=== PATIENT | female | born 1955 | race Caucasian/White ===

== ENCOUNTER 2017-09-08 02:57 | Inpatient (IN) ==
[2017-09-08] MEDS ORDERED: Morphine Inj 4 MG/ML Vial IV.PUSH ONE (03:45)
[2017-09-08] MEDS ORDERED: Sod Chloride 0.9% Inj 1,000 ML IV.CONT SCH (03:45)
[2017-09-08 03:57] LABS: Bilirubin,Urine Negative (Negative); Clarity,Urine Clear (Clear); Color,Urine Straw (Yellw/Straw); Glucose,Urine (UA) Negative (Negative); Leukocyte Esterase,Urine Negative (Negative); Nitrite,Urine Negative (Negative); Specific Gravity,Urine 1.012 (1.002-1.035); Squamous Epithelial Cell,Urine 2 /hpf (0-5)
--- NOTE | 2017-09-08 04:10 | ED ---
HPI General Chief complaint: Abdominal Pain Stated complaint: ABD Pain Time Seen by Provider: 09/08/17 03:29 History of Present Illness HPI narrative: The patient is a 61 year old female who presents to the [facility] emergency department with a history of abdominal pain that she reports is been present for the last week. She reports that the abdominal pain is in the left upper quadrant and sometimes will radiate down to the left lower quadrant. She reports that she has had similar pain in the past related to a bowel obstruction. She reports that she tried to go on a clear liquid diet and this did seem to help. She reports that the pain has been constant and waxing and waning in severity, however this evening and became much worse again after she ate solids. The patient denies having any diarrhea. She reports that her last bowel movement was 2 days ago. She reports that this evening she has had nausea and vomiting 2. She has a prior history of ulcerative colitis status post partial bowel resection. 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 The patient additionally has chronic low back pain and is on hydrocodone for this. She reports that she suffers with daily constipation and uses a laxative regularly to move her bowels. The patient incidentally also reports that she has had urinary frequency throughout the day today. She denies having any dysuria or urinary urgency. On review of systems otherwise, the patient denies having any known recent fevers, cough or congestion, neck pain, chest pain, shortness of breath, or neurologic symptoms. Related Data Home Medications Medication Instructions Recorded Confirmed conjugated estrogens [Premarin] 1.25 mg PO DAILY 09/08/17 09/08/17 gabapentin 800 mg PO TID 09/08/17 09/08/17 hydrocodone-acetaminophen 1 tab PO TID PRN 09/08/17 09/08/17 levothyroxine [Synthroid] 125 mcg PO DAILY 09/08/17 09/08/17 lorazepam [Ativan] 2 mg PO TID 09/08/17 09/08/17 magnesium 500 mg PO DAILY 09/08/17 09/08/17 metoclopramide HCl [Reglan] 5 mg PO DAILY 09/08/17 09/08/17 pantoprazole [Protonix] 40 mg PO DAILY 09/08/17 09/08/17 pentosan polysulfate sodium 100 mg PO TID 09/08/17 09/08/17 [Elmiron] potassium 200 mg PO DAILY 09/08/17 09/08/17 sennosides [Senokot] 8.6 mg PO BID PRN 09/08/17 09/08/17 sodium chloride 2 tab PO DAILY 09/08/17 09/08/17 sucralfate [Carafate] 1 g PO TID 09/08/17 09/08/17 tizanidine 4 mg PO TID 09/08/17 09/08/17 Allergies Allergy/AdvReac Type Severity Reaction Status Date / Time codeine Allergy Severe Itching Verified 09/08/17 06:28 penicillin G Allergy Unknown Itching Verified 09/08/17 06:28 Sulfa (Sulfonamide Allergy Unknown Itching Verified 09/08/17 06:28 Antibiotics) SHELL FISH, MORPHINE Allergy Severe Itching Uncoded 09/08/17 06:28 Review of Systems ROS Unobtainable All other systems reviewed negative except as stated in HPI PMFSH History History Provided By: Patient Medical History Medical History Anxiety disorder (Acute) Asthma (Acute) Chronic back pain (Acute) GERD (gastroesophageal reflux disease) (Acute) H/O: hysterectomy (Acute) Hypothyroidism (Acute) Migraines (Acute) Ulcerative colitis (Acute) Surgical History Surgical History History of back surgery (Acute) History of partial colectomy (Acute) Hx of cholecystectomy (Acute) Social History Social History Substance History: No History of Abuse Second Hand Smoke Exposure: Yes Smoking Status: Never smoker How Often Do You Have a Drink Containing Alcohol: Never Exam [facility] Head: normocephalic and atraumatic Nose: no nasal discharge and no epistaxis Mouth: moist mucous membranes Eyes Sclera: normal sclerae Pupils: PERRL Neck Neck: trachea midline and no JVD Resp Effort & Inspection: no use of accessory muscles Auscultation: clear to auscultation bilaterally Cardio Rate: regular rate Rhythm: regular rhythm Heart Sounds: no murmurs GI Inspection: non-distended Palpation: soft, no hepatosplenomegaly and tender (The patient has tenderness on palpation of the left upper quadrant of the abdomen, no other tenderness on palpation of the other quadrants. No rebound, guarding, or rigidity. No tenderness on palpation of McBurney's point. Negative Zepeda sign.) Skin General: dry skin (warm) Neuro General: alert and awake Cranial Nerves: other Speech: speech normal Motor: no movement abnormalities noted Extrem General: normal to inspection, no clubbing, no cyanosis and no edema Psych Mood: congruent mood Affect: normal affect Judgment: judgment good Course Hospital Course: During the course of the patient's emergency department visit, the patient's history, examination, and differential diagnosis were reviewed with the patient. The patient was placed on a environmental monitoring specialist with oximetry and frequent blood pressure monitoring. The patient had IV access obtained and blood work sent for analysis. The patient was initially provided normal saline 1 L IV fluid bolus, morphine 4 mg IV for pain, Reglan 5 mg IV for nausea. Reevaluation(s) Reevaluation #1: The patient continued to have abdominal pain unrelieved with morphine. The patient was given Dilaudid 1 mg IV. On reevaluation, the patient recalls that she was recently told that her sedimentation rate was elevated and abdominal pain, therefore her doctor started her on a prednisone taper. She reports that she started this approximately a week ago. Reevaluation #2: After coming back from CAT scan, the patient's abdominal pain recurred and the patient was requesting additional pain relief. The patient was given another milligram of Dilaudid IV. Consultations Consultation #1: The patient's case including history, pertinent physical examination findings, and laboratory studies were discussed with Dr. Ramirez. It was agreed that the patient would be admitted to the hospitalist service. Initial Documented Vital Signs Temperature 98 F 09/08/17 03:00 Pulse Rate 90 09/08/17 03:00 Respiratory Rate 22 09/08/17 03:00 Blood Pressure 212/108 H 09/08/17 03:00 Pulse Oximetry 95 09/08/17 03:00 Last Documented Vital Signs Temperature 98 F 09/08/17 03:00 Pulse Rate 85 09/08/17 03:05 Respiratory Rate 18 09/08/17 03:05 Blood Pressure 192/115 H 09/08/17 03:05 Pulse Oximetry 95 09/08/17 03:00 Medical Decision Making MDM Narrative Medical decision making narrative: The patient's diagnostic testing is remarkable for a white count of 13.1, hemoglobin 12.1, platelets 381 with, a neutrophil percent of 68.8, PT 10, PTT 23.2 CMP is remarkable for a total bilirubin of 0.1, GFR 63, lipase 158, cardiac enzymes within normal limits. Urinalysis showed small occult blood, less than 1 RBC, otherwise unremarkable. Culture not indicated. CT scan of the abdomen and pelvis shows no acute findings according to the reading radiologist. The patient is noted to have a mild amount of stool throughout the colon. No dilated loops of small or large bowel. The patient's results were discussed with her. The patient continues to have recurrent abdominal pain requiring IV pain medication for relief. The patient will be admitted for intractable abdominal pain and observation. The patient's results were discussed with the patient, including the plan of care. I explained that further testing and/ or monitoring is indicated based on the patient's history, examination, and/ or laboratory findings. Therefore, I recommended admission for additional evaluation. The patient expressed understanding and was agreeable with this plan. The patient was admitted to the hospital in stable condition and sent to a bed under the care of the [facility] service. Differential Diagnosis Differential Diagnosis: Bowel obstruction, versus pancreatitis, versus gastritis , versus peptic ulcer disease, versus perforated bowel, versus diverticulitis Medical Records Medical records reviewed: Yes I reviewed the patient's medical records. Lab Data Lab results reviewed: Yes I reviewed the patient's lab results. Result diagrams: 09/08/17 04:05 09/08/17 04:05 Lab Results 09/08/17 09/08/17 09/08/17 Range/Units 03:46 04:05 04:05 WBC 13.1 H (4.0-11.0) th/mm3 RBC 3.89 L (4.00-5.30) mil/mm3 Hgb 12.1 (11.6-15.3) gm/dL Hct 35.8 (35.0-46.0) % MCV 91.9 (80.0-100.0) fL MCH 31.1 (27.0-34.0) pg MCHC 33.8 (32.0-36.0) % RDW 14.2 (11.6-17.2) % Plt Count 381 (150-450) th/mm3 MPV 7.3 (7.0-11.0) fL Neut % (Auto) 68.8 (16.0-70.0) % Lymph % (Auto) 23.1 (9.0-44.0) % [place] % (Auto) 6.9 (0.0-8.0) % Eos % (Auto) 0.5 (0.0-4.0) % Baso % (Auto) 0.7 (0.0-2.0) % Neut # (Auto) 9.0 H (1.8-7.7) th/mm3 Lymph # (Auto) 3.0 (1.0-4.8) th/mm3 [place] # (Auto) 0.9 (0.0-0.9) th/mm3 Eos # (Auto) 0.1 (0.0-0.4) th/mm3 Baso # (Auto) 0.1 (0.0-0.2) th/mm3 WBC Differential . Differential Comment Auto diff final PT 10.0 (9.8-11.6) sec INR 1.0 Ratio APTT 23.2 L (24.3-30.1) sec Sodium (136-145) meq/L Potassium (3.5-5.1) meq/L Chloride (98-107) meq/L Carbon Dioxide (21.0-32.0) meq/L Anion Gap (5-15) meq/L BUN (7-18) mg/dL Creatinine (0.50-1.00) mg/dL Estimated GFR (>89) mL/min Random Glucose (74-106) mg/dL Lactic Acid (0.4-2.0) mmol/L Calcium (8.5-10.1) mg/dL Total Bilirubin (0.2-1.0) mg/dL AST (15-37) U/L ALT (10-53) U/L Alkaline Phosphatase (45-117) U/L Total Creatine Kinase (26-192) U/L Troponin I (0.02-0.05) ng/mL Total Protein (6.4-8.2) g/dL Albumin (3.4-5.0) g/dL Lipase (73-393) U/L Urine Color Straw (Yellw/Straw) Urine Clarity Clear (Clear) Urine pH 7.0 (5.0-8.5) Ur Specific [place] 1.012 (1.002-1.035) Urine Protein Negative (Neg-Trace) mg/dL Urine Glucose (UA) Negative (Negative) mg/dL Urine Ketones Negative (Negative) mg/dL Urine Occult Blood Small H (Negative) Urine Nitrate Negative (Negative) Urine Bilirubin Negative (Negative) Urine Urobilinogen Less than 2 (Less than 2) mg/dL Ur Leukocyte Esterase Negative (Negative) Urine RBC Less than 1 (0-3) /hpf Urine WBC Less than 1 (0-5) /hpf Ur Squamous Epith Cells 2 (0-5) /hpf Micro UA Comment Culture not ind Urine Culture Comments Culture not ind 09/08/17 09/08/17 Range/Units 04:05 04:05 WBC (4.0-11.0) th/mm3 RBC (4.00-5.30) mil/mm3 Hgb (11.6-15.3) gm/dL Hct (35.0-46.0) % MCV (80.0-100.0) fL MCH (27.0-34.0) pg MCHC (32.0-36.0) % RDW (11.6-17.2) % Plt Count (150-450) th/mm3 MPV (7.0-11.0) fL Neut % (Auto) (16.0-70.0) % Lymph % (Auto) (9.0-44.0) % [place] % (Auto) (0.0-8.0) % Eos % (Auto) (0.0-4.0) % Baso % (Auto) (0.0-2.0) % Neut # (Auto) (1.8-7.7) th/mm3 Lymph # (Auto) (1.0-4.8) th/mm3 [place] # (Auto) (0.0-0.9) th/mm3 Eos # (Auto) (0.0-0.4) th/mm3 Baso # (Auto) (0.0-0.2) th/mm3 WBC Differential Differential Comment PT (9.8-11.6) sec INR Ratio APTT (24.3-30.1) sec Sodium 138 (136-145) meq/L Potassium 4.0 (3.5-5.1) meq/L Chloride 99 (98-107) meq/L Carbon Dioxide 27.4 (21.0-32.0) meq/L Anion Gap 12 (5-15) meq/L BUN 14 (7-18) mg/dL Creatinine 0.91 (0.50-1.00) mg/dL Estimated GFR 63 L (>89) mL/min Random Glucose 100 (74-106) mg/dL Lactic Acid 2.0 (0.4-2.0) mmol/L Calcium 10.0 (8.5-10.1) mg/dL Total Bilirubin 0.1 L (0.2-1.0) mg/dL AST 15 (15-37) U/L ALT 18 (10-53) U/L Alkaline Phosphatase 108 (45-117) U/L Total Creatine Kinase 68 (26-192) U/L Troponin I Less than 0.02 L (0.02-0.05) ng/mL Total Protein 7.6 (6.4-8.2) g/dL Albumin 3.5 (3.4-5.0) g/dL Lipase 158 (73-393) U/L Urine Color (Yellw/Straw) Urine Clarity (Clear) Urine pH (5.0-8.5) Ur Specific [place] (1.002-1.035) Urine Protein (Neg-Trace) mg/dL Urine Glucose (UA) (Negative) mg/dL Urine Ketones (Negative) mg/dL Urine Occult Blood (Negative) Urine Nitrate (Negative) Urine Bilirubin (Negative) Urine Urobilinogen (Less than 2) mg/dL Ur Leukocyte Esterase (Negative) Urine RBC (0-3) /hpf Urine WBC (0-5) /hpf Ur Squamous Epith Cells (0-5) /hpf Micro UA Comment Urine Culture Comments Imaging Data Radiologist's impression: ITS Impressions Chest X-Ray 09/08/17 03:31 CONCLUSION: The lungs are clear. Abdomen/Pelvis CT 09/08/17 04:11 CONCLUSION: 1. No acute findings. Discharge Plan Discharge Disposition Patient Disposition: 30 Still Patient Discharge Condition Condition: Stable Discharge Details Discharge Problem: Intractable abdominal pain Physicians Team ED Provider: Florina Bethea Primary Care Provider: Chance Banda Attending Provider: Marci Ramirez ED Status: Admitted Observation Patient
--- NOTE | 2017-09-08 04:12 | XR ---
EXAM DATE: 09/08/2017 4:05 AM EDT AGE/SEX: 61 years / Female INDICATIONS: Chest pain. CLINICAL DATA: This is the patient's initial encounter. Patient reports that signs and symptoms have been present for 1 day and indicates a pain score of 10/10. MEDICAL/SURGICAL HISTORY: Cardiovascular disease. Diabetes mellitus type II. Cholecystectomy. Discectomy, lumbar. Hysterectomy. COMPARISON: No prior exams available for comparison. FINDINGS: A single AP view of the chest demonstrates the lungs to be symmetrically aerated without evidence of mass, infiltrate or effusion. The cardiomediastinal contours are unremarkable. Osseous structures a re intact. CONCLUSION: The lungs are clear. Electronically signed by: Magdiel Tolbert MD 09/08/2017 4:10 AM EDT
[2017-09-08 04:23] LABS: Baso # (Auto) 0.1 th/mm3 (0.0-0.2); Baso % (Auto) 0.7 % (0.0-2.0); Eos # (Auto) 0.1 th/mm3 (0.0-0.4); Eos % (Auto) 0.5 % (0.0-4.0); Hematocrit 35.8 % (35.0-46.0); Hemoglobin 12.1 gm/dL (11.6-15.3); Lymph % (Auto) 23.1 % (9.0-44.0); Mean Corpuscular HGB Conc 33.8 % (32.0-36.0); Mean Corpuscular Hemoglobin 31.1 pg (27.0-34.0); Mean Corpuscular Volume 91.9 fL (80.0-100.0); Mean Platelet Volume 7.3 fL (7.0-11.0); Mono # (Auto) 0.9 th/mm3 (0.0-0.9); Mono % (Auto) 6.9 % (0.0-8.0); Neut % (Auto) 68.8 % (16.0-70.0); Platelet Count 381 th/mm3 (150-450); Red Blood Count 3.89 mil/mm3 (4.00-5.30); Red Cell Distribution Width 14.2 % (11.6-17.2); White Blood Count 13.1 th/mm3 (4.0-11.0)
[2017-09-08 04:31] LABS: Activated Partial Thrombo Time 23.2 sec (24.3-30.1)
[2017-09-08 04:59] LABS: Albumin 3.5 g/dL (3.4-5.0); Anion Gap 12 meq/L (5-15); Aspartate Aminotransferase 15 U/L (15-37); Blood Urea Nitrogen 14 mg/dL (7-18); Carbon Dioxide 27.4 meq/L (21.0-32.0); Chloride 99 meq/L (98-107); Glomerular Filtration Rate 63 mL/min (>89); Glucose,Random 100 mg/dL (74-106); Lipase 158 U/L (73-393); Sodium 138 meq/L (136-145)
[2017-09-08 05:00] LABS: Alanine Aminotransferase 18 U/L (10-53)
[2017-09-08 05:04] LABS: Alkaline Phosphatase 108 U/L (45-117); Total Protein 7.6 g/dL (6.4-8.2)
[2017-09-08 05:10] LABS: Creatine Kinase 68 U/L (26-192)
[2017-09-08] MEDS ORDERED: HYDROmorphone PF Inj 1 MG/ML Ampul IV.PUSH ONE ×2 (05:10→07:20)
[2017-09-08] MEDS ORDERED: HYDROmorphone PF Inj 2 MG/ML Vial ONE ×2 (05:21→08:22)
[2017-09-08] MEDS ORDERED: Gadodiamide PF Inj 287 MG/ML 10 ML Syringe (for RAD MRI) IVCONTRAST ONE (07:37)
[2017-09-08] MEDS ORDERED: Acetaminophen 325 MG Tablet PO PRN (07:57)
[2017-09-08] MEDS ORDERED: HYDROmorphone PF Inj 2 MG/ML Vial IV.PUSH ONE (08:30)
[2017-09-08] MEDS: Enoxaparin Inj 40 MG/0.4 ML Syringe SQ SCH (09:44)
--- NOTE | 2017-09-08 10:35 | P.HPIM ---
History of Present Illness Primary Care Physician: Chance Banda MD Chief Complaint: abdominal pain, nausea, vomiting History of Present Illness: The patient is a pleasant 61 year old female who has a past medical history of ulcerative colitis, GERD, anxiety disorder, asthma, chronic back pain follows with pain management as outpatient, hypothyroidism, migraines who presents to the [facility] emergency department with a history of abdominal pain that she reports is been present for the last week. She reports that the abdominal pain is in the left upper quadrant and sometimes will radiate down to the left lower quadrant. She reports that she has had similar pain in the past related to a bowel obstruction. She reports that she tried to go on a clear liquid diet and this did seem to help. She reports that the pain has been constant and waxing and waning in severity, however this evening and became much worse again after she ate solids. The patient denies having any diarrhea. She reports that her last bowel movement was 2 days ago. She reports that this evening she has had nausea and vomiting 2. She has a prior history of ulcerative colitis status post partial bowel resection. 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 The patient additionally has chronic low back pain and is on hydrocodone for this. She reports that she suffers with daily constipation and uses a laxative regularly to move her bowels. The patient incidentally also reports that she has had urinary frequency throughout the day today. She denies having any dysuria or urinary urgency. On review of systems otherwise, the patient denies having any known recent fevers, cough or congestion, neck pain, chest pain, shortness of breath, or neurologic symptoms. - Inpatient Certification If this patient has been admitted as an Inpatient: I certify that the inpatient services were ordered in accordance with Medicare regulations governing the order. This includes certification that hospital inpatient services are reasonable and necessary and in the case of services not specified as inpatient-only under 42 CFR 419.22(n), that they are appropriately provided as inpatient services in accordance to with the 2-midnight benchmark under 43 CFR 412.3(e) Plans for Post Hospital Care: Home Review of Systems ROS Reviewed and negative except as mentioned in HPI PMFSH - History History Provided By: Patient - Medical History Medical History: Medical History (Last Reviewed 09/08/17 @ 08:35 by Tayler Mayer) Anxiety disorder Asthma Chronic back pain GERD (gastroesophageal reflux disease) H/O: hysterectomy Hypothyroidism Migraines Ulcerative colitis - Surgical History Surgical History: Surgical History (Last Updated 09/08/17 @ 04:08 by Florina Bethea MD) History of back surgery History of partial colectomy Hx of cholecystectomy - Family History Family History: Family History (Last Updated 09/08/17 @ 10:30 by Marci Ramirez MD) Father Diabetes Mother Diabetes - Tobacco History Second Hand Smoke Exposure: Yes Tobacco Use In Past 30 Days: No Smoking Status: Never smoker - Alcohol History How Often Do You Have a Drink Containing Alcohol: Never - Substance Use History Substance History: No History of Abuse - Immunization History Tetanus Immunization: >5 Years Hx Influenza Vaccine This Season: Yes Medications and Allergies Active Medications: Active Medications Acetaminophen (Tylenol) 650 mg PO Q4H PRN PRN Reason: Temp > 100.4 Enoxaparin Sodium (Lovenox Inj) 40 mg SQ Q24H [facility] Last Admin: 09/08/17 09:44 Dose: 40 mg Hydromorphone HCl (Dilaudid Pf Inj) 0.5 mg IV.PUSH Q4H PRN PRN Reason: ABDOMINAL CRAMPING Sodium Chloride (Ns Inj) 1,000 mls @ 125 mls/hr IV.CONT .Q8H MARTINEZ Stop: 09/08/17 11:44 Last Admin: 09/08/17 04:17 Dose: 125 mls/hr Ondansetron HCl (Zofran Inj) 4 mg IV.PUSH Q6H PRN PRN Reason: NAUSEA OR VOMITING Sodium Chloride (Ns Flush) 2 ml IV.FLUSH PRN PRN PRN Reason: FLUSH AFTER USING IV ACCESS Allergies Allergy/AdvReac Type Severity Reaction Status Date / Time codeine Allergy Severe Itching Verified 09/08/17 06:28 penicillin G Allergy Unknown Itching Verified 09/08/17 06:28 Sulfa (Sulfonamide Allergy Unknown Itching Verified 09/08/17 06:28 Antibiotics) SHELL FISH, MORPHINE Allergy Severe Itching Uncoded 09/08/17 06:28 Home Medications Medication Instructions Recorded Confirmed Type conjugated estrogens [Premarin] 1.25 mg PO DAILY 09/08/17 09/08/17 History gabapentin 800 mg PO TID 09/08/17 09/08/17 History hydrocodone-acetaminophen 1 tab PO TID PRN 09/08/17 09/08/17 History levothyroxine [Synthroid] 125 mcg PO DAILY 09/08/17 09/08/17 History lorazepam [Ativan] 2 mg PO TID 09/08/17 09/08/17 History magnesium 500 mg PO DAILY 09/08/17 09/08/17 History metoclopramide HCl [Reglan] 5 mg PO DAILY 09/08/17 09/08/17 History pantoprazole [Protonix] 40 mg PO DAILY 09/08/17 09/08/17 History pentosan polysulfate sodium 100 mg PO TID 09/08/17 09/08/17 History [Elmiron] potassium 200 mg PO DAILY 09/08/17 09/08/17 History sennosides [Senokot] 8.6 mg PO BID PRN 09/08/17 09/08/17 History sodium chloride 2 tab PO DAILY 09/08/17 09/08/17 History sucralfate [Carafate] 1 g PO TID 09/08/17 09/08/17 History tizanidine 4 mg PO TID 09/08/17 09/08/17 History Exam Vital signs: Vital Signs 09/08/17 03:00 09/08/17 03:05 09/08/17 07:05 Temperature 98 F Pulse Rate 90 85 105 H Respiratory Rate 22 18 18 Blood Pressure 212/108 H 192/115 H Pulse Oximetry 95 95 09/08/17 07:57 Temperature Pulse Rate Respiratory Rate Blood Pressure 142/99 H Pulse Oximetry Intake & Output 09/07/17 09/08/17 09/08/17 18:59 06:59 18:59 Weight 89.1 kg Narrative: GENERAL: This is a very pleasant 61-year-old female, well-nourished, well- developed patient appears in some distress due to pain SKIN: Warm and dry. HEAD: Atraumatic. Normocephalic. EYES: Pupils equal and round. No scleral icterus. No injection or drainage. ENT: No nasal bleeding or discharge. Mucous membranes pink and moist. NECK: Trachea midline. No JVD. CARDIOVASCULAR: Regular rate and rhythm. RESPIRATORY: No accessory muscle use. Clear to auscultation. Breath sounds equal bilaterally. GASTROINTESTINAL: Midabdominal old scar. Abdomen soft, tenderness left upper abdominal quadrant, nondistended. MUSCULOSKELETAL: Extremities without clubbing, cyanosis, or edema. No obvious deformities. NEUROLOGICAL: Awake and alert. No obvious cranial nerve deficits. Motor grossly within normal limits. Five out of 5 muscle strength in the arms and legs. Normal speech. PSYCHIATRIC: Appropriate mood and affect; insight and judgment normal. Results - Labs CBC & Chem 7: 09/08/17 04:05 09/08/17 04:05 Labs: Short CBC 09/08/17 Range/Units 04:05 WBC 13.1 H (4.0-11.0) th/mm3 Hgb 12.1 (11.6-15.3) gm/dL Hct 35.8 (35.0-46.0) % Plt Count 381 (150-450) th/mm3 BMP 09/08/17 04:05 Sodium 138 Potassium 4.0 Chloride 99 Carbon Dioxide 27.4 BUN 14 Creatinine 0.91 Calcium 10.0 Cardiac Enzymes 09/08/17 Range/Units 04:05 Total Creatine Kinase 68 (26-192) U/L Troponin I Less than 0.02 L (0.02-0.05) ng/mL Liver Function 09/08/17 Range/Units 04:05 Total Bilirubin 0.1 L (0.2-1.0) mg/dL AST 15 (15-37) U/L ALT 18 (10-53) U/L Alkaline Phosphatase 108 (45-117) U/L Albumin 3.5 (3.4-5.0) g/dL Urine 09/08/17 Range/Units 03:46 Urine Color Straw (Yellw/Straw) Urine Clarity Clear (Clear) Urine pH 7.0 (5.0-8.5) Ur Specific [place] 1.012 (1.002-1.035) Urine Protein Negative (Neg-Trace) mg/dL Urine Glucose (UA) Negative (Negative) mg/dL - Imaging Impressions Chest X-Ray 09/08/17 03:31 CONCLUSION: The lungs are clear. Abdomen/Pelvis CT 09/08/17 04:11 CONCLUSION: 1. No acute findings. Caprini VTE Risk Assessment Caprini VTE Risk Assessment: Moderate/High Risk (score >= 2) Caprini Risk Assessment Model: Point Value = 1 Point Value = 2 Point Value = 3 Point Value = 5 Age 41-60 Minor surgery BMI > 25 kg/m2 Swollen legs Varicose veins or History of unexplained or recurrent spontaneous Oral contraceptives or hormone replacement Sepsis (< 1 month) Serious lung disease, including pneumonia (< 1 month) Abnormal pulmonary function Acute myocardial infarction Congestive heart failure (< 1 month) History of inflammatory bowel disease Medical patient at bed rest Age 61-74 Arthroscopic surgery Major open surgery (> 45 min) Laparoscopic surgery (> 45 min) Malignancy Confined to bed (> 72 hours) Immobilizing plaster cast Central venous access Age >= 75 History of VTE Family history of VTE Factor V Leiden Prothrombin [id number] Lupus anticoagulant Anticardiolipin antibodies Elevated serum homocysteine Heparin-induced thrombocytopenia Other congenital or acquired thrombophilia Stroke (< 1 month) Elective arthroplasty Hip, pelvis, or leg fracture Acute spinal cord injury (< 1 month) Prophylaxis Regimen: Total Risk Factor Score Risk Level Prophylaxis Regimen 0-1 Low Early ambulation 2 Moderate Order ONE of the following: *Sequential Compression Device (SCD) *Heparin 5000 units SQ BID 3-4 Higher Order ONE of the following medications: *Heparin 5000 units SQ TID *Enoxaparin/Lovenox 40 mg SQ daily (WT < 150 kg, CrCl > 30 mL/min) *Enoxaparin/Lovenox 30 mg SQ daily (WT < 150 kg, CrCl > 10-29 mL/min) *Enoxaparin/Lovenox 30 mg SQ BID (WT < 150 kg, CrCl > 30 mL/min) AND/OR *Sequential Compression Device (SCD) 5 or more Highest Order ONE of the following medications: *Heparin 5000 units SQ TID (Preferred with Epidurals) *Enoxaparin/Lovenox 40 mg SQ daily (WT < 150 kg, CrCl > 30 mL/min) *Enoxaparin/Lovenox 30 mg SQ daily (WT < 150 kg, CrCl > 10-29 mL/min) *Enoxaparin/Lovenox 30 mg SQ BID (WT < 150 kg, CrCl > 30 mL/min) AND *Sequential Compression Device (SCD) Assessment and Plan - Plan The patient is a very pleasant 61-year-old female with multiple medical problems who came to the emergency room with complaints of intractable abdominal pain, nausea and vomiting: Intractable abdominal pain/ with h/o Ulcerative colitis/ GERD (gastroesophageal reflux disease) CT abdomen reviewed and findings discussed with Dr. Bethea ED physician. No acute findings Add antiemetics Dilaudid 0.5 mg every 4 hours as needed for pain Clear liquid diet advance as tolerated We will consider consulting gastroenterology for further evaluation and recommendations Chronic medical problems appears stable. Restart home medications as appropriate: Anxiety disorder Asthma Chronic back pain follows with pain management as well Hypothyroidism Migraines DVT prophylaxis SCDs/teds/Lovenox Discussed Condition With: The patient, family at both bedside her , ED physician Dr. Bethea, nurse
[2017-09-08] MEDS ORDERED: PENTOSAN 100 MG PO SCH (13:00)
[2017-09-08] MEDS: HYDROmorphone PF Inj 2 MG/ML Vial IV.PUSH PRN ×3 (13:02→22:03)
[2017-09-08] MEDS ORDERED: hydrALAZINE 10 MG Tablet PO PRN (13:11)
[2017-09-08] MEDS: Sucralfate 1 GM Tablet PO SCH ×2 (14:17→17:39)
[2017-09-08] MEDS: Gabapentin 400 MG Capsule PO SCH ×2 (14:17→17:32)
[2017-09-08] MEDS: Potassium Chloride Inj 10 MEQ in Dextrose 5%/NaCl 0.9% Inj 1,000 ML IV.CONT SCH (22:03)
[2017-09-09] MEDS: HYDROmorphone PF Inj 2 MG/ML Vial IV.PUSH PRN ×3 (02:49→12:54)
[2017-09-09] MEDS: Levothyroxine 125 MCG Tablet PO SCH (05:28)
[2017-09-09 06:24] LABS: Baso % (Auto) 0.4 % (0.0-2.0); Eos # (Auto) 0.4 th/mm3 (0.0-0.4); Eos % (Auto) 4.5 % (0.0-4.0); Hematocrit 32.3 % (35.0-46.0); Hemoglobin 10.8 gm/dL (11.6-15.3); Lymph # (Auto) 4.1 th/mm3 (1.0-4.8); Lymph % (Auto) 43.6 % (9.0-44.0); Mean Corpuscular HGB Conc 33.5 % (32.0-36.0); Mean Corpuscular Hemoglobin 31.6 pg (27.0-34.0); Mean Corpuscular Volume 94.3 fL (80.0-100.0); Mean Platelet Volume 7.7 fL (7.0-11.0); Mono # (Auto) 0.8 th/mm3 (0.0-0.9); Mono % (Auto) 8.8 % (0.0-8.0); Neut % (Auto) 42.7 % (16.0-70.0); Platelet Count 306 th/mm3 (150-450); Red Blood Count 3.42 mil/mm3 (4.00-5.30); Red Cell Distribution Width 14.2 % (11.6-17.2); White Blood Count 9.4 th/mm3 (4.0-11.0)
[2017-09-09 07:04] LABS: Alanine Aminotransferase 15 U/L (10-53); Albumin 3.1 g/dL (3.4-5.0); Alkaline Phosphatase 83 U/L (45-117); Anion Gap 10 meq/L (5-15); Aspartate Aminotransferase 13 U/L (15-37); Blood Urea Nitrogen 12 mg/dL (7-18); Calcium 8.4 mg/dL (8.5-10.1); Carbon Dioxide 26.7 meq/L (21.0-32.0); Chloride 103 meq/L (98-107); Glomerular Filtration Rate 84 mL/min (>89); Glucose,Random 82 mg/dL (74-106); Potassium 3.8 meq/L (3.5-5.1); Sodium 140 meq/L (136-145); Total Protein 6.2 g/dL (6.4-8.2)
[2017-09-09] MEDS: Metoclopramide 10 MG Tablet PO SCH ×4 (07:32→22:01)
[2017-09-09] MEDS ORDERED: POTASSIUM 200 MG PO SCH (09:00)
[2017-09-09] MEDS: Magnesium Oxide 400 MG Tablet PO SCH (09:02)
[2017-09-09] MEDS: ESTROGENS CONJUGATED 1.25 MG PO SCH (09:02)
[2017-09-09] MEDS: Enoxaparin Inj 40 MG/0.4 ML Syringe SQ SCH (09:03)
[2017-09-09] MEDS: Sodium Chloride 1 GM Tablet PO SCH (09:03)
[2017-09-09] MEDS: Gabapentin 400 MG Capsule PO SCH ×3 (09:03→17:00)
[2017-09-09] MEDS: Sucralfate 1 GM Tablet PO SCH ×3 (09:03→17:24)
--- NOTE | 2017-09-09 11:17 | P.PN ---
Subjective Interval history: Follow-up visit ulcerative colitis, GERD, anxiety, chronic back pain with pain management and outpatient, abdominal pain, nausea, vomiting. Patient seen and examined today. at bedside. Reports she has severe abdominal pain and over left quadrant upper to lower radiates around the area into her suprapubic area, aggravated by palpation and movement, relieved by pain medication. Patient also complains of headaches states that she has some migraines takes butalbital from home. Denies pain and discomfort. Denies SOB/ dyspnea. Denies chest pain, palpitations, headaches, dizziness. Denies fevers, chills, n/ v/d. Denies hematuria, dysuria. Physical Exam Vital signs: Vital Signs 09/08/17 11:18 09/08/17 13:26 09/08/17 13:28 Temperature Pulse Rate 85 Respiratory Rate 18 15 16 Blood Pressure 222/126 H 178/77 H Pulse Oximetry 95 98 100 09/08/17 16:13 09/08/17 20:00 09/08/17 23:00 Temperature 97.9 F 97.9 F Pulse Rate 66 74 51 L Respiratory Rate 16 16 Blood Pressure 187/86 H 177/73 H Pulse Oximetry 97 95 09/08/17 23:56 09/09/17 03:10 09/09/17 03:24 Temperature 97.8 F 98.1 F Pulse Rate 60 55 L 63 Respiratory Rate 16 16 Blood Pressure 142/69 H 158/76 H Pulse Oximetry 95 95 09/09/17 08:27 09/09/17 10:53 Temperature 98.3 F Pulse Rate 59 L 58 L Respiratory Rate 16 Blood Pressure 181/81 H Pulse Oximetry 94 L Intake & Output 09/08/17 09/09/17 09/09/17 18:59 06:59 18:59 Intake Total 500 / 500 Balance 500 / 500 Intake: IV 500 / 500 NS Inj 1,000 ML @ 125 mls/hr IV 500 / 500 .CONT .Q8H [facility] Rx#:[id number] Narrative: GENERAL: This is a well-nourished, well-developed patient, in no apparent distress. SKIN: Warm and dry. HEENT: Normocephalic. Pupils equal round and reactive. Nose without bleeding. Airway patent. NECK: Trachea midline. No JVD. Supple. CARDIOVASCULAR: Regular rate and rhythm without murmurs, gallops, or rubs. RESPIRATORY: Clear to auscultation. Breath sounds equal bilaterally. No wheezes , rales, or rhonchi. GASTROINTESTINAL: Abdomen soft, nondistended. Bowel Sounds hypoactive. Tenderness to mild palpation left quadrant. MUSCULOSKELETAL: Extremities without clubbing, cyanosis, or edema. NEUROLOGICAL: Awake and alert. Oriented to time, place, person. No focal neuro deficit. Moves all extremities. Normal speech. Results - Labs CBC & Chem 7: 09/09/17 05:05 09/09/17 05:05 Laboratory Results - last 24 hr 09/09/17 09/09/17 05:05 05:05 WBC 9.4 RBC 3.42 L Hgb 10.8 L Hct 32.3 L MCV 94.3 MCH 31.6 MCHC 33.5 RDW 14.2 Plt Count 306 MPV 7.7 Neut % (Auto) 42.7 Lymph % (Auto) 43.6 [place] % (Auto) 8.8 H Eos % (Auto) 4.5 H Baso % (Auto) 0.4 Neut # (Auto) 4.0 Lymph # (Auto) 4.1 [place] # (Auto) 0.8 Eos # (Auto) 0.4 Baso # (Auto) 0.0 WBC Differential . Differential Comment Auto diff final Sodium 140 Potassium 3.8 Chloride 103 Carbon Dioxide 26.7 Anion Gap 10 BUN 12 Creatinine 0.71 Estimated GFR 84 L Random Glucose 82 Calcium 8.4 L D Total Bilirubin 0.2 AST 13 L ALT 15 Alkaline Phosphatase 83 Total Protein 6.2 L D Albumin 3.1 L Assessment and Plan - Plan The patient is a very pleasant 61-year-old female with multiple medical problems who came to the emergency room with complaints of intractable abdominal pain, nausea and vomiting: Intractable abdominal pain/ with h/o Ulcerative colitis/ GERD (gastroesophageal reflux disease) History of diverticulitis Possible gastroparesis -on narcotic medications from home, chronic constipation with obstruction -CT abdomen reviewed and findings discussed with Dr. Bethea ED physician. No acute findings -Add antiemetics reglan ACHS, zofran -Dilaudid 0.5 mg every 4 hours as needed for pain -Clear liquid diet advance as tolerated -We will consider consulting gastroenterology for further evaluation and recommendations Anxiety disorder -Continue home medications Asthma, not in exacerbation Chronic back pain follows with pain management -Dilaudid IV for breakthrough -Restart [place] Hypothyroidism -Restart home medication Migraines -Restart home medication DVT prophylaxis SCDs/teds/Lovenox Code Status: Full Code Discussed Condition With: Patient, , nursing Discharge Planning: Plan to discharge home when clinically improved.
--- NOTE | 2017-09-09 15:48 | P.CONGI ---
History of Present Illness Consult date: 09/09/17 Consult reason: Abdominal pain, history of UC Chief complaint: Intractable abdominal pain History of Present Illness: This is a 61 yo F with GI history significant for ulcerative colitis, small bowel obstruction, gastric ulcer, intestinal stricture (unsure of location). Pt is currently being managed by GI doctor at [place], Dr. Guerrero, last seen 6 months ago. Pt has history of partial sigmoid resection in 1994, not currently on any medication for her UC and has not been for some time. Reports history of intestinal stricture, unsure of location?, last had double balloon enteroscopy with stricture dilatation by Dr. Gardner 2 years ago. Pt presented to the ER yesterday with complaints of left sided abdominal pain. She states she began not feeling well about a week ago, went to her PCP who put her on Prednisone and she was instructed to take clear liquids. Pt was doing ok on clear liquids so she advanced herself to soft foods and then two days ago had her first regular consistency meal which she states made the pain worse. Pain is located in her left abdomen, constant, described as sharp. Pain is worse with food, movement, and palpation. Reports epigastric pain earlier in the week which is now resolved. Also reports nausea and two episodes of emesis yesterday, denies hematemesis and coffee ground emesis. Pt also reports no BM in 2 days but has been passing some gas. Denies hematochezia and melena. She has chronic constipation secondary to chronic opiate use and takes Symproic with good relief. Because she has been nauseous she has not taken this in a few days. Last colonoscopy 2 years ago, denies active colitis at that time. Denies ETOH and smoking. Family history significant for sister and father with UC and her mother also has some type of colitis. Sister from colon cancer. <Arlene Farias - Last Filed: 09/09/17 15:24> Review of Systems Constitutional: Reports fatigue, Reports weakness Gastrointestinal: Reports abdominal pain, Reports constipation, Reports nausea, Reports vomiting, Denies black, tarry stools, Denies bright, red blood in stools , Denies vomiting blood <Arlene Farias - Last Filed: 09/09/17 15:24> PMFSH - History History Provided By: Patient - Medical History Medical History: Medical History (Last Updated 09/08/17 @ 13:53 by Sera Howard RN) Diabetes Frequent urinary tract infections Gastroparesis Interstitial cystitis Rheumatoid arthritis Anxiety disorder Asthma Chronic back pain GERD (gastroesophageal reflux disease) H/O: hysterectomy Hypothyroidism Migraines Ulcerative colitis - Surgical History Surgical History: Surgical History (Last Updated 09/08/17 @ 04:08 by Florina Bethea MD) History of back surgery History of partial colectomy Hx of cholecystectomy - Family History Family History: Family History (Last Updated 09/08/17 @ 10:30 by Marci Ramirez MD) Father Diabetes Mother Diabetes - Tobacco History Second Hand Smoke Exposure: No Tobacco Use In Past 30 Days: No Smoking Status: Never smoker - Alcohol History How Often Do You Have a Drink Containing Alcohol: Never - Substance Use History Substance History: No History of Abuse - Travel History Recent Travel in the [place] Within the Last 8 Weeks: No Recent Travel Out of the Country Within the Last 8 Weeks: No - Immunization History Tetanus Immunization: >5 Years Hx Influenza Vaccine This Season: Yes <Arlene Farias - Last Filed: 09/09/17 15:24> - Medical History Medical History: Medical History (Last Updated 09/08/17 @ 13:53 by Sear Howard, RN) Diabetes Frequent urinary tract infections Gastroparesis Interstitial cystitis Rheumatoid arthritis Anxiety disorder Asthma Chronic back pain GERD (gastroesophageal reflux disease) H/O: hysterectomy Hypothyroidism Migraines Ulcerative colitis - Surgical History Surgical History: Surgical History (Last Updated 09/08/17 @ 04:08 by Florina Bethea MD) History of back surgery History of partial colectomy Hx of cholecystectomy - Family History Family History: Family History (Last Updated 09/08/17 @ 10:30 by Marci Ramirez MD) Father Diabetes Mother Diabetes <Linda Lara - Last Filed: 09/09/17 18:52> Medications and Allergies Active Medications: Active Medications Acetaminophen (Tylenol) 650 mg PO Q4H PRN PRN Reason: Temp > 100.4 Acetaminophen/Butalbital/Caffeine (Fioricet 50-325-40) 1 tab PO BID PRN PRN Reason: MIGRAINE HEADACHE Diphenhydramine HCl (Benadryl Inj) 25 mg IV.PUSH Q6H PRN PRN Reason: pruritus Last Admin: 09/09/17 14:40 Dose: 25 mg Enalaprilat (Vasotec Inj) 2.5 mg IV.PUSH Q8H PRN PRN Reason: BP> 160/ 90 if unable po Enoxaparin Sodium (Lovenox Inj) 40 mg SQ Q24H [facility] Last Admin: 09/09/17 09:03 Dose: 40 mg Estrogens Conjugated (Premarin) 1.25 mg PO DAILY [facility] Last Admin: 09/09/17 09:02 Dose: 1.25 mg Gabapentin (Neurontin) 800 mg PO TID [facility] Last Admin: 09/09/17 12:28 Dose: 800 mg Hydralazine HCl (Apresoline) 10 mg PO QID PRN PRN Reason: BP > 160/90 Hydromorphone HCl (Dilaudid Pf Inj) 0.5 mg IV.PUSH Q4H PRN PRN Reason: ABDOMINAL PAIN Last Admin: 09/09/17 12:54 Dose: 0.5 mg Potassium Chloride 10 meq/ (Dextrose/Sodium Chloride) 1,005 mls @ 42 mls/hr IV.CONT .[id number] [facility] Last Admin: 09/08/17 22:03 Dose: 42 mls/hr Levothyroxine Sodium (Synthroid) 125 mcg PO DAILY@0600 [facility] Last Admin: 09/09/17 05:28 Dose: 125 mcg Lorazepam (Ativan) 2 mg PO TID [facility] Last Admin: 09/09/17 12:29 Dose: 2 mg Magnesium Oxide (Mag-Ox) 400 mg PO DAILY [facility] Last Admin: 09/09/17 09:02 Dose: 400 mg Metoclopramide HCl (Reglan) 5 mg PO DAILY [facility] Last Admin: 09/09/17 09:03 Dose: 5 mg Metoclopramide HCl (Reglan Inj) 5 mg IV.PUSH Q8H PRN; Protocol PRN Reason: NAUSEA OR VOMITING Last Admin: 09/08/17 22:05 Dose: 5 mg Metoclopramide HCl (Reglan) 10 mg PO [facility] Ondansetron HCl (Zofran Inj) 4 mg IV.PUSH Q6H PRN PRN Reason: NAUSEA OR VOMITING Ondansetron HCl (Zofran Odt) 4 mg PO Q6H PRN PRN Reason: NAUSEA Last Admin: 09/09/17 12:29 Dose: 4 mg Pantoprazole Sodium (Protonix) 40 mg PO DAILY [facility] Last Admin: 09/09/17 09:03 Dose: 40 mg Pt Own Pentosan 100 (Mg) 1 each PO TID [facility] Sennosides (Senokot) 8.6 mg PO BID PRN PRN Reason: Constipation Sodium Chloride (Ns Flush) 2 ml IV.FLUSH PRN PRN PRN Reason: FLUSH AFTER USING IV ACCESS Sodium Chloride (Sodium Chloride) 1 gm PO DAILY [facility] Last Admin: 09/09/17 09:03 Dose: 1 gm Sucralfate (Carafate) 1 gm PO TID [facility] Last Admin: 09/09/17 12:28 Dose: 1 gm Tizanidine HCl (Zanaflex) 4 mg PO TID [facility] Last Admin: 09/09/17 12:29 Dose: 4 mg <Arlene Farias - Last Filed: 09/09/17 15:24> Active Medications: Active Medications Acetaminophen (Tylenol) 650 mg PO Q4H PRN PRN Reason: Temp > 100.4 Acetaminophen/Butalbital/Caffeine (Fioricet 50-325-40) 1 tab PO BID PRN PRN Reason: MIGRAINE HEADACHE Last Admin: 09/09/17 16:14 Dose: 1 tab Diphenhydramine HCl (Benadryl Inj) 25 mg IV.PUSH Q6H PRN PRN Reason: pruritus Last Admin: 09/09/17 14:40 Dose: 25 mg Enalaprilat (Vasotec Inj) 2.5 mg IV.PUSH Q8H PRN PRN Reason: BP> 160/ 90 if unable po Enoxaparin Sodium (Lovenox Inj) 40 mg SQ Q24H [facility] Last Admin: 09/09/17 09:03 Dose: 40 mg Estrogens Conjugated (Premarin) 1.25 mg PO DAILY [facility] Last Admin: 09/09/17 09:02 Dose: 1.25 mg Gabapentin (Neurontin) 800 mg PO TID [facility] Last Admin: 09/09/17 17:00 Dose: 800 mg Hydralazine HCl (Apresoline) 10 mg PO QID PRN PRN Reason: BP > 160/90 Hydromorphone HCl (Dilaudid Pf Inj) 0.5 mg IV.PUSH Q4H PRN PRN Reason: ABDOMINAL PAIN Last Admin: 09/09/17 12:54 Dose: 0.5 mg Potassium Chloride 10 meq/ (Dextrose/Sodium Chloride) 1,005 mls @ 42 mls/hr IV.CONT .[id number] [facility] Last Admin: 09/08/17 22:03 Dose: 42 mls/hr Levothyroxine Sodium (Synthroid) 125 mcg PO DAILY@0600 [facility] Last Admin: 09/09/17 05:28 Dose: 125 mcg Lorazepam (Ativan) 2 mg PO TID [facility] Last Admin: 09/09/17 17:24 Dose: 2 mg Magnesium Oxide (Mag-Ox) 400 mg PO DAILY [facility] Last Admin: 09/09/17 09:02 Dose: 400 mg Methylprednisolone Sodium Succinate (Solumedrol Inj) 40 mg IV.PUSH Q12HR [facility] Metoclopramide HCl (Reglan) 5 mg PO DAILY [facility] Last Admin: 09/09/17 09:03 Dose: 5 mg Metoclopramide HCl (Reglan Inj) 5 mg IV.PUSH Q8H PRN; Protocol PRN Reason: NAUSEA OR VOMITING Last Admin: 09/09/17 15:26 Dose: 5 mg Metoclopramide HCl (Reglan) 10 mg PO [facility] Ondansetron HCl (Zofran Inj) 4 mg IV.PUSH Q6H PRN PRN Reason: NAUSEA OR VOMITING Ondansetron HCl (Zofran Odt) 4 mg PO Q6H PRN PRN Reason: NAUSEA Last Admin: 09/09/17 12:29 Dose: 4 mg Pantoprazole Sodium (Protonix) 40 mg PO DAILY [facility] Last Admin: 09/09/17 09:03 Dose: 40 mg Pt Own Pentosan 100 (Mg) 1 each PO TID [facility] Sennosides (Senokot) 8.6 mg PO BID PRN PRN Reason: Constipation Sodium Chloride (Ns Flush) 2 ml IV.FLUSH PRN PRN PRN Reason: FLUSH AFTER USING IV ACCESS Sodium Chloride (Sodium Chloride) 1 gm PO DAILY [facility] Last Admin: 09/09/17 09:03 Dose: 1 gm Sucralfate (Carafate) 1 gm PO TID [facility] Last Admin: 09/09/17 17:24 Dose: 1 gm Tizanidine HCl (Zanaflex) 4 mg PO TID [facility] Last Admin: 09/09/17 17:24 Dose: 4 mg <Linda Lara - Last Filed: 09/09/17 18:52> Allergies Allergy/AdvReac Type Severity Reaction Status Date / Time codeine Allergy Severe Itching Verified 09/08/17 06:28 erythromycin base Allergy Intermediate Hives Verified 09/08/17 13:56 fentanyl Allergy Intermediate Hives, Verified 09/08/17 13:56 LIPS SWELLING, TORO latex Allergy Intermediate Hives Verified 09/08/17 13:56 strawberry Allergy Mild Hives Verified 09/08/17 13:56 penicillin G Allergy Unknown Itching Verified 09/08/17 06:28 Sulfa (Sulfonamide Allergy Unknown Itching Verified 09/08/17 06:28 Antibiotics) SHELL FISH, MORPHINE Allergy Severe Anaphylaxis Uncoded 09/08/17 13:56 Home Medications Medication Instructions Recorded Confirmed Type Ativan 1 mg PO HS 09/08/17 09/08/17 History [id number] 5 mg PO PRN 09/08/17 History conjugated estrogens [Premarin] 1.25 mg PO DAILY 09/08/17 09/08/17 History gabapentin 600 mg PO HS NEB 09/08/17 09/08/17 History gabapentin 800 mg PO TID 09/08/17 09/08/17 History hydrocodone-acetaminophen 1 tab PO TID PRN 09/08/17 09/08/17 History levothyroxine [Synthroid] 125 mcg PO DAILY 09/08/17 09/08/17 History lorazepam [Ativan] 2 mg PO TID 09/08/17 09/08/17 History magnesium 250 mg PO BID 09/08/17 09/08/17 History metoclopramide HCl [Reglan] 5 mg PO DAILY 09/08/17 09/08/17 History pantoprazole [Protonix] 40 mg PO BID 09/08/17 09/08/17 History pentosan polysulfate sodium 100 mg PO TID 09/08/17 09/08/17 History [Elmiron] phenazopyridine [Pyridium] 200 mg PO TID PRN 09/08/17 09/08/17 History potassium 200 mg PO DAILY 09/08/17 09/08/17 History sennosides [Senokot] 8.6 mg PO BID PRN 09/08/17 09/08/17 History sodium chloride 2 tab PO DAILY 09/08/17 09/08/17 History sucralfate [Carafate] 1 g PO TID 09/08/17 09/08/17 History tizanidine 4 mg PO TID 09/08/17 09/08/17 History Exam Vital signs: Vital Signs 09/08/17 16:13 09/08/17 20:00 09/08/17 23:00 Temperature 97.9 F 97.9 F Pulse Rate 66 74 51 L Respiratory Rate 16 16 Blood Pressure 187/86 H 177/73 H Pulse Oximetry 97 95 09/08/17 23:56 09/09/17 03:10 09/09/17 03:24 Temperature 97.8 F 98.1 F Pulse Rate 60 55 L 63 Respiratory Rate 16 16 Blood Pressure 142/69 H 158/76 H Pulse Oximetry 95 95 09/09/17 08:27 09/09/17 10:53 09/09/17 13:13 Temperature 98.3 F 98.0 F Pulse Rate 59 L 58 L 66 Respiratory Rate 16 18 Blood Pressure 181/81 H 148/71 H Pulse Oximetry 94 L 95 Intake & Output 09/08/17 09/09/17 09/09/17 18:59 06:59 18:59 Intake Total 500 / 500 Balance 500 / 500 Intake: IV 500 / 500 NS Inj 1,000 ML @ 125 mls/hr IV 500 / 500 .CONT .Q8H [facility] Rx#:[id number] - Constitutional no acute distress - Routine HEENT Exam Head: Present: normocephalic, atraumatic - Routine Respiratory Exam Present: CTA bilaterally. Absent: accessory muscle use - Routine Cardiovascular Exam Present: RRR - Routine Abdominal Exam Present: soft, normoactive bowel sounds, tenderness (left sided abdominal tenderness ), guarding. Absent: distended, rebound, firm <Arlene Farias - Last Filed: 09/09/17 15:24> Vital signs: Vital Signs 09/08/17 20:00 09/08/17 23:00 09/08/17 23:56 Temperature 97.9 F 97.8 F Pulse Rate 74 51 L 60 Respiratory Rate 16 16 Blood Pressure 177/73 H 142/69 H Pulse Oximetry 95 95 09/09/17 03:10 09/09/17 03:24 09/09/17 08:27 Temperature 98.1 F 98.3 F Pulse Rate 55 L 63 59 L Respiratory Rate 16 16 Blood Pressure 158/76 H 181/81 H Pulse Oximetry 95 94 L 09/09/17 10:53 09/09/17 13:13 09/09/17 16:00 Temperature 98.0 F 98.1 F Pulse Rate 58 L 66 84 Respiratory Rate 18 16 Blood Pressure 148/71 H 143/72 H Pulse Oximetry 95 94 L Intake & Output 09/08/17 09/09/17 09/09/17 18:59 06:59 18:59 Intake Total 500 / 500 500 / 500 Balance 500 / 500 500 / 500 Intake: IV 500 / 500 NS Inj 1,000 ML @ 125 mls/hr IV 500 / 500 .CONT .Q8H [facility] Rx#:[id number] Oral 500 / 500 <Linda Lara - Last Filed: 09/09/17 18:52> Results - Labs CBC & Chem 7: 09/09/17 05:05 09/09/17 05:05 Labs: Laboratory Results - last 24 hr 09/09/17 09/09/17 05:05 05:05 WBC 9.4 RBC 3.42 L Hgb 10.8 L Hct 32.3 L MCV 94.3 MCH 31.6 MCHC 33.5 RDW 14.2 Plt Count 306 MPV 7.7 Neut % (Auto) 42.7 Lymph % (Auto) 43.6 [place] % (Auto) 8.8 H Eos % (Auto) 4.5 H Baso % (Auto) 0.4 Neut # (Auto) 4.0 Lymph # (Auto) 4.1 [place] # (Auto) 0.8 Eos # (Auto) 0.4 Baso # (Auto) 0.0 WBC Differential . Differential Comment Auto diff final Sodium 140 Potassium 3.8 Chloride 103 Carbon Dioxide 26.7 Anion Gap 10 BUN 12 Creatinine 0.71 Estimated GFR 84 L Random Glucose 82 Calcium 8.4 L D Total Bilirubin 0.2 AST 13 L ALT 15 Alkaline Phosphatase 83 Total Protein 6.2 L D Albumin 3.1 L <Arleen Farias - Last Filed: 09/09/17 15:24> - Labs CBC & Chem 7: 09/09/17 05:05 09/09/17 05:05 Labs: Laboratory Results - last 24 hr 09/09/17 09/09/17 05:05 05:05 WBC 9.4 RBC 3.42 L Hgb 10.8 L Hct 32.3 L MCV 94.3 MCH 31.6 MCHC 33.5 RDW 14.2 Plt Count 306 MPV 7.7 Neut % (Auto) 42.7 Lymph % (Auto) 43.6 [place] % (Auto) 8.8 H Eos % (Auto) 4.5 H Baso % (Auto) 0.4 Neut # (Auto) 4.0 Lymph # (Auto) 4.1 [place] # (Auto) 0.8 Eos # (Auto) 0.4 Baso # (Auto) 0.0 WBC Differential . Differential Comment Auto diff final Sodium 140 Potassium 3.8 Chloride 103 Carbon Dioxide 26.7 Anion Gap 10 BUN 12 Creatinine 0.71 Estimated GFR 84 L Random Glucose 82 Calcium 8.4 L D Total Bilirubin 0.2 AST 13 L ALT 15 Alkaline Phosphatase 83 Total Protein 6.2 L D Albumin 3.1 L <Linda Lara - Last Filed: 09/09/17 18:52> Assessment and Plan (1) Ulcerative colitis Status: Acute Code(s): K51.90 - Ulcerative colitis, unspecified, without complications (2) Nausea and vomiting Status: Acute Code(s): R11.2 - Nausea with vomiting, unspecified (3) Constipation due to opioid therapy Status: Acute Code(s): K59.03 - Drug induced constipation; T40.2X5A - Adverse effect of other opioids, initial encounter (4) Family history of colon cancer Status: Acute Code(s): Z80.0 - Family history of malignant neoplasm of digestive organs - Plan Assessment: - Abdominal pain- states L sided abdominal pain, constant, began about a week ago and initially resolved when her PCP started her on Prednisone and told her to go on clear liquid diet. She advanced to soft foods and did OK and then had a regular consistency meal two days ago which made the pain worse. Pain worse with PO intake, moving , and palpation. CT abdomen and pelvis WO IV contrast (09/08) No acute findings. Last colonoscopy 2 years ago, states no active colitis. - History of UC S/P sigmoid resection in 1994, not currently on any medications for UC. Follows Dr. Guerrero at [facility], last saw her 6 months ago. History of intestinal stricture, previous double balloon enteroscopy with stricture dilatation 2 years ago. - Epigastric pain- earlier in the week, now resolved. States history of gastric ulcer. - Nausea and vomiting for the past few days- vomiting x 2 yesterday, denies hematemesis and coffee ground emesis. - Constipation- chronic secondary to opiate intake- takes Symporic at home but has not taken for the past few days due to vomiting- no BM x 2 days reports she is still passing gas. Denies hematochezia and melena. Plan: EGD and colonoscopy tomorrow Obtain consent Clear liquids today Mag Citrate prep NPO after MN Hold Lovenox in AM Methylprednisolone Antiemetics PRN Relistor will help if needed for opioid constipation Further recommendations based on findings of above and clinical course Pt has been seen and examined by myself and Dr. Lara and this note is written on her behalf <Arlene Farias - Last Filed: 09/09/17 15:24> (1) Ulcerative colitis Status: Acute Code(s): K51.90 - Ulcerative colitis, unspecified, without complications (2) Nausea and vomiting Status: Acute Code(s): R11.2 - Nausea with vomiting, unspecified (3) Constipation due to opioid therapy Status: Acute Code(s): K59.03 - Drug induced constipation; T40.2X5A - Adverse effect of other opioids, initial encounter (4) Family history of colon cancer Status: Acute Code(s): Z80.0 - Family history of malignant neoplasm of digestive organs - Attending Attestation seen, examined agree with above <Linda Lara - Last Filed: 09/09/17 18:52>
[2017-09-09] MEDS ORDERED: Magnesium Citrate Liq 300 ML Bottle PO ONE ×2 (16:00→18:00)
[2017-09-09] MEDS: Butalbital/APAP/Caff 50/325/40 MG Tablet PO PRN (16:14)
[2017-09-09] MEDS: MethylPREDNISolone Sod Succinate Inj 40 MG/ML Vial IV.PUSH SCH (22:02)
[2017-09-09] MEDS: Potassium Chloride Inj 10 MEQ in Dextrose 5%/NaCl 0.9% Inj 1,000 ML IV.CONT SCH (22:10)
[2017-09-10] MEDS: HYDROmorphone PF Inj 2 MG/ML Vial IV.PUSH PRN ×6 (00:18→21:02)
[2017-09-10] MEDS ORDERED: Sodium Chlor 0.9% Inj 500 ML IV.SIG SCH (06:00)
[2017-09-10] MEDS ORDERED: Metoprolol Tartrate 25 MG Tablet PO SCH (06:00)
[2017-09-10] MEDS ORDERED: Chlorhexidine Gluconate 2% 1 Pack (2 Cloths) TOPICAL SCH (06:00)
[2017-09-10] MEDS: Levothyroxine 125 MCG Tablet PO SCH (06:03)
[2017-09-10] MEDS: Sodium Chloride 1 GM Tablet PO SCH (08:24)
[2017-09-10] MEDS: Sucralfate 1 GM Tablet PO SCH ×3 (08:24→17:01)
[2017-09-10] MEDS: ESTROGENS CONJUGATED 1.25 MG PO SCH (08:24)
[2017-09-10] MEDS: Gabapentin 400 MG Capsule PO SCH ×3 (08:24→17:01)
[2017-09-10] MEDS: Magnesium Oxide 400 MG Tablet PO SCH (08:25)
[2017-09-10] MEDS: MethylPREDNISolone Sod Succinate Inj 40 MG/ML Vial IV.PUSH SCH ×2 (08:25→21:02)
--- NOTE | 2017-09-10 09:56 | P.PN ---
Subjective Interval history: Follow-up visit ulcerative colitis, GERD, anxiety, chronic back pain with pain management and outpatient, abdominal pain, nausea, vomiting. Patient seen and examined today. at bedside. States she has been having loose stools last night because of the bowel prep otherwise she continues to have left quadrant pain with sharp pain in the suprapubic area. She also continues to have some nausea. Denies SOB/ dyspnea. Denies chest pain, palpitations, headaches, dizziness. Denies fevers, chills. Denies hematuria, dysuria. Physical Exam Vital signs: Vital Signs 09/09/17 10:53 09/09/17 13:13 09/09/17 16:00 Temperature 98.0 F 98.1 F Pulse Rate 58 L 66 84 Respiratory Rate 18 16 Blood Pressure 148/71 H 143/72 H Pulse Oximetry 95 94 L 09/09/17 20:00 09/10/17 03:40 09/10/17 04:45 Temperature 98 F Pulse Rate 74 84 74 Respiratory Rate 16 18 Blood Pressure 123/63 190/83 H Pulse Oximetry 94 L 95 09/10/17 06:01 09/10/17 09:40 09/10/17 09:55 Temperature 97.9 F Pulse Rate 68 Respiratory Rate Blood Pressure 141/98 H 177/76 H Pulse Oximetry 92 L 95 Intake & Output 09/09/17 09/10/17 09/10/17 18:59 06:59 18:59 Intake Total 500 / 500 1000 / 1000 Balance 500 / 500 1000 / 1000 Weight 89.1 kg Intake: IV 1000 / 1000 KCl Inj 10 MEQ In D5W/Normal 1000 / 1000 Saline Inj 1,000 ML @ 42 mls/hr IV.CONT .[id number] [facility] Rx#: [id number] Oral 500 / 500 Other: # Bowel Movements 8 Weight On Admission 89.1 kg Narrative: GENERAL: This is a well-nourished, well-developed patient, in no apparent distress. SKIN: Warm and dry. HEENT: Normocephalic. Pupils equal round and reactive. Nose without bleeding. Airway patent. NECK: Trachea midline. No JVD. Supple. CARDIOVASCULAR: Regular rate and rhythm without murmurs, gallops, or rubs. RESPIRATORY: Clear to auscultation. Breath sounds equal bilaterally. No wheezes , rales, or rhonchi. GASTROINTESTINAL: Abdomen soft, nondistended. Bowel Sounds hypoactive. Tenderness to mild palpation left quadrant. MUSCULOSKELETAL: Extremities without clubbing, cyanosis, or edema. NEUROLOGICAL: Awake and alert. Oriented to time, place, person. No focal neuro deficit. Moves all extremities. Normal speech. Results - Labs CBC & Chem 7: 09/09/17 05:05 09/09/17 05:05 Laboratory Results - last 24 hr 09/10/17 09:40 POC Glucose 114 H Assessment and Plan - Plan The patient is a very pleasant 61-year-old female with multiple medical problems who came to the emergency room with complaints of intractable abdominal pain, nausea and vomiting: Intractable abdominal pain/ with h/o Ulcerative colitis/ GERD (gastroesophageal reflux disease) History of diverticulitis Possible gastroparesis -on narcotic medications from home, chronic constipation with obstruction -CT abdomen reviewed and findings discussed with Dr. Bethea ED physician. No acute findings -Add antiemetics reglan ACHS, zofran -Dilaudid 0.5 mg every 4 hours as needed for pain -GI consult appreciate recommendations. -N.p.o. for now. Plan for EGD colonoscopy by GI. Anxiety disorder -Continue home medications Asthma, not in exacerbation Chronic back pain follows with pain management -Dilaudid IV for breakthrough -[place] as needed Hypothyroidism -Restart home medication Migraines -Restart home medication DVT prophylaxis SCDs/teds/Lovenox Code Status: Full code Discussed Condition With: Patient, , nursing Discharge Planning: Plan to discharge home when clinically improved.
[2017-09-10] MEDS: Metoclopramide 10 MG Tablet PO SCH ×2 (10:21→21:01)
[2017-09-10] MEDS ORDERED: Lidocaine PF 1% Inj 5 ML Syringe INFILTRATN ONE (12:00)
--- NOTE | 2017-09-10 13:11 | GIPROC ---
[facility] [address] [facility]. [facility], [address] COLONOSCOPY PROCEDURE REPORT EXAM DATE: 09/10/2017 PATIENT NAME: Shreya Wallace MR #: [id number] BIRTHDATE: 1955 ENDOSCOPIST: Linda Lara MD ORDER #: [id number] TRANSPLANTER ORCHID: Jojo Cast and João Thomas STATUS: inpatient INDICATIONS: The patient is a 61 yr old female here for a colonoscopy due to history of ulcerative colitis - PROCEDURE PERFORMED: Colonoscopy with biopsy MEDICATIONS: None and Per Anesthesia. PREP QUALITY: poor PREP TYPE:Other: ESTIMATED BLOOD LOSS: None CONSENT: The patient understands the risks and benefits of the procedure and understands that these risks include, but are not limited to: sedation, allergic reaction, infection, perforation and/or bleeding. Alternative means of evaluation and treatment include, among others: physical exam, x-rays, and/or surgical intervention. The patient elects to proceed with this endoscopic procedure. medical equipment was checked for proper function. Hand hygiene and appropriate measures for infection prevention was taken. After the risks, benefits and alternatives of the procedure were thoroughly explained, Informed consent was verified, confirmed and timeout was successfully executed by the treatment team. A digital exam revealed external hemorrhoids The Pentax EC-[id number] endoscope was introduced through the anus and advanced to the cecum, which was identified by both the appendix and ileocecal valve. The instrument was then slowly withdrawn as the colon was fully examined. COLON FINDINGS: Normal colonoscopy-random biopsies from ascending, transverse, descening surgical changes in sigmoid. Retroflexed views revealed internal hemorrhoids and Retroflexed views revealed small internal hemorrhoids The scope was then completely withdrawn from the patient and the procedure terminated. PROCEDURE WITHDRAWAL TIME:6minutes ADVERSE EVENTS: There were no complications. IMPRESSIONS: 1. Normal colonoscopy-random biopsies from ascending, transverse, descening surgical changes in sigmoid 2. Retroflexed views revealed internal hemorrhoids 3. Retroflexed views revealed small internal hemorrhoids 4. Revealed external hemorrhoids RECOMMENDATIONS: 1. Await biopsy results. Biopsy results will not be ready for 7-10 days. If you don't hear from us in two weeks, call our office for results. 2. Probiotics from any [facility] or [employer] store RECALL: Return 1 year Colonoscopy Linda Lara MD eSigned: Linda Lara MD 09/10/2017 1:10 PM cc:
--- NOTE | 2017-09-10 13:14 | GIPROC ---
[facility] [address] [facility]. [facility], [address] EGD PROCEDURE REPORT EXAM DATE: 09/10/2017 PATIENT NAME: Shreya Wallace MR #: [id number] BIRTHDATE: 1955 ATTENDING: Linda Lara MD ORDER #: [id number] PAN SHAKER: Jojo Cast and João Thomas STATUS: inpatient INDICATIONS: The patient is a 61 yr old female here for an EGD due to nausea, vomiting, gastroparesis, abdominal pain PROCEDURE PERFORMED: EGD w/ biopsy MEDICATIONS: None and Per Anesthesia. TOPICAL ANESTHETIC: none CONSENT: The patient understands the risks and benefits of the procedure and understands that these risks include, but are not limited to: sedation, allergic reaction, infection, perforation and/or bleeding. Alternative means of evaluation and treatment include, among others: physical exam, x-rays, and/or surgical intervention. The patient elects to proceed with this endoscopic procedure. medical equipment was checked for proper function. Hand hygiene and appropriate measures for infection prevention was taken. After the risks, benefits and alternatives of the procedure were thoroughly explained, Informed consent was verified, confirmed and timeout was successfully executed by the treatment team. The patient was anesthetized with topical anesthesia and the EC-[id number] (Pedi C) endoscope was introduced through the mouth and advanced to the second portion of the duodenum. Retroflexed views revealed a hiatal hernia The gastroscope was then slowly withdrawn and removed. Duodenum normal biopsy gastritis antrum-biopsy esophagitis distal esophagus -white deposits r/o gorge - retained food stomach. ADVERSE EVENTS: There were no complications. IMPRESSIONS: 1. Duodenum normal biopsy gastritis antrum-biopsy esophagitis distal esophagus -white deposits r/o gorge - retained food stomach 2. Retroflexed views revealed a hiatal hernia RECOMMENDATIONS: 1. Await biopsy results. Biopsy results will not be ready for 7-10 days. If you don't hear from us in two weeks, call our office for biopsy results. 2. Anti-reflux regimen 3. Continue PPI 4. Nystatin MRA abdomen-r/o mesenteric ischemia trial of bethanechol 10 mg po tid if not better consider egd/botox PATIENT CONDITION: stable DISPOSITION: Inpatient REPEAT EXAM: Return 1 year EGD Linad Lara MD eSigned: Linda Lara MD 09/10/2017 1:13 PM cc: PATIENT NAME: Shreya Wallace MR#: [id number]
--- NOTE | 2017-09-10 13:56 | ECG ---
Date Performed: 09/10/2017 Time Performed: 11:19:37 PTAGE: 61 years EKG: Marked baseline artifact Sinus rhythm WITH FIRST DEGREE AV BLOCK PREVIOUS TRACING : 03/27/2005 11.44 DOCTOR: Shay Curtis Interpretating Date/Time 09/10/2017 13:54:51
[2017-09-10] MEDS ORDERED: Gadodiamide PF Inj 287 MG/ML 10 ML Syringe (for RAD MRI) IVCONTRAST ONE (16:37)
--- NOTE | 2017-09-10 17:19 | MR ---
EXAM DATE: 09/10/2017 5:12 PM EDT AGE/SEX: 61 years / Female INDICATIONS: Abdominal pain. CLINICAL DATA: This is the patient's initial encounter. Patient reports that signs and symptoms have been present for 1 day and indicates a pain score of 5/10. MEDICAL/SURGICAL HISTORY: Gastroparesis. Diabetes mellitus type II. Rheumatoid arthritis. Co litis. Hysterectomy. Discectomy, lumbar. Cholecystectomy. Hip replacement. COMPARISON: [facility] [place], CT ABDOMEN & PELVIS W/O CONTRAST, 09/08/2017. . TECHNIQUE: 30 ml Omniscan (gadodiamide) contrast infused MR angiography (single exam dose) was perf ormed with digital subtraction. The data was postprocessed with a variety of visualization algorithm s including full-volume maximum-intensity projection, multiplanar sliding thin slab reformation, and curved planar reformation. FINDINGS: Abdominal Aorta: The lumen is smooth without significant narrowing or aneurysmal dilation. The pr oximal celiac and superior mesenteric arteries are patent and normal in diameter. Renal Arteries: There are solitary renal arteries bilaterally. No evidence of ostial or segmental s tenosis. Kidneys: There is symmetric renal size. There is homogeneous enhancement in the parenchyma. Bifurcation: Normal. Right Pelvis: The right common iliac, internal iliac, and external iliac vessels are patent without luminal irregularity. Left Pelvis: The left common iliac, internal iliac, and external iliac vessels are patent and withou t luminal irregularity. Retroperitoneum: The adrenal glands are unremarkable. No adenopathy seen. Multiple benign-appearing hepatic cysts are seen throughout the liver. CONCLUSION: 1. Unremarkable MRA of the abdomen. Specifically, no focal stenosis is demonstrated involving the ce liac or SMA vessels. 2. Multiple scattered benign-appearing hepatic cysts are seen throughout the liver. Electronically signed by: Ryan Carbajal MD 09/10/2017 5:18 PM EDT
[2017-09-11] MEDS: HYDROmorphone PF Inj 2 MG/ML Vial IV.PUSH PRN ×4 (00:07→19:29)
[2017-09-11] MEDS: Potassium Chloride Inj 10 MEQ in Dextrose 5%/NaCl 0.9% Inj 1,000 ML IV.CONT SCH (04:10)
[2017-09-11] MEDS: Levothyroxine 125 MCG Tablet PO SCH (06:01)
[2017-09-11] MEDS: MethylPREDNISolone Sod Succinate Inj 40 MG/ML Vial IV.PUSH SCH ×2 (10:01→21:15)
[2017-09-11] MEDS: Enoxaparin Inj 40 MG/0.4 ML Syringe SQ SCH (10:04)
[2017-09-11] MEDS: Sodium Chloride 1 GM Tablet PO SCH (10:05)
[2017-09-11] MEDS: Sucralfate 1 GM Tablet PO SCH (10:05)
[2017-09-11] MEDS: Magnesium Oxide 400 MG Tablet PO SCH (10:06)
[2017-09-11] MEDS: Gabapentin 400 MG Capsule PO SCH ×3 (10:06→17:56)
[2017-09-11] MEDS: ESTROGENS CONJUGATED 1.25 MG PO SCH (10:06)
--- NOTE | 2017-09-11 10:26 | P.PN ---
Subjective Interval history: Follow-up visit ulcerative colitis, GERD, anxiety, chronic back pain with pain management and outpatient, abdominal pain, nausea, vomiting. Patient seen and examined today. Continue to have pain, 8/10, dull, achy occasionally sharp, midepigastric region going through the left upper quadrant of the abdomen. States she is also lactose intolerant. States she was trying to eat breakfast but would start with Glucerna first and see if she tolerates. Otherwise, denies SOB/ dyspnea. Denies chest pain, palpitations, headaches, dizziness. Denies fevers, chills. Denies dysuria. Discussed with patient extensively that she will now take p.o. medication and avoid IV Dilaudid. Physical Exam Vital signs: Vital Signs 09/10/17 10:59 09/10/17 13:26 09/10/17 17:55 Temperature 97.4 F L Pulse Rate 76 67 Respiratory Rate 18 Blood Pressure 180/79 H 150/79 H Pulse Oximetry 98 09/10/17 19:45 09/10/17 20:50 09/10/17 23:45 Temperature 97.9 F 98.6 F Pulse Rate 77 74 81 Respiratory Rate 18 16 Blood Pressure 126/59 L 136/61 Pulse Oximetry 95 96 09/11/17 04:00 Temperature 98.4 F Pulse Rate 74 Respiratory Rate 16 Blood Pressure 166/83 H Pulse Oximetry 96 Intake & Output 09/10/17 09/11/17 09/11/17 18:59 06:59 18:59 Intake Total 1005 / 1005 Balance 1005 / 1005 Weight 89.1 kg Intake: IV 1005 / 1005 KCl Inj 10 MEQ In D5W/Normal 1005 / 1005 Saline Inj 1,000 ML @ 42 mls/hr IV.CONT .[id number] [facility] Rx#: [id number] Other: Weight On Admission 89.1 kg Narrative: GENERAL: This is a well-nourished, well-developed patient, in no apparent distress. SKIN: Warm and dry. HEENT: Normocephalic. Pupils equal round and reactive. Nose without bleeding. Airway patent. NECK: Trachea midline. No JVD. Supple. CARDIOVASCULAR: Regular rate and rhythm without murmurs, gallops, or rubs. RESPIRATORY: Clear to auscultation. Breath sounds equal bilaterally. No wheezes , rales, or rhonchi. GASTROINTESTINAL: Abdomen soft, nondistended. Bowel Sounds hypoactive. Tenderness to mild palpation left quadrant. MUSCULOSKELETAL: Extremities without clubbing, cyanosis, or edema. NEUROLOGICAL: Awake and alert. Oriented to time, place, person. No focal neuro deficit. Moves all extremities. Normal speech. Results - Labs CBC & Chem 7: 09/09/17 05:05 09/09/17 05:05 - Imaging Impressions Abdomen MRI 09/10/17 00:00 CONCLUSION: 1. Unremarkable MRA of the abdomen. Specifically, no focal stenosis is demonstrated involving the celiac or SMA vessels. 2. Multiple scattered benign-appearing hepatic cysts are seen throughout the liver. Assessment and Plan - Plan The patient is a very pleasant 61-year-old female with multiple medical problems who came to the emergency room with complaints of intractable abdominal pain, nausea and vomiting: Intractable abdominal pain/ with h/o Ulcerative colitis/ GERD (gastroesophageal reflux disease) History of diverticulitis Possible gastroparesis -on narcotic medications from home, chronic constipation with obstruction -CT abdomen reviewed and findings discussed with Dr. Bethea ED physician. No acute findings -Antiemetics reglan ACHS, zofran -[place] for pain, Dilaudid for breakthrough pain -GI consult appreciate recommendations. -EGD and colonoscopy done by GI. EGD with gastritis, normal duodenum, esophagitis the distal esophagus with white deposits rule out Anat retained food stomach. Hiatal hernia. Recommends 1. Await biopsy results. Biopsy results will not be ready for 7-10 days. If you don't hear from us in two weeks, call our office for biopsy results. 2. Anti-reflux regimen 3. Continue PPI 4. Nystatin MRA abdomen-r/o mesenteric ischemia, trial of bethanechol 10 mg po tid, if not better consider egd/botox -Colonoscopy showed Normal colonoscopy-random biopsies from ascending, transverse, descending, surgical changes in sigmoid. Recommends probiotics. Return for 1 year colonoscopy -Patient appears to have pain seeking behavior. Spoke with GI [employer] TECHNICIAN who states that they have not told the patient to just use dilaudid, they actually encouraged her to take PO pain meds. She told them with difficulty swallowing, recommends liquid pain meds if trouble with swallowing. Discussed with Nurse. Will cont PO norco. PO Benadryl. -Plan for EGD Botox by Wednesday. Will admit patient to inpatient. Anxiety disorder -Continue home medications Asthma, not in exacerbation Chronic back pain follows with pain management -Dilaudid IV for breakthrough -[place] as needed Hypothyroidism -Restart home medication Migraines -Restart home medication DVT prophylaxis SCDs/teds/Lovenox Code Status: Full Code Discussed Condition With: Patient, nursing Discharge Planning: Plan to discharge home when clinically improved. Plan for EGD Botox Wednesday.
[2017-09-11] MEDS: Sucralfate Liq 1 GM/10 ML UDC PO SCH ×2 (13:47→17:56)
[2017-09-11] MEDS: Metoclopramide 10 MG Tablet PO SCH ×3 (14:06→21:14)
--- NOTE | 2017-09-11 14:35 | P.PNGI ---
Subjective Interval history: Patient is resting in the bed still complaints of some burning in the esophagus and nausea but no vomiting Still has IV fluids at 42 cc an hour still has some epigastric and upper abdominal tenderness Current hemoglobin 10.8 no obvious bleeding Physical Exam Vital signs: Vital Signs 09/10/17 17:55 09/10/17 19:45 09/10/17 20:50 Temperature 97.9 F Pulse Rate 77 74 Respiratory Rate 18 Blood Pressure 150/79 H 126/59 L Pulse Oximetry 95 09/10/17 23:45 09/11/17 04:00 09/11/17 08:00 Temperature 98.6 F 98.4 F 97.4 F L Pulse Rate 81 74 67 Respiratory Rate 16 16 18 Blood Pressure 136/61 166/83 H 179/92 H Pulse Oximetry 96 96 98 Intake & Output 09/10/17 09/11/17 09/11/17 18:59 06:59 18:59 Intake Total 1005 / 1005 Balance 1005 / 1005 Weight 89.1 kg Intake: IV 1005 / 1005 KCl Inj 10 MEQ In D5W/Normal 1005 / 1005 Saline Inj 1,000 ML @ 42 mls/hr IV.CONT .[id number] [facility] Rx#: [id number] Other: Weight On Admission 89.1 kg - Constitutional mild distress - Routine HEENT Exam Head: Present: normocephalic, atraumatic Eye: Present: EOMI ENT: Present: mucous membranes moist - Routine Neck Exam Present: supple - Routine Respiratory Exam Present: CTA bilaterally - Routine Abdominal Exam Present: soft, normoactive bowel sounds, tenderness (Mild upper abdominal and gastric discomfort), distended - Routine Extremities Exam Present: full ROM - Routine Skin Exam Present: intact - Routine Neurological Exam Present: alert, normal speech - Routine Psychiatric Exam Present: anxious (Mild) Results - Labs CBC & Chem 7: 09/09/17 05:05 09/09/17 05:05 - Imaging Impressions Abdomen MRI 09/10/17 00:00 CONCLUSION: 1. Unremarkable MRA of the abdomen. Specifically, no focal stenosis is demonstrated involving the celiac or SMA vessels. 2. Multiple scattered benign-appearing hepatic cysts are seen throughout the liver. Assessment and Plan (1) Ulcerative colitis Status: Acute Code(s): K51.90 - Ulcerative colitis, unspecified, without complications (2) Nausea and vomiting Status: Acute Code(s): R11.2 - Nausea with vomiting, unspecified (3) Constipation due to opioid therapy Status: Acute Code(s): K59.03 - Drug induced constipation; T40.2X5A - Adverse effect of other opioids, initial encounter (4) Family history of colon cancer Status: Acute Code(s): Z80.0 - Family history of malignant neoplasm of digestive organs - Plan Assessment: - Abdominal pain- states L sided abdominal pain, constant, began about a week ago and initially resolved when her PCP started her on Prednisone and told her to go on clear liquid diet. She advanced to soft foods and did OK and then had a regular consistency meal two days ago which made the pain worse. Pain worse with PO intake, moving , and palpation. CT abdomen and pelvis WO IV contrast (09/08) No acute findings. Last colonoscopy 2 years ago, states no active colitis. - History of UC S/P sigmoid resection in 1994, not currently on any medications for UC. Follows Dr. Guerrero at [facility], last saw her 6 months ago. History of intestinal stricture, previous double balloon enteroscopy with stricture dilatation 2 years ago. - Epigastric pain- earlier in the week, now resolved. States history of gastric ulcer. - Nausea and vomiting for the past few days- vomiting x 2 yesterday, denies hematemesis and coffee ground emesis. - Constipation- chronic secondary to opiate intake- takes Symporic at home but has not taken for the past few days due to vomiting- no BM x 2 days reports she is still passing gas. Denies hematochezia and melena. 09/11/2017 patient is resting in the bed but still complaining of mild to moderate burning in her esophagus and nausea. Currently patient remains on IV hydration at 42 cc an hour and Carafate notes some epigastric and abdominal pain and states that it hurts to swallow regular medicines in pill form. Alternate pain management for her comfort has been discussed with supportive care give. Recommended to patient that she might tolerate liquid form of pain management better at this point in time. If patient continues to have upper esophageal symptoms consider EGD with Botox. Will reevaluate in the morning Patient is status post EGD colonoscopy on 09/10/2017 results include hiatal hernia , gastritis, esophagitis possible Anat. Colonoscopy showed normal findings with random biopsies taken and internal hemorrhoids. Recommend repeat in one year. Anemia, possible acute on chronic but no obvious bleeding current hemoglobin 10.8. Plan: Diet as tolerated per attending Monitor labs with special attention hemoglobin PPI Carafate Steroids Bowel regimen Antiemetics Further recommendations to follow, patient may need EGD with Botox Pt has been seen and examined by myself and Dr. Lara and this note is written on her behalf
[2017-09-11] MEDS: Dextrose 5%/NaCl 0.9% Inj 1,000 ML IV.CONT SCH (17:58)
[2017-09-12] MEDS: HYDROmorphone PF Inj 2 MG/ML Vial IV.PUSH PRN (03:10)
[2017-09-12] MEDS: Butalbital/APAP/Caff 50/325/40 MG Tablet PO PRN ×3 (03:19→22:00)
[2017-09-12] MEDS: Levothyroxine 125 MCG Tablet PO SCH (05:22)
[2017-09-12] MEDS: Metoclopramide 10 MG Tablet PO SCH ×7 (07:32→20:38)
[2017-09-12] MEDS: Sucralfate Liq 1 GM/10 ML UDC PO SCH ×5 (07:33→20:39)
[2017-09-12] MEDS: Gabapentin 400 MG Capsule PO SCH ×3 (08:27→17:01)
[2017-09-12] MEDS: Magnesium Oxide 400 MG Tablet PO SCH (08:27)
[2017-09-12] MEDS: Sodium Chloride 1 GM Tablet PO SCH (08:28)
[2017-09-12] MEDS: Enoxaparin Inj 40 MG/0.4 ML Syringe SQ SCH (08:28)
[2017-09-12] MEDS: MethylPREDNISolone Sod Succinate Inj 40 MG/ML Vial IV.PUSH SCH ×2 (08:29→20:38)
[2017-09-12 08:43] LABS: Calcium 8.8 mg/dL (8.5-10.1); Carbon Dioxide 25.2 meq/L (21.0-32.0); Potassium 4.1 meq/L (3.5-5.1)
[2017-09-12 09:11] LABS: Baso % (Auto) 0.4 % (0.0-2.0); Eos % (Auto) 0.1 % (0.0-4.0); Hematocrit 37.1 % (35.0-46.0); Lymph # (Auto) 2.8 th/mm3 (1.0-4.8); Lymph % (Auto) 38.4 % (9.0-44.0); Mean Corpuscular HGB Conc 32.2 % (32.0-36.0); Mean Corpuscular Hemoglobin 31.1 pg (27.0-34.0); Mean Corpuscular Volume 96.6 fL (80.0-100.0); Mean Platelet Volume 7.9 fL (7.0-11.0); Mono # (Auto) 0.5 th/mm3 (0.0-0.9); Mono % (Auto) 6.2 % (0.0-8.0); Neut % (Auto) 54.9 % (16.0-70.0); Platelet Count 258 th/mm3 (150-450); Red Blood Count 3.84 mil/mm3 (4.00-5.30); Red Cell Distribution Width 14.7 % (11.6-17.2); White Blood Count 7.3 th/mm3 (4.0-11.0)
[2017-09-12] MEDS: ESTROGENS CONJUGATED 1.25 MG PO SCH (10:25)
[2017-09-12] MEDS: diphenhydrAMINE HCl 12.5 MG/5 ML Elixir UDC PO PRN ×2 (12:45→18:31)
--- NOTE | 2017-09-12 12:51 | P.DIET ---
Nutritional Evaluation Type of nutrition evaluation: initial Screening comments: MDC: Provide supplement to oral intake Objective - Diagnosis Intractable Abdominal Pain - Objective % IBW: 187 Body Weight Used for Calculations: Upper end of IBW Energy Needs - Lower Range (kCal/kg): 28 Energy Needs - Upper Range (kCal/kg): 33 Lower Limit kCal/kg (kCals): 1,477 Upper Limit kCal/kg (kCals): 1,739 Lower Limit Protein Factor (Grams per Kg): 1.1 Upper Limit Protein Factor (Grams per Kg): 1.4 Lower Protein Needs (Protein): 60 Upper Protein Needs (Protein): 74 Fluid Factor (ml/kg): 33 Estimated Fluid Needs (ml): 1,739 Dietitian Reviewed in Medical Record: Current diet, Curent medications, Intake & Output, Labs, Medical history Objective Comments: Nutrition needs based on wt of 52.7kg PMH: RA, Ulcerative Colitis, Hypothyroidism, GERD, frequent UTI's, DM, Anxiety, chronic back pain Meds include: Reglan, Synthroid +8 BM's 09/10 Assessment Assessment: Pt at nutritional risk r/t dx and medical hx. Pt admitted with Intractable abdominal pain/ with h/o Ulcerative colitis/ GERD. She is s/p EGD and colonoscopy, scheduled for EGD Botox 08/14. Pt has some complaints of difficulty swallowing. She is eating 75-100% of some meals and refusing others. She receives Glucerna shakes tid. Nutritional needs as assessed above. Will monitor pt's po intake and clinical course. Recommendations: 1800 ADA diet with Glucerna tid Dietitian following Dietitian to Monitor: Lab values, Supplement acceptance, Diet tolerance, PO Intake, Medical course
--- NOTE | 2017-09-12 15:35 | P.PN ---
Subjective Interval history: Follow-up visit ulcerative colitis, GERD, anxiety, chronic back pain with pain management outpatient, abdominal pain, nausea, vomiting. Patient seen and examined today. Reports continues to have severe abdominal pain, midepigastric region radiating towards the left side. States that he has not had a bowel movement. States that she takes medication from home for chronic opiate use and she brought it in had labeled for our pharmacy. Discussed with patient she may continue to use the medication. States that she still has nausea, no vomiting. States that she had a rough night last night, secondary to elevated BP. Discussed with patient is of narcotic medication and gastroparesis. Verbalized understanding. Denies SOB/ dyspnea. Denies chest pain, palpitations , headaches, dizziness. Denies fevers, chills. Denies dysuria. Reports frequency once started on bethanechol. Physical Exam Vital signs: Vital Signs 09/11/17 20:05 09/12/17 00:00 09/12/17 00:41 Temperature 98.1 F 98.1 F Pulse Rate 72 75 Respiratory Rate 16 20 Blood Pressure 127/60 170/85 H 176/76 H Pulse Oximetry 97 95 09/12/17 05:00 Temperature 97.5 F L Pulse Rate 60 Respiratory Rate 18 Blood Pressure 184/72 H Pulse Oximetry 94 L Intake & Output 09/11/17 09/12/17 09/12/17 18:59 06:59 18:59 Intake Total 2258 Balance 2258 Weight 89.1 kg Intake: IV 2004 LR 1000 mL Inj 1,000 ML @ 30 1000 / 1000 mls/hr IV.SIG .Q24H [facility]ARTINEZ Rx#: [id number] Other 2258 Other: Other Intake Source Saline Solution # Voids 2 5 Narrative: GENERAL: This is a well-nourished, well-developed patient, in no apparent distress. SKIN: Warm and dry. HEENT: Normocephalic. Pupils equal round and reactive. Nose without bleeding. Airway patent. NECK: Trachea midline. No JVD. Supple. CARDIOVASCULAR: Regular rate and rhythm without murmurs, gallops, or rubs. RESPIRATORY: Clear to auscultation. Breath sounds equal bilaterally. No wheezes , rales, or rhonchi. GASTROINTESTINAL: Abdomen soft, nondistended. Bowel Sounds hypoactive. Tenderness to mild palpation left quadrant. MUSCULOSKELETAL: Extremities without clubbing, cyanosis, or edema. NEUROLOGICAL: Awake and alert. Oriented to time, place, person. No focal neuro deficit. Moves all extremities. Normal speech. Results - Labs CBC & Chem 7: 09/12/17 07:20 09/12/17 07:20 Laboratory Results - last 24 hr 09/12/17 09/12/17 07:20 07:20 WBC 7.3 RBC 3.84 L Hgb 12.0 Hct 37.1 MCV 96.6 MCH 31.1 MCHC 32.2 RDW 14.7 Plt Count 258 MPV 7.9 Neut % (Auto) 54.9 Lymph % (Auto) 38.4 [place] % (Auto) 6.2 Eos % (Auto) 0.1 Baso % (Auto) 0.4 Neut # (Auto) 4.0 Lymph # (Auto) 2.8 [place] # (Auto) 0.5 Eos # (Auto) 0.0 Baso # (Auto) 0.0 WBC Differential . Differential Comment Auto diff final Sodium 139 Potassium 4.1 Chloride 104 Carbon Dioxide 25.2 Anion Gap 10 BUN 11 Creatinine 0.80 Estimated GFR 73 L Random Glucose 90 Calcium 8.8 Assessment and Plan - Plan The patient is a very pleasant 61-year-old female with multiple medical problems who came to the emergency room with complaints of intractable abdominal pain, nausea and vomiting: Intractable abdominal pain/ with h/o Ulcerative colitis/ GERD (gastroesophageal reflux disease) History of diverticulitis Possible gastroparesis -on narcotic medications from home, chronic constipation with obstruction -CT abdomen reviewed No acute findings -Antiemetics reglan ACHS, zofran scheduled -[place] for pain, 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 -EGD and colonoscopy done by GI. EGD with gastritis, normal duodenum, esophagitis the distal esophagus with white deposits rule out Anat retained food stomach. Hiatal hernia. Recommends 1. Await biopsy results. Biopsy results will not be ready for 7-10 days. If you don't hear from us in two weeks, call our office for biopsy results. 2. Anti-reflux regimen 3. Continue PPI 4. Nystatin MRA abdomen-r/o mesenteric ischemia, trial of bethanechol 10 mg po tid, if not better consider egd/botox -Colonoscopy showed Normal colonoscopy-random biopsies from ascending, transverse, descending, surgical changes in sigmoid. Recommends probiotics. Return for 1 year colonoscopy -Patient appears to have pain seeking behavior. Spoke with GI REMEDIATION CONSULTANT who states that they have not told the patient to just use dilaudid, they actually encouraged her to take PO pain meds. Patient told them with difficulty swallowing, recommends liquid pain meds if trouble with swallowing. Discussed with Nurse. PO norco. PO Benadryl. -Plan for EGD Botox by Wednesday. -Patient pain is not reflective of CT, EGD, Colonoscopy results. May have really low tolerance to pain vs narcotic seeking as she is taking narcotic medications at home and with high tolerance to opioid. She also wanted to get her pain medications with benadryl dose, which can cause significant sensory alteration and effect of "high" Anxiety disorder -Continue home medications Asthma, not in exacerbation Chronic back pain follows with pain management -[place] as needed -Discussed extensively with patient use of narcotics with gastroparesis. Hypothyroidism -Restart home medication Migraines -Restart home medication DVT prophylaxis SCDs/teds/Lovenox Code Status: Full Code Discussed Condition With: Patient, , nursing, Dr. Booth Discharge Planning: Plan to discharge home when clinically improved. Plan for EGD Botox Wednesday.
[2017-09-12] MEDS: Dextrose 5%/NaCl 0.9% Inj 1,000 ML IV.CONT SCH (16:57)
[2017-09-13] MEDS: diphenhydrAMINE HCl 12.5 MG/5 ML Elixir UDC PO PRN ×2 (00:54→22:13)
[2017-09-13] MEDS: Levothyroxine 125 MCG Tablet PO SCH (05:45)
[2017-09-13 08:57] LABS: Carbon Dioxide 22.7 meq/L (21.0-32.0); Potassium 4.2 meq/L (3.5-5.1)
[2017-09-13] MEDS ORDERED: HYDROmorphone PF Inj 2 MG/ML Vial IV.PUSH ONE (09:00)
[2017-09-13] MEDS: Magnesium Oxide 400 MG Tablet PO SCH (09:01)
[2017-09-13] MEDS: ESTROGENS CONJUGATED 1.25 MG PO SCH (09:02)
[2017-09-13] MEDS: Sodium Chloride 1 GM Tablet PO SCH (09:02)
[2017-09-13] MEDS: MethylPREDNISolone Sod Succinate Inj 40 MG/ML Vial IV.PUSH SCH ×2 (09:02→21:15)
[2017-09-13] MEDS: Gabapentin 400 MG Capsule PO SCH ×3 (09:02→17:07)
[2017-09-13] MEDS: Metoclopramide 10 MG Tablet PO SCH ×4 (09:08→21:15)
[2017-09-13] MEDS: Sucralfate Liq 1 GM/10 ML UDC PO SCH ×4 (09:08→21:15)
[2017-09-13] MEDS: Butalbital/APAP/Caff 50/325/40 MG Tablet PO PRN (09:09)
[2017-09-13] MEDS ORDERED: ONABOTULINUMTOXINA 100 UNIT IM ONE (09:45)
[2017-09-13] MEDS ORDERED: HYDROmorphone PF Inj 1 MG/ML Ampul IV.PUSH PRN (11:44)
--- NOTE | 2017-09-13 11:44 | P.PN ---
Subjective Interval history: Follow-up visit ulcerative colitis, GERD, anxiety, chronic back pain with pain management outpatient, abdominal pain, nausea, vomiting. Patient seen and examined today. Reports continues to have severe abdominal pain, midepigastric region radiating towards the left side. at bedside. Patient reports that her pain medication was not given to her on time last night that she was worse this morning needing IV Dilaudid. States that she wanted an arrangement of IV Dilaudid these post procedure today. Discussed with patient gastroparesis and use of IV pain medication but will provide breakthrough pain medication. Discussed with patient that if she is doing well postprocedure plan is to discharge her home follow-up with Dr. Roman to the GI. Patient is agreeable. Denies fevers, chills continues to have some nausea no vomiting. Denies any diarrhea. Continues to have constipation. Denies chest pain, palpitations, headache, dizziness. Physical Exam Vital signs: Vital Signs 09/12/17 12:00 09/12/17 20:00 09/12/17 20:15 Temperature 97.8 F 98.0 F Pulse Rate 65 52 L 62 Respiratory Rate 16 17 Blood Pressure 141/58 H 95/61 L Pulse Oximetry 97 96 09/12/17 23:32 09/12/17 23:40 09/13/17 00:25 Temperature 98.2 F Pulse Rate 58 L 63 Respiratory Rate 6 L 17 Blood Pressure 152/94 H Pulse Oximetry 95 09/13/17 01:30 09/13/17 04:00 09/13/17 08:00 Temperature 97.6 F 97.4 F L Pulse Rate 95 H 102 H Respiratory Rate 18 19 Blood Pressure 155/89 H Pulse Oximetry 96 96 Intake & Output 09/12/17 09/13/17 09/13/17 18:59 06:59 18:59 Intake Total 3005 / 3005 360 / 360 Balance 3005 / 3005 360 / 360 Intake: IV 3005 / 3005 D5W/Normal Saline Inj 1,000 ML 1000 / 1000 @ 42 mls/hr IV.CONT .[id number] MARTINEZ Rx#:[id number] LR 1000 mL Inj 1,000 ML @ 30 1000 / 1000 mls/hr IV.SIG .Q24H [facility]ARTINEZ Rx#: [id number] Oral 360 / 360 Other: # Voids 3 # Bowel Movements 0 Narrative: GENERAL: This is a well-nourished, well-developed patient, in no apparent distress. SKIN: Warm and dry. HEENT: Normocephalic. Pupils equal round and reactive. Nose without bleeding. Airway patent. NECK: Trachea midline. No JVD. Supple. CARDIOVASCULAR: Regular rate and rhythm without murmurs, gallops, or rubs. RESPIRATORY: Clear to auscultation. Breath sounds equal bilaterally. No wheezes , rales, or rhonchi. GASTROINTESTINAL: Abdomen soft, nondistended. Bowel Sounds hypoactive. Tenderness to mild palpation left quadrant. MUSCULOSKELETAL: Extremities without clubbing, cyanosis, or edema. NEUROLOGICAL: Awake and alert. Oriented to time, place, person. No focal neuro deficit. Moves all extremities. Normal speech. Results - Labs CBC & Chem 7: 09/12/17 07:20 09/13/17 07:40 Laboratory Results - last 24 hr 09/13/17 07:40 Sodium 138 Potassium 4.2 Chloride 105 Carbon Dioxide 22.7 Anion Gap 10 BUN 12 Creatinine 0.82 Estimated GFR 71 L Random Glucose 89 Calcium 9.0 Assessment and Plan - Plan The patient is a very pleasant 61-year-old female with multiple medical problems who came to the emergency room with complaints of intractable abdominal pain, nausea and vomiting: Intractable abdominal pain/ with h/o Ulcerative colitis/ GERD (gastroesophageal reflux disease) History of diverticulitis Possible gastroparesis -on narcotic medications from home, chronic constipation with obstruction -CT abdomen reviewed No acute findings -Antiemetics reglan ACHS, zofran scheduled -[place] for pain, 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 -EGD and colonoscopy done by GI. EGD with gastritis, normal duodenum, esophagitis the distal esophagus with white deposits rule out Anat retained food stomach. Hiatal hernia. Recommends 1. Await biopsy results. Biopsy results will not be ready for 7-10 days. If you don't hear from us in two weeks, call our office for biopsy results. 2. Anti-reflux regimen 3. Continue PPI 4. Nystatin MRA abdomen-r/o mesenteric ischemia, trial of bethanechol 10 mg po tid, if not better consider egd/botox -Colonoscopy showed Normal colonoscopy-random biopsies from ascending, transverse, descending, surgical changes in sigmoid. Recommends probiotics. Return for 1 year colonoscopy -Patient appears to have pain seeking behavior. Spoke with GI BLENDING TANK TENDER who states that they have not told the patient to just use dilaudid, they actually encouraged her to take PO pain meds. Patient told them with difficulty swallowing, recommends liquid pain meds if trouble with swallowing. Discussed with Nurse. PO norco. PO Benadryl. -Plan for EGD Botox by Wednesday. -Patient pain is not reflective of CT, EGD, Colonoscopy results. May have really low tolerance to pain vs narcotic seeking as she is taking narcotic medications at home and with high tolerance to opioid. -Will provide IV dilaudid 0.5mg for breakthrough pain overnight. -Plan to DC home tomorrow if procedure goes well. Patient is agreeable. All medications have been reconciled and ready for DC. Anxiety disorder -Continue home medications Asthma, not in exacerbation Chronic back pain follows with pain management -[place] as needed -Discussed extensively with patient use of narcotics with gastroparesis. -Refer to pain management Hypothyroidism -Restart home medication GERD, Migraines -Restart home medication DVT prophylaxis SCDs/teds/Lovenox +++The patient is a very pleasant 61-year-old female with multiple medical problems who came to the emergency room with complaints of intractable abdominal pain, nausea and vomiting. She has history of ulcerative colitis,GERD , history of diverticulitis, possible gastroparesis. CT abdomen reviewed No acute findings secondary to narcotic use. GI consulted and has evaluated the patient. EGD and colonoscopy done. EGD with gastritis, normal duodenum, esophagitis the distal esophagus with white deposits rule out Anat retained food stomach. Hiatal hernia. Recommends 1. Await biopsy results. Biopsy results will not be ready for 7-10 days. If you don't hear from them in two weeks, call office for biopsy results. 2. Anti-reflux regimen 3. Continue PPI 4. Nystatin. MRA abdomen-r/o mesenteric ischemia, trial of bethanechol 10 mg po tid, if not better consider egd/botox. Colonoscopy showed Normal colonoscopy -random biopsies from ascending, transverse, descending, surgical changes in sigmoid. Recommends probiotics. Return for 1 year colonoscopy. Patient continues to have abdominal pain on opioid narcotics, preference goes to IV Dilaudid. Her abdominal pain is not reflective of CT, EGD, colonoscopy results. Patient may have really low tolerance to pain versus narcotic seeking behavior or high tolerance to opioid. She had EGD Botox done, got an 80 units. Gastritis continued to be notable on EGD. Patient other chronic condition managed by providing her home medications. She will need to follow-up with gastroenterology specialist in the outpatient 1-2 weeks postdischarge. Clinically improved. Patient has met maximal benefits of hospitalization. Clinically stable for discharge. Code Status: Full code Discussed Condition With: Patient, , nursing Discharge Planning: Plan to discharge home Tomorrow. Plan for EGD Botox today. All medications have been reconciled.
--- NOTE | 2017-09-13 16:39 | GIPROC ---
[facility] [address] [facility]. [facility], [address] EGD PROCEDURE REPORT EXAM DATE: 09/13/2017 PATIENT NAME: Shreya Wallace MR #: [id number] BIRTHDATE: 1955 ATTENDING: Addie Pickering MD ORDER #: [id number] [id number] CONSULTANT: Joleen Triplett and Sherin Zaragoza STATUS: inpatient INDICATIONS: The patient is a 61 yr old female here for an EGD due to nausea and vomiting PROCEDURE PERFORMED: EGD w/ directed submucosal injection(s), any substance MEDICATIONS: None and Per Anesthesia. TOPICAL ANESTHETIC: none CONSENT: The patient understands the risks and benefits of the procedure and understands that these risks include, but are not limited to: sedation, allergic reaction, infection, perforation and/or bleeding. Alternative means of evaluation and treatment include, among others: physical exam, x-rays, and/or surgical intervention. The patient elects to proceed with this endoscopic procedure. medical equipment was checked for proper function. Hand hygiene and appropriate measures for infection prevention was taken. After the risks, benefits and alternatives of the procedure were thoroughly explained, Informed consent was verified, confirmed and timeout was successfully executed by the treatment team. The patient was anesthetized with topical anesthesia and the Pentax [id number] endoscope was introduced through the mouth and advanced to the second portion of the duodenum. Retroflexion was performed and was normal The gastroscope was then slowly withdrawn and removed. ESOPHAGUS: The mucosa of the esophagus appeared normal. STOMACH: There was erythematous moderate and erosive gastritis in the entire examined stomach. Medium sized stenosis was found at the pylorus. The finding appeared to be benign and intrinsic. Botox injected in all four quadrants, total of 4 cc ( 100 Unit mixed in 5 cc). DUODENUM: The duodenal mucosa appeared normal in the 2nd part of the duodenum. ADVERSE EVENTS: There were no complications. IMPRESSIONS: 1. The esophagus appeared normal 2. There was erythematous gastritis in the entire examined stomach 3. Botox injected in 4 quadrants (80 units total) 4. Normal duodenal mucosa in the 2nd part of the duodenum 5. Retroflexion was performed and was normal RECOMMENDATIONS: No treatment PATIENT CONDITION: stable DISPOSITION: Observation REPEAT EXAM: NONE Addie Pickering MD eSigned: Addie Pickering MD 09/13/2017 4:39 PM cc: PATIENT NAME: Shreya Wallace Leticia MR#: [id number]
[2017-09-13] MEDS ORDERED: Morphine Inj 4 MG/ML Vial ONE (17:20)
[2017-09-13] MEDS: Dextrose 5%/NaCl 0.9% Inj 1,000 ML IV.CONT SCH (21:09)
[2017-09-13] MEDS: HYDROmorphone PF Inj 2 MG/ML Vial IV.PUSH PRN (22:14)
[2017-09-14] MEDS: HYDROmorphone PF Inj 2 MG/ML Vial IV.PUSH PRN ×2 (02:21→06:49)
[2017-09-14] MEDS: Levothyroxine 125 MCG Tablet PO SCH (05:34)
[2017-09-14] MEDS: Enoxaparin Inj 40 MG/0.4 ML Syringe SQ SCH (07:58)
[2017-09-14] MEDS: diphenhydrAMINE HCl 12.5 MG/5 ML Elixir UDC PO PRN ×2 (07:59→21:16)
[2017-09-14] MEDS: Gabapentin 400 MG Capsule PO SCH ×3 (08:00→18:28)
[2017-09-14] MEDS: MethylPREDNISolone Sod Succinate Inj 40 MG/ML Vial IV.PUSH SCH (08:00)
[2017-09-14] MEDS: Magnesium Oxide 400 MG Tablet PO SCH (08:01)
[2017-09-14] MEDS: Metoclopramide 10 MG Tablet PO SCH ×4 (08:01→21:15)
[2017-09-14] MEDS: Sodium Chloride 1 GM Tablet PO SCH (08:01)
[2017-09-14] MEDS: ESTROGENS CONJUGATED 1.25 MG PO SCH (08:01)
[2017-09-14] MEDS: Sucralfate Liq 1 GM/10 ML UDC PO SCH ×4 (08:02→21:16)
--- NOTE | 2017-09-14 08:03 | P.DCO ---
- Physical Therapy Order: Evaluate and treat, Improve ambulation, Strength and gait training - Certification I have seen patient Shreya Wallace on 09/14/17. My clinical findings support the need for the requested home health care services because: Deconditioned with increased weakness, Need for psychosocial assistance I certify that my clinical findings support that this patient is homebound because: Need for psychosocial assistance
--- NOTE | 2017-09-14 10:26 | P.PN ---
Subjective Interval history: f/u abd pain seen with charge nurse. Continues to complain of abdominal pain. Patient and educated about her condition. She has gastroparesis causing her symptoms. Reiterated she needs to minimize use of narcotics advised I will discontinue IV narcotic and will provide IV Toradol discussed with GI. If she tolerates meals and does not require IV Toradol she can be discharged home with home health care. Instructed RN not to call for additional narcotics Physical Exam Vital signs: Vital Signs 09/13/17 12:00 09/13/17 15:40 09/13/17 16:00 Temperature 98.0 F 97.2 F L 98.2 F Pulse Rate 74 69 63 Respiratory Rate 18 20 17 Blood Pressure 93/60 L 173/90 H 156/68 H Pulse Oximetry 95 96 97 09/13/17 20:27 09/13/17 20:30 09/13/17 22:24 Temperature 97.4 F L Pulse Rate 63 54 L Respiratory Rate 17 16 Blood Pressure 137/74 Pulse Oximetry 95 95 09/14/17 00:28 09/14/17 00:30 09/14/17 02:25 Temperature 97.3 F L Pulse Rate 67 57 L Respiratory Rate 17 18 Blood Pressure 146/65 H Pulse Oximetry 94 L 09/14/17 04:34 09/14/17 06:49 09/14/17 08:00 Temperature 98.6 F 97.7 F Pulse Rate 67 54 L Respiratory Rate 17 18 18 Blood Pressure 129/63 125/87 Pulse Oximetry 92 L 96 Intake & Output 09/13/17 09/14/17 09/14/17 18:59 06:59 18:59 Intake Total 100 / 100 360 / 360 Balance 100 / 100 360 / 360 Weight 89.1 kg Intake: Oral 360 / 360 Anesthesia Amount 100 / 100 Other: # Voids 2 3 Date of Last Bowel Movement 09/10/17 # Bowel Movements 0 Narrative: GENERAL: This is a well-nourished, well-developed patient, in no apparent distress. No signs of dehydration SKIN: Warm and dry. CARDIOVASCULAR: Regular rate and rhythm without murmurs, gallops, or rubs. RESPIRATORY: Clear to auscultation. Breath sounds equal bilaterally. No wheezes , rales, or rhonchi. GASTROINTESTINAL: Abdomen soft, nondistended. Bowel Sounds normoactive tenderness to mild palpation left quadrant. MUSCULOSKELETAL: Extremities without clubbing, cyanosis, or edema. NEUROLOGICAL: Awake and alert. Oriented to time, place, person. No focal neuro deficit. Moves all extremities. Normal speech. Results - Labs CBC & Chem 7: 09/12/17 07:20 09/13/17 07:40 - Procedures EGD and cscope Rpt EGD with botox Assessment and Plan - Assessment (1) Intractable abdominal pain Code(s): R10.9 - Unspecified abdominal pain Status: Acute - Plan The patient is a very pleasant 61-year-old female with multiple medical problems who came to the emergency room with complaints of intractable abdominal pain, nausea and vomiting: Intractable abdominal pain/ with h/o Ulcerative colitis/ GERD (gastroesophageal reflux disease) History of diverticulitis Gastroparesis -on narcotic medications from home, chronic constipation with obstruction -CT abdomen reviewed No acute findings -Antiemetics reglan ACHS, zofran scheduled -[place] for pain, 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 -EGD and colonoscopy done by GI. EGD with gastritis, normal duodenum, esophagitis the distal esophagus with white deposits rule out Anat retained food stomach. Hiatal hernia. Recommends Anti-reflux regimen, PPI and Nystatin. Add Diflucan MRA abdomen no mesenteric ischemia Colonoscopy showed Normal colonoscopy-random biopsies from ascending, transverse, descending, surgical changes in sigmoid path unremarkable. Recommends probiotics. Return for 1 year colonoscopy -s/p EGD Botox 09/14 with expected postprocedural discomfort which might partially explain patient continued symptoms -Patient pain is not reflective of CT, EGD, Colonoscopy results. May have really low tolerance to pain vs narcotic seeking as she is taking narcotic medications at home and with high tolerance to opioid. -Dc IV dilaudid 0.5mg , continue Reglan and bethanechol. IV Toradol as needed. Possible discharge if tolerating meals and not requiring IV Toradol Anxiety disorder -Continue home medications Asthma, not in exacerbation Chronic back pain follows with pain management -[place] as needed -Discussed extensively with patient use of narcotics with gastroparesis. -Refer to pain management Hypothyroidism -Restart home medication GERD, Migraines -Restart home medication DVT prophylaxis SCDs/teds/Lovenox Discharge Planning: [facility] PT when ready
[2017-09-14] MEDS: Butalbital/APAP/Caff 50/325/40 MG Tablet PO PRN (13:51)
--- NOTE | 2017-09-14 14:58 | P.PNGI ---
Subjective Interval history: Patient is resting in the bed complaints of some mid abdominal pain with mild gradual improvement mild nausea but no vomiting patient is trialing liquid diet Current hemoglobin 12 <America Mckeon - Last Filed: 09/14/17 14:53> Physical Exam Vital signs: Vital Signs 09/13/17 15:40 09/13/17 16:00 09/13/17 20:27 Temperature 97.2 F L 98.2 F 97.4 F L Pulse Rate 69 63 63 Respiratory Rate 20 17 17 Blood Pressure 173/90 H 156/68 H 137/74 Pulse Oximetry 96 97 95 09/13/17 20:30 09/13/17 22:24 09/14/17 00:28 Temperature 97.3 F L Pulse Rate 54 L 67 Respiratory Rate 16 17 Blood Pressure 146/65 H Pulse Oximetry 95 94 L 09/14/17 00:30 09/14/17 02:25 09/14/17 04:34 Temperature 98.6 F Pulse Rate 57 L 67 Respiratory Rate 18 17 Blood Pressure 129/63 Pulse Oximetry 92 L 09/14/17 06:49 09/14/17 08:00 09/14/17 11:55 Temperature 97.7 F Pulse Rate 54 L 60 Respiratory Rate 18 18 Blood Pressure 125/87 Pulse Oximetry 96 09/14/17 12:00 Temperature 97.4 F L Pulse Rate 78 Respiratory Rate 20 Blood Pressure 160/86 H Pulse Oximetry 96 Intake & Output 09/13/17 09/14/17 09/14/17 18:59 06:59 18:59 Intake Total 100 / 100 360 / 360 Balance 100 / 100 360 / 360 Weight 89.1 kg Intake: Oral 360 / 360 Anesthesia Amount 100 / 100 Other: # Voids 2 3 Date of Last Bowel Movement 09/10/17 09/10/17 # Bowel Movements 0 - Constitutional mild distress (Obese) - Routine HEENT Exam Head: Present: normocephalic, atraumatic Eye: Present: EOMI ENT: Present: mucous membranes moist - Routine Neck Exam Present: supple - Routine Cardiovascular Exam Present: RRR - Routine Abdominal Exam Present: normoactive bowel sounds, tenderness (Mid abdominal mild tenderness, some nausea but no vomiting) - Routine Skin Exam Present: intact - Routine Neurological Exam Present: normal speech (Mild anxiety) <America Mckeon - Last Filed: 09/14/17 14:53> Vital signs: Vital Signs 09/13/17 15:40 09/13/17 16:00 09/13/17 20:27 Temperature 97.2 F L 98.2 F 97.4 F L Pulse Rate 69 63 63 Respiratory Rate 20 17 17 Blood Pressure 173/90 H 156/68 H 137/74 Pulse Oximetry 96 97 95 09/13/17 20:30 09/13/17 22:24 09/14/17 00:28 Temperature 97.3 F L Pulse Rate 54 L 67 Respiratory Rate 16 17 Blood Pressure 146/65 H Pulse Oximetry 95 94 L 09/14/17 00:30 09/14/17 02:25 09/14/17 04:34 Temperature 98.6 F Pulse Rate 57 L 67 Respiratory Rate 18 17 Blood Pressure 129/63 Pulse Oximetry 92 L 09/14/17 06:49 09/14/17 08:00 09/14/17 11:55 Temperature 97.7 F Pulse Rate 54 L 60 Respiratory Rate 18 18 Blood Pressure 125/87 Pulse Oximetry 96 09/14/17 12:00 Temperature 97.4 F L Pulse Rate 78 Respiratory Rate 20 Blood Pressure 160/86 H Pulse Oximetry 96 Intake & Output 09/13/17 09/14/17 09/14/17 18:59 06:59 18:59 Intake Total 100 / 100 360 / 360 Balance 100 / 100 360 / 360 Weight 89.1 kg Intake: Oral 360 / 360 Anesthesia Amount 100 / 100 Other: # Voids 2 3 Date of Last Bowel Movement 09/10/17 09/10/17 # Bowel Movements 0 <Addie Pickering - Last Filed: 09/14/17 15:25> Results - Labs CBC & Chem 7: 09/12/17 07:20 09/13/17 07:40 - Procedures EGD and cscope Rpt EGD with botox <America Mckeon - Last Filed: 09/14/17 14:53> - Labs CBC & Chem 7: 09/12/17 07:20 09/13/17 07:40 <Addie Pickering - Last Filed: 09/14/17 15:25> Assessment and Plan (1) Ulcerative colitis Status: Acute Code(s): K51.90 - Ulcerative colitis, unspecified, without complications (2) Nausea and vomiting Status: Acute Code(s): R11.2 - Nausea with vomiting, unspecified (3) Constipation due to opioid therapy Status: Acute Code(s): K59.03 - Drug induced constipation; T40.2X5A - Adverse effect of other opioids, initial encounter (4) Family history of colon cancer Status: Acute Code(s): Z80.0 - Family history of malignant neoplasm of digestive organs - Plan Assessment: - Abdominal pain- states L sided abdominal pain, constant, began about a week ago and initially resolved when her PCP started her on Prednisone and told her to go on clear liquid diet. She advanced to soft foods and did OK and then had a regular consistency meal two days ago which made the pain worse. Pain worse with PO intake, moving , and palpation. CT abdomen and pelvis WO IV contrast (09/08) No acute findings. Last colonoscopy 2 years ago, states no active colitis. - History of UC S/P sigmoid resection in 1994, not currently on any medications for UC. Follows Dr. Guerrero at [facility], last saw her 6 months ago. History of intestinal stricture, previous double balloon enteroscopy with stricture dilatation 2 years ago. - Epigastric pain- earlier in the week, now resolved. States history of gastric ulcer. - Nausea and vomiting for the past few days- vomiting x 2 yesterday, denies hematemesis and coffee ground emesis. - Constipation- chronic secondary to opiate intake- takes Symporic at home but has not taken for the past few days due to vomiting- no BM x 2 days reports she is still passing gas. Denies hematochezia and melena. 09/11/2017 patient is resting in the bed but still complaining of mild to moderate burning in her esophagus and nausea. Currently patient remains on IV hydration at 42 cc an hour and Carafate notes some epigastric and abdominal pain and states that it hurts to swallow regular medicines in pill form. Alternate pain management for her comfort has been discussed with supportive care give. Recommended to patient that she might tolerate liquid form of pain management better at this point in time. If patient continues to have upper esophageal symptoms consider EGD with Botox. Will reevaluate in the morning Patient is status post EGD colonoscopy on 09/10/2017 results include hiatal hernia , gastritis, esophagitis possible Anat. Colonoscopy showed normal findings with random biopsies taken and internal hemorrhoids. Recommend repeat in one year. Anemia, possible acute on chronic but no obvious bleeding current hemoglobin 10.8. 09/14/2017 patient has some mild nausea and mid abdominal pain which show some gradual improvement today but patient is very anxious about eating and increase in her activity even though it has been encouraged. Patient still receiving IV fluids at 42 cc an hour and is trying to tolerate full liquid and clear liquid diet. Patient is status post EGD results pending, patient states she was told she had some gastritis inflammation. Initially discharge planning was discussed with patient but she wanted to try to get a little stronger and feel better. She is discussing her pain management, which I deferred back to the attending. If patient continues to have abdominal pain and epigastric pain, consider EGD with Botox. Plan: Diet , encouraged to increase to at least full liquids and some solid food Encouraged to increase activity, PT worked with her this a.m. Monitor labs with special attention hemoglobin PPI Carafate Bowel regimen Antiemetics Supportive care Pt has been seen and examined by myself and Dr. Pickering and this note is written on her behalf <America Mckeon - Last Filed: 09/14/17 14:53> (1) Ulcerative colitis Status: Acute Code(s): K51.90 - Ulcerative colitis, unspecified, without complications (2) Nausea and vomiting Status: Acute Code(s): R11.2 - Nausea with vomiting, unspecified (3) Constipation due to opioid therapy Status: Acute Code(s): K59.03 - Drug induced constipation; T40.2X5A - Adverse effect of other opioids, initial encounter (4) Family history of colon cancer Status: Acute Code(s): Z80.0 - Family history of malignant neoplasm of digestive organs - Attending Attestation Agree with the plan as above, nothing to add from GI point of view. Symptoms of gastroparesis to improve after few days. Please notify us if needed again, will sign off for now. <Addie Pickering - Last Filed: 09/14/17 15:25>
[2017-09-14] MEDS: Ketorolac Inj 30 MG/ML (IVP) Vial IV.PUSH PRN ×2 (15:30→21:18)
[2017-09-14] MEDS ORDERED: ATIVAN 1 MG PO PRN (17:36)
[2017-09-14] MEDS: Dextrose 5%/NaCl 0.9% Inj 1,000 ML IV.CONT SCH (21:14)
[2017-09-15] MEDS: Ketorolac Inj 30 MG/ML (IVP) Vial IV.PUSH PRN ×2 (05:32→11:47)
[2017-09-15] MEDS: Levothyroxine 125 MCG Tablet PO SCH (05:32)
[2017-09-15] MEDS: Sodium Chloride 1 GM Tablet PO SCH (08:03)
[2017-09-15] MEDS: ESTROGENS CONJUGATED 1.25 MG PO SCH (08:03)
[2017-09-15] MEDS: Gabapentin 400 MG Capsule PO SCH ×3 (08:03→17:02)
[2017-09-15] MEDS: Enoxaparin Inj 40 MG/0.4 ML Syringe SQ SCH (08:04)
[2017-09-15] MEDS: Metoclopramide 10 MG Tablet PO SCH ×4 (08:04→20:21)
[2017-09-15] MEDS: Sucralfate Liq 1 GM/10 ML UDC PO SCH ×4 (08:04→20:22)
[2017-09-15] MEDS: Magnesium Oxide 400 MG Tablet PO SCH (08:04)
[2017-09-15] MEDS: diphenhydrAMINE HCl 12.5 MG/5 ML Elixir UDC PO PRN ×2 (10:36→22:16)
--- NOTE | 2017-09-15 12:40 | P.PN ---
Subjective Interval history: Follow-up gastroparesis. Improving pain tolerating diet. She still required IV Toradol today. She is passing gas but no bowel movement refusing p.o. medications requesting Dulcolax suppository. Physical Exam Vital signs: Vital Signs 09/14/17 14:21 09/14/17 15:11 09/14/17 16:00 Temperature 98.1 F Pulse Rate 71 Respiratory Rate 17 17 18 Blood Pressure 146/73 H Pulse Oximetry 96 09/14/17 18:00 09/14/17 20:00 09/14/17 20:35 Temperature 97.6 F Pulse Rate 68 65 56 L Respiratory Rate 17 17 Blood Pressure 146/66 H Pulse Oximetry 95 97 09/15/17 00:00 09/15/17 00:23 09/15/17 04:00 Temperature 97.6 F 97.4 F L Pulse Rate 45 L 49 L 54 L Respiratory Rate 17 17 Blood Pressure 166/76 H 144/70 H Pulse Oximetry 97 99 09/15/17 08:00 09/15/17 08:33 09/15/17 10:17 Temperature 97.4 F L Pulse Rate 73 57 L Respiratory Rate 18 17 Blood Pressure Pulse Oximetry 99 Intake & Output 09/14/17 09/15/17 09/15/17 18:59 06:59 18:59 Intake Total 600 / 600 Balance 600 / 600 Weight 89 kg Intake: Oral 600 / 600 Other: # Voids 2 2 Date of Last Bowel Movement 09/10/17 09/10/17 09/10/17 Narrative: GENERAL: This is a well-nourished, well-developed patient, in no apparent distress. No signs of dehydration SKIN: Warm and dry. CARDIOVASCULAR: Regular rate and rhythm RESPIRATORY: Clear to auscultation. Breath sounds equal bilaterally. No wheezes , rales, or rhonchi. GASTROINTESTINAL: Abdomen soft, nondistended. Bowel Sounds normoactive tenderness to mild palpation left quadrant. MUSCULOSKELETAL: Extremities without clubbing, cyanosis, or edema. NEUROLOGICAL: Awake and alert. Oriented to time, place, person. No focal neuro deficit. Moves all extremities. Normal speech. Results - Labs CBC & Chem 7: 09/12/17 07:20 09/13/17 07:40 - Procedures EGD and cscope Rpt EGD with botox Assessment and Plan - Assessment (1) Intractable abdominal pain Code(s): R10.9 - Unspecified abdominal pain Status: Acute - Plan The patient is a very pleasant 61-year-old female with multiple medical problems who came to the emergency room with complaints of intractable abdominal pain, nausea and vomiting: Intractable abdominal pain/ with h/o Ulcerative colitis/ GERD (gastroesophageal reflux disease) History of diverticulitis Gastroparesis -on narcotic medications from home, chronic constipation with obstruction -CT abdomen reviewed No acute findings -Antiemetics reglan ACHS, zofran scheduled -[place] for pain, 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 -EGD and colonoscopy done by GI. EGD with gastritis, normal duodenum, esophagitis the distal esophagus with white deposits rule out Anat retained food stomach. Hiatal hernia. Recommends Anti-reflux regimen, PPI and Nystatin. Add Diflucan MRA abdomen no mesenteric ischemia Colonoscopy showed Normal colonoscopy-random biopsies from ascending, transverse, descending, surgical changes in sigmoid path unremarkable. Recommends probiotics. Return for 1 year colonoscopy -s/p EGD Botox 09/14 with expected postprocedural discomfort which might partially explain patient continued symptoms -Patient pain is not reflective of CT, EGD, Colonoscopy results. May have really low tolerance to pain vs narcotic seeking as she is taking narcotic medications at home and with high tolerance to opioid. -Dc IV dilaudid 0.5mg , continue Reglan and bethanechol. IV Toradol as needed. Possible discharge today if not requiring IV Toradol -tolerating diet Constipation. Refusing po meds > Supp x 1 Anxiety disorder -Continue home medications Asthma, not in exacerbation Chronic back pain follows with pain management -[place] as needed -Discussed extensively with patient use of narcotics with gastroparesis. -Refer to pain management Hypothyroidism -Restart home medication GERD, Migraines -Restart home medication DVT prophylaxis SCDs/teds/Lovenox Discharge Planning: [facility] PT when ready
[2017-09-15] MEDS ORDERED: Bisacodyl 10 MG Supp RECTAL ONE (13:00)
[2017-09-15] MEDS ORDERED: Ketorolac Inj 30 MG/ML (IVP) Vial IV.PUSH ONE (16:15)
--- NOTE | 2017-09-15 18:32 | P.PNADD ---
Addendum to Inpatient Note Reason for Addendum: Corrected Documentation (abd soft NABS no tenderness when she is distracted. Asking for MS. I think she is drug seeking or just constipated in addition to gastroparesis. No additional narcs. Ct toradol add ofirmev and restart home med Symproic for opiod induced constipation)
[2017-09-15] MEDS: Butalbital/APAP/Caff 50/325/40 MG Tablet PO PRN (20:20)
[2017-09-15] MEDS: LORazepam 1 MG Tablet PO PRN (20:22)
[2017-09-15] MEDS: Dextrose 5%/NaCl 0.9% Inj 1,000 ML IV.CONT SCH (23:56)
[2017-09-16] MEDS: Levothyroxine 125 MCG Tablet PO SCH (05:14)
[2017-09-16] MEDS ORDERED: Bisacodyl 10 MG Supp RECTAL PRN (07:34)
[2017-09-16] MEDS: Enoxaparin Inj 40 MG/0.4 ML Syringe SQ SCH (09:16)
[2017-09-16] MEDS: diphenhydrAMINE HCl 12.5 MG/5 ML Elixir UDC PO PRN ×2 (09:17→20:21)
[2017-09-16] MEDS: Gabapentin 400 MG Capsule PO SCH ×3 (09:19→17:19)
[2017-09-16] MEDS: ESTROGENS CONJUGATED 1.25 MG PO SCH (09:20)
[2017-09-16] MEDS: Magnesium Oxide 400 MG Tablet PO SCH (09:20)
[2017-09-16] MEDS: Sodium Chloride 1 GM Tablet PO SCH (09:21)
[2017-09-16] MEDS: Metoclopramide 10 MG Tablet PO SCH ×4 (09:21→20:22)
[2017-09-16] MEDS: Sucralfate Liq 1 GM/10 ML UDC PO SCH ×5 (09:23→20:22)
[2017-09-16] MEDS: Senna/Docusate Sodium 8.6/50 MG Tablet PO SCH ×2 (09:25→20:22)
[2017-09-16] MEDS: Ketorolac Inj 30 MG/ML (IVP) Vial IV.PUSH PRN ×2 (10:52→17:17)
--- NOTE | 2017-09-16 11:07 | P.PN ---
Subjective Interval history: Follow-up abdominal pain. Still having upper and lower abdominal pain with nausea. States that she vomited water this morning. She is refusing to eat and take her stool medicine. She is asking what pain medication I will be providing her and told her I will continue ofirmev and Toradol but no narcotic. Requested a different MD allowed me to examine and take care of her today Physical Exam Vital signs: Vital Signs 09/15/17 12:00 09/15/17 12:17 09/15/17 14:34 Temperature 97.6 F Pulse Rate 64 Respiratory Rate 18 16 17 Blood Pressure 111/44 L Pulse Oximetry 96 09/15/17 16:00 09/15/17 20:00 09/15/17 20:12 Temperature 97.4 F L 97.5 F L Pulse Rate 86 74 49 L Respiratory Rate 18 19 Blood Pressure 150/102 H 162/84 H Pulse Oximetry 97 95 09/15/17 20:19 09/16/17 00:00 09/16/17 00:01 Temperature 97.3 F L Pulse Rate 55 L 70 Respiratory Rate 17 Blood Pressure 115/56 L Pulse Oximetry 95 97 09/16/17 04:00 09/16/17 08:00 09/16/17 10:45 Temperature 97.7 F Pulse Rate 72 113 H Respiratory Rate 22 19 Blood Pressure 134/56 L Pulse Oximetry 97 Intake & Output 09/15/17 09/16/17 09/16/17 18:59 06:59 18:59 Intake Total 300 / 300 Balance 300 / 300 Intake: IV 300 / 300 Ofirmev Inj 1,000 mg In 100 ml 300 / 300 @ 400 mls/hr IV.SIG Q6H [facility] Rx# :[id number] Other: Date of Last Bowel Movement 09/10/17 09/10/17 09/10/17 Narrative: GENERAL: This is a well-nourished, well-developed patient. No signs of dehydration. Crying but no tears SKIN: Warm and dry. CARDIOVASCULAR: Regular rate and rhythm RESPIRATORY: Clear to auscultation. Breath sounds equal bilaterally. No wheezes , rales, or rhonchi. GASTROINTESTINAL: Abdomen soft, nondistended. Bowel Sounds normoactive tenderness to mild palpation epigastric, left upper and lower quadrant. MUSCULOSKELETAL: Extremities without clubbing, cyanosis, or edema. NEUROLOGICAL: Awake and alert. Oriented to time, place, person. No focal neuro deficit. Moves all extremities. Normal speech. Results - Labs CBC & Chem 7: 09/12/17 07:20 09/13/17 07:40 - Procedures EGD and cscope Rpt EGD with botox Assessment and Plan - Assessment (1) Intractable abdominal pain Code(s): R10.9 - Unspecified abdominal pain Status: Acute - Plan The patient is a very pleasant 61-year-old female with multiple medical problems who came to the emergency room with complaints of intractable abdominal pain, nausea and vomiting: Intractable abdominal pain/ with h/o Ulcerative colitis/ GERD (gastroesophageal reflux disease) History of diverticulitis Gastroparesis -on narcotic medications from home, chronic constipation with obstruction -CT abdomen reviewed No acute findings -Antiemetics reglan ACHS, zofran scheduled -[place] for pain, 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 -EGD and colonoscopy done by GI. EGD with gastritis, normal duodenum, esophagitis the distal esophagus with white deposits rule out Anat retained food stomach. Hiatal hernia. Recommends Anti-reflux regimen, PPI and Nystatin. Added Diflucan MRA abdomen no mesenteric ischemia Colonoscopy showed Normal colonoscopy-random biopsies from ascending, transverse, descending, surgical changes in sigmoid path unremarkable. Recommends probiotics. Return for 1 year colonoscopy -s/p EGD Botox 09/14 with expected postprocedural discomfort which might partially explain patient continued symptoms -Patient pain is not reflective of CT, EGD, Colonoscopy results. May have really low tolerance to pain vs narcotic seeking as she is taking narcotic medications at home and with high tolerance to opioid. -Dc IV dilaudid 0.5mg , continue Reglan and bethanechol. IV Toradol as needed. RTC Ofirmev. -Refusing to eat -rpt cbc and cmp Constipation. Refusing po meds. AXR r/o ileus vs sbo Anxiety disorder -Continue home medications Asthma, not in exacerbation Chronic back pain follows with pain management -[place] as needed -Discussed extensively with patient use of narcotics with gastroparesis. -Refer to pain management Hypothyroidism -Restart home medication GERD, Migraines -Restart home medication DVT prophylaxis SCDs/teds/Lovenox Discharge Planning: [facility] PT when ready Will transfer care to another MD per patient request
--- NOTE | 2017-09-16 14:30 | XR ---
EXAM DATE: 09/16/2017 2:21 PM EDT AGE/SEX: 61 years / Female INDICATIONS: Abdomen pain. CLINICAL DATA: This is the patient's subsequent encounter. Patient reports that signs and symptoms h ave been present for 1 week and indicates a pain score of 8/10. MEDICAL/SURGICAL HISTORY: Diabetes mellitus type II. Rheumatoid arthritis. Fusion, lumbar. Ch olecystectomy. Appendectomy. Bowel resection. COMPARISON: [facility] [place], [place], MRI SMA W CONTRAST, 09/10/2017. . FINDINGS: Supine and upright views of the abdomen were performed. The abdominal bowel gas pattern is normal. No air-fluid levels are seen. No abnormal masses, calcifications, or organomegaly is seen. The visualiz ed lower lungs are clear. No evidence of free intraperitoneal gas. The osseous structures are unremar kable. There are surgical clips in the right upper quadrant compatible with prior cholecystectomy. Th ere is unilateral transpedicular screw fixation on the left at L4-L5. CONCLUSION: No evidence of obstruction. Electronically signed by: Ankur Schneider MD 09/16/2017 2:29 PM EDT
[2017-09-16 15:43] LABS: Baso # (Auto) 0.1 th/mm3 (0.0-0.2); Eos # (Auto) 0.2 th/mm3 (0.0-0.4); Eos % (Auto) 2.1 % (0.0-4.0); Hematocrit 35.9 % (35.0-46.0); Hemoglobin 11.7 gm/dL (11.6-15.3); Lymph # (Auto) 3.9 th/mm3 (1.0-4.8); Mean Corpuscular HGB Conc 32.4 % (32.0-36.0); Mean Corpuscular Hemoglobin 30.6 pg (27.0-34.0); Mean Corpuscular Volume 94.3 fL (80.0-100.0); Mean Platelet Volume 8.2 fL (7.0-11.0); Mono # (Auto) 0.9 th/mm3 (0.0-0.9); Mono % (Auto) 7.8 % (0.0-8.0); Neut # (Auto) 6.1 th/mm3 (1.8-7.7); Neut % (Auto) 54.1 % (16.0-70.0); Platelet Count 286 th/mm3 (150-450); Red Blood Count 3.81 mil/mm3 (4.00-5.30); Red Cell Distribution Width 14.6 % (11.6-17.2); White Blood Count 11.2 th/mm3 (4.0-11.0)
[2017-09-16 16:08] LABS: Alanine Aminotransferase 17 U/L (10-53); Albumin 3.3 g/dL (3.4-5.0); Alkaline Phosphatase 91 U/L (45-117); Anion Gap 8 meq/L (5-15); Aspartate Aminotransferase 10 U/L (15-37); Blood Urea Nitrogen 18 mg/dL (7-18); Carbon Dioxide 27.3 meq/L (21.0-32.0); Chloride 107 meq/L (98-107); Glomerular Filtration Rate 55 mL/min (>89); Glucose,Random 79 mg/dL (74-106); Potassium 3.9 meq/L (3.5-5.1); Sodium 142 meq/L (136-145); Total Protein 6.4 g/dL (6.4-8.2)
[2017-09-16] MEDS: Dextrose 5%/NaCl 0.9% Inj 1,000 ML IV.CONT SCH (17:35)
--- NOTE | 2017-09-16 20:43 | MB ---
cc: Sammi Tubbs MD DATE: 09/16/2017 SERVICE: GI. REASON FOR CONSULTATION: Second opinion for abdominal pain. HISTORY OF PRESENT ILLNESS: This is a 61-year-old female admitted to the hospital for abdominal pain that has been ongoing for at least a week or so prior to admission. Her pain was described as diffusely about the abdomen, occasionally on the upper and occasionally on the lower. She apparently has had multiple attacks similar to this in the past requiring visits to the ER occasionally. She had mentioned, history of a bowel obstruction requiring her to go on a liquid diet. Her other history is significant for a history of ulcerative colitis which apparently required a partial bowel obstruction in the distant past. Additionally, she has followed up outpatient with [facility] until more recently. Due to her abdominal symptoms, GI was consulted and she was worked up and underwent multiple tests. She underwent EGD, colonoscopy, imaging including abdominal x-ray, CT scan, without any acute pathology. She underwent repeat upper endoscopy with Botox for possibility of gastroparesis. She has had chronic back pain and abdominal pain. Due to this, she has a longstanding history of opiate use. During the admission, she has also received a significant amount of opioids. At some point during the admission, the patient was unhappy with some of the care and somehow asked for a second opinion and GI was consulted to give a second opinion in regards to the abdominal pain. PAST MEDICAL HISTORY: Diabetes, gastroparesis, rheumatoid arthritis, ulcerative colitis, hypothyroidism, GERD, chronic back pain, asthma, anxiety disorder. PAST SURGICAL HISTORY: Back surgery, partial colectomy, cholecystectomy. FAMILY HISTORY: No GI malignancy. There is some history of inflammatory bowel disease in the family, . SOCIAL HISTORY: Illicit drug use. Denies any current tobacco use or any alcohol use. REVIEW OF SYSTEMS: A 12-point review of system was obtained by me, which is negative or noncontributory to the above-mentioned in HPI. PHYSICAL EXAMINATION: VITAL SIGNS: Temperature 97.7, heart rate of 113, respirations 16, blood pressure 135/56, O2 saturation 97% on room air. GENERAL: The patient is somnolent sleepy, in no acute distress. HEENT: Normocephalic, atraumatic. Pupils equal, round, reactive to light. NECK: Supple, nontender. No carotid bruits. CARDIOVASCULAR: Regular rate and rhythm. RESPIRATORY: Clear to auscultation bilaterally, no wheezing. ABDOMEN: Soft, obese, nondistended. Mildly tender diffusely somewhat, but voluntary guarding and less tender on distraction. No rebound appreciated. No hepatosplenomegaly appreciated, but difficult to palpate accurately given the patient's complaint of pain. No periumbilical ecchymosis noted. No abdominal hernia clearly identified. Abdominal scar noted. GENITOURINARY, BACK: No CV angle tenderness noted. No lymphadenopathy identified. MUSCULOSKELETAL: Equal left upper and lower extremities. NEUROLOGIC: Alert and oriented. No focal deficits. PSYCHIATRIC: Cooperative, appropriate mood and affect. LABORATORY DATA: WBC 11.2, hemoglobin 11.7, platelet count of 286. INR 1.0. Sodium 142, potassium 3.9, chloride , bicarbonate 27, BUN 18, creatinine 1.02. IMPRESSION: 1. Abdominal pain. Imaging and labs were reviewed. Imaging shows some evidence of constipation with the patient's known history of chronic constipation with opiate-induced. I suspect that she may have worsening of her constipation symptoms which may be precipitating her abdominal pain. She has had significant workup this admission and apparently in the past, as well as a tertiary care referral at [facility] for similar issues. Currently, she has already undergone 2 upper endoscopies and a colonoscopy. Therefore, endoscopic procedures will likely not be beneficial. 2. Opiate-induced constipation. 3. History of ulcerative colitis. 4. Questionable history of anastomotic stricture, which has been dilated in the past. RECOMMENDATIONS: The patient will need laxatives. Recommend starting MiraLax 17 grams, 2 packets or 2 doses today and give 2 more doses tomorrow morning, after which, I recommend a warm tap water enema to see if that will help initiate some bowel movements without significant amount of pain. She also takes mu-opioid receptor antagonist and could consider adding Relistor or her own medication, Symproic 0.2 mg daily. I agree with trying to limit her opioid usage. She needs to increase her activity, which may help to improve her bowel movements. Her constipation symptoms needs to be resolved in order to further evaluate to see if this is the only etiology of her pain. A thorough discussion occurred with the patient and the patient's , who has been at bedside. I gave my reasoning and explanation of the abdominal pain. I certainly do not have any further workup at this time to offer. Recommend otherwise continuing current therapy and to continue with aggressive bowel or a laxative program. Thank you for allowing me to participate in the care of the patient. Please do not hesitate to contact me for any further questions. MD EVI Mistry/NORMA , 07:56 PM , 08:42 PM
[2017-09-16] MEDS ORDERED: Polyethylene Glycol 3350 17 GM Packet PO ONE (21:00)
[2017-09-17] MEDS: Ketorolac Inj 30 MG/ML (IVP) Vial IV.PUSH PRN ×4 (01:11→18:56)
[2017-09-17] MEDS: LORazepam 1 MG Tablet PO PRN (01:14)
[2017-09-17] MEDS: Levothyroxine 125 MCG Tablet PO SCH (05:11)
[2017-09-17 07:27] LABS: Baso % (Auto) 0.6 % (0.0-2.0); Eos # (Auto) 0.3 th/mm3 (0.0-0.4); Eos % (Auto) 3.3 % (0.0-4.0); Hematocrit 33.6 % (35.0-46.0); Lymph # (Auto) 3.4 th/mm3 (1.0-4.8); Lymph % (Auto) 40.1 % (9.0-44.0); Mean Corpuscular HGB Conc 32.6 % (32.0-36.0); Mean Corpuscular Hemoglobin 30.7 pg (27.0-34.0); Mean Corpuscular Volume 94.3 fL (80.0-100.0); Mean Platelet Volume 7.8 fL (7.0-11.0); Mono # (Auto) 0.7 th/mm3 (0.0-0.9); Mono % (Auto) 8.6 % (0.0-8.0); Neut % (Auto) 47.4 % (16.0-70.0); Platelet Count 238 th/mm3 (150-450); Red Blood Count 3.56 mil/mm3 (4.00-5.30); Red Cell Distribution Width 14.3 % (11.6-17.2); White Blood Count 8.4 th/mm3 (4.0-11.0)
[2017-09-17 07:50] LABS: Calcium 7.9 mg/dL (8.5-10.1); Magnesium 2.3 mg/dL (1.5-2.5)
[2017-09-17] MEDS ORDERED: Polyethylene Glycol 3350 17 GM Packet PO ONE (09:00)
[2017-09-17] MEDS: Magnesium Oxide 400 MG Tablet PO SCH (09:04)
[2017-09-17] MEDS: Metoclopramide 10 MG Tablet PO SCH ×4 (09:04→21:51)
[2017-09-17] MEDS: Sodium Chloride 1 GM Tablet PO SCH (09:04)
[2017-09-17] MEDS: ESTROGENS CONJUGATED 1.25 MG PO SCH (09:06)
[2017-09-17] MEDS: Senna/Docusate Sodium 8.6/50 MG Tablet PO SCH ×2 (09:06→21:56)
[2017-09-17] MEDS: Gabapentin 400 MG Capsule PO SCH ×3 (09:06→17:31)
[2017-09-17] MEDS: Enoxaparin Inj 40 MG/0.4 ML Syringe SQ SCH (09:07)
[2017-09-17] MEDS: diphenhydrAMINE HCl 12.5 MG/5 ML Elixir UDC PO PRN ×2 (09:07→17:31)
[2017-09-17] MEDS: Sucralfate Liq 1 GM/10 ML UDC PO SCH ×5 (09:08→22:02)
[2017-09-17] MEDS: Dextrose 5%/NaCl 0.9% Inj 1,000 ML IV.CONT SCH ×3 (10:39→17:45)
--- NOTE | 2017-09-17 12:16 | P.DIET ---
Nutritional Evaluation Type of nutrition evaluation: initial Screening comments: F/U for MDC: Provide supplement to oral intake Subjective Subjective Comments: Pt states she is trying to eat. She drinks her Glucerna and soy milk daily. Verbalizes no complaints. Pt states she controls her diabetes with diet alone. Requests being put on a regular diet as she does not have any kind of heart disease and would like some eggs. Objective - Diagnosis Intractable Abdominal Pain - Objective % IBW: 187 Body Weight Used for Calculations: Upper end of IBW Energy Needs - Lower Range (kCal/kg): 28 Energy Needs - Upper Range (kCal/kg): 33 Lower Limit kCal/kg (kCals): 1,477 Upper Limit kCal/kg (kCals): 1,739 Lower Limit Protein Factor (Grams per Kg): 1.1 Upper Limit Protein Factor (Grams per Kg): 1.4 Lower Protein Needs (Protein): 60 Upper Protein Needs (Protein): 74 Fluid Factor (ml/kg): 33 Estimated Fluid Needs (ml): 1,739 Dietitian Reviewed in Medical Record: Current diet, Curent medications, Intake & Output, Labs Diet Order: Cardiac Objective Comments: Nutrition needs based on wt of 52.7kg PMH: RA, Ulcerative Colitis, Hypothyroidism, GERD, frequent UTI's, DM, Anxiety, chronic back pain Meds include: Reglan, Synthroid Assessment Assessment: Pt at nutritional risk r/t dx and medical hx. Pt admitted with Intractable abdominal pain/ with h/o Ulcerative colitis/ GERD. She is s/p EGD and colonoscopy, s/p EGD Botox 08/14. She is eating 50-100% of some meals and refusing others. She receives Glucerna shakes tid. Obtained food preferences. Will continue to monitor pt's po intake and clinical course. Recommendations: Pt on a cardiac diet with Glucerna tid Pt controls her diabetes with diet Requests diet change to regular for more food options Dietitian following Dietitian to Monitor: Lab values, Supplement acceptance, Diet tolerance, PO Intake, Medical course
[2017-09-17] MEDS: Butalbital/APAP/Caff 50/325/40 MG Tablet PO PRN (12:42)
--- NOTE | 2017-09-17 14:18 | P.PNIM ---
Subjective Interval history: The patient stated she had a watery bowel movement following the enema. She otherwise still has abdominal pain. She wants to know which pain medications she has available. Her was at bedside. Discussed with nursing. Physical Exam Vital signs: Vital Signs 09/16/17 20:00 09/16/17 20:04 09/16/17 20:20 Temperature 96.3 F L Pulse Rate 51 L 43 L Respiratory Rate 20 Blood Pressure 99/54 L Pulse Oximetry 98 98 09/16/17 23:58 09/17/17 00:00 09/17/17 04:00 Temperature 97.5 F L 98.2 F Pulse Rate 51 L 99 H 51 L Respiratory Rate 16 18 Blood Pressure 167/70 H 115/58 L Pulse Oximetry 95 95 09/17/17 08:00 Temperature 98.2 F Pulse Rate 67 Respiratory Rate 17 Blood Pressure 164/105 H Pulse Oximetry 100 Intake & Output 09/16/17 09/17/17 09/17/17 18:59 06:59 18:59 Intake Total 496 / 496 1500 / 1500 1000 / 1000 Output Total 1500 / 1500 Balance 496 / 496 0 / 0 1000 / 1000 Weight 89 kg Intake: IV 496 / 496 1000 / 1000 D5W/Normal Saline Inj 1,000 ML 496 / 496 1000 / 1000 @ 70 mls/hr IV.CONT .[id number] [facility] Rx#:[id number] Oral 1500 / 1500 Output: Urine 1500 / 1500 Other: # Voids 4 Date of Last Bowel Movement 09/10/17 09/10/17 09/17/17 Narrative: GENERAL: This is a well-nourished, well-developed patient. SKIN: Warm and dry. CARDIOVASCULAR: Regular rate and rhythm RESPIRATORY: Clear to auscultation. Breath sounds equal bilaterally. No wheezes , rales, or rhonchi. GASTROINTESTINAL: Abdomen soft, nondistended. Bowel Sounds normoactive tenderness to mild palpation epigastric, left upper and lower quadrant. MUSCULOSKELETAL: Extremities without clubbing, cyanosis, or edema. NEUROLOGICAL: Awake, slightly lethargic. Oriented to time, place, person. No focal neuro deficit. Moves all extremities. Normal speech. Results - Labs CBC & Chem 7: 09/17/17 06:51 09/17/17 06:51 Laboratory Results - last 24 hr 07/02/2209/16/17 09/16/17 13:26 13:26 13:26 WBC 11.2 H RBC 3.81 L Hgb 11.7 Hct 35.9 MCV 94.3 MCH 30.6 MCHC 32.4 RDW 14.6 Plt Count 286 MPV 8.2 Neut % (Auto) 54.1 Lymph % (Auto) 35.0 [place] % (Auto) 7.8 Eos % (Auto) 2.1 Baso % (Auto) 1.0 Neut # (Auto) 6.1 Lymph # (Auto) 3.9 [place] # (Auto) 0.9 Eos # (Auto) 0.2 Baso # (Auto) 0.1 WBC Differential . Differential Comment Auto diff final Sodium 142 Potassium 3.9 Chloride 107 Carbon Dioxide 27.3 Anion Gap 8 BUN 18 Creatinine 1.02 H Estimated GFR 55 L Random Glucose 79 Calcium 8.0 L Magnesium 2.1 Total Bilirubin 0.2 AST 10 L ALT 17 Alkaline Phosphatase 91 Total Protein 6.4 Albumin 3.3 L 09/17/17 09/17/17 06:51 06:51 WBC 8.4 RBC 3.56 L Hgb 11.0 L Hct 33.6 L MCV 94.3 MCH 30.7 MCHC 32.6 RDW 14.3 Plt Count 238 MPV 7.8 Neut % (Auto) 47.4 Lymph % (Auto) 40.1 [place] % (Auto) 8.6 H Eos % (Auto) 3.3 Baso % (Auto) 0.6 Neut # (Auto) 4.0 Lymph # (Auto) 3.4 [place] # (Auto) 0.7 Eos # (Auto) 0.3 Baso # (Auto) 0.0 WBC Differential . Differential Comment Auto diff final Sodium 142 Potassium 4.0 Chloride 108 H Carbon Dioxide 27.0 Anion Gap 7 BUN 18 Creatinine 0.91 Estimated GFR 63 L Random Glucose 82 Calcium 7.9 L Magnesium 2.3 Total Bilirubin AST ALT Alkaline Phosphatase Total Protein Albumin - Imaging Impressions Abdomen X-Ray 09/16/17 11:00 CONCLUSION: No evidence of obstruction. - Procedures EGD and cscope Rpt EGD with botox Assessment and Plan - Assessment (1) Intractable abdominal pain Code(s): R10.9 - Unspecified abdominal pain Status: Acute - Plan The patient is a very pleasant 61-year-old female with multiple medical problems who came to the emergency room with complaints of intractable abdominal pain, nausea and vomiting: Intractable abdominal pain/ with h/o Ulcerative colitis/ GERD (gastroesophageal reflux disease) History of diverticulitis Gastroparesis -on narcotic medications from home, chronic constipation with obstruction -CT abdomen reviewed No acute findings -Antiemetics: Reglan ACHS, Zofran scheduled -[place] for pain, 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 GI second opinion appreciated. -EGD and colonoscopy done by GI. EGD with gastritis, normal duodenum, esophagitis the distal esophagus with white deposits rule out Anat retained food stomach. Hiatal hernia. Recommends Anti-reflux regimen, PPI and Nystatin. Added Diflucan MRA abdomen no mesenteric ischemia Colonoscopy showed Normal colonoscopy-random biopsies from ascending, transverse, descending, surgical changes in sigmoid path unremarkable. Recommends probiotics. Return for 1 year colonoscopy -s/p EGD Botox 09/14 with expected postprocedural discomfort which might partially explain patient continued symptoms -Patient pain is not reflective of CT, EGD, Colonoscopy results. May have really low tolerance to pain vs narcotic seeking as she is taking narcotic medications at home and with high tolerance to opioid meds. -Dc IV dilaudid 0.5mg , continue Reglan and bethanechol. IV Toradol as needed. Constipation Started on aggressive bowel regimen by GI. - continue bowel regimen. Anxiety disorder Chronic. -Continue home medications. Asthma, not in exacerbation Chronic back pain follows with pain management -[place] as needed -Discussed extensively with patient use of narcotics with gastroparesis. -Refer to pain management Hypothyroidism -Restart home medication GERD, Migraines -Restart home medication DVT prophylaxis SCDs/teds/Lovenox
[2017-09-17] MEDS: Polyethylene Glycol 3350 17 GM Packet PO SCH (22:02)
[2017-09-18] MEDS: LORazepam 1 MG Tablet PO PRN (00:43)
[2017-09-18] MEDS: Ketorolac Inj 30 MG/ML (IVP) Vial IV.PUSH PRN ×2 (00:45→06:32)
[2017-09-18] MEDS: Levothyroxine 125 MCG Tablet PO SCH (05:34)
[2017-09-18] MEDS: Dextrose 5%/NaCl 0.9% Inj 1,000 ML IV.CONT SCH ×3 (08:41→20:23)
[2017-09-18] MEDS: Sucralfate Liq 1 GM/10 ML UDC PO SCH ×4 (08:54→20:24)
[2017-09-18] MEDS: Enoxaparin Inj 40 MG/0.4 ML Syringe SQ SCH (08:54)
[2017-09-18] MEDS: Metoclopramide 10 MG Tablet PO SCH ×4 (08:55→20:26)
[2017-09-18] MEDS: Magnesium Oxide 400 MG Tablet PO SCH (08:55)
[2017-09-18] MEDS: Gabapentin 400 MG Capsule PO SCH ×3 (08:56→17:46)
[2017-09-18] MEDS: Sodium Chloride 1 GM Tablet PO SCH (08:56)
[2017-09-18] MEDS: ESTROGENS CONJUGATED 1.25 MG PO SCH (08:56)
[2017-09-18] MEDS: Polyethylene Glycol 3350 17 GM Packet PO SCH ×2 (09:00→20:25)
[2017-09-18] MEDS: Senna/Docusate Sodium 8.6/50 MG Tablet PO SCH ×2 (09:00→20:26)
[2017-09-18] MEDS ORDERED: HYDROmorphone PF Inj 1 MG/ML Ampul IV.PUSH ONE (10:04)
--- NOTE | 2017-09-18 10:08 | P.PNIM ---
Subjective Interval history: The patient reports increased abdominal pain. She said she threw up 3 times this morning. She was able to eat roast beef last night. She has been ambulatory. She requests IV pain medication. Discussed with her . Discussed with nursing. Physical Exam Vital signs: Vital Signs 09/17/17 16:00 09/17/17 17:25 09/17/17 20:00 Temperature 97.1 F L 97.7 F 98 F Pulse Rate 68 97 H 50 L Respiratory Rate 17 18 18 Blood Pressure 97/72 L 127/62 Pulse Oximetry 96 96 95 09/18/17 00:00 09/18/17 04:00 09/18/17 04:43 Temperature 97.5 F L 98.2 F Pulse Rate 67 76 Respiratory Rate 18 18 5 L Blood Pressure 106/53 L 144/85 H Pulse Oximetry 95 96 09/18/17 08:00 09/18/17 09:00 Temperature 98.0 F Pulse Rate 70 72 Respiratory Rate 18 Blood Pressure 168/92 H Pulse Oximetry 96 Intake & Output 09/17/17 09/18/17 09/18/17 18:59 06:59 18:59 Intake Total 1999 320 / 320 1000 / 1000 Balance 1999 / 1999 320 / 320 1000 / 1000 Intake: IV 1999 1000 / 1000 D5W/Normal Saline Inj 1,000 ML 1999 1000 / 1000 @ 70 mls/hr IV.[id number] Rx#:[id number] Oral 320 / 320 Other: # Voids 6 Date of Last Bowel Movement 09/17/17 09/18/17 09/18/17 # Bowel Movements 3 Narrative: GENERAL: This is a well-nourished, well-developed patient. SKIN: Warm and dry. CARDIOVASCULAR: Regular rate and rhythm RESPIRATORY: Clear to auscultation. Breath sounds equal bilaterally. No wheezes , rales, or rhonchi. GASTROINTESTINAL: Abdomen soft, nondistended. Bowel Sounds normoactive tenderness to mild palpation epigastric, left upper and lower quadrant. MUSCULOSKELETAL: Extremities without clubbing, cyanosis, or edema. NEUROLOGICAL: Awake, slightly lethargic. Oriented to time, place, person. No focal neuro deficit. Moves all extremities. Normal speech. Results - Labs CBC & Chem 7: 09/17/17 06:51 09/17/17 06:51 - Procedures EGD and cscope Rpt EGD with botox Assessment and Plan - Assessment (1) Intractable abdominal pain Code(s): R10.9 - Unspecified abdominal pain Status: Acute - Plan The patient is a very pleasant 61-year-old female with multiple medical problems who came to the emergency room with complaints of intractable abdominal pain, nausea and vomiting: Intractable abdominal pain/ with h/o Ulcerative colitis/ GERD (gastroesophageal reflux disease) History of diverticulitis Gastroparesis -on narcotic medications from home, chronic constipation with obstruction -CT abdomen reviewed No acute findings -Antiemetics: Reglan ACHS, Zofran scheduled -[place] for pain, 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 GI second opinion appreciated. -EGD and colonoscopy done by GI. EGD with gastritis, normal duodenum, esophagitis the distal esophagus with white deposits rule out Anat retained food stomach. Hiatal hernia. Recommends Anti-reflux regimen, PPI and Nystatin. Added Diflucan MRA abdomen no mesenteric ischemia Colonoscopy showed Normal colonoscopy-random biopsies from ascending, transverse, descending, surgical changes in sigmoid path unremarkable. Recommends probiotics. Return for 1 year colonoscopy -s/p EGD Botox 09/14 with expected postprocedural discomfort which might partially explain patient continued symptoms -Patient pain is not reflective of CT, EGD, Colonoscopy results. May have really low tolerance to pain vs narcotic seeking as she is taking narcotic medications at home and with high tolerance to opioid meds. -continue Reglan and bethanechol. IV Toradol as needed. IV Dilaudid x 1. -would benefit from a palliative care consult. Will consult on Wednesday if pt still here. Constipation Started on aggressive bowel regimen by GI. - continue bowel regimen. Anxiety disorder Chronic. -Continue home medications. Chronic back pain follows with pain management -[place] as needed -Discussed extensively with patient use of narcotics with gastroparesis. -Refer to pain management. Possible palliative care consult while here. Hypothyroidism -Restart home medication GERD, Migraines -Restart home medication DVT prophylaxis SCDs/teds/Lovenox
[2017-09-18] MEDS ORDERED: HYDROmorphone PF Inj 2 MG/ML Vial IV.PUSH ONE (10:45)
[2017-09-18] MEDS: diphenhydrAMINE HCl 12.5 MG/5 ML Elixir UDC PO PRN (20:37)
[2017-09-19] MEDS: Levothyroxine 125 MCG Tablet PO SCH (06:58)
[2017-09-19] MEDS: Sucralfate Liq 1 GM/10 ML UDC PO SCH ×4 (08:52→21:02)
[2017-09-19] MEDS: Enoxaparin Inj 40 MG/0.4 ML Syringe SQ SCH (08:53)
[2017-09-19] MEDS: Senna/Docusate Sodium 8.6/50 MG Tablet PO SCH ×2 (08:57→21:02)
[2017-09-19] MEDS: Gabapentin 400 MG Capsule PO SCH ×3 (08:58→18:06)
[2017-09-19] MEDS: ESTROGENS CONJUGATED 1.25 MG PO SCH (08:58)
[2017-09-19] MEDS: Metoclopramide 10 MG Tablet PO SCH ×2 (08:58→11:10)
[2017-09-19] MEDS: Sodium Chloride 1 GM Tablet PO SCH (08:58)
[2017-09-19] MEDS: Magnesium Oxide 400 MG Tablet PO SCH (08:58)
[2017-09-19] MEDS: diphenhydrAMINE HCl 12.5 MG/5 ML Elixir UDC PO PRN (09:02)
--- NOTE | 2017-09-19 09:39 | P.PNIM ---
Subjective Interval history: The patient said that she was vomiting overnight. She said that she felt constipated and wanted a MiraLAX. She felt like she had a lot of pressure in her intestines. Discussed with nursing. Physical Exam Vital signs: Vital Signs 09/18/17 16:00 09/18/17 20:00 09/19/17 00:00 Temperature 97.4 F L 97.9 F Pulse Rate 75 59 L 47 L Respiratory Rate 18 18 Blood Pressure 129/89 142/69 H Pulse Oximetry 99 97 97 09/19/17 04:00 Temperature 97.8 F Pulse Rate 43 L Respiratory Rate 18 Blood Pressure 139/63 Pulse Oximetry 96 Intake & Output 09/18/17 09/19/17 09/19/17 18:59 06:59 18:59 Intake Total 2440 / 2440 1000 / 1000 Balance 2440 / 2440 1000 / 1000 Weight 89.1 kg Intake: IV 1000 / 1000 1000 / 1000 D5W/Normal Saline Inj 1,000 ML 1000 / 1000 1000 / 1000 @ 70 mls/hr IV.CONT .[id number] [facility] Rx#:[id number] Oral 1440 / 1440 Other: # Voids 3 3 Date of Last Bowel Movement 09/18/17 09/18/17 # Bowel Movements 2 Narrative: GENERAL: This is a well-nourished, well-developed patient. SKIN: Warm and dry. CARDIOVASCULAR: Bradycardic. RESPIRATORY: Clear to auscultation. Breath sounds equal bilaterally. No wheezes , rales, or rhonchi. GASTROINTESTINAL: Abdomen soft, nondistended. Bowel Sounds normoactive tenderness to mild palpation epigastric, left upper and lower quadrant. MUSCULOSKELETAL: Extremities without clubbing, cyanosis, or edema. NEUROLOGICAL: Awake and alert. Oriented to time, place, person. No focal neuro deficit. Moves all extremities. Normal speech. Results - Labs CBC & Chem 7: 09/17/17 06:51 09/17/17 06:51 - Procedures EGD and cscope Rpt EGD with botox Assessment and Plan - Assessment (1) Intractable abdominal pain Code(s): R10.9 - Unspecified abdominal pain Status: Acute - Plan The patient is a very pleasant 61-year-old female with multiple medical problems who came to the emergency room with complaints of intractable abdominal pain, nausea and vomiting: Intractable abdominal pain/ with h/o Ulcerative colitis/ GERD (gastroesophageal reflux disease) History of diverticulitis Gastroparesis -on narcotic medications from home, chronic constipation with obstruction -CT abdomen reviewed No acute findings -Antiemetics: Reglan ACHS, Zofran scheduled -[place] for pain, 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 GI second opinion appreciated. -EGD and colonoscopy done by GI. EGD with gastritis, normal duodenum, esophagitis the distal esophagus with white deposits rule out Anat retained food stomach. Hiatal hernia. Recommends Anti-reflux regimen, PPI and Nystatin. Added Diflucan MRA abdomen no mesenteric ischemia Colonoscopy showed Normal colonoscopy-random biopsies from ascending, transverse, descending, surgical changes in sigmoid path unremarkable. Recommends probiotics. Return for 1 year colonoscopy -s/p EGD Botox 09/14 with expected postprocedural discomfort which might partially explain patient continued symptoms -Patient pain is not reflective of CT, EGD, Colonoscopy results. May have really low tolerance to pain vs narcotic seeking as she is taking narcotic medications at home and with high tolerance to opioid meds. -continue Reglan and bethanechol. IV Toradol as needed. -would benefit from a palliative care consult for pain and nausea management. Will consult on Wednesday if pt still symptomatic. Constipation Started on aggressive bowel regimen by GI. - continue bowel regimen. Anxiety disorder Chronic. -Continue home medications. Chronic back pain follows with pain management -[place] as needed -Discussed extensively with patient use of narcotics with gastroparesis. -Refer to pain management. Palliative care consult while here. Hypothyroidism -Restart home medication -check TSH Bradycardia Asymptomatic. -check TSH. DVT prophylaxis SCDs/teds/Lovenox
[2017-09-19] MEDS: Polyethylene Glycol 3350 17 GM Packet PO SCH ×2 (09:56→21:02)
[2017-09-19 10:10] LABS: Calcium 8.5 mg/dL (8.5-10.1); Carbon Dioxide 28.1 meq/L (21.0-32.0); Potassium 4.2 meq/L (3.5-5.1)
[2017-09-19] MEDS: Butalbital/APAP/Caff 50/325/40 MG Tablet PO PRN (11:09)
[2017-09-19] MEDS: Dextrose 5%/NaCl 0.9% Inj 1,000 ML IV.CONT SCH (11:18)
[2017-09-19] MEDS ORDERED: Scopalamine 1.5 MG Patch T-DERMAL SCH (15:00)
[2017-09-20] MEDS: Dextrose 5%/NaCl 0.9% Inj 1,000 ML IV.CONT SCH ×2 (02:00→13:22)
[2017-09-20] MEDS: Levothyroxine 125 MCG Tablet PO SCH (05:53)
[2017-09-20] MEDS: Senna/Docusate Sodium 8.6/50 MG Tablet PO SCH ×2 (08:00→20:34)
[2017-09-20] MEDS: ESTROGENS CONJUGATED 1.25 MG PO SCH (08:01)
[2017-09-20] MEDS: Enoxaparin Inj 40 MG/0.4 ML Syringe SQ SCH (08:02)
[2017-09-20] MEDS: Gabapentin 400 MG Capsule PO SCH ×3 (08:02→20:34)
[2017-09-20] MEDS: Polyethylene Glycol 3350 17 GM Packet PO SCH ×2 (08:02→20:34)
[2017-09-20] MEDS: Magnesium Oxide 400 MG Tablet PO SCH (08:02)
[2017-09-20] MEDS: Sucralfate Liq 1 GM/10 ML UDC PO SCH ×4 (08:03→20:33)
[2017-09-20] MEDS: Sodium Chloride 1 GM Tablet PO SCH (08:03)
[2017-09-20] MEDS: diphenhydrAMINE HCl 12.5 MG/5 ML Elixir UDC PO PRN (08:06)
--- NOTE | 2017-09-20 11:10 | P.PNIM ---
Subjective Interval history: The patient said she was still throwing up. She still complained of abdominal pain. She was still hopeful she could go home tomorrow. Discussed with nursing. Physical Exam Vital signs: Vital Signs 09/19/17 11:40 09/19/17 11:45 09/19/17 12:00 Temperature 98.2 F Pulse Rate 47 L Respiratory Rate 18 18 12 Blood Pressure 144/82 H Pulse Oximetry 93 L 09/19/17 16:00 09/19/17 16:20 09/19/17 20:00 Temperature 97.9 F 98.4 F Pulse Rate 49 L 43 L Respiratory Rate 16 18 17 Blood Pressure 178/92 H 136/63 Pulse Oximetry 96 98 09/20/17 00:00 09/20/17 04:00 09/20/17 08:00 Temperature 97.4 F L 97.6 F Pulse Rate 69 75 58 L Respiratory Rate 18 18 16 Blood Pressure 128/61 123/65 125/59 L Pulse Oximetry 98 98 95 Intake & Output 09/19/17 09/20/17 09/20/17 18:59 06:59 18:59 Intake Total 1240 / 1240 4079 / 4079 Output Total 3 / 3 Balance 1240 / 1240 4076 / 4076 Intake: IV 1000 / 1000 1000 / 1000 D5W/Normal Saline Inj 1,000 ML 1000 / 1000 1000 / 1000 @ 70 mls/hr IV.CONT .[id number] [facility] Rx#:[id number] Oral 240 / 240 720 / 720 Anesthesia Amount 100 / 100 Other 2259 / 2259 Output: Urine 3 / 3 Other: Other Intake Source Saline Solution # Voids 5 5 Date of Last Bowel Movement 09/20/17 # Bowel Movements 1 Narrative: GENERAL: This is a well-nourished, well-developed patient. SKIN: Warm and dry. CARDIOVASCULAR: Bradycardic. RESPIRATORY: Clear to auscultation. Breath sounds equal bilaterally. No wheezes , rales, or rhonchi. GASTROINTESTINAL: Abdomen soft, nondistended. Bowel Sounds normoactive tenderness to mild palpation epigastric, left upper and lower quadrant. MUSCULOSKELETAL: Extremities without clubbing, cyanosis, or edema. NEUROLOGICAL: Awake and alert. Oriented to time, place, person. No focal neuro deficit. Moves all extremities. Normal speech. Results - Labs CBC & Chem 7: 09/17/17 06:51 09/19/17 08:32 Laboratory Results - last 24 hr 09/19/17 08:32 TSH 2.490 - Procedures EGD and cscope Rpt EGD with botox Assessment and Plan - Assessment (1) Intractable abdominal pain Code(s): R10.9 - Unspecified abdominal pain Status: Acute - Plan The patient is a very pleasant 61-year-old female with multiple medical problems who came to the emergency room with complaints of intractable abdominal pain, nausea and vomiting: Intractable abdominal pain/ with h/o Ulcerative colitis/ GERD (gastroesophageal reflux disease) History of diverticulitis Gastroparesis -on narcotic medications from home, chronic constipation with obstruction -CT abdomen reviewed No acute findings -Antiemetics: Reglan ACHS, Zofran scheduled -[place] for pain, 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 GI second opinion appreciated. -EGD and colonoscopy done by GI. EGD with gastritis, normal duodenum, esophagitis the distal esophagus with white deposits rule out Anat retained food stomach. Hiatal hernia. Recommends Anti-reflux regimen, PPI and Nystatin. Added Diflucan MRA abdomen no mesenteric ischemia Colonoscopy showed Normal colonoscopy-random biopsies from ascending, transverse, descending, surgical changes in sigmoid path unremarkable. Recommends probiotics. Return for 1 year colonoscopy -s/p EGD Botox 09/14 with expected postprocedural discomfort which might partially explain patient continued symptoms -Patient pain is not reflective of CT, EGD, Colonoscopy results. May have really low tolerance to pain vs narcotic seeking as she is taking narcotic medications at home and with high tolerance to opioid meds. -continue Reglan and bethanechol. -would benefit from a palliative care consult for pain and nausea management. Order placed. Constipation Started on aggressive bowel regimen by GI. - continue bowel regimen. Anxiety disorder Chronic. -Continue home medications. Chronic back pain follows with pain management -[place] as needed -Discussed extensively with patient use of narcotics with gastroparesis. -Refer to pain management. Palliative care consult requested. Hypothyroidism -Restart home medication -check TSH Bradycardia Asymptomatic. TSH normal. - monitor. DVT prophylaxis SCDs/teds/Lovenox
[2017-09-20 11:16] LABS: Hemoglobin 10.6 gm/dL (11.6-15.3); Mean Corpuscular HGB Conc 33.1 % (32.0-36.0); Mean Corpuscular Hemoglobin 30.6 pg (27.0-34.0); Mean Corpuscular Volume 92.5 fL (80.0-100.0); Mean Platelet Volume 8.6 fL (7.0-11.0); Platelet Count 174 th/mm3 (150-450); Red Blood Count 3.46 mil/mm3 (4.00-5.30); Red Cell Distribution Width 14.4 % (11.6-17.2)
[2017-09-20 11:38] LABS: Albumin 2.9 g/dL (3.4-5.0); Calcium 8.4 mg/dL (8.5-10.1)
[2017-09-20 11:41] LABS: Potassium 3.8 meq/L (3.5-5.1)
--- NOTE | 2017-09-20 12:56 | P.CONPAL ---
Consult Service: Palliative Care Requesting Physician: Handy Norris Reason for Consult: a. To assist with evaluation and management of symptoms including: pain b. To assist medical decision maker(s) with: better understanding of current medical conditions; weighing benefits/burdens of medical treatment options; making medical treatment decisions. Primary Care Provider: Chance Banda MD History of Present Illness History of Present Illness: This 61-year-old female presented to the ED on 09/08/17 with complaints of abdominal pain 1 week. She reported pain to the left upper quadrant with radiation to the left lower quadrant. Reports similar pain in the past related to a bowel obstruction. She self-imposed a clear liquid diet which seemed to provide some relief. Pain waxes and wanes in severity. No reported diarrhea. BM 2 days prior. She also reported nausea and vomiting day of presentation. She reports history of ulcerative colitis status post partial bowel resection. She ended up with a stricture in her bowel which at times causes obstruction. She also reports chronic low back pain which she uses hydrocodone for. She requires a laxative to move bowels regularly. She also reports increased urinary frequency, no dysuria. She also reported that recently was told she had elevated sed rate and DrDaniel started on a prednisone taper. * ED: Tenderness to abdominal exam otherwise exam benign. Afebrile. she was started on IV fluid, morphine for pain, Reglan for nausea. Pain was unrelieved with morphine, she was then given Dilaudid. Mild leukocytosis 13.1. Total bili 0.1, GFR 63, lipase 158. Cardiac enzymes negative. UA small occult blood otherwise unremarkable, culture not indicated. CXR negative for acute process. CT abdomen pelvis= no acute findings. Mild amount of stool throughout colon. No dilated loops of small or large bowel. Patient continued to have abdominal pain throughout ED course requiring IV medication. She was admitted under observation for further evaluation and management. * Patient on clear liquid diet. GI consulted for further evaluation= patient noted with last colonoscopy 2 years prior with no active colitis. Pain worsens with p.o. intake, moving and palpation. She follows at [facility] post sigmoid resection from 1994, last seen there 6 months prior. Has previously underwent double balloon enteroscopy with stricture dilatation 2 years ago. Plan for EGD, colonoscopy. * Colonoscopy 09/10: Normal exam. Internal hemorrhoids. External hemorrhoids. Biopsy obtained. * EGD 09/10: Duodenum normal. Biopsy obtained. Esophagitis noted distal esophagitis, some white deposits, rule out Anat versus retained food. Hiatal hernia. Recommended antireflux regimen, continue PPI and nystatin. Recommends MRI abdomen rule out mesenteric ischemia. Trial of bethanechol, if not improved consider EGD/Botox * 09/12 stable. Medical team encouraging patient to use p.o. regimen not IV regimen. Some difficulty swallowing recommended for liquids. Plan for EGD with Botox 09/13. Continued on p.o. Medon, Benadryl. Pain level not felt to reflect available imaging and diagnostic results. Concern for low pain tolerance versus opiate tolerance versus opiate seeking. She has requested to receive pain medications with Benadryl dosing. * Still with upper abdominal tenderness, epigastric tenderness. Some burning in the esophagus. No nausea or vomiting. MRI abdomen= unremarkable, no focal stenosis demonstrated. Multiple scattered benign-appearing hepatic cysts throughout the liver. Constipation felt to be secondary to chronic opiate intake. * Dietitian evaluated recommends 1800-calorie ADA diet with Glucerna 3 times daily. She is eating 75-100% of some meals and refusing others. Will continue to monitor. * PT following: PT notes that patient ambulates usually with a front-wheeled walker with an short distances she also has occasional use of a cane. She also has a wheelchair as needed. She requires occasional assistance for showering. * 09/13 EGD with Botox injected in 4 quadrants, 80 units total. Patient noted with erythematous gastritis in the entire stomach, normal duodenal mucosa in the second part. Tolerated well, stable , plan for discharge the following day. * 09/14 reporting some mid abdominal pain but with some improvement mild nausea no vomiting. GI has signed off. * 09/15 passing flatus, no bowel movement. Requiring some IV Toradol for pain. Refusing p.o. bowel medication requesting Dulcolax suppository. Tolerating p.o. diet. Medical attending notes extensive discussion with patient regarding use of narcotics with gastroparesis. Referral for outpatient pain management, she has chronic back pain. Medical attending notes no tenderness to abdominal exam when patient distracted. Also notes patient asking for morphine. No additional opiates to be added, Toradol and after meds to be added. Also Symproic for opiate constipation. * 7/12 KUB done for continued abdominal pain. No evidence of obstruction. Bowel gas pattern normal. No masses or organomegaly. Unremarkable exam. screw fixation noted on left at L4-L5. Medical attending notes continue Toradol and Ofirmev. Indicated no additional narcotics. Patient noted to request a different physician. PT continues to follow notes patient uses abdominal pillow to splint abdomen during ambulation. Dietitian continues to follow patient eating 50 per sent to 100% of meals. She requests regular diet for more food choices. * 09/19 - 09/20 patient with some nausea, some vomiting. Some abdominal pain. Palliative care consulted to assist with clarification of goals of treatment. Extensive review of chart, medical records. Review of [facility] prescription monitoring record. Discussed at length with medical attending Dr. Norris. Patient seen in room, dual visit with Roel ELIZONDO. Met with patient, at bedside approximately 45 minutes. Patient is pleasant, oriented appropriate. Feeling well overall currently pain is well controlled currently, no nausea currently. She is hopeful to go home tomorrow. Function/Cognitive Trajectory: Lives at home. Uses walker for short distances within her community. Occasionally uses a cane. Has a wheelchair as needed for longer distances. Requires some assistance at times showering, sits during showering. Uses O2 a few times a day and at night for asthma, 2 L Review of Systems Constitutional: Reports headache(s), Denies daytime sleepiness Ears, Nose, Mouth, and Throat: Denies pain with swallowing, Denies sore throat Cardiovascular: Reports shortness of breath with activity (With significant activity), Denies chest pain, Denies leg swelling Respiratory: Reports shortness of breath (With significant activity), Denies chest congestion, Denies cough, Denies wheezing Gastrointestinal: Reports abdominal pain, Reports constipation, Reports nausea, Reports vomiting, Denies black, tarry stools, Denies bright, red blood in stools , Denies difficulty swallowing, Denies excessive passing of gas, Denies feeling full early, Denies heartburn, Denies incontinent of stools, Denies loose stools , Denies pain with swallowing, Denies vomiting blood Genitourinary: Denies blood in urine, Denies painful urination, Denies urinary incontinence Musculoskeletal: Reports back pain (Chronic since surgeries in the ), Reports joint pain (Chronic), Denies limited joint movement Skin/Breast: Denies new lesions, Denies rash Neurologic: Reports headache(s) (Chronic migraines), Denies confusion, Denies dizziness Psychiatric: Reports anxiety (Chronic, well managed with scheduled lorazepam), Denies change in appetite, Denies confusion, Denies depression PMFSH - History History Provided By: Patient - Medical History Medical History: Medical History (Last Updated 09/20/17 @ 12:58 by MIKHAIL Short) Diabetes Frequent urinary tract infections Gastroparesis Interstitial cystitis Rheumatoid arthritis Anxiety disorder Asthma Chronic back pain GERD (gastroesophageal reflux disease) H/O: hysterectomy Hypothyroidism Migraines Ulcerative colitis - Surgical History Surgical History: Surgical History (Last Updated 09/20/17 @ 17:12 by MIKHAIL Short) History of hysterectomy (Acute) History of back surgery History of partial colectomy Hx of cholecystectomy - Family History Family History: Family History (Last Updated 09/20/17 @ 17:14 by MIKHAIL Short) Father Diabetes Ulcerative (chronic) ileocolitis Mother Diabetes Sister Ulcerative (chronic) ileocolitis - Tobacco History Second Hand Smoke Exposure: No Tobacco Use In Past 30 Days: No Smoking Status: Never smoker - Alcohol History How Often Do You Have a Drink Containing Alcohol: Never - Substance Use History Substance History: No History of Abuse - Travel History Recent Travel in the [place] Within the Last 8 Weeks: No Recent Travel Out of the Country Within the Last 8 Weeks: No - Immunization History Tetanus Immunization: >5 Years Hx Influenza Vaccine This Season: Yes Medications and Allergies Active Medications: Active Medications Acetaminophen (Tylenol) 650 mg PO Q4H PRN PRN Reason: Temp > 100.4 Last Admin: 09/15/17 16:00 Dose: 650 mg Acetaminophen/Butalbital/Caffeine (Fioricet 50-325-40) 1 tab PO BID PRN PRN Reason: MIGRAINE HEADACHE Last Admin: 09/19/17 11:09 Dose: 1 tab Hydrocodone Bitart/Acetaminophen (Medon 5/325) 1 tab PO Q4H PRN PRN Reason: Pain 3-6 Last Admin: 09/18/17 20:37 Dose: 1 tab Hydrocodone Bitart/Acetaminophen (Medon 7.5/325) 1 tab PO Q4H PRN PRN Reason: Pain 7-10 Last Admin: 09/20/17 08:01 Dose: 1 tab Al Hydroxide/Mg Hydroxide (Milk Of Magnesia Liq) 30 ml PO Q12H PRN PRN Reason: Mild Constipation Bethanechol Chloride (Urecholine) 10 mg PO BID [facility] Last Admin: 09/20/17 08:01 Dose: 10 mg Bisacodyl (Dulcolax Supp) 10 mg RECTAL DAILY PRN PRN Reason: SEVERE CONSITIPATION Dicyclomine HCl (Bentyl) 20 mg PO QID [facility] Last Admin: 09/20/17 08:01 Dose: 20 mg Diphenhydramine HCl (Benadryl Liq) 25 mg PO Q6H PRN PRN Reason: Pruritus Last Admin: 09/20/17 08:06 Dose: 25 mg Enalaprilat (Vasotec Inj) 2.5 mg IV.PUSH Q8H PRN PRN Reason: BP> 160/ 90 if unable po Last Admin: 09/13/17 00:56 Dose: 2.5 mg Enoxaparin Sodium (Lovenox Inj) 40 mg SQ Q24H [facility] Last Admin: 09/20/17 08:02 Dose: 40 mg Estrogens Conjugated (Premarin) 1.25 mg PO DAILY [facility] Last Admin: 09/20/17 08:01 Dose: 1.25 mg Fluconazole (Diflucan) 200 mg PO DAILY [facility] Last Admin: 09/20/17 08:00 Dose: 200 mg Gabapentin (Neurontin) 800 mg PO TID [facility] Last Admin: 09/20/17 08:02 Dose: 800 mg Hydralazine HCl (Apresoline) 10 mg PO QID PRN PRN Reason: BP > 160/90 Last Admin: 09/12/17 06:25 Dose: 10 mg Dextrose/Sodium Chloride (D5w/Normal Saline Inj) 1,000 mls @ 70 mls/hr IV.CONT .[id number] [facility] Last Admin: 09/20/17 02:00 Dose: 70 mls/hr Lactulose (Lactulose Liq) 30 ml PO DAILY PRN PRN Reason: SEVERE CONSITIPATION Last Admin: 09/20/17 08:00 Dose: 30 ml Levothyroxine Sodium (Synthroid) 125 mcg PO DAILY@0600 [facility] Last Admin: 09/20/17 05:53 Dose: 125 mcg Lorazepam (Ativan) 2 mg PO TID [facility] Last Admin: 09/20/17 08:01 Dose: 2 mg Lorazepam (Ativan) 1 mg PO HS PRN PRN Reason: INSOMNIA Last Admin: 09/18/17 00:43 Dose: 1 mg Magnesium Oxide (Mag-Ox) 400 mg PO DAILY [facility] Last Admin: 09/20/17 08:02 Dose: 400 mg Metoclopramide HCl (Reglan Inj) 10 mg IV.PUSH Q8H PRN; Protocol PRN Reason: NAUSEA OR VOMITING Last Admin: 09/20/17 08:05 Dose: 10 mg Nystatin (Mycostatin) 500,000 unit PO Q8H [facility] Last Admin: 09/20/17 08:02 Dose: 500,000 unit Ondansetron HCl (Zofran Odt) 4 mg PO Q6H [facility] Last Admin: 09/20/17 10:34 Dose: 4 mg Ondansetron HCl (Zofran Odt) 4 mg PO Q6H PRN PRN Reason: NAUSEA OR VOMITING Last Admin: 09/20/17 00:12 Dose: 4 mg Pantoprazole Sodium (Protonix) 40 mg PO DAILY [facility] Last Admin: 09/20/17 08:01 Dose: 40 mg Pt Own Pentosan 100 (Mg) 1 each PO TID [facility] Polyethylene Glycol (Miralax) 17 gm PO BID [facility] Last Admin: 09/20/17 08:02 Dose: 17 gm Senna/Docusate Sodium (Rowan-Colace) 1 tab PO BID [facility] Last Admin: 09/20/17 08:00 Dose: 1 tab Sennosides (Senokot) 17.2 mg PO Q12H PRN PRN Reason: Moderate Constipation Sodium Chloride (Ns Flush) 2 ml IV.FLUSH PRN PRN PRN Reason: FLUSH AFTER USING IV ACCESS Last Admin: 09/15/17 03:55 Dose: 2 ml Sodium Chloride (Sodium Chloride) 1 gm PO DAILY [facility] Last Admin: 09/20/17 08:03 Dose: 1 gm Sucralfate (Carafate Liq) 1 gm PO ACHS [facility] Last Admin: 09/20/17 08:03 Dose: 1 gm Tizanidine HCl (Zanaflex) 4 mg PO TID [facility] Last Admin: 09/20/17 08:01 Dose: 4 mg Allergies Allergy/AdvReac Type Severity Reaction Status Date / Time codeine Allergy Severe Itching Verified 09/10/17 10:29 erythromycin base Allergy Intermediate Hives Verified 09/08/17 13:56 fentanyl Allergy Intermediate Hives, Verified 09/08/17 13:56 LIPS SWELLING, TORO latex Allergy Intermediate Hives Verified 09/08/17 13:56 strawberry Allergy Mild Hives Verified 09/08/17 13:56 penicillin G Allergy Unknown Itching Verified 09/08/17 06:28 Sulfa (Sulfonamide Allergy Unknown Itching Verified 09/08/17 06:28 Antibiotics) SHELL FISH, MORPHINE Allergy Severe Anaphylaxis Uncoded 09/08/17 13:56 Home Medications Medication Instructions Recorded Confirmed Type Ativan 1 mg PO HS 09/08/17 09/11/17 History [id number] 5 mg PO PRN 09/08/17 History conjugated estrogens [Premarin] 1.25 mg PO DAILY 09/08/17 09/11/17 History gabapentin 600 mg PO HS NEB 09/08/17 09/11/17 History gabapentin 800 mg PO TID 09/08/17 09/08/17 History hydrocodone-acetaminophen 1 tab PO TID PRN 09/08/17 09/08/17 History levothyroxine [Synthroid] 125 mcg PO DAILY 09/08/17 09/11/17 History lorazepam [Ativan] 2 mg PO TID 09/08/17 09/11/17 History magnesium 250 mg PO BID 09/08/17 09/11/17 History metoclopramide HCl [Reglan] 5 mg PO DAILY 09/08/17 09/11/17 History pantoprazole [Protonix] 40 mg PO BID 09/08/17 09/11/17 History pentosan polysulfate sodium 100 mg PO TID 09/08/17 09/11/17 History [Elmiron] phenazopyridine [Pyridium] 200 mg PO TID PRN 09/08/17 09/11/17 History potassium 200 mg PO DAILY 09/08/17 09/11/17 History sennosides [Senokot] 8.6 mg PO BID PRN 09/08/17 09/11/17 History sodium chloride 2 tab PO DAILY 09/08/17 09/11/17 History tizanidine 4 mg PO TID 09/08/17 09/11/17 History Symproic 0.2 mg PO DAILY 09/12/17 09/12/17 History Advance Directives Living Will: Yes Health Care Surrogate Name and Number: RADHAMES GIL Power of Respiratory Medicine Physician Name: RADHAMES Smith)[phone] Power of Respiratory Medicine Physician Relationship to Patient: Spouse Physical Exam Vital Signs: Vital Signs - 24 hr 09/19/17 11:40 09/19/17 11:45 09/19/17 12:00 Temperature 98.2 F Pulse Rate 47 L Respiratory Rate 18 18 12 Blood Pressure 144/82 H Pulse Oximetry 93 L 09/19/17 16:00 09/19/17 16:20 09/19/17 20:00 Temperature 97.9 F 98.4 F Pulse Rate 49 L 43 L Respiratory Rate 16 18 17 Blood Pressure 178/92 H 136/63 Pulse Oximetry 96 98 09/20/17 00:00 09/20/17 04:00 09/20/17 08:00 Temperature 97.4 F L 97.6 F Pulse Rate 69 75 58 L Respiratory Rate 18 18 16 Blood Pressure 128/61 123/65 125/59 L Pulse Oximetry 98 98 95 I&O: Intake & Output 09/18/17 09/19/17 09/20/17 09/21/17 06:59 06:59 06:59 06:59 Intake Total 2320 / 2320 3440 / 3440 5319 / 5319 Output Total 3 / 3 Balance 2320 / 2320 3440 / 3440 5316 / 5316 Weight 89.1 kg Physical Exam: CONSTITUTIONAL/GENERAL: This is an adequately nourished patient, in no apparent distress. Alert, pleasant TUBES/LINES/DRAINS: Peripheral IV upper extremity, nasal Cannula tubing at bedside though not on SKIN: No jaundice, rashes, or lesions. Few areas ecchymoses on upper extremities. Multiple areas of ecchymosis across abdomen. Well-healed scars to abdomen. HEAD: Atraumatic. Normocephalic. EYES: Pupils equal and round and reactive. Extraocular motions intact. No scleral icterus. No injection or drainage. Fundi not examined. ENT: Hearing grossly normal. Nose without bleeding or purulent drainage. Throat without visible erythema, exudates, masses, or lesions. NECK: Trachea midline. Supple, nontender. No palpable thyroid enlargement or nodularity. CARDIOVASCULAR: Regular rate and rhythm without murmur. No JVD. Peripheral pulses symmetric. RESPIRATORY/CHEST: Symmetric, unlabored respirations. Clear to auscultation. Breath sounds equal bilaterally. GASTROINTESTINAL: Abdomen soft, mildly tender across upper and lower, nondistended. No hepato-splenomegaly, or palpable masses. No guarding. Bowel sounds normoactive to hyperactive throughout GENITOURINARY: Without palpable bladder distension. MUSCULOSKELETAL: Extremities without clubbing, cyanosis, or edema. No joint tenderness or effusion noted. No calf tenderness. No mottling or clubbing. NEUROLOGICAL: Awake and alert. Oriented 3. Pleasant and talkative. Motor and sensory grossly within normal limits. Follows commands. Cognitively sharp. Moves all 4 extremities. PSYCHIATRIC: No obvious anxiety/depression. no apparent hallucinations or other psychotic thought process. Diagnostic Tests Laboratory: Laboratory Results - last 72 hr 09/19/17 09/19/17 09/20/17 08:32 08:32 10:53 WBC 8.0 RBC 3.46 L Hgb 10.6 L Hct 32.0 L MCV 92.5 MCH 30.6 MCHC 33.1 RDW 14.4 Plt Count 174 MPV 8.6 Sodium 141 Potassium 4.2 Chloride 107 Carbon Dioxide 28.1 Anion Gap 6 BUN 9 Creatinine 0.74 Estimated GFR 80 L Random Glucose 92 Calcium 8.5 Magnesium 2.0 TSH 2.490 Result Diagrams: 09/20/17 10:53 09/20/17 10:09 Patient/Family Conference Family Conference Time: 45 Family Conference Location: Bedside Issues Discussed: Met with patient, at bedside discussion included the following: * Palliative care role, purpose, approach * Additional medical, psychosocial, and spiritual history * Patients general health, functional status, and cognitive changes in the months leading up to the current hospitalization * Patient/family understanding of the current medical problems * Patient/family understanding of prognosis * Patients goals of care * Current medical treatment options and benefits/burdens of those options; review option of adding scheduled as adjunct to manage nausea. Review recommendations for no further titration of opiates at this point as pain is currently reasonably controlled per her rating. * CODE STATUS-she request DNR status * Questions answered to the best of my ability * Palliative care contact information provided Met with patient at length. She details many chronic medical conditions which have been ongoing since the when she first had her back surgery. She has been following with the lead painter at [facility] for some time now. She does indicate she has been trying to self wean and decrease her opiates over the past months to years. She indicates she usually does not take more than a couple of doses of her prn a day at home. She has been planning to follow-up with pain management to investigate medical marijuana as an adjunct for her chronic pain issues. She has had multiple surgeries to her abdomen, as well as surgery to her hip, back, knee. She has been on disability since 2007 due to multiple medical issues. She indicates that her primary physician treats her for her underlying autoimmune disorder (? ? RA) and that when her body begins to attack itself then she ends up getting all these infections. They try to treated outpatient with steroid bursts and sometimes another injectable treatment however sometimes it results in hospitalizations. She details that most recently her pain gets up to a 7 out of 10 and when taking prn gets down to a 5 out of 10 ideally she would like it to be a 4 out of 10 understands and will never be 0. She indicates nausea also waxes and wanes she has had episodic nausea perhaps a few years she will have an episode a couple times a month and then not any for several weeks or months and then it comes again. She also at times has episodic constipation. Patient appear to have understanding of underlying conditions. Review with them not recommended to further uptitrate opiates at this time, review with them possibilities of another adjunct to help short-term with nausea. Much review that given her multiple medical conditions she may continue to have waxing and waning of GI issues secondary to chronic opiate use as well as her multiple GI surgeries. Explored with her underlying anxiety, she and her indicate it is very well controlled with scheduled lorazepam, in the past she has tried Lyrica, Celexa, Cymbalta, Prozac, and multiple other antidepressants in the "all made her feel like a zombie ", she feels that lorazepam is meeting her needs at this time. She is amenable to trying Haldol in the short-term to help with nausea while the rest of her GI motility returns to what is close to normal for her. Discussed with primary nurse, medical attending. Assessment and Plan - Disease Oriented Problem List (1) Diabetes (2) Anxiety (3) GERD (gastroesophageal reflux disease) (4) Hypothyroid (5) Migraine (6) Chronic back pain greater than 3 months duration (7) Intractable abdominal pain (8) Ulcerative colitis (9) Nausea and vomiting (10) Constipation due to opioid therapy - Symptom Scale (1) Pain 0-10 Scale: 5 (2) Anxiety 0-10 Scale: 1 Pertinent Non-Medical Issues: Psychosocial: Patient traveled around frequently while her was in the . 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 Has been on disability since 2007 due to medical conditions. Supported by an adult son locally as well as her . 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 Legal: Patient is currently capacitated and able to make her own decisions. She indicates advanced directives naming her are in place. Will request copies of these documents. Per [place] statutes in absence of these documents would be appropriate legal proxy. Ethical issues impacting care: Important Contacts: Radhames Wallace [phone] son Simba Sherman [phone] Plan: Legal decision maker:Patient is currently capacitated and able to make her own decisions. She indicates advanced directives naming her are in place. Will request copies of these documents. Per [employer] statutes in absence of these documents would be appropriate legal proxy. Goals: Goals are aggressive, patient wishes to utilize available treatments to help her multiple chronic medical conditions. Patient wants to maximize her quality of life. She is amenable to trying Haldol for nausea. She does request DNR status. CODE STATUS: DNR SYMPTOMS: --pain- hx chronic back pain, l4/l5 screw fixation hx. + hx chronic GI issues -ulcerative colitis, s/p partial resection. Opiate tolerant, has been on ER morphine, Dilaudid PO, ER oxycodone in the past per review of [facility].. +on Fioricet for headaches, Zanaflex. Patient indicates current prn effective, generally pain is a 7 out of 10 on the more severe days down to a 5 out of 10 after use of prn. She plans to follow-up outpatient with the possibility of medical marijuana. --anxiety- hx chronic anxiety, on ativan 2mg TID x years. Has been tried on multiple antidepressants in the past including Cymbalta, Lyrica, Celexa, etc. indicates those made her feel like a zombie and she stayed in bed. Indicates current regimen is very effective. --Nausea-patient with intermittent nausea. Multiple GI pathologies-chronic opiate use, also felt may have gastroparesis, history of multiple GI surgeries for ulcerative colitis. She has had episodic nausea at times a few times a month and then may go weeks or months without it and then it comes back again. Indicates hospital regimen intermittently helping though she is vomited twice today, and once last night. Currently on Zofran, Reglan. Also on multiple bowel agents. Recommend dopamine antagonist Haldol for intractable nausea and vomiting, 1 mg p.o. every 8 hours scheduled, ORDERED. *Caution due to potential for QT prolongation. Review of EKG WNL. Palliative care will continue to follow during hospital course as condition evolves, to assist patient/decision-maker with understanding of medical conditions, weighing benefits/burdens of treatment options, for clarification of goals of treatment. Additionally will assist with any symptoms of palliative concern Time Spent Total Floor Time (mins): 70 (Chart review, E forcse review, discussion with medical attending, meeting with patient and family, discussion with nurse) Appreciation Thank you for the opportunity to participate in the care of Shreya Wallace. Attestation Attestation: To help prompt me to consider important information that might be impacting today's encounter and assessment, information from prior notes written by myself or my colleagues may have been "brought forward" into today's note. My signature on this note, however, is an attestation that I personally performed the exam, history, and/or decision-making noted today, and, unless otherwise indicated, the interactions with patient, family, and staff as well as the review of records all occurred today. I also attest that the listed assessment and stated plan reflect my best clinical judgment today based on the combination of historical information, prior notes, and today's exam/ interactions. When time spent is documented, it refers only to time spent today by the signer, or if indicated, combined time spent today by collaborating physician/nurse practitioner.
[2017-09-20] MEDS: Haloperidol 1 MG Tablet PO SCH (17:59)
[2017-09-20] MEDS: LORazepam 1 MG Tablet PO PRN (23:10)
[2017-09-21] MEDS: Butalbital/APAP/Caff 50/325/40 MG Tablet PO PRN (02:17)
[2017-09-21] MEDS: Haloperidol 1 MG Tablet PO SCH ×2 (02:17→10:41)
[2017-09-21] MEDS: Dextrose 5%/NaCl 0.9% Inj 1,000 ML IV.CONT SCH (04:13)
[2017-09-21] MEDS: Levothyroxine 125 MCG Tablet PO SCH (06:13)
[2017-09-21] MEDS: Sucralfate Liq 1 GM/10 ML UDC PO SCH (08:36)
[2017-09-21] MEDS: Enoxaparin Inj 40 MG/0.4 ML Syringe SQ SCH (08:43)
[2017-09-21] MEDS: Magnesium Oxide 400 MG Tablet PO SCH (08:43)
[2017-09-21] MEDS: Sodium Chloride 1 GM Tablet PO SCH (08:44)
[2017-09-21] MEDS: Senna/Docusate Sodium 8.6/50 MG Tablet PO SCH (08:44)
[2017-09-21] MEDS: Polyethylene Glycol 3350 17 GM Packet PO SCH (08:44)
[2017-09-21] MEDS: Gabapentin 400 MG Capsule PO SCH (08:44)
[2017-09-21] MEDS: ESTROGENS CONJUGATED 1.25 MG PO SCH (08:44)
--- NOTE | 2017-09-21 10:06 | P.DS ---
Date of admission: 09/11/17 13:00 Primary care physician: Chance Banda MD Anticipated date of discharge: 09/21/17 Brief History from admission: The patient is a pleasant 61 year old female who has a past medical history of ulcerative colitis, GERD, anxiety disorder, asthma, chronic back pain follows with pain management as outpatient, hypothyroidism, migraines who presents to the [facility] emergency department with a history of abdominal pain that she reports is been present for the last week. She reports that the abdominal pain is in the left upper quadrant and sometimes will radiate down to the left lower quadrant. She reports that she has had similar pain in the past related to a bowel obstruction. She reports that she tried to go on a clear liquid diet and this did seem to help. She reports that the pain has been constant and waxing and waning in severity, however this evening and became much worse again after she ate solids. The patient denies having any diarrhea. She reports that her last bowel movement was 2 days ago. She reports that this evening she has had nausea and vomiting 2. She has a prior history of ulcerative colitis status post partial bowel resection. 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 The patient additionally has chronic low back pain and is on hydrocodone for this. She reports that she suffers with daily constipation and uses a laxative regularly to move her bowels. The patient incidentally also reports that she has had urinary frequency throughout the day today. She denies having any dysuria or urinary urgency. On review of systems otherwise, the patient denies having any known recent fevers, cough or congestion, neck pain, chest pain, shortness of breath, or neurologic symptoms. DS: Diagnosis - Discharge Diagnosis (1) Intractable abdominal pain Status: Acute (2) Ulcerative colitis Status: Acute (3) Nausea and vomiting Status: Acute (4) Constipation due to opioid therapy Status: Acute (5) Diabetes Status: Acute (6) Anxiety Status: Acute (7) GERD (gastroesophageal reflux disease) Status: Acute DS: Medications - Discharge Medications Prescriptions: bethanechol chloride [Urecholine] 10 mg PO BID #60 tab dicyclomine 20 mg PO QID #120 tab haloperidol 1 mg PO Q8H PRN #30 tab PRN Reason: Nausea And Vomiting hydrocodone-acetaminophen 1 tab PO TID PRN #9 tab PRN Reason: Constipation metoclopramide HCl 10 mg PO ACHS #90 tab ondansetron 4 mg PO Q6H #30 tab sucralfate [Carafate] 1 g PO TID #90 tab DS: Summary Hospital Course: Intractable abdominal pain/ H/o Ulcerative colitis/ GERD (gastroesophageal reflux disease)/ Gastroparesis On narcotic medications at home. The pt has chronic constipation. CT abdomen with no acute findings. The pt received antiemetics including Reglan and Zofran. She received Leggett and Dilaudid for pain. GI was consulted. EGD and colonoscopy done by GI. EGD with gastritis, normal duodenum, esophagitis, hiatal hernia. Could not rule out candidal infection. Recommended anti-reflux regimen, PPI and nystatin. She also completed a course of fluconazole. MRA abdomen with no mesenteric ischemia. Colonoscopy showed normal colonoscopy- random biopsies from ascending, transverse, descending, surgical changes in sigmoid, path unremarkable. Recommended probiotics. Return for 1 year colonoscoy. S/p EGD Botox 09/14 with expected postprocedural discomfort. Bethanechol was added. A GI second opinion was obtained per patient request. GI recommended an aggressive bowel regimen. Palliative care was consulted and recommended Haldol for refractory nausea. The pt will follow up with GI as an outpt. Chronic back pain The patient follows with pain management. She received Leggett as needed. Dilaudid was weaned off. Discussed extensively with patient the use of narcotics and gastroparesis. Palliative care evaluated the pt. Will refer to pain management upon discharge. Bradycardia Asymptomatic. TSH was normal. She will follow up with her PCP. - Time Spent with Patient Total time spent providing and/or coordinating discharge services: Greater than 30 minutes - Quality: VTE Deep Vein Thrombosis/Pulmonary Embolism Present on Admission: No Exam Vital signs: Vital Signs 09/20/17 12:00 09/20/17 16:00 09/20/17 20:00 Temperature 97.3 F L 97.3 F L 97.6 F Pulse Rate 83 55 L 44 L Respiratory Rate 16 16 16 Blood Pressure 99/57 L 110/68 146/66 H Pulse Oximetry 95 96 95 09/21/17 00:00 09/21/17 00:30 09/21/17 00:39 Temperature 97.8 F Pulse Rate 50 L 50 L Respiratory Rate 16 15 Blood Pressure 145/69 H Pulse Oximetry 94 L 09/21/17 04:00 09/21/17 08:00 Temperature 97.9 F 98.1 F Pulse Rate 57 L 92 H Respiratory Rate 16 22 Blood Pressure 139/66 136/92 H Pulse Oximetry 95 95 Intake & Output 09/20/17 09/21/17 09/21/17 18:59 06:59 18:59 Intake Total 2237 / 2237 1240 / 1240 Balance 2237 / 2237 1240 / 1240 Weight 89 kg Intake: IV 1637 / 1637 1000 / 1000 D5W/Normal Saline Inj 1,000 ML 1637 / 1637 1000 / 1000 @ 70 mls/hr IV.CONT .[id number] MARTINEZ Rx#:[id number] Oral 600 / 600 240 / 240 Other: # Voids 3 3 Date of Last Bowel Movement 09/18/17 # Bowel Movements 3 Narrative: GENERAL: This is a well-nourished, well-developed patient. SKIN: Warm and dry. CARDIOVASCULAR: Bradycardic. RESPIRATORY: Clear to auscultation. Breath sounds equal bilaterally. No wheezes , rales, or rhonchi. GASTROINTESTINAL: Abdomen soft, nondistended. Bowel Sounds normoactive tenderness to mild palpation epigastric, left upper and lower quadrant. MUSCULOSKELETAL: Extremities without clubbing, cyanosis, or edema. NEUROLOGICAL: Awake and alert. Oriented to time, place, person. No focal neuro deficit. Moves all extremities. Normal speech. Results Procedures completed during hospitalization: EGD and cscope Rpt EGD with botox Labs on day of discharge: Labs from last 24 hours 09/20/17 09/20/17 10:53 10:09 WBC 8.0 RBC 3.46 L Hgb 10.6 L Hct 32.0 L MCV 92.5 MCH 30.6 MCHC 33.1 RDW 14.4 Plt Count 174 MPV 8.6 Sodium 140 Potassium 3.8 Chloride 103 Carbon Dioxide 25.0 Anion Gap 12 BUN 8 Creatinine 0.86 Estimated GFR 67 L Random Glucose 125 H Calcium 8.4 L Total Bilirubin 0.2 Direct Bilirubin 0.1 Indirect Bilirubin 0.1 AST 15 ALT 15 Alkaline Phosphatase 88 Total Protein 6.0 L Albumin 2.9 L - Impressions ITS Impressions Chest X-Ray 09/08/17 03:31 CONCLUSION: The lungs are clear. Abdomen/Pelvis CT 09/08/17 04:11 CONCLUSION: 1. No acute findings. Abdomen MRI 09/10/17 00:00 CONCLUSION: 1. Unremarkable MRA of the abdomen. Specifically, no focal stenosis is demonstrated involving the celiac or SMA vessels. 2. Multiple scattered benign-appearing hepatic cysts are seen throughout the liver. Abdomen X-Ray 09/16/17 11:00 CONCLUSION: No evidence of obstruction. Discharge Plan - Discharge Disposition Patient Disposition: 01 Discharge Home - Discharge Condition Condition: Stable - Discharge Order Discharge Orders: Discharge Order (Routine); Ordered 09/21/17 Ordered By: Handy Norris - Discharge Details Anticipated Discharge Date: 09/21/17 - Physicians Team Primary Care Provider: Chance Banda Attending Provider: Handy Norris Other Providers: Linda Lara MD ; Sammi Tubbs MD ; Vic Mejia MD
[2017-09-21] MEDS: diphenhydrAMINE HCl 12.5 MG/5 ML Elixir UDC PO PRN (10:40)
== END 2017-09-21 12:15 | disposition home or self-care (01) ==
LOC: NEDA 02:57 → NEPE 02:57 → NEPGCP 13:29 → N06 09-11 20:04
PROVIDERS: ADMIT Hospitalist; ATTEND Hospitalist
PROC: COLONOS (2017-09-10 11:28)
PROC: PANENDO (2017-09-13 15:04)
DX: Z87.11 Personal history of peptic ulcer disease; G43.909 Migraine, unspecified, not intractable, without status migrainosus; Z88.2 Allergy status to sulfonamides; K29.60 Other gastritis without bleeding; K51.90 Ulcerative colitis, unspecified, without complications; Z88.5 Allergy status to narcotic agent; T40.2X5A Adverse effect of other opioids, initial encounter; K59.09 Other constipation; Z83.3 Family history of diabetes mellitus; K64.4 Residual hemorrhoidal skin tags; M06.9 Rheumatoid arthritis, unspecified; Z80.0 Family history of malignant neoplasm of digestive organs; F41.9 Anxiety disorder, unspecified; G89.29 Other chronic pain; Z90.49 Acquired absence of other specified parts of digestive tract; K59.03 Drug induced constipation; Z88.0 Allergy status to penicillin; K31.1 Adult hypertrophic pyloric stenosis; J45.909 Unspecified asthma, uncomplicated; K64.8 Other hemorrhoids; Z90.710 Acquired absence of both cervix and uterus; Z87.440 Personal history of urinary (tract) infections; E03.9 Hypothyroidism, unspecified; R35.0 Frequency of micturition; K44.9 Diaphragmatic hernia without obstruction or gangrene; M54.5 Low back pain; K31.84 Gastroparesis; K21.0 Gastro-esophageal reflux disease with esophagitis; B37.81 Candidal esophagitis; R00.1 Bradycardia, unspecified; E73.9 Lactose intolerance, unspecified; E11.43 Type 2 diabetes mellitus with diabetic autonomic (poly)neuropathy; D64.9 Anemia, unspecified; R13.10 Dysphagia, unspecified; Z79.891 Long term (current) use of opiate analgesic

== ENCOUNTER 2017-10-10 22:47 | Inpatient (IN) ==
[2017-10-10] MEDS ORDERED: Morphine Inj 4 MG/ML Vial IV.PUSH ONE (23:16)
[2017-10-10] MEDS ORDERED: Sod Chloride 0.9% Inj 1,000 ML IV.SIG ONE (23:16)
--- NOTE | 2017-10-11 00:20 | ED ---
HPI General Chief Complaint: Abdominal Pain Stated Complaint: abd pain Time Seen by Provider: 10/10/17 23:06 Source: patient and family Mode of arrival: ambulatory Limitations: no limitations History of Present Illness HPI narrative: Patient is a 61-year-old female, past medical history significant for gastroparesis, intra-abdominal strictures with multiple previous abdominal surgeries, who presents with complaint of nausea and abdominal fullness with a cramping pain today. She states that she thinks "she has a bowel obstruction again." She continues to have bowel movements though states that the last one was yesterday and was much smaller than normal. She is not sure if she is continuing to pass flatus. No fever nor chills. No changes with urination quantity. She took lactulose today to try and have a more substantial bowel movement but it was not successful. She has been on antibiotics outpatient for the last 3 days for a UTI but reports persistent, worsening symptoms. MD complaint: abdominal pain Onset (ago): hour(s) Pain Consistency: constant Location: diffuse Severity: moderate Quality: fullness Radiation: none Migration to: no migration Relieving factors: nothing Exacerbating factors: nothing Context: history of similar episodes Associated symptoms: nausea Related Data Home Medications Medication Instructions Recorded Confirmed Ativan 1 mg PO HS 09/08/17 09/11/17 [id number] 5 mg PO PRN 09/08/17 conjugated estrogens [Premarin] 1.25 mg PO DAILY 09/08/17 09/11/17 gabapentin 600 mg PO HS NEB 09/08/17 09/11/17 gabapentin 800 mg PO TID 09/08/17 09/08/17 levothyroxine [Synthroid] 125 mcg PO DAILY 09/08/17 09/11/17 lorazepam [Ativan] 2 mg PO TID 09/08/17 09/11/17 magnesium 250 mg PO BID 09/08/17 09/11/17 pantoprazole [Protonix] 40 mg PO BID 09/08/17 09/11/17 pentosan polysulfate sodium 100 mg PO TID 09/08/17 09/11/17 [Elmiron] phenazopyridine [Pyridium] 200 mg PO TID PRN 09/08/17 09/11/17 potassium 200 mg PO DAILY 09/08/17 09/11/17 sennosides [Senokot] 8.6 mg PO BID PRN 09/08/17 09/11/17 sodium chloride 2 tab PO DAILY 09/08/17 09/11/17 tizanidine 4 mg PO TID 09/08/17 09/11/17 Symproic 0.2 mg PO DAILY 09/12/17 09/12/17 Previous Rx's Medication Instructions Recorded bethanechol chloride [Urecholine] 10 mg PO BID #60 tab 09/13/17 metoclopramide HCl 10 mg PO ACHS #90 tab 09/13/17 ondansetron 4 mg PO Q6H #30 tab 09/13/17 sucralfate [Carafate] 1 g PO TID #90 tab 09/13/17 dicyclomine 20 mg PO QID #120 tab 09/21/17 haloperidol 1 mg PO Q8H PRN #30 tab 09/21/17 hydrocodone-acetaminophen 1 tab PO TID PRN #9 tab 09/21/17 Allergies Allergy/AdvReac Type Severity Reaction Status Date / Time codeine Allergy Severe Itching Verified 10/10/17 23:02 erythromycin base Allergy Intermediate Hives Verified 10/10/17 23:02 fentanyl Allergy Intermediate Hives, Verified 10/10/17 23:02 LIPS SWELLING, TORO latex Allergy Intermediate Hives Verified 10/10/17 23:02 strawberry Allergy Mild Hives Verified 10/10/17 23:02 penicillin G Allergy Unknown Itching Verified 10/10/17 23:02 Sulfa (Sulfonamide Allergy Unknown Itching Verified 10/10/17 23:02 Antibiotics) SHELL FISH, MORPHINE Allergy Severe Anaphylaxis Uncoded 10/10/17 23:02 Review of Systems Except as stated in HPI: all other systems reviewed are negative Constitutional Denies chills and Denies fever(s) Eyes Denies blurry vision ENT Denies nasal congestion Cardiovascular Denies chest pain Respiratory Denies dyspnea Gastrointestinal Reports abdominal pain, Reports bloating, Reports nausea and Reports vomiting Genitourinary Denies flank pain Musculoskeletal Denies back pain Integumentary/Breasts Denies rash Neurologic Denies headache(s) Psychiatric Denies confusion Endocrine Denies fatigue [facility] Medical History Medical History Anxiety disorder (Acute) Asthma (Acute) Chronic back pain (Acute) Diabetes (Acute) Frequent urinary tract infections (Acute) GERD (gastroesophageal reflux disease) (Acute) Gastroparesis (Acute) H/O: hysterectomy (Acute) Hypothyroidism (Acute) Interstitial cystitis (Acute) Migraines (Acute) Rheumatoid arthritis (Acute) Ulcerative colitis (Acute) Surgical History Surgical History History of hysterectomy (Acute) History of back surgery (Acute) History of partial colectomy (Acute) Hx of cholecystectomy (Acute) Family History Family History Father Diabetes Ulcerative (chronic) ileocolitis Mother Diabetes Sister Ulcerative (chronic) ileocolitis Social History Social History Substance History: No History of Abuse Second Hand Smoke Exposure: No Smoking Status: Never smoker How Often Do You Have a Drink Containing Alcohol: Never Exam Narrative Exam Narrative: GENERAL: Adult female who appears uncomfortable but is in no acute distress SKIN: Focused skin assessment warm/dry. HEAD: Atraumatic. Normocephalic. EYES: Pupils equal and round. No scleral icterus. No injection or drainage. ENT: No nasal bleeding or discharge. Mucous membranes pink and moist. NECK: Trachea midline. No JVD. CARDIOVASCULAR: Regular rate and rhythm. No murmur appreciated. Intact and equal peripheral pulses. RESPIRATORY: No accessory muscle use. Clear to auscultation. Breath sounds equal bilaterally. GASTROINTESTINAL: Abdomen soft, slight tenderness throughout, distended. Hepatic and splenic margins not palpable. MUSCULOSKELETAL: No obvious deformities. No clubbing. No cyanosis. No edema. NEUROLOGICAL: Awake and alert. No obvious cranial nerve deficits. Motor grossly within normal limits. Normal speech. PSYCHIATRIC: Appropriate mood and affect; insight and judgment normal. Course Initial Documented Vital Signs Temperature 97.9 F 10/10/17 23:02 Pulse Rate 84 10/10/17 23:02 Respiratory Rate 27 H 10/10/17 23:02 Blood Pressure 249/124 H 10/10/17 23:02 Pulse Oximetry 96 10/10/17 23:02 Last Documented Vital Signs Temperature 97.9 F 10/10/17 23:02 Pulse Rate 84 10/10/17 23:02 Respiratory Rate 27 H 10/10/17 23:02 Blood Pressure 249/124 H 10/10/17 23:02 Pulse Oximetry 96 10/10/17 23:02 Medical Decision Making MDM Narrative Medical decision making narrative: Patient is a 61-year-old female who presents with complaint of abdominal pain and persistent dysuria despite being on several days of outpatient antibiotics. She also complains of worsening nausea but no vomiting. On arrival she was given IV pain medicine with antiemetic. Labs were relatively unremarkable but UA is concerning for persistent urinary tract infection. Her CT showed some hydronephrosis without any evidence of current stone, but no small bowel obstruction. She was given more narcotics and continued to complain of persistent pain. I spoke to Dr. Prince, hospitalist communication skills instructor who agreed to an inpatient admission for a UTI that has failed outpatient treatment and intractable pain. Differential Diagnosis Differential Diagnosis: Differential diagnosis includes but is not limited to gastroparesis, small bowel obstruction, impaction, pyelonephritis, renal stone. Medical Records Medical records reviewed: Yes I reviewed the patient's medical records. Lab Data Lab results reviewed: Yes I reviewed the patient's lab results. Lab results narrative: UA concerning for persistent urinary tract infection. Result diagrams: 10/11/17 00:06 10/11/17 00:06 Lab Results 10/10/17 10/11/17 10/11/17 Range/Units 23:52 00:06 00:06 WBC 10.7 (4.0-11.0) th/mm3 RBC 3.86 L (4.00-5.30) mil/mm3 Hgb 11.9 (11.6-15.3) gm/dL Hct 34.6 L (35.0-46.0) % MCV 89.6 (80.0-100.0) fL MCH 30.9 (27.0-34.0) pg MCHC 34.5 (32.0-36.0) % RDW 14.1 (11.6-17.2) % Plt Count 339 D (150-450) th/mm3 MPV 7.4 (7.0-11.0) fL Neut % (Auto) 45.6 (16.0-70.0) % Lymph % (Auto) 43.7 (9.0-44.0) % [place] % (Auto) 7.9 (0.0-8.0) % Eos % (Auto) 2.3 (0.0-4.0) % Baso % (Auto) 0.5 (0.0-2.0) % Neut # (Auto) 4.9 (1.8-7.7) th/mm3 Lymph # (Auto) 4.7 (1.0-4.8) th/mm3 [place] # (Auto) 0.8 (0.0-0.9) th/mm3 Eos # (Auto) 0.2 (0.0-0.4) th/mm3 Baso # (Auto) 0.1 (0.0-0.2) th/mm3 WBC Differential . Differential Comment Auto diff final Sodium 134 L (136-145) meq/L Potassium 3.8 (3.5-5.1) meq/L Chloride 97 L (98-107) meq/L Carbon Dioxide 29.0 (21.0-32.0) meq/L Anion Gap 8 (5-15) meq/L BUN 12 (7-18) mg/dL Creatinine 0.87 (0.50-1.00) mg/dL Estimated GFR 66 L (>89) mL/min Random Glucose 102 (74-106) mg/dL Lactic Acid (0.4-2.0) mmol/L Calcium 8.4 L (8.5-10.1) mg/dL Total Bilirubin 0.3 (0.2-1.0) mg/dL AST 14 L (15-37) U/L ALT 18 (10-53) U/L Alkaline Phosphatase 116 (45-117) U/L Total Protein 7.3 (6.4-8.2) g/dL Albumin 3.4 (3.4-5.0) g/dL Lipase 84 (73-393) U/L Urine Color Yellow (Yellw/Straw) Urine Clarity Clear (Clear) Urine pH 7.0 (5.0-8.5) Ur Specific [place] 1.011 (1.002-1.035) Urine Protein Negative (Neg-Trace) mg/dL Urine Glucose (UA) Negative (Negative) mg/dL Urine Ketones Negative (Negative) mg/dL Urine Occult Blood Negative (Negative) Urine Nitrate Positive H (Negative) Urine Bilirubin Negative (Negative) Urine Urobilinogen 0.2 (Less than 2) mg/dL Ur Leukocyte Esterase Negative (Negative) Urine RBC 0-3 (0-3) /hpf Ur Squamous Epith Cells 6-10 H (0-5) /hpf Micro UA Comment Culture indicated Urine Culture Comments Culture indicated 10/11/17 Range/Units 00:06 WBC (4.0-11.0) th/mm3 RBC (4.00-5.30) mil/mm3 Hgb (11.6-15.3) gm/dL Hct (35.0-46.0) % MCV (80.0-100.0) fL MCH (27.0-34.0) pg MCHC (32.0-36.0) % RDW (11.6-17.2) % Plt Count (150-450) th/mm3 MPV (7.0-11.0) fL Neut % (Auto) (16.0-70.0) % Lymph % (Auto) (9.0-44.0) % [place] % (Auto) (0.0-8.0) % Eos % (Auto) (0.0-4.0) % Baso % (Auto) (0.0-2.0) % Neut # (Auto) (1.8-7.7) th/mm3 Lymph # (Auto) (1.0-4.8) th/mm3 [place] # (Auto) (0.0-0.9) th/mm3 Eos # (Auto) (0.0-0.4) th/mm3 Baso # (Auto) (0.0-0.2) th/mm3 WBC Differential Differential Comment Sodium (136-145) meq/L Potassium (3.5-5.1) meq/L Chloride (98-107) meq/L Carbon Dioxide (21.0-32.0) meq/L Anion Gap (5-15) meq/L BUN (7-18) mg/dL Creatinine (0.50-1.00) mg/dL Estimated GFR (>89) mL/min Random Glucose (74-106) mg/dL Lactic Acid 1.6 (0.4-2.0) mmol/L Calcium (8.5-10.1) mg/dL Total Bilirubin (0.2-1.0) mg/dL AST (15-37) U/L ALT (10-53) U/L Alkaline Phosphatase (45-117) U/L Total Protein (6.4-8.2) g/dL Albumin (3.4-5.0) g/dL Lipase (73-393) U/L Urine Color (Yellw/Straw) Urine Clarity (Clear) Urine pH (5.0-8.5) Ur Specific [place] (1.002-1.035) Urine Protein (Neg-Trace) mg/dL Urine Glucose (UA) (Negative) mg/dL Urine Ketones (Negative) mg/dL Urine Occult Blood (Negative) Urine Nitrate (Negative) Urine Bilirubin (Negative) Urine Urobilinogen (Less than 2) mg/dL Ur Leukocyte Esterase (Negative) Urine RBC (0-3) /hpf Ur Squamous Epith Cells (0-5) /hpf Micro UA Comment Urine Culture Comments Imaging Data Attestation: I personally reviewed and interpreted this imaging study as follows : Radiologist's impression: Abdomen/Pelvis CT 10/11/17 00:00 CONCLUSION: 1. Mild right-sided hydronephrosis and hydroureter without obvious obstructing stone. This is a change from previous study. 2. Hepatic and renal cysts. 3. Atherosclerosis. Discharge Plan Discharge Disposition Patient Disposition: 30 Still Patient Discharge Condition Condition: Stable Discharge Details Diagnosis: Acute UTI, Intractable abdominal pain Physicians Team ED Provider: Ninfa Sahni Primary Care Provider: Chance Banda Attending Provider: Karol Prince Status ED Status: Admitted Patient
[2017-10-11 00:30] LABS: Bilirubin,Urine Negative (Negative); Clarity,Urine Clear (Clear); Color,Urine Yellow (Yellw/Straw); Glucose,Urine (UA) Negative (Negative); Leukocyte Esterase,Urine Negative (Negative); Nitrite,Urine Positive (Negative); Urobilinogen,Urine 0.2 mg/dL (Less than 2)
[2017-10-11 00:37] LABS: Alanine Aminotransferase 18 U/L (10-53); Albumin 3.4 g/dL (3.4-5.0); Anion Gap 8 meq/L (5-15); Aspartate Aminotransferase 14 U/L (15-37); Blood Urea Nitrogen 12 mg/dL (7-18); Calcium 8.4 mg/dL (8.5-10.1); Chloride 97 meq/L (98-107); Glomerular Filtration Rate 66 mL/min (>89); Glucose,Random 102 mg/dL (74-106); Lipase 84 U/L (73-393); Potassium 3.8 meq/L (3.5-5.1); Sodium 134 meq/L (136-145)
[2017-10-11 00:40] LABS: Alkaline Phosphatase 116 U/L (45-117); Total Protein 7.3 g/dL (6.4-8.2)
[2017-10-11 00:43] LABS: Baso # (Auto) 0.1 th/mm3 (0.0-0.2); Baso % (Auto) 0.5 % (0.0-2.0); Eos # (Auto) 0.2 th/mm3 (0.0-0.4); Eos % (Auto) 2.3 % (0.0-4.0); Hematocrit 34.6 % (35.0-46.0); Hemoglobin 11.9 gm/dL (11.6-15.3); Lymph # (Auto) 4.7 th/mm3 (1.0-4.8); Lymph % (Auto) 43.7 % (9.0-44.0); Mean Corpuscular HGB Conc 34.5 % (32.0-36.0); Mean Corpuscular Hemoglobin 30.9 pg (27.0-34.0); Mean Corpuscular Volume 89.6 fL (80.0-100.0); Mean Platelet Volume 7.4 fL (7.0-11.0); Mono # (Auto) 0.8 th/mm3 (0.0-0.9); Mono % (Auto) 7.9 % (0.0-8.0); Neut # (Auto) 4.9 th/mm3 (1.8-7.7); Neut % (Auto) 45.6 % (16.0-70.0); Platelet Count 339 th/mm3 (150-450); Red Blood Count 3.86 mil/mm3 (4.00-5.30); Red Cell Distribution Width 14.1 % (11.6-17.2); White Blood Count 10.7 th/mm3 (4.0-11.0)
[2017-10-11 00:43] LABS: RBC,Urine 0-3 /hpf (0-3); Specific Gravity,Urine 1.011 (1.002-1.035)
[2017-10-11] MEDS ORDERED: Morphine Sulfate Inj 2 MG/ML Vial IV.PUSH ONE (01:13)
--- NOTE | 2017-10-11 01:23 | CT ---
EXAM DATE: 10/11/2017 1:12 AM EDT AGE/SEX: 61 years / Female INDICATIONS: Abdomen pain. CLINICAL DATA: This is the patient's initial encounter. Patient reports that signs and symptoms have been present for 1 day and indicates a pain score of 10/10. MEDICAL/SURGICAL HISTORY: Diabetes mellitus type II. Gastroparesis. Gastroesophageal reflux d isease. Colitis Hysterectomy. Appendectomy. Cholecystectomy. Lumbar fusion Colectomy ORAL CONTRAST: No oral contrast ingested. RADIATION DOSE: 10.88 CTDI (mGy) COMPARISON: [facility] [place], ABDOMEN 2V FLAT & UPRIGHT, 09/16/2017. [facility] [place], CT ABDOMEN & PELVIS W/O CONTRAST, . . TECHNIQUE: Multiple contiguous axial images were obtained through the abdomen and pelvis following b olus infusion of 96 ml Omnipaque 350 (iohexol) nonionic water-soluble contrast as a single exam dos e. No oral contrast ingested. Using automated exposure control and adjustment of the mA and/or kV ac cording to patient size, radiation dose was kept as low as reasonably achievable to obtain optimal di agnostic quality images. DICOM format image data is available electronically for review and comparis on. FINDINGS: Lung bases are clear. Osseous structures demonstrate left total hip arthroplasty and left sided poste rior sidney and transpedicular screw fixation and intervertebral fusion hardware placement at L4-5. Ther e are numerous hypodense liver lesions the largest having the appearance of cysts. Spleen, pancreas, adrenals are unremarkable. There are small left renal cysts noted. There is mild right-sided hydronep hrosis, and hydroureter is identified. No discrete renal calculi are seen. The patient is status post partial sigmoid resection with anastomotic staple line seen. Fluid-filled nondilated large bowel is present. Fluid-filled nondilated small bowel present. CONCLUSION: 1. Mild right-sided hydronephrosis and hydroureter without obvious obstructing stone. This is a aguilar ge from previous study. 2. Hepatic and renal cysts. 3. Atherosclerosis. Electronically signed by: Loc Li MD 10/11/2017 1:22 AM EDT
[2017-10-11] MEDS ORDERED: Temazepam 15 MG Capsule PO PRN (01:57)
[2017-10-11] MEDS ORDERED: Acetaminophen 325 MG Tablet PO PRN (01:57)
[2017-10-11] MEDS ORDERED: Bisacodyl 10 MG Supp RECTAL PRN (01:57)
--- NOTE | 2017-10-11 02:56 | P.HPIM ---
History of Present Illness Primary Care Physician: Chance Banda MD History of Present Illness: This is a 61-year-old female with a PMH of Anxiety, Rheumatoid Arthritis, Hypothyroidism, Recurrent Interstitial Cystitis, Chronic Abdominal Pain, Gastroparesis s/p Botox, Ulcerative Colitis and h/o SBO who presented to the ER w/ complaints of severe abdominal pain, nausea and few episodes of vomiting for several days, but more severe today. Pain is generalized, severe, 10/10, cramping, radiating to bilateral flanks, +subjective fever/chills. States she had recent UTI 3wks ago, was on Ceftin and UTI resolved, however started on Levaquin 3 days ago for recurrent UTI. Recent admit 09/11-09/21/17 for similar complaints, CT Abd/Pelvis w/ no acute findings at that time, s/p EGD w/ gastritis, esophagitis and hiatal hernia w/ possible candidal infection, s/p PPI and Nystatin in addition to course of Fluconazole. Colonoscopy w/ multiple biopsies, negative pathology. MRA negative for mesenteric ischemia. Was seen by Dr. Pcikering and underwent EGD w/ Botox on 09/14/17 w/ ongoing pain complaints. Seen by Palliative care and started on Haldol for refractory nausea. Per pt she follows w/ Dr. Lara in addition to Urologist in [place]. On arrival , BP 249/124, HR 84, O2 sat 96% on RA, Afebrile. CBC unremarkable. Chemistry essentially unremarkable. UA with positive nitrates mild bacteriuria. CT of abdomen/Pelvis with mild right-sided hydronephrosis and hydroureter without obvious obstructing stone, unchanged from previous study. - Diagnosis (1) UTI (urinary tract infection) (2) Failure of outpatient treatment (3) Hydronephrosis (4) HTN (hypertension) (5) Intractable abdominal pain Inpatient Certification: I certify that the inpatient services were ordered in accordance with Medicare regulations governing the order. This includes certification that hospital inpatient services are reasonable and necessary and in the case of services not specified as inpatient-only under 42 CFR 419.22(n), that they are appropriately provided as inpatient services in accordance to with the 2-midnight benchmark under 43 CFR 412.3(e) Estimated Total Length of Stay (Days): 2 Plans for Post Hospital Care: Not yet determined Review of Systems PAST FAMILY HISTORY: Reviewed. No h/o DM or CAD All other systems reviewed negative except as stated in HPI [facility] - History History Provided By: Patient - Medical History Medical History: Medical History (Last Reviewed 10/11/17 @ 00:19 by Ninfa Sahni MD) Anxiety disorder Asthma Chronic back pain Diabetes Frequent urinary tract infections GERD (gastroesophageal reflux disease) Gastroparesis H/O: hysterectomy Hypothyroidism Interstitial cystitis Migraines Rheumatoid arthritis Ulcerative colitis - Surgical History Surgical History: Surgical History (Last Reviewed 10/11/17 @ 00:19 by Ninfa Sahni MD) History of hysterectomy (Acute) History of back surgery History of partial colectomy Hx of cholecystectomy - Family History Family History: Family History (Last Reviewed 10/11/17 @ 00:19 by Ninfa Sahni MD) Father Diabetes Ulcerative (chronic) ileocolitis Mother Diabetes Sister Ulcerative (chronic) ileocolitis - Tobacco History Second Hand Smoke Exposure: No Smoking Status: Never smoker - Alcohol History How Often Do You Have a Drink Containing Alcohol: Never - Substance Use History Substance History: No History of Abuse Medications and Allergies Active Medications: Active Medications Acetaminophen (Tylenol) 650 mg PO Q4H PRN PRN Reason: Temp > 100.4 Al Hydroxide/Mg Hydroxide (Milk Of Magnesia Liq) 30 ml PO Q12H PRN PRN Reason: Mild Constipation Bisacodyl (Dulcolax Supp) 10 mg RECTAL DAILY PRN PRN Reason: SEVERE CONSITIPATION Sodium Chloride (Ns Inj) 1,000 mls @ 100 mls/hr IV.CONT .Q10H MARTINEZ Ceftriaxone Sodium 1,000 mg/ (Sodium Chloride) 100 mls @ 200 mls/hr IV.SIG Q24H MARTINEZ Lactulose (Lactulose Liq) 30 ml PO DAILY PRN PRN Reason: SEVERE CONSITIPATION Morphine Sulfate (Morphine Inj) 2 mg IV.PUSH Q4H PRN PRN Reason: PAIN 6-10 Ondansetron HCl (Zofran Inj) 4 mg IV.PUSH Q6H PRN PRN Reason: NAUSEA OR VOMITING Prochlorperazine Edisylate (Compazine Inj) 10 mg IV.PUSH Q6H PRN PRN Reason: NAUSEA/VOMITING Senna/Docusate Sodium (Rowan-Colace) 1 tab PO BID MARTINEZ Sennosides (Senokot) 17.2 mg PO Q12H PRN PRN Reason: Moderate Constipation Sodium Chloride (Ns Flush) 2 ml IV.FLUSH PRN PRN PRN Reason: FLUSH AFTER USING IV ACCESS Temazepam (Restoril) 15 mg PO HS PRN PRN Reason: INSOMNIA Allergies Allergy/AdvReac Type Severity Reaction Status Date / Time codeine Allergy Severe Itching Verified 10/10/17 23:02 erythromycin base Allergy Intermediate Hives Verified 10/10/17 23:02 fentanyl Allergy Intermediate Hives, Verified 10/10/17 23:02 LIPS SWELLING, TORO latex Allergy Intermediate Hives Verified 10/10/17 23:02 strawberry Allergy Mild Hives Verified 10/10/17 23:02 penicillin G Allergy Unknown Itching Verified 10/10/17 23:02 Sulfa (Sulfonamide Allergy Unknown Itching Verified 10/10/17 23:02 Antibiotics) SHELL FISH, MORPHINE Allergy Severe Anaphylaxis Uncoded 10/10/17 23:02 Home Medications Medication Instructions Recorded Confirmed Type Ativan 1 mg PO HS 09/08/17 09/11/17 History [id number] 5 mg PO PRN 09/08/17 History conjugated estrogens [Premarin] 1.25 mg PO DAILY 09/08/17 09/11/17 History gabapentin 600 mg PO HS NEB 09/08/17 09/11/17 History gabapentin 800 mg PO TID 09/08/17 09/08/17 History levothyroxine [Synthroid] 125 mcg PO DAILY 09/08/17 09/11/17 History lorazepam [Ativan] 2 mg PO TID 09/08/17 09/11/17 History magnesium 250 mg PO BID 09/08/17 09/11/17 History pantoprazole [Protonix] 40 mg PO BID 09/08/17 09/11/17 History pentosan polysulfate sodium 100 mg PO TID 09/08/17 09/11/17 History [Elmiron] phenazopyridine [Pyridium] 200 mg PO TID PRN 09/08/17 09/11/17 History potassium 200 mg PO DAILY 09/08/17 09/11/17 History sennosides [Senokot] 8.6 mg PO BID PRN 09/08/17 09/11/17 History sodium chloride 2 tab PO DAILY 09/08/17 09/11/17 History tizanidine 4 mg PO TID 09/08/17 09/11/17 History Symproic 0.2 mg PO DAILY 09/12/17 09/12/17 History Exam Vital signs: Vital Signs 10/10/17 23:02 Temperature 97.9 F Pulse Rate 84 Respiratory Rate 27 H Blood Pressure 249/124 H Pulse Oximetry 96 Intake & Output 10/10/17 10/10/17 10/11/17 06:59 18:59 06:59 Intake Total 1000 / 1000 Balance 1000 / 1000 Weight 89.358 kg Intake: IV 1000 / 1000 NS Inj 1,000 ML @ Wide Open IV. 1000 / 1000 SIG BOLUS ONE Rx#:[id number] Narrative: PE: GENERAL: Middle-aged white female in moderate distress due to pain, anxious, at bedside HEENT: CECILIA, EOMI. No scleral icterus or conjunctival pallor. No lid lag or facial droop. CARDIOVASCULAR: Regular rate and rhythm. No obvious murmurs to auscultation. No chest tenderness to palpation. RESPIRATORY: No obvious rhonchi or wheezing. Clear to auscultation. Breath sounds equal bilaterally. GASTROINTESTINAL: Abdomen distended but soft, generalized tenderness to palpation, bilateral flank tenderness. BS normal. MUSCULOSKELETAL: Extremities without clubbing, cyanosis, or edema. No obvious deformities. NEUROLOGICAL: Awake, alert and oriented x4. No focal neurologic deficits. Moving both upper and lower extremities spontaneously. Results - Labs CBC & Chem 7: 10/11/17 00:06 10/11/17 00:06 Labs: Short CBC 10/11/17 Range/Units 00:06 WBC 10.7 (4.0-11.0) th/mm3 Hgb 11.9 (11.6-15.3) gm/dL Hct 34.6 L (35.0-46.0) % Plt Count 339 D (150-450) th/mm3 BMP 10/11/17 00:06 Sodium 134 L Potassium 3.8 Chloride 97 L Carbon Dioxide 29.0 BUN 12 Creatinine 0.87 Calcium 8.4 L Liver Function 10/11/17 Range/Units 00:06 Total Bilirubin 0.3 (0.2-1.0) mg/dL AST 14 L (15-37) U/L ALT 18 (10-53) U/L Alkaline Phosphatase 116 (45-117) U/L Albumin 3.4 (3.4-5.0) g/dL Urine 10/10/17 Range/Units 23:52 Urine Color Yellow (Yellw/Straw) Urine Clarity Clear (Clear) Urine pH 7.0 (5.0-8.5) Ur Specific [place] 1.011 (1.002-1.035) Urine Protein Negative (Neg-Trace) mg/dL Urine Glucose (UA) Negative (Negative) mg/dL - Imaging Impressions Abdomen/Pelvis CT 10/11/17 00:00 CONCLUSION: 1. Mild right-sided hydronephrosis and hydroureter without obvious obstructing stone. This is a change from previous study. 2. Hepatic and renal cysts. 3. Atherosclerosis. Caprini VTE Risk Assessment Caprini VTE Risk Assessment: No/Low Risk (score <= 1) Caprini Risk Assessment Model: Point Value = 1 Point Value = 2 Point Value = 3 Point Value = 5 Age 41-60 Minor surgery BMI > 25 kg/m2 Swollen legs Varicose veins or History of unexplained or recurrent spontaneous Oral contraceptives or hormone replacement Sepsis (< 1 month) Serious lung disease, including pneumonia (< 1 month) Abnormal pulmonary function Acute myocardial infarction Congestive heart failure (< 1 month) History of inflammatory bowel disease Medical patient at bed rest Age 61-74 Arthroscopic surgery Major open surgery (> 45 min) Laparoscopic surgery (> 45 min) Malignancy Confined to bed (> 72 hours) Immobilizing plaster cast Central venous access Age >= 75 History of VTE Family history of VTE Factor V Leiden Prothrombin [id number] Lupus anticoagulant Anticardiolipin antibodies Elevated serum homocysteine Heparin-induced thrombocytopenia Other congenital or acquired thrombophilia Stroke (< 1 month) Elective arthroplasty Hip, pelvis, or leg fracture Acute spinal cord injury (< 1 month) Prophylaxis Regimen: Total Risk Factor Score Risk Level Prophylaxis Regimen 0-1 Low Early ambulation 2 Moderate Order ONE of the following: *Sequential Compression Device (SCD) *Heparin 5000 units SQ BID 3-4 Higher Order ONE of the following medications: *Heparin 5000 units SQ TID *Enoxaparin/Lovenox 40 mg SQ daily (WT < 150 kg, CrCl > 30 mL/min) *Enoxaparin/Lovenox 30 mg SQ daily (WT < 150 kg, CrCl > 10-29 mL/min) *Enoxaparin/Lovenox 30 mg SQ BID (WT < 150 kg, CrCl > 30 mL/min) AND/OR *Sequential Compression Device (SCD) 5 or more Highest Order ONE of the following medications: *Heparin 5000 units SQ TID (Preferred with Epidurals) *Enoxaparin/Lovenox 40 mg SQ daily (WT < 150 kg, CrCl > 30 mL/min) *Enoxaparin/Lovenox 30 mg SQ daily (WT < 150 kg, CrCl > 10-29 mL/min) *Enoxaparin/Lovenox 30 mg SQ BID (WT < 150 kg, CrCl > 30 mL/min) AND *Sequential Compression Device (SCD) Assessment and Plan - Assessment (1) UTI (urinary tract infection) Code(s): N39.0 - Urinary tract infection, site not specified Status: Acute (2) Failure of outpatient treatment Code(s): Z78.9 - Other specified health status Status: Acute (3) Hydronephrosis Code(s): N13.30 - Unspecified hydronephrosis Status: Acute (4) HTN (hypertension) Code(s): I10 - Essential (primary) hypertension Status: Acute (5) Intractable abdominal pain Code(s): R10.9 - Unspecified abdominal pain Status: Acute - Plan A/P: 1. UTI: h/o Recurrent UTI w/ Interstitial Cystitis, follows w/ Urology in [place], U/a +nitrates and bacteriuria despite antibiotics, start IV Rocephin , follow up cultures, IVF for hydration, monitor I/O. Pyridium 2. Failed Outpt Tx: On Ceftin 3wks ago for UTI, then started on Levaquin 3 days ago for recurrent UTI, continue w/ IV Rocephin, follow up cultures. 3. Intractable Abd Pain: pt w/ extensive h/o chronic abdominal pain, UC, h/o SBO and Gastroparesis s/p recent Botox Injection 09/14/[address] Abd/ Pelvis w/ right hydronephrosis and hydroureter, no obvious stone, images reviewed. Continue w/ analgesics/antiemetics as needed. Recent admit w/ eval by Palliative care, recommendation for Haldol prn for refractory nausea. Follows w/ Dr. Lara as outpatient, will consult for further evaluation/ recommendations. 4. Hydronephrosis: CT Abd/Pelvis w/ mild right-sided hydronephrosis and hydroureter, w/o obvious stone, reports h/o renal stone, ? passed stone. Will monitor closely, I/O, Urology eval as needed. 5. HTN: Uncontrolled. BP 240's on arrival, likely compounded by severe abdominal pain. Will monitor, antihypertensives as needed for BP >180 6. DVT Prophylaxis: SCD/Teds 7. Social work for d/c planning as needed 8. Case discussed w/ ER physician at length, labs/records/imaging reviewed by me.
[2017-10-11] MEDS: Morphine Inj 4 MG/ML Vial IV.PUSH PRN ×5 (03:53→23:30)
[2017-10-11] MEDS: Pantoprazole Inj 40 MG Vial IV.PUSH SCH ×2 (05:23→17:12)
--- NOTE | 2017-10-11 08:39 | P.CONGI ---
History of Present Illness Consult date: 10/11/17 Consult reason: abdominal pain Chief complaint: UTI-failed outpatient, intractable pain History of Present Illness: This is a 61 yo F with GI history significant for gorge esophagitis, UC S/P partial colon resection in 1992 in complete remission and gastroparesis who is known to our service. Pt was last seen by our service in September during recent hospitalization, had an EGD with dilatation done on September 13, exam revealed normal esophagus, erythematous gastritis in the entire examined stomach, Botox injected in 4 quadrants, normal duodenal mucosa in the 2nd part of the duodenum. Pt also had a colonoscopy done September 10 which revealed normal colonoscopy, internal and external hemorrhoids. Pt presented to the ER yesterday with complaints of abdominal pain. Pt states lower abdominal pain for the past four days from a bladder infection but yesterday at 4 pm began having upper abdominal pain after eating fish. States this pain feels similar to pains she has had in the past from her gastroparesis. Associated nausea and vomiting, denies hematemesis and coffee ground emesis. Also reports diarrhea, 7 episodes since yesterday, denies hematochezia and melena. Denies any fecal urgency or incontinence. Pt currently on Reglan for gastroparesis, denies trying any other medications for this in the past. Denies ETOH, smoking, and NSAID use. Of note , follows pain management, prescribed Hydrocodone for chronic back pain, RA and neuropathy. <Arlene Farias - Last Filed: 10/11/17 08:20> Review of Systems Gastrointestinal: Reports abdominal pain, Reports loose stools, Reports nausea, Reports vomiting, Denies black, tarry stools, Denies bright, red blood in stools , Denies incontinent of stools, Denies vomiting blood <Arlene Farias - Last Filed: 10/11/17 08:20> PMFSH - History History Provided By: Patient - Medical History Medical History: Medical History (Last Reviewed 10/11/17 @ 00:19 by Ninfa Sahni MD) Anxiety disorder Asthma Chronic back pain Diabetes Frequent urinary tract infections GERD (gastroesophageal reflux disease) Gastroparesis H/O: hysterectomy Hypothyroidism Interstitial cystitis Migraines Rheumatoid arthritis Ulcerative colitis - Surgical History Surgical History: Surgical History (Last Reviewed 10/11/17 @ 00:19 by Ninfa Sahni MD) History of hysterectomy (Acute) History of back surgery History of partial colectomy Hx of cholecystectomy - Family History Family History: Family History (Last Reviewed 10/11/17 @ 00:19 by Ninfa Sahni MD) Father Diabetes Ulcerative (chronic) ileocolitis Mother Diabetes Sister Ulcerative (chronic) ileocolitis - Tobacco History Second Hand Smoke Exposure: Yes (FATHER; PT NOW STATES HAS COPD, ASHTMA) Smoking Status: Never smoker - Alcohol History How Often Do You Have a Drink Containing Alcohol: Never - Substance Use History Substance History: No History of Abuse <Arlene Farias - Last Filed: 10/11/17 08:20> - Medical History Medical History: Medical History (Last Reviewed 10/11/17 @ 00:19 by Ninfa Sahni MD) Anxiety disorder Asthma Chronic back pain Diabetes Frequent urinary tract infections GERD (gastroesophageal reflux disease) Gastroparesis H/O: hysterectomy Hypothyroidism Interstitial cystitis Migraines Rheumatoid arthritis Ulcerative colitis - Surgical History Surgical History: Surgical History (Last Reviewed 10/11/17 @ 00:19 by Ninfa Sahni MD) History of hysterectomy (Acute) History of back surgery History of partial colectomy Hx of cholecystectomy - Family History Family History: Family History (Last Reviewed 10/11/17 @ 00:19 by Ninfa Sahni MD) Father Diabetes Ulcerative (chronic) ileocolitis Mother Diabetes Sister Ulcerative (chronic) ileocolitis <Linda Lara - Last Filed: 10/11/17 16:53> Medications and Allergies Active Medications: Active Medications Acetaminophen (Tylenol) 650 mg PO Q4H PRN PRN Reason: Temp > 100.4 Al Hydroxide/Mg Hydroxide (Milk Of Magnesia Liq) 30 ml PO Q12H PRN PRN Reason: Mild Constipation Bisacodyl (Dulcolax Supp) 10 mg RECTAL DAILY PRN PRN Reason: SEVERE CONSITIPATION Diphenhydramine HCl (Benadryl) 25 mg PO Q6H PRN PRN Reason: ITCHING Last Admin: 10/11/17 05:23 Dose: 25 mg Sodium Chloride (Ns Inj) 1,000 mls @ 100 mls/hr IV.CONT .Q10H [facility] Ceftriaxone Sodium 1,000 mg/ (Sodium Chloride) 100 mls @ 200 mls/hr IV.SIG Q24H [facility] Lactulose (Lactulose Liq) 30 ml PO DAILY PRN PRN Reason: SEVERE CONSITIPATION Morphine Sulfate (Morphine Inj) 2 mg IV.PUSH Q4H PRN PRN Reason: PAIN 6-10 Last Admin: 10/11/17 03:53 Dose: 2 mg Ondansetron HCl (Zofran Inj) 4 mg IV.PUSH Q6H PRN PRN Reason: NAUSEA OR VOMITING Last Admin: 10/11/17 03:32 Dose: 4 mg Pantoprazole Sodium (Protonix Inj) 40 mg IV.PUSH Q12H [facility] Last Admin: 10/11/17 05:23 Dose: 40 mg Phenazopyridine HCl (Pyridium) 200 mg PO Q8H [facility] Last Admin: 10/11/17 05:23 Dose: 200 mg Prochlorperazine Edisylate (Compazine Inj) 10 mg IV.PUSH Q6H PRN PRN Reason: NAUSEA/VOMITING Senna/Docusate Sodium (Rowan-Colace) 1 tab PO BID [facility] Sennosides (Senokot) 17.2 mg PO Q12H PRN PRN Reason: Moderate Constipation Sodium Chloride (Ns Flush) 2 ml IV.FLUSH PRN PRN PRN Reason: FLUSH AFTER USING IV ACCESS Temazepam (Restoril) 15 mg PO HS PRN PRN Reason: INSOMNIA <Arlene Farias - Last Filed: 10/11/17 08:20> Active Medications: Active Medications Acetaminophen (Tylenol) 650 mg PO Q4H PRN PRN Reason: Temp > 100.4 Al Hydroxide/Mg Hydroxide (Milk Of Magnesia Liq) 30 ml PO Q12H PRN PRN Reason: Mild Constipation Bethanechol Chloride (Urecholine) 10 mg PO BID [facility] Bisacodyl (Dulcolax Supp) 10 mg RECTAL DAILY PRN PRN Reason: SEVERE CONSITIPATION Butalbital/Aspirin/Caffeine (Fiorinal 50-325-40 Mg) 1 cap PO Q4H PRN PRN Reason: headache/ migraine Last Admin: 10/11/17 11:28 Dose: 1 cap Dicyclomine HCl (Bentyl) 20 mg PO QID PRN PRN Reason: Cramps Diphenhydramine HCl (Benadryl) 25 mg PO Q6H PRN PRN Reason: ITCHING Last Admin: 10/11/17 12:01 Dose: 25 mg Gabapentin (Neurontin) 800 mg PO QID [facility] Sodium Chloride (Ns Inj) 1,000 mls @ 100 mls/hr IV.CONT .Q10H [facility] Last Admin: 10/11/17 13:43 Dose: 100 mls/hr Ceftriaxone Sodium 1,000 mg/ (Sodium Chloride) 100 mls @ 200 mls/hr IV.SIG Q24H [facility] Lactulose (Lactulose Liq) 30 ml PO DAILY PRN PRN Reason: SEVERE CONSITIPATION Levothyroxine Sodium (Synthroid) 125 mcg PO DAILY@0600 [facility] Lorazepam (Ativan) 2 mg PO Q6H PRN PRN Reason: anxiety Last Admin: 10/11/17 13:44 Dose: 2 mg Morphine Sulfate (Morphine Inj) 2 mg IV.PUSH Q4H PRN PRN Reason: PAIN 6-10 Last Admin: 10/11/17 12:01 Dose: 2 mg Ondansetron HCl (Zofran Inj) 4 mg IV.PUSH Q6H PRN PRN Reason: NAUSEA OR VOMITING Last Admin: 10/11/17 08:41 Dose: 4 mg Pantoprazole Sodium (Protonix Inj) 40 mg IV.PUSH Q12H [facility] Last Admin: 10/11/17 05:23 Dose: 40 mg Phenazopyridine HCl (Pyridium) 200 mg PO Q8H [facility] Last Admin: 10/11/17 13:44 Dose: 200 mg Phenazopyridine HCl (Pyridium) 200 mg PO TID PRN PRN Reason: Bladder Spasms Prochlorperazine Edisylate (Compazine Inj) 10 mg IV.PUSH Q6H PRN PRN Reason: NAUSEA/VOMITING Last Admin: 10/11/17 11:55 Dose: 10 mg Senna/Docusate Sodium (Rowan-Colace) 1 tab PO BID [facility] Last Admin: 10/11/17 08:41 Dose: 1 tab Sennosides (Senokot) 17.2 mg PO Q12H PRN PRN Reason: Moderate Constipation Sodium Chloride (Ns Flush) 2 ml IV.FLUSH PRN PRN PRN Reason: FLUSH AFTER USING IV ACCESS Temazepam (Restoril) 15 mg PO HS PRN PRN Reason: INSOMNIA <Bratu,Linda - Last Filed: 10/11/17 16:53> Allergies Allergy/AdvReac Type Severity Reaction Status Date / Time codeine Allergy Severe Itching Verified 10/10/17 23:02 erythromycin base Allergy Intermediate Hives Verified 10/10/17 23:02 fentanyl Allergy Intermediate Hives, Verified 10/10/17 23:02 LIPS SWELLING, TORO latex Allergy Intermediate Hives Verified 10/10/17 23:02 strawberry Allergy Mild Hives Verified 10/10/17 23:02 penicillin G Allergy Unknown Itching Verified 10/10/17 23:02 Sulfa (Sulfonamide Allergy Unknown Itching Verified 10/10/17 23:02 Antibiotics) SHELL FISH, MORPHINE Allergy Severe Anaphylaxis Uncoded 10/10/17 23:02 Home Medications Medication Instructions Recorded Confirmed Type Ativan 1 mg PO HS 09/08/17 09/11/17 History [id number] 5 mg PO PRN 09/08/17 History conjugated estrogens [Premarin] 1.25 mg PO DAILY 09/08/17 09/11/17 History gabapentin 600 mg PO HS NEB 09/08/17 09/11/17 History gabapentin 800 mg PO QID 09/08/17 10/11/17 History levothyroxine [Synthroid] 125 mcg PO DAILY 09/08/17 10/11/17 History lorazepam [Ativan] 2 mg PO QID 09/08/17 10/11/17 History magnesium 250 mg PO BID 09/08/17 10/11/17 History pantoprazole [Protonix] 40 mg PO BID 09/08/17 10/11/17 History pentosan polysulfate sodium 100 mg PO TID 09/08/17 10/11/17 History [Elmiron] phenazopyridine [Pyridium] 200 mg PO TID PRN 09/08/17 10/11/17 History potassium 100 mg PO DAILY 09/08/17 10/11/17 History sennosides [Senokot] 8.6 mg PO BID PRN 09/08/17 09/11/17 History sodium chloride 2 tab PO DAILY 09/08/17 10/11/17 History tizanidine 4 mg PO TID 09/08/17 09/11/17 History Symproic 0.2 mg PO DAILY 09/12/17 09/12/17 History dicyclomine 20 mg PO QID PRN 10/11/17 10/11/17 History sucralfate [Carafate] 1 g PO TID-QID 10/11/17 10/11/17 History Exam Vital signs: Vital Signs 10/10/17 23:02 10/11/17 03:57 10/11/17 05:27 Temperature 97.9 F 97.7 F Pulse Rate 84 104 H 85 Respiratory Rate 27 H 20 Blood Pressure 249/124 H 181/123 H 118/91 H Pulse Oximetry 96 95 94 L Intake & Output 10/10/17 10/11/17 10/11/17 18:59 06:59 18:59 Intake Total 1000 / 1000 Balance 1000 / 1000 Weight 88.5 kg Intake: IV 1000 / 1000 NS Inj 1,000 ML @ Wide Open IV. 1000 / 1000 SIG BOLUS ONE Rx#:[id number] Other: Date of Last Bowel Movement 10/10/17 Weight On Admission 88.5 kg - Constitutional no acute distress - Routine HEENT Exam Head: Present: normocephalic, atraumatic - Routine Respiratory Exam Absent: accessory muscle use - Routine Abdominal Exam Present: soft, normoactive bowel sounds, tenderness (LUQ tenderness ). Absent: distended - Routine Skin Exam Present: dry, warm - Routine Neurological Exam Present: alert, oriented X3 <Arlene Farias - Last Filed: 10/11/17 08:20> Vital signs: Vital Signs 10/10/17 23:02 10/11/17 03:57 10/11/17 05:27 Temperature 97.9 F 97.7 F Pulse Rate 84 104 H 85 Respiratory Rate 27 H 20 Blood Pressure 249/124 H 181/123 H 118/91 H Pulse Oximetry 96 95 94 L 10/11/17 08:00 10/11/17 12:00 Temperature 97.9 F 98.6 F Pulse Rate 91 H 88 Respiratory Rate 20 20 Blood Pressure 183/108 H 155/114 H Pulse Oximetry 97 96 Intake & Output 10/10/17 10/11/17 10/11/17 18:59 06:59 18:59 Intake Total 1000 / 1000 Balance 1000 / 1000 Weight 88.5 kg Intake: IV 1000 / 1000 NS Inj 1,000 ML @ Wide Open IV. 1000 / 1000 SIG BOLUS ONE Rx#:[id number] Other: Date of Last Bowel Movement 10/10/17 10/10/17 Weight On Admission 88.5 kg <Linda Lara - Last Filed: 10/11/17 16:53> Results - Labs CBC & Chem 7: 10/11/17 00:06 10/11/17 00:06 Labs: Laboratory Results - last 24 hr 10/10/17 10/11/17 10/11/17 23:52 00:06 00:06 WBC 10.7 RBC 3.86 L Hgb 11.9 Hct 34.6 L MCV 89.6 MCH 30.9 MCHC 34.5 RDW 14.1 Plt Count 339 D MPV 7.4 Neut % (Auto) 45.6 Lymph % (Auto) 43.7 [place] % (Auto) 7.9 Eos % (Auto) 2.3 Baso % (Auto) 0.5 Neut # (Auto) 4.9 Lymph # (Auto) 4.7 [place] # (Auto) 0.8 Eos # (Auto) 0.2 Baso # (Auto) 0.1 WBC Differential . Differential Comment Auto diff final Sodium 134 L Potassium 3.8 Chloride 97 L Carbon Dioxide 29.0 Anion Gap 8 BUN 12 Creatinine 0.87 Estimated GFR 66 L Random Glucose 102 Lactic Acid Calcium 8.4 L Total Bilirubin 0.3 AST 14 L ALT 18 Alkaline Phosphatase 116 Total Protein 7.3 Albumin 3.4 Lipase 84 Urine Color Yellow Urine Clarity Clear Urine pH 7.0 Ur Specific [place] 1.011 Urine Protein Negative Urine Glucose (UA) Negative Urine Ketones Negative Urine Occult Blood Negative Urine Nitrate Positive H Urine Bilirubin Negative Urine Urobilinogen 0.2 Ur Leukocyte Esterase Negative Urine RBC 0-3 Ur Squamous Epith Cells 6-10 H Micro UA Comment Culture indicated Urine Culture Comments Culture indicated 10/11/17 00:06 WBC RBC Hgb Hct MCV MCH MCHC RDW Plt Count MPV Neut % (Auto) Lymph % (Auto) [place] % (Auto) Eos % (Auto) Baso % (Auto) Neut # (Auto) Lymph # (Auto) [place] # (Auto) Eos # (Auto) Baso # (Auto) WBC Differential Differential Comment Sodium Potassium Chloride Carbon Dioxide Anion Gap BUN Creatinine Estimated GFR Random Glucose Lactic Acid 1.6 Calcium Total Bilirubin AST ALT Alkaline Phosphatase Total Protein Albumin Lipase Urine Color Urine Clarity Urine pH Ur Specific [place] Urine Protein Urine Glucose (UA) Urine Ketones Urine Occult Blood Urine Nitrate Urine Bilirubin Urine Urobilinogen Ur Leukocyte Esterase Urine RBC Ur Squamous Epith Cells Micro UA Comment Urine Culture Comments - Imaging Impressions Abdomen/Pelvis CT 10/11/17 00:00 CONCLUSION: 1. Mild right-sided hydronephrosis and hydroureter without obvious obstructing stone. This is a change from previous study. 2. Hepatic and renal cysts. 3. Atherosclerosis. <Arlene Farias - Last Filed: 10/11/17 08:20> - Labs CBC & Chem 7: 10/11/17 00:06 10/11/17 00:06 Labs: Laboratory Results - last 24 hr 10/10/17 10/11/17 10/11/17 23:52 00:06 00:06 WBC 10.7 RBC 3.86 L Hgb 11.9 Hct 34.6 L MCV 89.6 MCH 30.9 MCHC 34.5 RDW 14.1 Plt Count 339 D MPV 7.4 Neut % (Auto) 45.6 Lymph % (Auto) 43.7 [place] % (Auto) 7.9 Eos % (Auto) 2.3 Baso % (Auto) 0.5 Neut # (Auto) 4.9 Lymph # (Auto) 4.7 [place] # (Auto) 0.8 Eos # (Auto) 0.2 Baso # (Auto) 0.1 WBC Differential . Differential Comment Auto diff final Sodium 134 L Potassium 3.8 Chloride 97 L Carbon Dioxide 29.0 Anion Gap 8 BUN 12 Creatinine 0.87 Estimated GFR 66 L Random Glucose 102 Lactic Acid Calcium 8.4 L Total Bilirubin 0.3 AST 14 L ALT 18 Alkaline Phosphatase 116 Total Protein 7.3 Albumin 3.4 Lipase 84 Urine Color Yellow Urine Clarity Clear Urine pH 7.0 Ur Specific [place] 1.011 Urine Protein Negative Urine Glucose (UA) Negative Urine Ketones Negative Urine Occult Blood Negative Urine Nitrate Positive H Urine Bilirubin Negative Urine Urobilinogen 0.2 Ur Leukocyte Esterase Negative Urine RBC 0-3 Ur Squamous Epith Cells 6-10 H Micro UA Comment Culture indicated Urine Culture Comments Culture indicated 10/11/17 00:06 WBC RBC Hgb Hct MCV MCH MCHC RDW Plt Count MPV Neut % (Auto) Lymph % (Auto) [place] % (Auto) Eos % (Auto) Baso % (Auto) Neut # (Auto) Lymph # (Auto) [place] # (Auto) Eos # (Auto) Baso # (Auto) WBC Differential Differential Comment Sodium Potassium Chloride Carbon Dioxide Anion Gap BUN Creatinine Estimated GFR Random Glucose Lactic Acid 1.6 Calcium Total Bilirubin AST ALT Alkaline Phosphatase Total Protein Albumin Lipase Urine Color Urine Clarity Urine pH Ur Specific [place] Urine Protein Urine Glucose (UA) Urine Ketones Urine Occult Blood Urine Nitrate Urine Bilirubin Urine Urobilinogen Ur Leukocyte Esterase Urine RBC Ur Squamous Epith Cells Micro UA Comment Urine Culture Comments - Imaging Impressions Abdomen/Pelvis CT 10/11/17 00:00 CONCLUSION: 1. Mild right-sided hydronephrosis and hydroureter without obvious obstructing stone. This is a change from previous study. 2. Hepatic and renal cysts. 3. Atherosclerosis. <Linda Lara - Last Filed: 10/11/17 16:53> Assessment and Plan - Plan Assessment: - Nausea, vomiting, LUQ abdominal pain- states symptoms began at 4 pm yesterday after eating fish for dinner. Pain in LUQ is constant, described as sharp. States feels like pains she has had related to gastroparesis in the past. Nausea and vomiting began at same time, denies hematemesis and coffee ground emesis. Has had 2 episodes of emesis History of gastroparesis- diagnosed off of retained food in her stomach on EGD - no previous GES- EGD with Botox done on September 13 --> Normal esophagus, erythematous gastritis in the entire examined stomach, Botox injected in 4 quadrants, normal duodenal mucosa in the 2nd part of the duodenum. Currently on Reglan- denies trying other medications for this in the past- allergic to Erythromycin CT abdomen and pelvis W IV contrast (October 11) --> Mild right-sided hydronephrosis and hydroureter without obvious obstructing stone. This is a change from previous study. Hepatic and renal cysts. - Diarrhea- began yesterday at 4pm- 7 episodes- denies urgency and incontinence - denies hematochezia and melena Colonoscopy done September 10 which revealed normal colonoscopy, internal and external hemorrhoids. Biopsies normal - History of UC S/P partial colon resection in 1992- states no longer requiring treatment - Chronic pain- back pain, RA, and neuropathy- followed by pain management- on Hydrocodone - UTI- failed outpatient treatment Plan: Stool studies Trial of Bethanechol Pain medication per attending Lower pain likely consistent with UTI Further recommendations to follow Pt has been seen and examined by myself and Dr. Bratu and this note is written on her behalf <Arlene Farias - Last Filed: 10/11/17 08:20> - Attending Attestation seen, examined agree with above consider urology consult consider domperidone op for gastroparesis consider exploratory laparoscopy if no improvement in her abdominal pain for possible adhesions <Linda Lara - Last Filed: 10/11/17 16:53>
[2017-10-11] MEDS: Senna/Docusate Sodium 8.6/50 MG Tablet PO SCH ×2 (08:41→20:13)
[2017-10-11] MEDS: Butalbital/ASA/Caff 50/325/40 Capsule PO PRN ×2 (11:28→20:12)
--- NOTE | 2017-10-11 12:31 | P.PN ---
Physical Exam Vital signs: Vital Signs 10/10/17 23:02 10/11/17 03:57 10/11/17 05:27 Temperature 97.9 F 97.7 F Pulse Rate 84 104 H 85 Respiratory Rate 27 H 20 Blood Pressure 249/124 H 181/123 H 118/91 H Pulse Oximetry 96 95 94 L Intake & Output 10/10/17 10/11/17 10/11/17 18:59 06:59 18:59 Intake Total 1000 / 1000 Balance 1000 / 1000 Weight 88.5 kg Intake: IV 1000 / 1000 NS Inj 1,000 ML @ Wide Open IV. 1000 / 1000 SIG BOLUS ONE Rx#:[id number] Other: Date of Last Bowel Movement 10/10/17 Weight On Admission 88.5 kg Narrative: Subjective The patient is in bed she complains of some abdominal cramps. Also she reports headaches No nausea vomiting no diarrhea or constipation. Says she is taking Lorazepam 2 mg at home, I checked before spatially days was prescribed scribed and she is on active prescription of lorazepam 2 mg. Physical examination GENERAL: Middle-aged white female in some pain, also anxious. at bedside HEENT: PERRLA, EOMI. No scleral icterus or conjunctival pallor. No lid lag or facial droop. CARDIOVASCULAR: Regular rate and rhythm. No obvious murmurs to auscultation. No chest tenderness to palpation. RESPIRATORY: No obvious rhonchi or wheezing. Clear to auscultation. Breath sounds equal bilaterally. GASTROINTESTINAL: Abdomen distended but soft, generalized tenderness to palpation, bilateral flank tenderness. BS normal. MUSCULOSKELETAL: Extremities without clubbing, cyanosis, or edema. No obvious deformities. NEUROLOGICAL: Awake, alert and oriented x4. No focal neurologic deficits. Moving both upper and lower extremities spontaneously. Assessment and Plan 1. UTI: h/o Recurrent UTI w/ Interstitial Cystitis, follows w/ Urology in [place], U/a +nitrates and bacteriuria despite antibiotics Continue IV Rocephin, follow up cultures, IVF for hydration, monitor I/O. Restart Pyridium 2. Failed Outpt Tx: On Ceftin 3wks ago for UTI, then started on Levaquin 3 days ago for recurrent UTI, continue w/ IV Rocephin, follow up cultures. 3. Intractable Abd Pain: pt w/ extensive h/o chronic abdominal pain, UC, h/o SBO and Gastroparesis s/p recent Botox Injection 09/14/[address] Abd/ Pelvis w/ right hydronephrosis and hydroureter, no obvious stone, images reviewed. Continue w/ analgesics/antiemetics as needed. Recent admit w/ eval by Palliative care, recommendation for Haldol prn for refractory nausea. Follows w/ Dr. Lara as outpatient, will consult for further evaluation/ recommendations. Seen by GI appreciate recommendations consider domperidone op for gastroparesis consider exploratory laparoscopy if no improvement in her abdominal pain for possible adhesions Also recommended by GI urology evaluation 4. Hydronephrosis: CT Abd/Pelvis w/ mild right-sided hydronephrosis and hydroureter, w/o obvious stone, reports h/o renal stone, ? passed stone. Will monitor closely, I/O, Urology eval as needed. 5. HTN: Uncontrolled. BP 240's on arrival, likely compounded by severe abdominal pain. Will monitor, antihypertensives as needed for BP >180 6. DVT Prophylaxis: SCD/Teds 7. Social work for d/c planning as needed 8. Case discussed w/ ER physician at length, labs/records/imaging reviewed by me. Results - Labs CBC & Chem 7: 10/11/17 00:06 10/11/17 00:06 Laboratory Results - last 24 hr 10/10/17 10/11/17 10/11/17 23:52 00:06 00:06 WBC 10.7 RBC 3.86 L Hgb 11.9 Hct 34.6 L MCV 89.6 MCH 30.9 MCHC 34.5 RDW 14.1 Plt Count 339 D MPV 7.4 Neut % (Auto) 45.6 Lymph % (Auto) 43.7 Butts % (Auto) 7.9 Eos % (Auto) 2.3 Baso % (Auto) 0.5 Neut # (Auto) 4.9 Lymph # (Auto) 4.7 Butts # (Auto) 0.8 Eos # (Auto) 0.2 Baso # (Auto) 0.1 WBC Differential . Differential Comment Auto diff final Sodium 134 L Potassium 3.8 Chloride 97 L Carbon Dioxide 29.0 Anion Gap 8 BUN 12 Creatinine 0.87 Estimated GFR 66 L Random Glucose 102 Lactic Acid Calcium 8.4 L Total Bilirubin 0.3 AST 14 L ALT 18 Alkaline Phosphatase 116 Total Protein 7.3 Albumin 3.4 Lipase 84 Urine Color Yellow Urine Clarity Clear Urine pH 7.0 Ur Specific [place] 1.011 Urine Protein Negative Urine Glucose (UA) Negative Urine Ketones Negative Urine Occult Blood Negative Urine Nitrate Positive H Urine Bilirubin Negative Urine Urobilinogen 0.2 Ur Leukocyte Esterase Negative Urine RBC 0-3 Ur Squamous Epith Cells 6-10 H Micro UA Comment Culture indicated Urine Culture Comments Culture indicated 10/11/17 00:06 WBC RBC Hgb Hct MCV MCH MCHC RDW Plt Count MPV Neut % (Auto) Lymph % (Auto) [place] % (Auto) Eos % (Auto) Baso % (Auto) Neut # (Auto) Lymph # (Auto) [place] # (Auto) Eos # (Auto) Baso # (Auto) WBC Differential Differential Comment Sodium Potassium Chloride Carbon Dioxide Anion Gap BUN Creatinine Estimated GFR Random Glucose Lactic Acid 1.6 Calcium Total Bilirubin AST ALT Alkaline Phosphatase Total Protein Albumin Lipase Urine Color Urine Clarity Urine pH Ur Specific [place] Urine Protein Urine Glucose (UA) Urine Ketones Urine Occult Blood Urine Nitrate Urine Bilirubin Urine Urobilinogen Ur Leukocyte Esterase Urine RBC Ur Squamous Epith Cells Micro UA Comment Urine Culture Comments - Imaging Impressions Abdomen/Pelvis CT 10/11/17 00:00 CONCLUSION: 1. Mild right-sided hydronephrosis and hydroureter without obvious obstructing stone. This is a change from previous study. 2. Hepatic and renal cysts. 3. Atherosclerosis. Assessment and Plan - Assessment (1) UTI (urinary tract infection) Code(s): N39.0 - Urinary tract infection, site not specified Status: Acute (2) Failure of outpatient treatment Code(s): Z78.9 - Other specified health status Status: Acute (3) Hydronephrosis Code(s): N13.30 - Unspecified hydronephrosis Status: Acute (4) HTN (hypertension) Code(s): I10 - Essential (primary) hypertension Status: Acute (5) Intractable abdominal pain Code(s): R10.9 - Unspecified abdominal pain Status: Acute
[2017-10-11] MEDS: Sod Chloride 0.9% Inj 1,000 ML IV.CONT SCH ×3 (13:43→23:24)
[2017-10-11] MEDS: Gabapentin 400 MG Capsule PO SCH ×2 (17:12→20:12)
[2017-10-11] MEDS ORDERED: hydrALAZINE 10 MG Tablet PO PRN (20:00)
[2017-10-12] MEDS: Morphine Inj 4 MG/ML Vial IV.PUSH PRN ×5 (03:37→21:17)
[2017-10-12] MEDS: Pantoprazole Inj 40 MG Vial IV.PUSH SCH (05:54)
[2017-10-12] MEDS: Levothyroxine 125 MCG Tablet PO SCH (05:54)
[2017-10-12] MEDS: Sod Chloride 0.9% Inj 1,000 ML IV.CONT SCH ×3 (08:12→21:21)
[2017-10-12] MEDS: ESTROGENS CONJUGATED 1.25 MG PO SCH (08:16)
[2017-10-12] MEDS: Senna/Docusate Sodium 8.6/50 MG Tablet PO SCH ×2 (08:16→21:14)
[2017-10-12] MEDS: Gabapentin 400 MG Capsule PO SCH ×4 (08:16→21:13)
[2017-10-12] MEDS: Butalbital/ASA/Caff 50/325/40 Capsule PO PRN (08:17)
[2017-10-12] MEDS: PENTOSAN POLYSULFATE SODIUM 100 MG PO SCH ×3 (08:17→17:00)
--- NOTE | 2017-10-12 10:25 | P.PNGI ---
Subjective Interval history: Pt resting in bed, urologist just at bedside. Pt complaining of continue LUQ pain, states no improvement, pain is constant. Continues to have nausea but has not had any emesis. Last BM was when she first got here. Also still having lower abdominal pain and right flank pain. <Arlene Farias - Last Filed: 10/12/17 10:20> Physical Exam Vital signs: Vital Signs 10/11/17 12:00 10/11/17 16:00 10/11/17 19:58 Temperature 98.6 F 98.3 F 98.5 F Pulse Rate 88 85 73 Respiratory Rate 20 20 18 Blood Pressure 155/114 H 211/152 H 180/84 H Pulse Oximetry 96 94 L 96 10/12/17 00:15 10/12/17 06:15 10/12/17 07:00 Temperature 97.9 F 98.8 F Pulse Rate 63 69 Respiratory Rate 16 17 12 Blood Pressure 132/67 130/69 Pulse Oximetry 94 L 96 10/12/17 07:52 10/12/17 08:00 Temperature 97.6 F Pulse Rate 64 Respiratory Rate 12 20 Blood Pressure 138/63 Pulse Oximetry 91 L Intake & Output 10/11/17 10/12/17 10/12/17 18:59 06:59 18:59 Intake Total 120 / 120 2450 / 2450 1000 / 1000 Balance 120 / 120 2450 / 2450 1000 / 1000 Weight 88.5 kg Intake: IV 1100 / 1100 1000 / 1000 NS Inj 1,000 ML @ 100 mls/hr IV 1000 / 1000 1000 / 1000 .CONT .Q10H MARTINEZ Rx#:[id number] Rocephin Inj 1,000 MG In NS Inj 100 / 100 100 ML @ 200 mls/hr IV.SIG Q24H MARTINEZ Rx#:[id number] Oral 120 / 120 1350 / 1350 Other: # Voids 8 2 Date of Last Bowel Movement 10/10/17 10/10/17 10/10/17 # Bowel Movements 0 - Constitutional no acute distress - Routine HEENT Exam Head: Present: normocephalic, atraumatic - Routine Respiratory Exam Absent: accessory muscle use - Routine Abdominal Exam Present: soft, normoactive bowel sounds, tenderness (LLQ tenderness ). Absent: distended - Routine Skin Exam Present: dry, warm - Routine Neurological Exam Present: alert, oriented X3 <Arlene Farias - Last Filed: 10/12/17 10:20> Vital signs: Vital Signs 10/11/17 19:58 10/12/17 00:15 10/12/17 06:15 Temperature 98.5 F 97.9 F 98.8 F Pulse Rate 73 63 69 Respiratory Rate 18 16 17 Blood Pressure 180/84 H 132/67 130/69 Pulse Oximetry 96 94 L 96 10/12/17 07:00 10/12/17 07:52 10/12/17 08:00 Temperature 97.6 F Pulse Rate 64 Respiratory Rate 12 12 20 Blood Pressure 138/63 Pulse Oximetry 91 L 10/12/17 12:00 Temperature 98.4 F Pulse Rate 88 Respiratory Rate 20 Blood Pressure 147/80 H Pulse Oximetry 93 L Intake & Output 10/11/17 10/12/17 10/12/17 18:59 06:59 18:59 Intake Total 120 / 120 2450 / 2450 1480 / 1480 Output Total 2 / 2 Balance 120 / 120 2450 / 2450 1478 / 1478 Weight 88.5 kg Intake: IV 1100 / 1100 1000 / 1000 NS Inj 1,000 ML @ 100 mls/hr IV 1000 / 1000 1000 / 1000 .CONT .Q10H MARTINEZ Rx#:[id number] Rocephin Inj 1,000 MG In NS Inj 100 / 100 100 ML @ 200 mls/hr IV.SIG Q24H MARTINEZ Rx#:[id number] Oral 120 / 120 1350 / 1350 480 / 480 Output: Stool 2 / 2 Other: # Voids 8 2 Date of Last Bowel Movement 10/10/17 10/10/17 10/12/17 # Bowel Movements 0 - Urinary Catheter Management Indwelling Urethral Catheter Cath placed during this visit: yes Reason for continuing: Chronic Urinary Retention Insertion date: 10/12/17 Insertion time: 13:56 <Linda Lara - Last Filed: 10/12/17 16:13> Results - Labs CBC & Chem 7: 10/11/17 00:06 10/11/17 00:06 Microbiology 10/10/17 23:52 Clean Catch Urine Urine Culture - Final No growth in 48 hours <Arlene Farias - Last Filed: 10/12/17 10:20> - Labs CBC & Chem 7: 10/12/17 15:30 10/11/17 00:06 Laboratory Results - last 24 hr 10/12/17 10/12/17 13:37 15:30 WBC 9.5 RBC 4.09 Hgb 12.5 Hct 38.5 MCV 94.2 D MCH 30.5 MCHC 32.4 RDW 14.5 Plt Count 323 MPV 7.2 Neut % (Auto) 54.4 Lymph % (Auto) 34.7 [place] % (Auto) 6.6 Eos % (Auto) 3.6 Baso % (Auto) 0.7 Neut # (Auto) 5.2 Lymph # (Auto) 3.3 [place] # (Auto) 0.6 Eos # (Auto) 0.3 Baso # (Auto) 0.1 WBC Differential . Differential Comment Auto diff final Stl C.difficile Tox PCR Negative St C. diff Tox Epid 027 Negative Microbiology 10/10/17 23:52 Clean Catch Urine Urine Culture - Final No growth in 48 hours - Imaging Impressions Small Bowel X-Ray 10/12/17 00:00 CONCLUSION: Unremarkable small bowel follow-through exam. No obstruction. Previous fusion across L4-5. Previous cholecystectomy. Previous partial sigmoid resection with surgical kenya in the low pelvis. Postoperative left hip replacement. <Linda Lara - Last Filed: 10/12/17 16:13> Assessment and Plan - Plan Assessment: - Nausea, vomiting, LUQ abdominal pain- states symptoms began at 4 pm yesterday after eating fish for dinner. Pain in LUQ is constant, described as sharp. States feels like pains she has had related to gastroparesis in the past. Nausea and vomiting began at same time, denies hematemesis and coffee ground emesis. Has had 2 episodes of emesis History of gastroparesis- diagnosed off of retained food in her stomach on EGD - no previous GES- EGD with Botox done on September 13 --> Normal esophagus, erythematous gastritis in the entire examined stomach, Botox injected in 4 quadrants, normal duodenal mucosa in the 2nd part of the duodenum. Currently on Reglan- denies trying other medications for this in the past- allergic to Erythromycin CT abdomen and pelvis W IV contrast (October 11) --> Mild right-sided hydronephrosis and hydroureter without obvious obstructing stone. This is a change from previous study. Hepatic and renal cysts. - Diarrhea- began yesterday at 4pm- 7 episodes- denies urgency and incontinence - denies hematochezia and melena Colonoscopy done September 10 which revealed normal colonoscopy, internal and external hemorrhoids. Biopsies normal - History of UC S/P partial colon resection in 1992- states no longer requiring treatment - Chronic pain- back pain, RA, and neuropathy- followed by pain management- on Hydrocodone - UTI- failed outpatient treatment (10/12) Pt reports no improvement in LUQ pain, which she states is typical of her gastroparesis pains. Associated nausea but denies any emesis. No BM since she first got here. No BM so not stool studies sent. Also continues to have lower abdominal pain and right flank pain, urology following. Plan: SBFT Bentyl Pain medication per attending Lower pain likely consistent with UTI ? need for surgery consult for exploratory laparotomy for lysis of adhesions if no improvement Consider Domperidone OP Further recommendations to follow Pt has been seen and examined by myself and Dr. Lara and this note is written on her behalf <Arlene Farias - Last Filed: 10/12/17 10:20> - Attending Attestation seen, examined agree with above sbft negative had lysis of adhesions in the past, states in helped <Linda Lraa - Last Filed: 10/12/17 16:13>
--- NOTE | 2017-10-12 10:43 | MB ---
cc: Alhaji Veloz DO DATE: 10/12/2017 HISTORY OF PRESENT ILLNESS: Ms. Wallace is a pleasant 61-year-old female with history of recurrent urinary tract infections and history of interstitial cystitis. She was admitted with abdominal pain due to her gastroparesis. She was recently treated for urinary tract infection per her PCP and was initially started on Ceftin and then restarted on Levaquin. She states she is having dysuria, but the Pyridium is presently helping this. She does note a history of incomplete bladder emptying, which is most likely reason for her recurrent urinary tract infections. Her urine culture presently though shows no growth to date. PAST MEDICAL HISTORY: Her medical history is noted for anxiety, asthma, chronic back pain, diabetes, recurrent urinary tract infections, GERD, gastroparesis, hypothyroidism, interstitial cystitis, migraines, rheumatoid arthritis and ulcerative colitis. PAST SURGICAL HISTORY: Noted for hysterectomy, back surgery, partial colectomy, cholecystectomy. FAMILY HISTORY: Noted for diabetes, ulcerative colitis. SOCIAL HISTORY: Denies smoking, drinking or using any drugs. REVIEW OF SYSTEMS: Notes abdominal pain, dysuria, incomplete bladder emptying, constipation with gastroparesis. She denies gait disturbances, bleeding disorders, headaches, chest pain or shortness of breath. Does note anxiety. Remaining review of systems were reviewed and were negative. PHYSICAL EXAMINATION: VITAL SIGNS: Today, temperature 97.6, heart rate 64, respiratory rate 20, 138/63, 91% on room air. GENERAL: She is well-developed, well-nourished, somewhat slightly obese 61-year-old female in no acute distress. HEENT: Normocephalic, atraumatic. Pupils equal, round, regular and reactive to light. Extraocular movements intact. NECK: Supple. HEART: Regular rate and rhythm. LUNGS: Clear. ABDOMEN: Soft. Some lower suprapubic tenderness noted on exam. No CVA tenderness. GENITALIA: Normal female external genitalia. VAGINAL EXAM: Rectocele is noted, but I do not palpate a cystocele. EXTREMITIES: Show no evidence of cyanosis, clubbing or edema. LABORATORY DATA: White count 10.7, hemoglobin 11.9, hematocrit 34.6, platelet count of 339. Sodium 134, potassium 3.8, chloride 197, CO2 29.0, BUN of 12, creatinine 0.87, glucose of 102. Urinalysis shows positive nitrite, 0-3 red cells, leukocyte esterase is negative. Urine culture is negative. CT scan shows mild right-sided hydro with hydroureter without obvious obstructing stone. Possible recently passed stone is noted. ASSESSMENT: A 61-year-old female with history of interstitial cystitis, recurrent urinary tract infections with incomplete bladder emptying and mild hydronephrosis. PLAN: Recommending continue with Rocephin to treat urinary tract infection. We will give Diflucan due to probable yeast infection due to vaginal pruritus. Patient can followup as an outpatient and will require cystoscopy and workup for interstitial cystitis and recurrent urinary tract infections. We will follow with you. Thank you for the consult and allowing me to participate in the care of this patient. Alhaji Veloz DO SWT/TL , 10:23 AM , 10:33 AM
[2017-10-12] MEDS ORDERED: Diatrizoate Meglum/Diatrizoate Sod Liq 120 ML Bottle (for RAD diag) PO ONE (11:30)
[2017-10-12] MEDS: Fluconazole 100 MG Tablet PO SCH (13:30)
--- NOTE | 2017-10-12 14:21 | FL ---
EXAM DATE: 10/12/2017 1:23 PM EDT AGE/SEX: 61 years / Female INDICATIONS: Obstruction, left upper abdomen pain. CLINICAL DATA: This is the patient's subsequent encounter. Patient reports that signs and symptoms h ave been present for 1 week and indicates a pain score of 7/10. MEDICAL/SURGICAL HISTORY: Gastroparesis. Diabetes mellitus type II. Gastroesophageal reflux d isease. Colitis Umbilical hernia repair. Hysterectomy. Appendectomy. Cholecystectomy. Lumbar fusion . Partial sigmoid resection. Bowel obstruction surgery. Bladder surgery COMPARISON: . FLUORO TIME: 0 IMAGE COUNT: 9 CONTRAST: FINDINGS: There is normal filling of the stomach and proximal and distal small bowel. There is no significant s mall bowel dilatation. Transit time to large bowel is about 90 minutes. No ulcerations are identified at the terminal ileum. Postoperative change. CONCLUSION: Unremarkable small bowel follow-through exam. No obstruction. Previous fusion across L4-5. Previous cholecystectomy. Previous partial sigmoid resection with surgi ana kenya in the low pelvis. Postoperative left hip replacement. Electronically signed by: Vince Viera MD 10/12/2017 2:20 PM EDT
[2017-10-12 16:02] LABS: Baso # (Auto) 0.1 th/mm3 (0.0-0.2); Baso % (Auto) 0.7 % (0.0-2.0); Eos # (Auto) 0.3 th/mm3 (0.0-0.4); Eos % (Auto) 3.6 % (0.0-4.0); Hematocrit 38.5 % (35.0-46.0); Hemoglobin 12.5 gm/dL (11.6-15.3); Lymph # (Auto) 3.3 th/mm3 (1.0-4.8); Lymph % (Auto) 34.7 % (9.0-44.0); Mean Corpuscular HGB Conc 32.4 % (32.0-36.0); Mean Corpuscular Hemoglobin 30.5 pg (27.0-34.0); Mean Corpuscular Volume 94.2 fL (80.0-100.0); Mean Platelet Volume 7.2 fL (7.0-11.0); Mono # (Auto) 0.6 th/mm3 (0.0-0.9); Mono % (Auto) 6.6 % (0.0-8.0); Neut # (Auto) 5.2 th/mm3 (1.8-7.7); Neut % (Auto) 54.4 % (16.0-70.0); Platelet Count 323 th/mm3 (150-450); Red Blood Count 4.09 mil/mm3 (4.00-5.30); Red Cell Distribution Width 14.5 % (11.6-17.2); White Blood Count 9.5 th/mm3 (4.0-11.0)
[2017-10-12 16:39] LABS: Alanine Aminotransferase 18 U/L (10-53); Albumin 3.5 g/dL (3.4-5.0); Alkaline Phosphatase 123 U/L (45-117); Anion Gap 7 meq/L (5-15); Aspartate Aminotransferase 19 U/L (15-37); Blood Urea Nitrogen 10 mg/dL (7-18); Calcium 8.4 mg/dL (8.5-10.1); Carbon Dioxide 24.7 meq/L (21.0-32.0); Chloride 109 meq/L (98-107); Glomerular Filtration Rate 55 mL/min (>89); Glucose,Random 134 mg/dL (74-106); Potassium 3.6 meq/L (3.5-5.1); Sodium 141 meq/L (136-145); Total Protein 7.6 g/dL (6.4-8.2)
--- NOTE | 2017-10-12 16:47 | P.PN ---
Physical Exam Vital signs: Vital Signs 10/11/17 19:58 10/12/17 00:15 10/12/17 06:15 Temperature 98.5 F 97.9 F 98.8 F Pulse Rate 73 63 69 Respiratory Rate 18 16 17 Blood Pressure 180/84 H 132/67 130/69 Pulse Oximetry 96 94 L 96 10/12/17 07:00 10/12/17 07:52 10/12/17 08:00 Temperature 97.6 F Pulse Rate 64 Respiratory Rate 12 12 20 Blood Pressure 138/63 Pulse Oximetry 91 L 10/12/17 12:00 10/12/17 16:00 Temperature 98.4 F 97.5 F L Pulse Rate 88 101 H Respiratory Rate 20 20 Blood Pressure 147/80 H 183/84 H Pulse Oximetry 93 L 93 L Intake & Output 10/11/17 10/12/17 10/12/17 18:59 06:59 18:59 Intake Total 120 / 120 2450 / 2450 1720 / 1720 Output Total 2 / 2 Balance 120 / 120 2450 / 2450 1718 / 1718 Weight 88.5 kg Intake: IV 1100 / 1100 1000 / 1000 NS Inj 1,000 ML @ 100 mls/hr IV 1000 / 1000 1000 / 1000 .CONT .Q10H MARTINEZ Rx#:[id number] Rocephin Inj 1,000 MG In NS Inj 100 / 100 100 ML @ 200 mls/hr IV.SIG Q24H MARTINEZ Rx#:[id number] Oral 120 / 120 1350 / 1350 720 / 720 Output: Stool 2 / 2 Other: # Voids 8 2 Date of Last Bowel Movement 10/10/17 10/10/17 10/12/17 # Bowel Movements 0 Narrative: Subjective The patient is in the chair. Still complains of diffuse abdominal cramps, she also complains of back pain. Valadez was placed by urology, urine is orange in color from the medications. Patient has no fever or chills. No nausea vomiting or constipation. Went for GI serious. Patient received bowel prep now with diarrhea no blood in it. Physical examination GENERAL: Middle-aged white female in some pain, also anxious. at bedside HEENT: PERRLA, EOMI. No scleral icterus or conjunctival pallor. No lid lag or facial droop. CARDIOVASCULAR: Regular rate and rhythm. No obvious murmurs to auscultation. No chest tenderness to palpation. RESPIRATORY: No obvious rhonchi or wheezing. Clear to auscultation. Breath sounds equal bilaterally. GASTROINTESTINAL: Abdomen distended but soft, generalized tenderness to palpation, bilateral flank tenderness. BS normal. MUSCULOSKELETAL: Extremities without clubbing, cyanosis, or edema. No obvious deformities. NEUROLOGICAL: Awake, alert and oriented x4. No focal neurologic deficits. Moving both upper and lower extremities spontaneously. Assessment and Plan 1. UTI: h/o Recurrent UTI w/ Interstitial Cystitis, follows w/ Urology in [place], U/a +nitrates and bacteriuria despite antibiotics Continue IV Rocephin, follow up cultures, IVF for hydration, monitor I/O. Restart Pyridium. Start bethanechol 2. Failed Outpt Tx: On Ceftin 3wks ago for UTI, then started on Levaquin 3 days ago for recurrent UTI, continue w/ IV Rocephin, follow up cultures. 3. Intractable Abd Pain: pt w/ extensive h/o chronic abdominal pain, UC, h/o SBO and Gastroparesis s/p recent Botox Injection 09/14/[address] Abd/ Pelvis w/ right hydronephrosis and hydroureter, no obvious stone, images reviewed. Continue w/ analgesics/antiemetics as needed. Recent admit w/ eval by Palliative care, recommendation for Haldol prn for refractory nausea. Follows w/ Dr. Lara as outpatient, will consult for further evaluation/ recommendations. Seen by GI appreciate recommendations consider domperidone op for gastroparesis consider exploratory laparoscopy if no improvement in her abdominal pain for possible adhesions GI urology evaluation Start bethanechol 4. Hydronephrosis: CT Abd/Pelvis w/ mild right-sided hydronephrosis and hydroureter, w/o obvious stone, reports h/o renal stone, ? passed stone. Will monitor closely, I/O, Urology eval 5. HTN: Uncontrolled. BP 240's on arrival, likely compounded by severe abdominal pain. Will monitor, antihypertensives as needed for BP >180 6. DVT Prophylaxis: SCD/Teds 7. CM consulted for d/c planning and ff - Urinary Catheter Management Indwelling Urethral Catheter Cath placed during this visit: yes Reason for continuing: Chronic Urinary Retention Insertion date: 08/07/18 Insertion time: 13:56 Results - Labs CBC & Chem 7: 10/12/17 15:30 10/12/17 15:30 Laboratory Results - last 24 hr 10/12/17 10/12/17 10/12/17 13:37 15:30 15:30 WBC 9.5 RBC 4.09 Hgb 12.5 Hct 38.5 MCV 94.2 D MCH 30.5 MCHC 32.4 RDW 14.5 Plt Count 323 MPV 7.2 Neut % (Auto) 54.4 Lymph % (Auto) 34.7 [place] % (Auto) 6.6 Eos % (Auto) 3.6 Baso % (Auto) 0.7 Neut # (Auto) 5.2 Lymph # (Auto) 3.3 [place] # (Auto) 0.6 Eos # (Auto) 0.3 Baso # (Auto) 0.1 WBC Differential . Differential Comment Auto diff final Sodium 141 Potassium 3.6 Chloride 109 H D Carbon Dioxide 24.7 Anion Gap 7 BUN 10 Creatinine 1.02 H Estimated GFR 55 L Random Glucose 134 H Calcium 8.4 L Total Bilirubin 0.2 AST 19 ALT 18 Alkaline Phosphatase 123 H Total Protein 7.6 Albumin 3.5 Stl C.difficile Tox PCR Negative St C. diff Tox Epid 027 Negative Microbiology 10/10/17 23:52 Clean Catch Urine Urine Culture - Final No growth in 48 hours - Imaging Impressions Small Bowel X-Ray 10/12/17 00:00 CONCLUSION: Unremarkable small bowel follow-through exam. No obstruction. Previous fusion across L4-5. Previous cholecystectomy. Previous partial sigmoid resection with surgical kenya in the low pelvis. Postoperative left hip replacement. Assessment and Plan - Assessment (1) UTI (urinary tract infection) Code(s): N39.0 - Urinary tract infection, site not specified Status: Acute (2) Failure of outpatient treatment Code(s): Z78.9 - Other specified health status Status: Acute (3) Hydronephrosis Code(s): N13.30 - Unspecified hydronephrosis Status: Acute (4) HTN (hypertension) Code(s): I10 - Essential (primary) hypertension Status: Acute (5) Intractable abdominal pain Code(s): R10.9 - Unspecified abdominal pain Status: Acute
[2017-10-13] MEDS: Morphine Inj 4 MG/ML Vial IV.PUSH PRN (07:06)
[2017-10-13] MEDS: Levothyroxine 125 MCG Tablet PO SCH (07:06)
--- NOTE | 2017-10-13 08:49 | P.PN ---
Physical Exam Vital signs: Vital Signs 10/12/17 12:00 10/12/17 16:00 10/12/17 20:00 Temperature 98.4 F 97.5 F L 97.5 F L Pulse Rate 88 101 H 77 Respiratory Rate 20 20 17 Blood Pressure 147/80 H 183/84 H 138/72 Pulse Oximetry 93 L 93 L 96 10/13/17 00:20 10/13/17 06:15 Temperature 98 F 98.2 F Pulse Rate 68 67 Respiratory Rate 20 19 Blood Pressure 120/80 150/68 H Pulse Oximetry 98 96 Intake & Output 10/12/17 10/13/17 10/13/17 18:59 06:59 18:59 Intake Total 2588 / 2588 2400 / 2400 Output Total 2 / 2 300 / 300 Balance 2586 / 2586 2100 / 2100 Weight 88.5 kg Intake: IV 1628 / 1628 1100 / 1100 NS Inj 1,000 ML @ 100 mls/hr IV 1628 / 1628 1000 / 1000 .CONT .Q10H MARTINEZ Rx#:[id number] Rocephin Inj 1,000 MG In NS Inj 100 / 100 100 ML @ 200 mls/hr IV.SIG Q24H MARTINEZ Rx#:[id number] Oral 960 / 960 1300 / 1300 Output: Stool 2 / 2 Urine Amount (Catheter) 300 / 300 Indwelling Urethral Catheter 300 / 300 Other: Date of Last Bowel Movement 10/12/17 10/10/17 # Bowel Movements 2 Narrative: Subjective The patient is in the chair. The patient was able to eat fairly well per her . Pain is better controlled. No fever or chills. GI series normal GI clear patient for discharge. Also discussed with Dr. Veloz urology We will DC Allyson to follow-up as outpatient with urology Physical examination GENERAL: Middle-aged white female in some pain, also anxious. at bedside HEENT: PERRLA, EOMI. No scleral icterus or conjunctival pallor. No lid lag or facial droop. CARDIOVASCULAR: Regular rate and rhythm. No obvious murmurs to auscultation. No chest tenderness to palpation. RESPIRATORY: No obvious rhonchi or wheezing. Clear to auscultation. Breath sounds equal bilaterally. GASTROINTESTINAL: Abdomen distended but soft, generalized tenderness to palpation, bilateral flank tenderness. BS normal. MUSCULOSKELETAL: Extremities without clubbing, cyanosis, or edema. No obvious deformities. NEUROLOGICAL: Awake, alert and oriented x4. No focal neurologic deficits. Moving both upper and lower extremities spontaneously. Assessment and Plan 1. UTI: h/o Recurrent UTI w/ Interstitial Cystitis, follows w/ Urology in [place], U/a +nitrates and bacteriuria despite antibiotics Continue IV Rocephin, follow up cultures, IVF for hydration, monitor I/O. Restart Pyridium. Start bethanechol 2. Failed Outpt Tx: On Ceftin 3wks ago for UTI, then started on Levaquin 3 days ago for recurrent UTI, continue w/ IV Rocephin, follow up cultures. 3. Intractable Abd Pain: pt w/ extensive h/o chronic abdominal pain, UC, h/o SBO and Gastroparesis s/p recent Botox Injection 09/14/[address] Abd/ Pelvis w/ right hydronephrosis and hydroureter, no obvious stone, images reviewed. Continue w/ analgesics/antiemetics as needed. Recent admit w/ eval by Palliative care, recommendation for Haldol prn for refractory nausea. Follows w/ Dr. Lara as outpatient, will consult for further evaluation/ recommendations. Seen by GI appreciate recommendations consider domperidone op for gastroparesis consider exploratory laparoscopy if no improvement in her abdominal pain for possible adhesions GI urology evaluation Start bethanechol 4. Hydronephrosis: CT Abd/Pelvis w/ mild right-sided hydronephrosis and hydroureter, w/o obvious stone, reports h/o renal stone, ? passed stone. Will monitor closely, I/O, Urology eval . DC Valadez. Patient follow-up as outpatient with urology 5. HTN: Uncontrolled. BP 240's on arrival, likely compounded by severe abdominal pain. Will monitor, antihypertensives as needed for BP >180 6. DVT Prophylaxis: SCD/Teds 7. CM consulted for d/c planning and ff DC today - Urinary Catheter Management Indwelling Urethral Catheter Cath placed during this visit: yes Reason for continuing: Chronic Urinary Retention Insertion date: 10/12/17 Insertion time: 13:56 Results - Labs CBC & Chem 7: 10/12/17 15:30 10/12/17 15:30 Laboratory Results - last 24 hr 10/12/17 10/12/17 10/12/17 13:37 15:30 15:30 WBC 9.5 RBC 4.09 Hgb 12.5 Hct 38.5 MCV 94.2 D MCH 30.5 MCHC 32.4 RDW 14.5 Plt Count 323 MPV 7.2 Neut % (Auto) 54.4 Lymph % (Auto) 34.7 [place] % (Auto) 6.6 Eos % (Auto) 3.6 Baso % (Auto) 0.7 Neut # (Auto) 5.2 Lymph # (Auto) 3.3 [place] # (Auto) 0.6 Eos # (Auto) 0.3 Baso # (Auto) 0.1 WBC Differential . Differential Comment Auto diff final Sodium 141 Potassium 3.6 Chloride 109 H D Carbon Dioxide 24.7 Anion Gap 7 BUN 10 Creatinine 1.02 H Estimated GFR 55 L Random Glucose 134 H Calcium 8.4 L Total Bilirubin 0.2 AST 19 ALT 18 Alkaline Phosphatase 123 H Total Protein 7.6 Albumin 3.5 Stl C.difficile Tox PCR Negative St C. diff Tox Epid 027 Negative Microbiology 10/12/17 13:37 Stool Enteric Pathogens (PCR) - Final No enteric pathogens detected by PCR (No Salmonella sp., Shigella sp., Campylobacter sp., Yersinia enterocolitica, Vibrio sp., Norovirus, or EHEC (Shiga Toxin 1 or Shiga Toxin 2) detected. 10/10/17 23:52 Clean Catch Urine Urine Culture - Final No growth in 48 hours - Imaging Impressions Small Bowel X-Ray 10/12/17 00:00 CONCLUSION: Unremarkable small bowel follow-through exam. No obstruction. Previous fusion across L4-5. Previous cholecystectomy. Previous partial sigmoid resection with surgical kenya in the low pelvis. Postoperative left hip replacement. Assessment and Plan - Assessment (1) UTI (urinary tract infection) Code(s): N39.0 - Urinary tract infection, site not specified Status: Acute (2) Failure of outpatient treatment Code(s): Z78.9 - Other specified health status Status: Acute (3) Hydronephrosis Code(s): N13.30 - Unspecified hydronephrosis Status: Acute (4) HTN (hypertension) Code(s): I10 - Essential (primary) hypertension Status: Acute (5) Intractable abdominal pain Code(s): R10.9 - Unspecified abdominal pain Status: Acute
[2017-10-13] MEDS: ESTROGENS CONJUGATED 1.25 MG PO SCH (09:12)
[2017-10-13] MEDS: Gabapentin 400 MG Capsule PO SCH (09:12)
[2017-10-13] MEDS: Sod Chloride 0.9% Inj 1,000 ML IV.CONT SCH (09:13)
[2017-10-13] MEDS: Senna/Docusate Sodium 8.6/50 MG Tablet PO SCH (09:30)
[2017-10-13] MEDS: PENTOSAN POLYSULFATE SODIUM 100 MG PO SCH (09:31)
--- NOTE | 2017-10-13 09:34 | P.PNGI ---
Subjective Interval history: Pt resting in bed, at bedside. Pt reports some improvement in her upper abdominal pain. I asked pt about how she was eating and while she has not had breakfast this morning, at bedside reports pt had a good sized dinner. No emesis. 2 BMs documented. Physical Exam Vital signs: Vital Signs 10/12/17 12:00 10/12/17 16:00 10/12/17 20:00 Temperature 98.4 F 97.5 F L 97.5 F L Pulse Rate 88 101 H 77 Respiratory Rate 20 20 17 Blood Pressure 147/80 H 183/84 H 138/72 Pulse Oximetry 93 L 93 L 96 10/13/17 00:20 10/13/17 06:15 Temperature 98 F 98.2 F Pulse Rate 68 67 Respiratory Rate 20 19 Blood Pressure 120/80 150/68 H Pulse Oximetry 98 96 Intake & Output 10/12/17 10/13/17 10/13/17 18:59 06:59 18:59 Intake Total 2588 / 2588 2400 / 2400 1000 / 1000 Output Total 2 / 2 300 / 300 Balance 2586 / 2586 2100 / 2100 1000 / 1000 Weight 88.5 kg Intake: IV 1628 / 1628 1100 / 1100 1000 / 1000 NS Inj 1,000 ML @ 100 mls/hr IV 1628 / 1628 1000 / 1000 1000 / 1000 .CONT .Q10H MARTINEZ Rx#:[id number] Rocephin Inj 1,000 MG In NS Inj 100 / 100 100 ML @ 200 mls/hr IV.SIG Q24H MARTINEZ Rx#:[id number] Oral 960 / 960 1300 / 1300 Output: Stool 2 / 2 Urine Amount (Catheter) 300 / 300 Indwelling Urethral Catheter 300 / 300 Other: Date of Last Bowel Movement 10/12/17 10/10/17 # Bowel Movements 2 - Constitutional no acute distress - Routine HEENT Exam Head: Present: normocephalic, atraumatic - Routine Respiratory Exam Absent: accessory muscle use - Routine Abdominal Exam Present: soft, normoactive bowel sounds. Absent: tenderness, distended - Routine Skin Exam Present: dry, warm - Routine Neurological Exam Present: alert, oriented X3 - Urinary Catheter Management Indwelling Urethral Catheter Cath placed during this visit: yes Reason for continuing: Chronic Urinary Retention Insertion date: 10/12/17 Insertion time: 13:56 Results - Labs CBC & Chem 7: 10/12/17 15:30 10/12/17 15:30 Laboratory Results - last 24 hr 10/12/17 10/12/17 10/12/17 13:37 15:30 15:30 WBC 9.5 RBC 4.09 Hgb 12.5 Hct 38.5 MCV 94.2 D MCH 30.5 MCHC 32.4 RDW 14.5 Plt Count 323 MPV 7.2 Neut % (Auto) 54.4 Lymph % (Auto) 34.7 Clark % (Auto) 6.6 Eos % (Auto) 3.6 Baso % (Auto) 0.7 Neut # (Auto) 5.2 Lymph # (Auto) 3.3 Clark # (Auto) 0.6 Eos # (Auto) 0.3 Baso # (Auto) 0.1 WBC Differential . Differential Comment Auto diff final Sodium 141 Potassium 3.6 Chloride 109 H D Carbon Dioxide 24.7 Anion Gap 7 BUN 10 Creatinine 1.02 H Estimated GFR 55 L Random Glucose 134 H Calcium 8.4 L Total Bilirubin 0.2 AST 19 ALT 18 Alkaline Phosphatase 123 H Total Protein 7.6 Albumin 3.5 Stl C.difficile Tox PCR Negative St C. diff Tox Epid 027 Negative Microbiology 10/12/17 13:37 Stool Enteric Pathogens (PCR) - Final No enteric pathogens detected by PCR (No Salmonella sp., Shigella sp., Campylobacter sp., Yersinia enterocolitica, Vibrio sp., Norovirus, or EHEC (Shiga Toxin 1 or Shiga Toxin 2) detected. 10/10/17 23:52 Clean Catch Urine Urine Culture - Final No growth in 48 hours - Imaging Impressions Small Bowel X-Ray 10/12/17 00:00 CONCLUSION: Unremarkable small bowel follow-through exam. No obstruction. Previous fusion across L4-5. Previous cholecystectomy. Previous partial sigmoid resection with surgical kenya in the low pelvis. Postoperative left hip replacement. Assessment and Plan - Plan Assessment: - Nausea, vomiting, LUQ abdominal pain- states symptoms began at 4 pm yesterday after eating fish for dinner. Pain in LUQ is constant, described as sharp. States feels like pains she has had related to gastroparesis in the past. Nausea and vomiting began at same time, denies hematemesis and coffee ground emesis. Has had 2 episodes of emesis History of gastroparesis- diagnosed off of retained food in her stomach on EGD - no previous GES- EGD with Botox done on September 13 --> Normal esophagus, erythematous gastritis in the entire examined stomach, Botox injected in 4 quadrants, normal duodenal mucosa in the 2nd part of the duodenum. Currently on Reglan- denies trying other medications for this in the past- allergic to Erythromycin CT abdomen and pelvis W IV contrast (October 11) --> Mild right-sided hydronephrosis and hydroureter without obvious obstructing stone. This is a change from previous study. Hepatic and renal cysts. - Diarrhea- began yesterday at 4pm- 7 episodes- denies urgency and incontinence - denies hematochezia and melena Colonoscopy done September 10 which revealed normal colonoscopy, internal and external hemorrhoids. Biopsies normal - History of UC S/P partial colon resection in 1992- states no longer requiring treatment - Chronic pain- back pain, RA, and neuropathy- followed by pain management- on Hydrocodone - UTI- failed outpatient treatment (10/12) Pt reports no improvement in LUQ pain, which she states is typical of her gastroparesis pains. Associated nausea but denies any emesis. No BM since she first got here. No BM so not stool studies sent. Also continues to have lower abdominal pain and right flank pain, urology following. SBFT unremarkable. (10/13) Pt resting in bed, at bedside. Pt reports some improvement in her LUQ and upper abdominal pain. When asked about PO intake, at bedside reports that she has been having adequate PO intake and had a good sized dinner last night. Pt had 2 BMs yesterday. Pt reports cholecystectomy with lysis of adhesions that was done in 2006 by a in [place]. Urology recommended outpt follow up. Plan: Symptoms improving, pt with adequate PO intake, having BMs Consider Domperidone OP from specialty pharmacy in [place] If no improvement can follow up with outpatient for possible need for exploratory laparotomy with adhesiolysis Our service will sign off, OK to DC from a GI perspective Have pt follow up with GI after DC Pt has been seen and examined by myself and Dr. Lara and this note is written on her behalf
--- NOTE | 2017-10-13 09:55 | P.DS ---
Date of admission: 10/11/17 01:58 Primary care physician: Chance Banda MD Brief History from admission: This is a 61-year-old female with a PMH of Anxiety, Rheumatoid Arthritis, Hypothyroidism, Recurrent Interstitial Cystitis, Chronic Abdominal Pain, Gastroparesis s/p Botox, Ulcerative Colitis and h/o SBO who presented to the ER w/ complaints of severe abdominal pain, nausea and few episodes of vomiting for several days, but more severe today. Pain is generalized, severe, 10/10, cramping, radiating to bilateral flanks, +subjective fever/chills. States she had recent UTI 3wks ago, was on Ceftin and UTI resolved, however started on Levaquin 3 days ago for recurrent UTI. Recent admit 09/11-09/21/17 for similar complaints, CT Abd/Pelvis w/ no acute findings at that time, s/p EGD w/ gastritis, esophagitis and hiatal hernia w/ possible candidal infection, s/p PPI and Nystatin in addition to course of Fluconazole. Colonoscopy w/ multiple biopsies, negative pathology. MRA negative for mesenteric ischemia. Was seen by Dr. Pickering and underwent EGD w/ Botox on 09/14/17 w/ ongoing pain complaints. Seen by Palliative care and started on Haldol for refractory nausea. Per pt she follows w/ Dr. Lara in addition to Urologist in [place]. On arrival , BP 249/124, HR 84, O2 sat 96% on RA, Afebrile. CBC unremarkable. Chemistry essentially unremarkable. UA with positive nitrates mild bacteriuria. CT of abdomen/Pelvis with mild right-sided hydronephrosis and hydroureter without obvious obstructing stone, unchanged from previous study. DS: Diagnosis - Discharge Diagnosis (1) UTI (urinary tract infection) Status: Acute (2) Failure of outpatient treatment Status: Acute (3) Hydronephrosis Status: Acute (4) HTN (hypertension) Status: Acute (5) Intractable abdominal pain Status: Acute DS: Medications - Discharge Medications Prescriptions: nitrofurantoin monohyd/m-cryst [Macrobid] 100 mg PO BID #14 cap DS: Summary Hospital Course: Assessment and Plan 1. UTI: h/o Recurrent UTI w/ Interstitial Cystitis, follows w/ Urology in [place], U/a +nitrates and bacteriuria despite antibiotics Continue IV Rocephin, follow up cultures, IVF for hydration, monitor I/O. Restart Pyridium. Start bethanechol Macrobid as OP Urine cultures are negative however patient was on abx 2. Failed Outpt Tx: On Ceftin 3wks ago for UTI, then started on Levaquin 3 days ago for recurrent UTI, continue w/ IV Rocephin, follow up cultures. 3. Intractable Abd Pain: pt w/ extensive h/o chronic abdominal pain, UC, h/o SBO and Gastroparesis s/p recent Botox Injection 09/14/[address] Abd/ Pelvis w/ right hydronephrosis and hydroureter, no obvious stone, images reviewed. Continue w/ analgesics/antiemetics as needed. Recent admit w/ eval by Palliative care, recommendation for Haldol prn for refractory nausea. Follows w/ Dr. Lara as outpatient, will consult for further evaluation/ recommendations. Seen by GI appreciate recommendations consider domperidone op for gastroparesis , the patient will follow up with general surgery as outpatient. Says she will follow-up with her primary care doctor and GI who will recommend general surgery consider exploratory laparoscopy if no improvement in her abdominal pain for possible adhesions GI urology evaluation Started bethanechol 4. Hydronephrosis: CT Abd/Pelvis w/ mild right-sided hydronephrosis and hydroureter, w/o obvious stone, reports h/o renal stone, ? passed stone. Will monitor closely, I/O, Urology eval . ASTRID Valadez. Patient follow-up as outpatient with urology 5. HTN: Uncontrolled. BP 240's on arrival, likely compounded by severe abdominal pain. Will monitor, antihypertensives as needed for BP >180 6. DVT Prophylaxis: SCD/Teds 7. CM consulted for d/c planning and ff Patient improved discharge home fairly stable condition to follow-up with PCP and consultants as outpatient. - Time Spent with Patient Total time spent providing and/or coordinating discharge services: Greater than 30 minutes - Quality: VTE Deep Vein Thrombosis/Pulmonary Embolism Present on Admission: No Exam Vital signs: Vital Signs 10/12/17 12:00 10/12/17 16:00 10/12/17 20:00 Temperature 98.4 F 97.5 F L 97.5 F L Pulse Rate 88 101 H 77 Respiratory Rate 20 20 17 Blood Pressure 147/80 H 183/84 H 138/72 Pulse Oximetry 93 L 93 L 96 10/13/17 00:20 10/13/17 06:15 Temperature 98 F 98.2 F Pulse Rate 68 67 Respiratory Rate 20 19 Blood Pressure 120/80 150/68 H Pulse Oximetry 98 96 Intake & Output 10/12/17 10/13/17 10/13/17 18:59 06:59 18:59 Intake Total 2588 / 2588 2400 / 2400 1000 / 1000 Output Total 2 / 2 300 / 300 Balance 2586 / 2586 2100 / 2100 1000 / 1000 Weight 88.5 kg Intake: IV 1628 / 1628 1100 / 1100 1000 / 1000 NS Inj 1,000 ML @ 100 mls/hr IV 1628 / 1628 1000 / 1000 1000 / 1000 .CONT .Q10H MARTINEZ Rx#:[id number] Rocephin Inj 1,000 MG In NS Inj 100 / 100 100 ML @ 200 mls/hr IV.SIG Q24H MARTINEZ Rx#:[id number] Oral 960 / 960 1300 / 1300 Output: Stool 2 / 2 Urine Amount (Catheter) 300 / 300 Indwelling Urethral Catheter 300 / 300 Other: Date of Last Bowel Movement 10/12/17 10/10/17 # Bowel Movements 2 Narrative: GENERAL: Middle-aged white female in some pain, also anxious. at bedside HEENT: PERRLA, EOMI. No scleral icterus or conjunctival pallor. No lid lag or facial droop. CARDIOVASCULAR: Regular rate and rhythm. No obvious murmurs to auscultation. No chest tenderness to palpation. RESPIRATORY: No obvious rhonchi or wheezing. Clear to auscultation. Breath sounds equal bilaterally. GASTROINTESTINAL: Abdomen distended but soft, generalized tenderness to palpation, bilateral flank tenderness. BS normal. MUSCULOSKELETAL: Extremities without clubbing, cyanosis, or edema. No obvious deformities. NEUROLOGICAL: Awake, alert and oriented x4. No focal neurologic deficits. Moving both upper and lower extremities spontaneously. Results Procedures completed during hospitalization: No procedures Labs on day of discharge: Labs from last 24 hours 10/12/17 10/12/17 10/12/17 15:30 15:30 13:37 WBC 9.5 RBC 4.09 Hgb 12.5 Hct 38.5 MCV 94.2 D MCH 30.5 MCHC 32.4 RDW 14.5 Plt Count 323 MPV 7.2 Neut % (Auto) 54.4 Lymph % (Auto) 34.7 Greene % (Auto) 6.6 Eos % (Auto) 3.6 Baso % (Auto) 0.7 Neut # (Auto) 5.2 Lymph # (Auto) 3.3 Greene # (Auto) 0.6 Eos # (Auto) 0.3 Baso # (Auto) 0.1 WBC Differential . Differential Comment Auto diff final Sodium 141 Potassium 3.6 Chloride 109 H D Carbon Dioxide 24.7 Anion Gap 7 BUN 10 Creatinine 1.02 H Estimated GFR 55 L Random Glucose 134 H Calcium 8.4 L Total Bilirubin 0.2 AST 19 ALT 18 Alkaline Phosphatase 123 H Total Protein 7.6 Albumin 3.5 Stl C.difficile Tox PCR Negative St C. diff Tox Epid 027 Negative - Impressions ITS Impressions Abdomen/Pelvis CT 10/11/17 00:00 CONCLUSION: 1. Mild right-sided hydronephrosis and hydroureter without obvious obstructing stone. This is a change from previous study. 2. Hepatic and renal cysts. 3. Atherosclerosis. Small Bowel X-Ray 10/12/17 00:00 CONCLUSION: Unremarkable small bowel follow-through exam. No obstruction. Previous fusion across L4-5. Previous cholecystectomy. Previous partial sigmoid resection with surgical kenya in the low pelvis. Postoperative left hip replacement. Discharge Plan - Discharge Disposition Patient Disposition: 01 Discharge Home - Discharge Condition Condition: Stable - Discharge Order Discharge Orders: Discharge Order (Routine); Ordered 10/13/17 Ordered By: Marci Ramirez - Physicians Team Primary Care Provider: Chance Banda Attending Provider: Marci Ramirez Other Providers: Linda Lara MD ; Alhaji Veloz DO
[2017-10-13 10:03] VITALS: RESP 18
[2017-10-13] MEDS: Fluconazole 100 MG Tablet PO SCH (11:07)
[2017-10-13 13:03] VITALS: BP 173/91; PULSE 74; TEMP 97.8; O2SAT 94
== END 2017-10-13 13:36 | disposition home or self-care (01) ==
LOC: NEPE 22:47 → NEDA 10-11 01:58 → N05 10-11 04:55
PROVIDERS: ADMIT Hospitalist; ATTEND Hospitalist

== ENCOUNTER 2018-01-10 03:42 | Inpatient (IN) ==
[2018-01-10] MEDS ORDERED: HYDROmorphone PF Inj 2 MG/ML Vial IV.PUSH ONE ×2 (04:24→06:06)
[2018-01-10] MEDS ORDERED: Sodium Chlor 0.9% Inj 500 ML IV.SIG ONE (04:24)
--- NOTE | 2018-01-10 04:24 | ED ---
HPI General Chief complaint: Abdominal Pain Stated complaint: pain Time Seen by Provider: 01/10/18 03:58 Source: patient Mode of arrival: ambulatory Limitations: no limitations History of Present Illness HPI narrative: The patient is a 62 year old female who presents to the [facility] emergency department with a history of awakening from sound sleep at 2 AM with right-sided abdominal pain. The patient reports that the pain is sharp and aching in character. She reports that it has been constant since onset and 10 out of 10 in severity. She reports having associated nausea without vomiting. She reports that she last moved her bowels earlier this morning. She reports that it was a small bowel movement. She reports having some problems with constipation, however she has been taking MiraLAX. The patient reports a past medical history of bowel obstructions, urinary retention. The patient was last seen in the emergency department related to urinary retention on December 03. She did have a Valadez catheter in place that was later removed by her primary care physician. She reports that she has not had any difficulty urinating as she has regularly been taking Bethanechol. The patient reports that she is in pain management for chronic abdominal pain and is recently been placed on medical marijuana. She reports that she is also in the process of being weaned down off of her opioid medications. She has not started the weaning process yet, however she reports that she was given a taper instruction sheet. On review of systems otherwise, she denies having any fevers, however she has had chills. She denies having any cough, congestion, neck pain, chest pain, shortness of breath, diarrhea, new or worsening urinary symptoms, or neurologic symptoms. Related Data Home Medications Medication Instructions Recorded Confirmed conjugated estrogens [Premarin] 1.25 mg PO DAILY 09/08/17 01/10/18 gabapentin 800 mg PO QID 09/08/17 01/10/18 levothyroxine [Synthroid] 125 mcg PO DAILY 09/08/17 01/10/18 lorazepam [Ativan] 2 mg PO QID 09/08/17 01/10/18 magnesium 250 mg PO BID 09/08/17 01/10/18 pentosan polysulfate sodium 100 mg PO TID 09/08/17 01/10/18 [Elmiron] phenazopyridine [Pyridium] 200 mg PO TID PRN 09/08/17 01/10/18 potassium 100 mg PO DAILY 09/08/17 01/10/18 sodium chloride 2 tab PO DAILY 09/08/17 01/10/18 tizanidine 4 mg PO TID 09/08/17 01/10/18 dicyclomine 20 mg PO QID PRN 10/11/17 01/10/18 sucralfate [Carafate] 1 g PO TID-QID 10/11/17 01/10/18 pantoprazole [Protonix] 40 mg PO BID 11/29/17 01/10/18 bethanechol chloride [Urecholine] 25 mg PO BID 12/03/17 01/10/18 metoclopramide HCl [Reglan] 10 mg PO QID 12/03/17 01/10/18 Previous Rx's Medication Instructions Recorded ondansetron 4 mg PO Q6H #30 tab 09/13/17 hydrocodone-acetaminophen 1 tab PO TID PRN #9 tab 09/21/17 diphenhydramine HCl [Benadryl] 25 mg PO Q8H PRN #20 cap 11/26/17 Allergies Allergy/AdvReac Type Severity Reaction Status Date / Time codeine Allergy Severe Itching Verified 01/10/18 03:45 erythromycin base Allergy Intermediate Hives Verified 01/10/18 03:45 fentanyl Allergy Intermediate Hives, Verified 01/10/18 03:45 LIPS SWELLING, TORO latex Allergy Intermediate Hives Verified 01/10/18 03:45 strawberry Allergy Mild Hives Verified 01/10/18 03:45 penicillin G Allergy Unknown Itching Verified 01/10/18 03:45 Sulfa (Sulfonamide Allergy Unknown Itching Verified 01/10/18 03:45 Antibiotics) SHELL FISH, MORPHINE Allergy Severe Anaphylaxis Uncoded 01/10/18 03:45 Review of Systems ROS: all other systems reviewed are negative [facility] Medical History Medical History Diabetes (Acute) Rheumatoid arthritis (Acute) Gastroparesis (Acute) Interstitial cystitis (Acute) Frequent urinary tract infections (Acute) H/O: hysterectomy (Acute) Anxiety disorder (Acute) Asthma (Acute) Chronic back pain (Acute) GERD (gastroesophageal reflux disease) (Acute) H/O gastroesophageal reflux (GERD) (Acute) Hypothyroidism (Acute) Migraines (Acute) Ulcerative colitis (Acute) Urinary retention (Acute) Surgical History Surgical History History of hysterectomy (Acute) History of back surgery (Acute) History of partial colectomy (Acute) Hx of cholecystectomy (Acute) History of bladder repair surgery (Acute) History of intestinal surgery (Acute) History of lumbar fusion (Acute) Family History Family History Father Diabetes Ulcerative (chronic) ileocolitis Mother Diabetes Sister Ulcerative (chronic) ileocolitis Social History Social History Substance History: No History of Abuse Second Hand Smoke Exposure: No Smoking Status: Never smoker How Often Do You Have a Drink Containing Alcohol: Never Recent Travel in [facility] within the Last 8 Weeks: No Recent Out of Country Travel within the Last 8 Weeks: No Immunization History Tetanus Immunization: <5 Years Exam Const General: cooperative, well developed and acute distress (Related to abdominal pain.) mild HENMT Head: normocephalic and atraumatic Nose: no nasal discharge and no epistaxis Mouth: moist mucous membranes Throat: posterior oropharynx normal and uvula midline Eyes Sclera: normal sclerae Pupils: PERRL Neck Neck: no meningeal signs, trachea midline and no JVD Resp Effort & Inspection: no use of accessory muscles Auscultation: clear to auscultation bilaterally Cardio Rate: regular rate Rhythm: regular rhythm Heart Sounds: no murmurs GI Inspection: non-distended Palpation: soft, no hepatosplenomegaly, no guarding, not rigid and tender in the RLQ and in the RUQ; not in the epigastrum, not in the LLQ, not in the LUQ, not at McBurney's point, not periumbilically, not suprapubicly, Zepeda's sign negative and with no rebound tenderness Auscultation: hyperactive bowel sounds Back/Spine/Pelvis Back: no CVA tenderness Skin General: dry skin (warm) Neuro General: alert, awake, oriented x3 and other (Grossly nonfocal.) Speech: speech normal Motor: no movement abnormalities noted Extrem General: normal to inspection (2+ pulses in all 4 extremities.), no calf tenderness, no clubbing, no cyanosis and no edema Psych Mood: congruent mood Affect: normal affect Judgment: judgment good Course Consultations Consultation #1: The patient's case including history, pertinent physical examination findings, and laboratory studies were discussed with Dr. Chapman, covering for Dr. Veloz, the patient's urologist. Consultation #2: The patient's case including history, pertinent physical examination findings, and laboratory studies were discussed with Dr. Fox. It was agreed that the patient would be admitted to the hospitalist service. Initial Documented Vital Signs Temperature 98.2 F 01/10/18 03:45 Pulse Rate 90 01/10/18 03:45 Respiratory Rate 18 01/10/18 03:45 Blood Pressure 140/93 H 01/10/18 03:45 Pulse Oximetry 98 01/10/18 03:45 Last Documented Vital Signs Temperature 98.2 F 01/10/18 03:45 Pulse Rate 90 01/10/18 03:45 Respiratory Rate 18 01/10/18 04:00 Blood Pressure 140/93 H 01/10/18 03:45 Pulse Oximetry 98 01/10/18 03:45 Medical Decision Making MDM Narrative Medical decision making narrative: During the course of the patient's emergency department visit, the patient's history, examination, and differential diagnosis were reviewed with the patient. The patient was placed on a court recording monitor with oximetry and frequent blood pressure monitoring. The patient had IV access obtained and blood work sent for analysis. A diagnostic evaluation was started regarding the patient's abdominal pain. The patient was initially provided normal saline IV fluids of 500 mL bolus, hydromorphone 0.5 mg IV, Zofran 4 mg IV. A bladder scan was done and showed no evidence of urinary retention with only 101-150 mL of urine. Diagnostic studies revealed a an elevated white count at 18.9, hemoglobin 13.3, platelets 343, with 8.4 monocytes, PT is 10.1, PTT 29.2, chemistries remarkable for chloride of 97, GFR of 62, AST is 12, alk phos 132, troponin I is less than 0.02, lipase 84, lactic acid within normal limits at 1.3. Urinalysis showed hazy urine small occult blood, moderate leukocyte esterase, 3 RBCs, 108 WBCs, occasional clumps, 3 squamous epithelial cells, moderate bacteria few mucus. Culture is indicated. A chest x-ray showed no acute abnormality. CT scan of the abdomen and pelvis has been ordered. The patient reported symptoms of heartburn and was given famotidine 20 mg IV. Given the patient's abnormal urinalysis, Rocephin 1 gram IV was administered. CT scan of the abdomen and pelvis shows worsening Right-sided hydronephrosis. A call was placed out to the patient's urologist, Dr. Veloz for further guidance. I spoke to Dr. Chapman at 6:10AM regarding this patient's history, examination findings, and laboratory studies as well as imaging. He recommended that the patient be continued on antibiotic. He did not recommend any other he recommended that the patient be admitted for continued workup with consultation with Dr. Veloz. The patient's case including history, pertinent physical examination findings, and laboratory studies were discussed with Dr. Fox. It was [facility] The patient's results were discussed with the patient, including the plan of care. I explained that further testing and/ or monitoring is indicated based on the patient's history, examination, and/ or laboratory findings. Therefore, I recommended admission for additional evaluation. The patient expressed understanding and was agreeable with this plan. The patient was admitted to the hospital in guarded condition and sent to a bed under the care of [facility] service. Medical Screen Exam Complete: Yes Emergency Medical Condition: Yes Differential Diagnosis Differential Diagnosis: Pyelonephritis, versus kidney stone, versus choledocholithiasis, versus pancreatitis, versus bowel obstruction, versus urinary retention Medical Records Medical records reviewed: Yes I reviewed the patient's medical records. Lab Data Lab results reviewed: Yes I reviewed the patient's lab results. Result diagrams: 01/10/18 04:10 01/10/18 04:10 Lab Results 01/10/18 01/10/18 01/10/18 Range/Units 04:10 04:10 04:10 WBC 18.9 H (4.0-11.0) th/mm3 RBC 4.27 (4.00-5.30) mil/mm3 Hgb 13.3 (11.6-15.3) gm/dL Hct 38.6 (35.0-46.0) % MCV 90.3 (80.0-100.0) fL MCH 31.2 (27.0-34.0) pg MCHC 34.5 (32.0-36.0) % RDW 13.1 (11.6-17.2) % Plt Count 343 (150-450) th/mm3 MPV 7.5 (7.0-11.0) fL Neut % (Auto) 63.3 (16.0-70.0) % Lymph % (Auto) 26.2 (9.0-44.0) % [place] % (Auto) 8.4 H (0.0-8.0) % Eos % (Auto) 1.1 (0.0-4.0) % Baso % (Auto) 1.0 (0.0-2.0) % Neut # (Auto) 12.0 H (1.8-7.7) th/mm3 Lymph # (Auto) 4.9 H (1.0-4.8) th/mm3 [place] # (Auto) 1.6 H (0.0-0.9) th/mm3 Eos # (Auto) 0.2 (0.0-0.4) th/mm3 Baso # (Auto) 0.2 (0.0-0.2) th/mm3 WBC Differential . Differential Comment Auto diff final PT 10.1 (9.8-11.6) sec INR 1.0 Ratio APTT 29.2 (23.4-31.7) sec Sodium 136 (136-145) meq/L Potassium 4.1 (3.5-5.1) meq/L Chloride 97 L (98-107) meq/L Carbon Dioxide 30.1 (21.0-32.0) meq/L Anion Gap 9 (5-15) meq/L BUN 18 (7-18) mg/dL Creatinine 0.92 (0.50-1.00) mg/dL Estimated GFR 62 L (>89) mL/min Random Glucose 95 (74-106) mg/dL Lactic Acid (0.4-2.0) mmol/L Calcium 8.7 (8.5-10.1) mg/dL Magnesium 2.0 (1.5-2.5) mg/dL Total Bilirubin 0.2 (0.2-1.0) mg/dL AST 12 L (15-37) U/L ALT 16 (10-53) U/L Alkaline Phosphatase 132 H (45-117) U/L Total Creatine Kinase 56 (26-192) U/L Troponin I Less than 0.02 L (0.02-0.05) ng/mL Total Protein 7.7 (6.4-8.2) g/dL Albumin 3.4 (3.4-5.0) g/dL Lipase 84 (73-393) U/L Urine Color (Yellw/Straw) Urine Clarity (Clear) Urine pH (5.0-8.5) Ur Specific [place] (1.002-1.035) Urine Protein (Neg-Trace) mg/dL Urine Glucose (UA) (Negative) mg/dL Urine Ketones (Negative) mg/dL Urine Occult Blood (Negative) Urine Nitrate (Negative) Urine Bilirubin (Negative) Urine Urobilinogen (Less than 2) mg/dL Ur Leukocyte Esterase (Negative) Urine RBC (0-3) /hpf Urine WBC (0-5) /hpf Urine WBC Clumps (None) Ur Squamous Epith Cells (0-5) /hpf Urine Bacteria (None) /hpf Urine Mucus (Occasional) /lpf Micro UA Comment Ur Microscopic Review Urine Culture Comments 01/10/18 01/10/18 Range/Units 04:10 04:23 WBC (4.0-11.0) th/mm3 RBC (4.00-5.30) mil/mm3 Hgb (11.6-15.3) gm/dL Hct (35.0-46.0) % MCV (80.0-100.0) fL MCH (27.0-34.0) pg MCHC (32.0-36.0) % RDW (11.6-17.2) % Plt Count (150-450) th/mm3 MPV (7.0-11.0) fL Neut % (Auto) (16.0-70.0) % Lymph % (Auto) (9.0-44.0) % [place] % (Auto) (0.0-8.0) % Eos % (Auto) (0.0-4.0) % Baso % (Auto) (0.0-2.0) % Neut # (Auto) (1.8-7.7) th/mm3 Lymph # (Auto) (1.0-4.8) th/mm3 [place] # (Auto) (0.0-0.9) th/mm3 Eos # (Auto) (0.0-0.4) th/mm3 Baso # (Auto) (0.0-0.2) th/mm3 WBC Differential Differential Comment PT (9.8-11.6) sec INR Ratio APTT (23.4-31.7) sec Sodium (136-145) meq/L Potassium (3.5-5.1) meq/L Chloride (98-107) meq/L Carbon Dioxide (21.0-32.0) meq/L Anion Gap (5-15) meq/L BUN (7-18) mg/dL Creatinine (0.50-1.00) mg/dL Estimated GFR (>89) mL/min Random Glucose (74-106) mg/dL Lactic Acid 1.3 (0.4-2.0) mmol/L Calcium (8.5-10.1) mg/dL Magnesium (1.5-2.5) mg/dL Total Bilirubin (0.2-1.0) mg/dL AST (15-37) U/L ALT (10-53) U/L Alkaline Phosphatase (45-117) U/L Total Creatine Kinase (26-192) U/L Troponin I (0.02-0.05) ng/mL Total Protein (6.4-8.2) g/dL Albumin (3.4-5.0) g/dL Lipase (73-393) U/L Urine Color Yellow (Yellw/Straw) Urine Clarity Hazy H (Clear) Urine pH 8.0 (5.0-8.5) Ur Specific [place] 1.010 (1.002-1.035) Urine Protein Negative (Neg-Trace) mg/dL Urine Glucose (UA) Negative (Negative) mg/dL Urine Ketones Negative (Negative) mg/dL Urine Occult Blood Small H (Negative) Urine Nitrate Negative (Negative) Urine Bilirubin Negative (Negative) Urine Urobilinogen Less than 2 (Less than 2) mg/dL Ur Leukocyte Esterase Moderate H (Negative) Urine RBC 3 (0-3) /hpf Urine WBC 108 H (0-5) /hpf Urine WBC Clumps Occasional H (None) Ur Squamous Epith Cells 3 (0-5) /hpf Urine Bacteria Moderate H (None) /hpf Urine Mucus Few H (Occasional) /lpf Micro UA Comment Culture indicated Ur Microscopic Review Not Reportable Urine Culture Comments Culture indicated Imaging Data Attestation: I personally reviewed and interpreted this imaging study as follows : Radiologist's impression: Chest X-Ray 01/10/18 04:15 CONCLUSION: Negative examination. Abdomen/Pelvis CT 01/10/18 05:02 CONCLUSION: Interval worsening of right-sided hydronephrosis and hydroureter ECG Data Attestation: I personally reviewed and interpreted this ECG as follows: Interpretation: The patient had an EKG done on arrival. The patient's EKG reveals a sinus rhythm heart rate of 85, QRS duration 94 ms, QTC [address] segment elevation. T waves are inverted in V1. Discharge Plan Discharge Disposition Patient Disposition: 30 Still Patient Discharge Details Diagnosis: Urinary tract infection, Hydronephrosis, Leukocytosis Physicians Team ED Provider: Florina Bethea Primary Care Provider: Chance Banda Rxs /Orders / Referrals /Forms Prescriptions: No Action sucralfate [Carafate] 1 gram tablet 1 g PO TID-QID RF: 0 dicyclomine 20 mg tablet 20 mg PO QID PRN (Reason: Cramps) RF: 0 bethanechol chloride [Urecholine] 10 mg tablet 25 mg PO BID RF: 0 metoclopramide HCl [Reglan] 10 mg Tablet 10 mg PO QID RF: 0 pentosan polysulfate sodium [Elmiron] 100 mg Capsule 100 mg PO TID RF: 0 tizanidine 4 mg Tablet 4 mg PO TID RF: 0 sodium chloride 1 gram Tablet 2 tab PO DAILY RF: 0 potassium 99 mg Tablet 100 mg PO DAILY RF: 0 gabapentin 800 mg Tablet 800 mg PO QID RF: 0 lorazepam [Ativan] 2 mg Tablet 2 mg PO QID RF: 0 levothyroxine [Synthroid] 125 mcg Tablet 125 mcg PO DAILY RF: 0 magnesium 250 mg Tablet 250 mg PO BID RF: 0 conjugated estrogens [Premarin] 1.25 mg Tablet 1.25 mg PO DAILY RF: 0 phenazopyridine [Pyridium] 200 mg Tablet 200 mg PO TID PRN (Reason: Bladder Spasms) RF: 0 ondansetron 4 mg Tablet,Disintegrating 4 mg PO Q6H Qty: 30 RF: 0 hydrocodone-acetaminophen 5-325 mg Tablet 1 tab PO TID PRN (Reason: Constipation) Qty: 9 RF: 0 diphenhydramine HCl [Benadryl] 25 mg capsule 25 mg PO Q8H PRN (Reason: itching) Qty: 20 RF: 0 pantoprazole [Protonix] 40 mg Tablet,Delayed Release (Dr/Ec) 40 mg PO BID RF: 0 Discharge Interventions Interventions: Vital Signs Last Done: 01/10/18 04:00 Status ED Status: With Doctor
[2018-01-10 04:34] LABS: Baso # (Auto) 0.2 th/mm3 (0.0-0.2); Eos # (Auto) 0.2 th/mm3 (0.0-0.4); Eos % (Auto) 1.1 % (0.0-4.0); Hematocrit 38.6 % (35.0-46.0); Hemoglobin 13.3 gm/dL (11.6-15.3); Lymph # (Auto) 4.9 th/mm3 (1.0-4.8); Lymph % (Auto) 26.2 % (9.0-44.0); Mean Corpuscular HGB Conc 34.5 % (32.0-36.0); Mean Corpuscular Hemoglobin 31.2 pg (27.0-34.0); Mean Corpuscular Volume 90.3 fL (80.0-100.0); Mean Platelet Volume 7.5 fL (7.0-11.0); Mono # (Auto) 1.6 th/mm3 (0.0-0.9); Mono % (Auto) 8.4 % (0.0-8.0); Neut % (Auto) 63.3 % (16.0-70.0); Platelet Count 343 th/mm3 (150-450); Red Blood Count 4.27 mil/mm3 (4.00-5.30); Red Cell Distribution Width 13.1 % (11.6-17.2); White Blood Count 18.9 th/mm3 (4.0-11.0)
[2018-01-10 04:47] LABS: Bacteria,Urine Moderate /hpf; Bilirubin,Urine Negative (Negative); Clarity,Urine Hazy (Clear); Color,Urine Yellow (Yellw/Straw); Glucose,Urine (UA) Negative (Negative); Leukocyte Esterase,Urine Moderate (Negative); Mucus,Urine Few /lpf (Occasional); Nitrite,Urine Negative (Negative); Squamous Epithelial Cell,Urine 3 /hpf (0-5)
[2018-01-10 04:48] LABS: Activated Partial Thrombo Time 29.2 sec (23.4-31.7); Prothrombin Time 10.1 sec (9.8-11.6)
[2018-01-10 04:56] LABS: Alanine Aminotransferase 16 U/L (10-53); Albumin 3.4 g/dL (3.4-5.0); Anion Gap 9 meq/L (5-15); Aspartate Aminotransferase 12 U/L (15-37); Blood Urea Nitrogen 18 mg/dL (7-18); Calcium 8.7 mg/dL (8.5-10.1); Carbon Dioxide 30.1 meq/L (21.0-32.0); Chloride 97 meq/L (98-107); Glomerular Filtration Rate 62 mL/min (>89); Glucose,Random 95 mg/dL (74-106); Lipase 84 U/L (73-393); Potassium 4.1 meq/L (3.5-5.1); Sodium 136 meq/L (136-145)
[2018-01-10 05:00] LABS: Alkaline Phosphatase 132 U/L (45-117); Total Protein 7.7 g/dL (6.4-8.2)
[2018-01-10 05:01] LABS: Creatine Kinase 56 U/L (26-192)
--- NOTE | 2018-01-10 05:10 | XR ---
EXAM DATE: 01/10/2018 5:01 AM EST AGE/SEX: 62 years / Female INDICATIONS: Nausea. Abdominal pain. Shortness of breath. CLINICAL DATA: This is the patient's initial encounter. Patient reports that signs and symptoms have been present for 1 day and indicates a pain score of 10/10. MEDICAL/SURGICAL HISTORY: Diabetes mellitus type II. Asthma. Rheumatoid arthritis. GERD. No ne. COMPARISON: [facility] [place], CHEST 1V SINGLE AP, 11/29/2017. . FINDINGS: A single AP view of the chest demonstrates the lungs to be symmetrically aerated without evidence of mass, infiltrate or effusion. The cardiomediastinal contours are unremarkable. Osseous structures a re intact. CONCLUSION: Negative examination. Electronically signed by: David Hernandez MD 01/10/2018 5:08 AM EST
[2018-01-10] MEDS ORDERED: Famotidine PF Inj 20 MG/2 ML Vial IV.PUSH ONE (05:28)
--- NOTE | 2018-01-10 06:02 | CT ---
EXAM DATE: 01/10/2018 5:57 AM EST AGE/SEX: 62 years / Female INDICATIONS: Right abdominal pain. CLINICAL DATA: This is the patient's initial encounter. Patient reports that signs and symptoms have been present for 1 day and indicates a pain score of 9/10. MEDICAL/SURGICAL HISTORY: Gastroesophageal reflux disease. Gastroparesis. Diabetes. Asthma. Colitis. Hysterectomy. Fusion, lumbar. Cholecystectomy. Colectomy. ORAL CONTRAST: No oral contrast ingested. RADIATION DOSE: 14.75 CTDI (mGy) COMPARISON: [facility], CTA ABDOMEN & PELVIS W CONTRAST W 3D, 11/30/2017. . TECHNIQUE: Multiple contiguous axial images were obtained through the abdomen and pelvis following b olus infusion of 95 ml Omnipaque 350 (iohexol) nonionic water-soluble contrast as a single exam dos e. No oral contrast ingested. Using automated exposure control and adjustment of the mA and/or kV ac cording to patient size, radiation dose was kept as low as reasonably achievable to obtain optimal di agnostic quality images. DICOM format image data is available electronically for review and comparis on. FINDINGS: Lower Lungs: The visualized lower lungs are clear. Liver: Multiple hepatic cysts again noted. No evidence of biliary ductal dilatation. Gallbladder is s urgically absent. Spleen: Homogeneous density without enlargement. Pancreas: Unremarkable without mass or calcification. Kidneys: Interval worsening of right-sided hydronephrosis and hydroureter. No definite evidence of r adiodense stone or other specific explanation. Tiny cysts in the left kidney. Adrenal Glands: Unremarkable. Aorta: The aorta and proximal iliac vessels are grossly unremarkable without aneurysmal dilation. Bowel/Mesentery: The bowel loops are grossly unremarkable. The cecum and sigmoid colon have a normal configuration. Abdominal Wall: Intact. Retroperitoneum: No evidence of adenopathy in the retrocrural, para-aortic, or deep pelvic regions. Bladder: Contours are smooth. Reproductive Organs: Uterus surgically absent. No evidence of pelvic mass or free fluid. Inguinal: The inguinal region is unremarkable without evidence of adenopathy. Bony Structures: Streak artifact created by left total hip arthroplasty. Previous lumbar hardware fu juanita. CONCLUSION: Interval worsening of right-sided hydronephrosis and hydroureter Electronically signed by: David Hernandez MD 01/10/2018 6:01 AM EST
[2018-01-10] MEDS ORDERED: Bisacodyl 10 MG Supp RECTAL PRN ×2 (06:27→10:00)
[2018-01-10] MEDS ORDERED: Naloxone Inj 0.4 MG/ML Vial IV.PUSH PRN ×4 (06:29→12:25)
[2018-01-10] MEDS ORDERED: oxyCODONE/Acetaminophen 10/325 Tablet PO PRN (06:29)
[2018-01-10] MEDS ORDERED: Sodium Chloride 0.9% 2 ML Flush PRN IV.FLUSH (06:35)
[2018-01-10] MEDS: Sod Chloride 0.9% Inj 1,000 ML IV.CONT SCH ×3 (07:33→18:57)
[2018-01-10] MEDS ORDERED: Morphine Inj 4 MG/ML Vial IV.PUSH PRN ×2 (10:00)
[2018-01-10] MEDS ORDERED: Acetaminophen 325 MG Tablet PO PRN (10:00)
[2018-01-10] MEDS ORDERED: Morphine Sulfate Inj 2 MG/ML Vial IV.PUSH PRN (10:00)
--- NOTE | 2018-01-10 10:11 | P.HPIM ---
History of Present Illness Service: [facility] Primary Care Physician: Chance Banda MD Chief Complaint: ABDOMINAL PAIN History of Present Illness: Patient is a 62-year-old female who presented to the [facility] emergency department after being awoken from sound sleep at 2 AM with the right- sided abdominal pain. Patient reports that the pain is sharp and aching in criteria. Today she also reported that she has been constant onset and was 10 out of 10 in severity. Patient states she has been having some nausea and but no vomiting with this. She also reports that she last moved her bowels yesterday morning. She then reported that it was a small bowel movement. Has had some problems with constipation. However she is been taking some MiraLAX for this with help. The patient reports past medical history of a bowel obstruction and urinary retention. Has previously had to have a Valadez catheter in the past. Has chronically taking a bethanechol. She states that she is also in pain management for chronic abdominal pain recently placed on medical marijuana. She states that she is being weaned off her opioid medications. But this is not started yet. Has had some chills. Denies any cough or congestion or neck pain or chest pain or shortness of breath or diarrhea or new or worsening urinary symptoms. Her neurological symptoms. Also has a yeast infection she states. And we will treat that. Family history is positive for hypertension MIs urinary tract issues Patient has been admitted started on Rocephin 1 g IV daily. We will give pain medications and pain control. And will consult urology. Inpatient Certification: I certify that the inpatient services were ordered in accordance with Medicare regulations governing the order. This includes certification that hospital inpatient services are reasonable and necessary and in the case of services not specified as inpatient-only under 42 CFR 419.22(n), that they are appropriately provided as inpatient services in accordance to with the 2-midnight benchmark under 43 CFR 412.3(e) Estimated Total Length of Stay (Days): 3 Plans for Post Hospital Care: Home Review of Systems All other systems reviewed negative except as stated in HPI [facility] - History History Provided By: Patient - Medical History Medical History: Medical History (Last Reviewed 01/10/18 @ 09:55 by Rolando Figueroa DO) Diabetes (Acute) Rheumatoid arthritis (Acute) Gastroparesis (Acute) Interstitial cystitis (Acute) Frequent urinary tract infections (Acute) H/O: hysterectomy (Acute) Anxiety disorder Asthma Chronic back pain GERD (gastroesophageal reflux disease) H/O gastroesophageal reflux (GERD) Hypothyroidism Migraines Ulcerative colitis Urinary retention - Surgical History Surgical History: Surgical History (Last Reviewed 01/10/18 @ 09:55 by Rolando Figueroa DO) History of hysterectomy (Acute) History of back surgery (Acute) History of partial colectomy (Acute) Hx of cholecystectomy (Acute) History of bladder repair surgery History of intestinal surgery History of lumbar fusion - Family History Family History: Family History (Last Updated 01/10/18 @ 09:55 by Rolando Figueroa DO) Father Diabetes Ulcerative (chronic) ileocolitis Mother Diabetes Sister Ulcerative (chronic) ileocolitis Other Family history of acute myocardial infarction Family history of hypertension - Social History I have reviewed the patient's Social History: Yes - Tobacco History Second Hand Smoke Exposure: No Tobacco Use In Past 30 Days: No Smoking Status: Never smoker - Alcohol History How Often Do You Have a Drink Containing Alcohol: Never - Substance Use History Substance History: No History of Abuse - Travel History History of Recent Travel: No Recent Travel in the [place] Within the Last 8 Weeks: No Recent Travel Out of the Country Within the Last 8 Weeks: No - Immunization History Tetanus Immunization: <5 Years Medications and Allergies Active Medications: Active Medications Al Hydroxide/Mg Hydroxide (Milk Of Magnian Liq) 30 ml PO Q12H PRN PRN Reason: Mild Constipation Bisacodyl (Dulcolax Supp) 10 mg RECTAL DAILY PRN PRN Reason: SEVERE CONSITIPATION Dicyclomine HCl (Bentyl) 20 mg PO QID PRN PRN Reason: Cramps Hydromorphone HCl (Dilaudid Pf Inj) 1 mg IV.PUSH Q3H PRN PRN Reason: BREAKTHROUGH PAIN Ceftriaxone Sodium 1,000 mg/ (Sodium Chloride) 100 mls @ 200 mls/hr IV.SIG Q24H MARTINEZ Sodium Chloride (Ns Inj) 1,000 mls @ 100 mls/hr IV.CONT .Q10H MARTINEZ Last Infusion: 01/10/18 07:53 Dose: 70 mls/hr Sodium Chloride (Ns Inj) 1,000 mls @ 70 mls/hr IV.CONT .[id number] MARTINEZ Last Admin: 01/10/18 07:53 Dose: 70 mls/hr Lactulose (Lactulose Liq) 30 ml PO DAILY PRN PRN Reason: SEVERE CONSITIPATION Levothyroxine Sodium (Synthroid) 125 mcg PO DAILY [facility] Lorazepam (Ativan) 2 mg PO QID [facility] Metoclopramide HCl (Reglan) 10 mg PO QID [facility] Naloxone HCl (Narcan Inj) 0.4 mg IV.PUSH UNSCH PRN PRN Reason: SEE LABEL COMMENTS Non-Formulary Medication (Gabapentin [Gabapentin]) 800 mg PO QID [facility] Non-Formulary Medication (Pentosan Polysulfate Sodium [Elmiron]) 100 mg PO TID [facility] Oxycodone/Acetaminophen (Percocet 10/325 Mg) 1 tab PO Q6H PRN PRN Reason: PAIN SCALE 6 TO 10 Last Admin: 01/10/18 09:49 Dose: 1 tab Oxycodone/Acetaminophen (Percocet 5/325 Mg) 1 tab PO Q6H PRN PRN Reason: PAIN SCALE 3 TO 5 Pantoprazole Sodium (Protonix) 40 mg PO BID [facility] Phenazopyridine HCl (Pyridium) 200 mg PO TID PRN PRN Reason: Bladder Spasms Sennosides (Senokot) 17.2 mg PO Q12H PRN PRN Reason: Moderate Constipation Sodium Chloride (Ns Flush) 2 ml IV.FLUSH BID [facility] Sodium Chloride (Ns Flush) 2 ml IV.FLUSH PRN PRN PRN Reason: FLUSH AFTER USING IV ACCESS Sodium Chloride (Sodium Chloride) gm PO DAILY [facility] Sucralfate (Carafate) 1 gm PO TID-QID [facility] Tizanidine HCl (Zanaflex) 4 mg PO TID [facility] Allergies Allergy/AdvReac Type Severity Reaction Status Date / Time codeine Allergy Severe Itching Verified 01/10/18 03:45 erythromycin base Allergy Intermediate Hives Verified 01/10/18 03:45 fentanyl Allergy Intermediate Hives, Verified 01/10/18 03:45 LIPS SWELLING, TORO latex Allergy Intermediate Hives Verified 01/10/18 03:45 strawberry Allergy Mild Hives Verified 01/10/18 03:45 penicillin G Allergy Unknown Itching Verified 01/10/18 03:45 Sulfa (Sulfonamide Allergy Unknown Itching Verified 01/10/18 03:45 Antibiotics) SHELL FISH, MORPHINE Allergy Severe Anaphylaxis Uncoded 01/10/18 03:45 Home Medications Medication Instructions Recorded Confirmed Type conjugated estrogens [Premarin] 1.25 mg PO DAILY 09/08/17 01/10/18 History gabapentin 800 mg PO QID 09/08/17 01/10/18 History levothyroxine [Synthroid] 125 mcg PO DAILY 09/08/17 01/10/18 History lorazepam [Ativan] 2 mg PO QID 09/08/17 01/10/18 History magnesium 250 mg PO BID 09/08/17 01/10/18 History pentosan polysulfate sodium 100 mg PO TID 09/08/17 01/10/18 History [Elmiron] phenazopyridine [Pyridium] 200 mg PO TID PRN 09/08/17 01/10/18 History potassium 100 mg PO DAILY 09/08/17 01/10/18 History sodium chloride 2 tab PO DAILY 09/08/17 01/10/18 History tizanidine 4 mg PO TID 09/08/17 01/10/18 History dicyclomine 20 mg PO QID PRN 10/11/17 01/10/18 History sucralfate [Carafate] 1 g PO TID-QID 10/11/17 01/10/18 History pantoprazole [Protonix] 40 mg PO BID 11/29/17 01/10/18 History bethanechol chloride [Urecholine] 25 mg PO BID 12/03/17 01/10/18 History metoclopramide HCl [Reglan] 10 mg PO QID 12/03/17 01/10/18 History Exam Vital signs: Vital Signs 01/10/18 03:45 01/10/18 04:00 01/10/18 08:00 Temperature 98.2 F 98.0 F Pulse Rate 90 93 H Respiratory Rate 18 18 16 Blood Pressure 140/93 H 139/91 H Pulse Oximetry 98 95 Intake & Output 01/09/18 01/10/18 01/10/18 18:59 06:59 18:59 Intake Total 600 / 600 Output Total 350 / 350 Balance 600 / 600 -350 / -350 Weight 89.358 kg Intake: IV 600 / 600 NS Inj 500 ML @ Wide Open IV. 500 / 500 SIG BOLUS ONE Rx#:[id number] Rocephin Inj 1,000 MG In NS Inj 100 / 100 100 ML @ 200 mls/hr IV.SIG ONCE ONE Rx#:[id number] Output: Urine 350 / 350 Other: # Voids 2 Narrative: GENERAL: Awake alert and oriented x3 talkative and cooperative SKIN: Warm and dry. HEAD: Atraumatic. Normocephalic. EYES: Pupils equal and round. No scleral icterus. No injection or drainage. EOMI ENT: No nasal bleeding or discharge. Mucous membranes pink and moist. NECK: Trachea midline. No JVD. CARDIOVASCULAR: Regular rate and rhythm. RESPIRATORY: No accessory muscle use. Clear to auscultation. Breath sounds equal bilaterally. GASTROINTESTINAL: Abdomen soft, non-tender, nondistended. Hepatic and splenic margins not palpable. MUSCULOSKELETAL: Extremities without clubbing, cyanosis, or edema. No obvious deformities. NEUROLOGICAL: Awake and alert. No obvious cranial nerve deficits. Motor grossly within normal limits. Five out of 5 muscle strength in the arms and legs. Normal speech. PSYCHIATRIC: Appropriate mood and affect; insight and judgment normal. Some right-sided flank pain and CVA tenderness Results - Labs CBC & Chem 7: 01/10/18 04:10 01/10/18 04:10 Labs: Short CBC 01/10/18 Range/Units 04:10 WBC 18.9 H (4.0-11.0) th/mm3 Hgb 13.3 (11.6-15.3) gm/dL Hct 38.6 (35.0-46.0) % Plt Count 343 (150-450) th/mm3 BMP 01/10/18 04:10 Sodium 136 Potassium 4.1 Chloride 97 L Carbon Dioxide 30.1 BUN 18 Creatinine 0.92 Calcium 8.7 Cardiac Enzymes 01/10/18 Range/Units 04:10 Total Creatine Kinase 56 (26-192) U/L Troponin I Less than 0.02 L (0.02-0.05) ng/mL Liver Function 01/10/18 Range/Units 04:10 Total Bilirubin 0.2 (0.2-1.0) mg/dL AST 12 L (15-37) U/L ALT 16 (10-53) U/L Alkaline Phosphatase 132 H (45-117) U/L Albumin 3.4 (3.4-5.0) g/dL Urine 01/10/18 Range/Units 04:10 Urine Color Yellow (Yellw/Straw) Urine Clarity Hazy H (Clear) Urine pH 8.0 (5.0-8.5) Ur Specific [place] 1.010 (1.002-1.035) Urine Protein Negative (Neg-Trace) mg/dL Urine Glucose (UA) Negative (Negative) mg/dL - Imaging Impressions Chest X-Ray 01/10/18 04:15 CONCLUSION: Negative examination. Abdomen/Pelvis CT 01/10/18 05:02 CONCLUSION: Interval worsening of right-sided hydronephrosis and hydroureter Caprini VTE Risk Assessment Caprini VTE Risk Assessment: Moderate/High Risk (score >= 2) Caprini Risk Assessment Model: Point Value = 1 Point Value = 2 Point Value = 3 Point Value = 5 Age 41-60 Minor surgery BMI > 25 kg/m2 Swollen legs Varicose veins or History of unexplained or recurrent spontaneous Oral contraceptives or hormone replacement Sepsis (< 1 month) Serious lung disease, including pneumonia (< 1 month) Abnormal pulmonary function Acute myocardial infarction Congestive heart failure (< 1 month) History of inflammatory bowel disease Medical patient at bed rest Age 61-74 Arthroscopic surgery Major open surgery (> 45 min) Laparoscopic surgery (> 45 min) Malignancy Confined to bed (> 72 hours) Immobilizing plaster cast Central venous access Age >= 75 History of VTE Family history of VTE Factor V Leiden Prothrombin [id number] Lupus anticoagulant Anticardiolipin antibodies Elevated serum homocysteine Heparin-induced thrombocytopenia Other congenital or acquired thrombophilia Stroke (< 1 month) Elective arthroplasty Hip, pelvis, or leg fracture Acute spinal cord injury (< 1 month) Prophylaxis Regimen: Total Risk Factor Score Risk Level Prophylaxis Regimen 0-1 Low Early ambulation 2 Moderate Order ONE of the following: *Sequential Compression Device (SCD) *Heparin 5000 units SQ BID 3-4 Higher Order ONE of the following medications: *Heparin 5000 units SQ TID *Enoxaparin/Lovenox 40 mg SQ daily (WT < 150 kg, CrCl > 30 mL/min) *Enoxaparin/Lovenox 30 mg SQ daily (WT < 150 kg, CrCl > 10-29 mL/min) *Enoxaparin/Lovenox 30 mg SQ BID (WT < 150 kg, CrCl > 30 mL/min) AND/OR *Sequential Compression Device (SCD) 5 or more Highest Order ONE of the following medications: *Heparin 5000 units SQ TID (Preferred with Epidurals) *Enoxaparin/Lovenox 40 mg SQ daily (WT < 150 kg, CrCl > 30 mL/min) *Enoxaparin/Lovenox 30 mg SQ daily (WT < 150 kg, CrCl > 10-29 mL/min) *Enoxaparin/Lovenox 30 mg SQ BID (WT < 150 kg, CrCl > 30 mL/min) AND *Sequential Compression Device (SCD) Assessment and Plan - Plan Urinary tract infection and hydronephrosis of the right kidney and right hydroureter Consult urology Rocephin 1 g IV daily Continue on Pyridium Vaginal fungal infection Diflucan 200 mg p.o. daily Will add Lactinex Leukocytosis continue on Rocephin Diflucan Intractable abdominal pain chronic on chronic pain medications at home and now on medical marijuana Nausea and vomiting continue on antiemetics Diabetes mellitus continue on sliding scale coverage and Accu-Cheks before meals and at bedtime Anxiety continue on home medications GERD continue on PPI Hypothyroidism resume thyroid medications and check a TSH and a free T4 Chronic back pain continue on Percocets and morphine as needed for pain Hypertension resume home medications Rheumatoid arthritis and chronic pain resume home medications including Percocet and morphine as needed Obviously cannot restart her medical marijuana here Interstitial cystitis and frequent urinary tract infections continue on Rocephin. Continue on Diflucan Continue on Bethanechol Continue on DVT prophylaxis with Lovenox Continue on GI prophylaxis with Protonix Code Status: Full code Discussed Condition With: RN and patient and family Discharge Planning: Pending urology and improvement of the hydronephrosis
[2018-01-10] MEDS: Sodium Chloride 0.9% 2 ML Flush BID IV.FLUSH SCH ×2 (11:08→21:14)
[2018-01-10] MEDS: HYDROmorphone PF Inj 1 MG/ML Ampul IV.PUSH PRN ×2 (11:08→16:34)
[2018-01-10] MEDS: Levothyroxine 125 MCG Tablet PO SCH (11:12)
--- NOTE | 2018-01-10 12:12 | P.CONURO ---
History of Present Illness Service: Consult date: 01/10/18 Requesting Physician: Florina Bethea Reason for Consult: Right hydronephrosis Primary Care Provider: Chance Banda MD Chief Complaint: ABDOMINAL PAIN History of Present Illness: 62-year-old female with history urinary retention and mild right-sided hydronephrosis who is under the care of my associate Dr. Veloz and managed with bethanechol. Patient presented to the emergency room early this morning with acute onset right flank pain that awoke her from sleep. She denied dysuria or hematuria. She has been afebrile. Preliminary workup in the emergency room include a CT scan stone protocol that demonstrated significant right hydroureteronephrosis with perinephric stranding. No definitive renal or ureteral stones were seen. Patient also was noted to have elevation of the white blood cell count. Urinalysis demonstrated increased white blood cells and moderate bacteria. Patient was admitted for IV antibiotics and a urology consult placed. Review of Systems All other systems reviewed negative except as stated in HPI PMFSH - History History Provided By: Patient - Medical History Medical History: Medical History (Last Reviewed 01/10/18 @ 09:55 by Rolando Figueroa DO) Diabetes (Acute) Rheumatoid arthritis (Acute) Gastroparesis (Acute) Interstitial cystitis (Acute) Frequent urinary tract infections (Acute) H/O: hysterectomy (Acute) Anxiety disorder Asthma Chronic back pain GERD (gastroesophageal reflux disease) H/O gastroesophageal reflux (GERD) Hypothyroidism Migraines Ulcerative colitis Urinary retention - Surgical History Surgical History: Surgical History (Last Reviewed 01/10/18 @ 09:55 by Rolando Figueroa DO) History of hysterectomy (Acute) History of back surgery (Acute) History of partial colectomy (Acute) Hx of cholecystectomy (Acute) History of bladder repair surgery History of intestinal surgery History of lumbar fusion - Family History Family History: Family History (Last Updated 01/10/18 @ 09:55 by Rolando Figueroa DO) Father Diabetes Ulcerative (chronic) ileocolitis Mother Diabetes Sister Ulcerative (chronic) ileocolitis Other Family history of acute myocardial infarction Family history of hypertension - Tobacco History Second Hand Smoke Exposure: No Tobacco Use In Past 30 Days: No Smoking Status: Never smoker - Alcohol History How Often Do You Have a Drink Containing Alcohol: Never - Substance Use History Substance History: No History of Abuse - Travel History History of Recent Travel: No Recent Travel in the [place] Within the Last 8 Weeks: No Recent Travel Out of the Country Within the Last 8 Weeks: No - Immunization History Tetanus Immunization: <5 Years Medications and Allergies Active Medications: Active Medications Acetaminophen (Tylenol) 650 mg PO Q4H PRN PRN Reason: Temp > 100.4 Al Hydroxide/Mg Hydroxide (Milk Of Magnesia Liq) 30 ml PO Q12H PRN PRN Reason: Mild Constipation Al Hydroxide/Mg Hydroxide (Milk Of Magnesia Liq) 30 ml PO Q12H PRN PRN Reason: Mild Constipation Bethanechol Chloride (Urecholine) 25 mg PO BID [facility] Bisacodyl (Dulcolax Supp) 10 mg RECTAL DAILY PRN PRN Reason: SEVERE CONSITIPATION Bisacodyl (Dulcolax Supp) 10 mg RECTAL DAILY PRN PRN Reason: SEVERE CONSITIPATION Dicyclomine HCl (Bentyl) 20 mg PO QID PRN PRN Reason: Cramps Diphenhydramine HCl (Benadryl) 25 mg PO Q6H PRN PRN Reason: ITCHING/HIVES/ANAPHYLAXIS Estrogens Conjugated (Premarin) 1.25 mg PO DAILY [facility] Fluconazole (Diflucan) 200 mg PO DAILY [facility] Gabapentin (Neurontin) 800 mg PO QID [facility] Hydromorphone HCl (Dilaudid Pf Inj) 1 mg IV.PUSH Q3H PRN PRN Reason: BREAKTHROUGH PAIN Last Admin: 01/10/18 11:08 Dose: 1 mg Ceftriaxone Sodium 1,000 mg/ (Sodium Chloride) 100 mls @ 200 mls/hr IV.SIG Q24H [facility] Sodium Chloride (Ns Inj) 1,000 mls @ 100 mls/hr IV.CONT .Q10H [facility] Last Infusion: 01/10/18 07:53 Dose: 70 mls/hr Sodium Chloride (Ns Inj) 1,000 mls @ 70 mls/hr IV.CONT .[id number] [facility] Last Admin: 01/10/18 07:53 Dose: 70 mls/hr Lactulose (Lactulose Liq) 30 ml PO DAILY PRN PRN Reason: SEVERE CONSITIPATION Lactulose (Lactulose Liq) 30 ml PO DAILY PRN PRN Reason: SEVERE CONSITIPATION Levothyroxine Sodium (Synthroid) 125 mcg PO DAILY@0600 [facility] Last Admin: 01/10/18 11:12 Dose: 125 mcg Lorazepam (Ativan) 2 mg PO QID [facility] Metoclopramide HCl (Reglan) 10 mg PO QID [facility] Morphine Sulfate (Morphine Inj) 4 mg IV.PUSH Q3H PRN PRN Reason: PAIN 6-10;IF UNABLE TO TAKE PO Morphine Sulfate (Morphine Inj) 4 mg IV.PUSH Q3H PRN PRN Reason: BREAKTHROUGH PAIN Morphine Sulfate (Morphine Inj) 4 mg IV.PUSH Q1H PRN PRN Reason: Pain Scale 7-10 (Intractable) Morphine Sulfate (Morphine Inj) 2 mg IV.PUSH Q3H PRN PRN Reason: PAIN 3-5; IF UABLE TO TAKE PO Naloxone HCl (Narcan Inj) 0.4 mg IV.PUSH UNSCH PRN PRN Reason: SEE LABEL COMMENTS Naloxone HCl (Narcan Inj) 0.4 mg IV.PUSH UNSCH PRN PRN Reason: SEE LABEL COMMENTS Ondansetron HCl (Zofran Inj) 4 mg IV.PUSH Q6H PRN PRN Reason: NAUSEA OR VOMITING Last Admin: 01/10/18 11:19 Dose: 4 mg Oxycodone/Acetaminophen (Percocet 10/325 Mg) 1 tab PO Q6H PRN PRN Reason: PAIN SCALE 6 TO 10 Last Admin: 01/10/18 09:49 Dose: 1 tab Oxycodone/Acetaminophen (Percocet 5/325 Mg) 1 tab PO Q6H PRN PRN Reason: PAIN SCALE 3 TO 5 Pantoprazole Sodium (Protonix) 40 mg PO BID [facility] Pt Own Med :( Pentosan Polysulfate Sodium [Elmiron] 100 Mg) 0 each PO TID [facility] Phenazopyridine HCl (Pyridium) 200 mg PO TID PRN PRN Reason: Bladder Spasms Senna/Docusate Sodium (Rowan-Colace) 1 tab PO BID [facility] Sennosides (Senokot) 17.2 mg PO Q12H PRN PRN Reason: Moderate Constipation Sennosides (Senokot) 17.2 mg PO Q12H PRN PRN Reason: Moderate Constipation Sodium Chloride (Ns Flush) 2 ml IV.FLUSH BID [facility] Last Admin: 01/10/18 11:08 Dose: 2 ml Sodium Chloride (Ns Flush) 2 ml IV.FLUSH PRN PRN PRN Reason: FLUSH AFTER USING IV ACCESS Sodium Chloride (Sodium Chloride) 2 gm PO DAILY [facility] Sucralfate (Carafate) 1 gm PO ACHS [facility] Tizanidine HCl (Zanaflex) 4 mg PO TID [facility] Allergies Allergy/AdvReac Type Severity Reaction Status Date / Time codeine Allergy Severe Itching Verified 01/10/18 03:45 erythromycin base Allergy Intermediate Hives Verified 01/10/18 03:45 fentanyl Allergy Intermediate Hives, Verified 01/10/18 03:45 LIPS SWELLING, TORO latex Allergy Intermediate Hives Verified 01/10/18 03:45 strawberry Allergy Mild Hives Verified 01/10/18 03:45 penicillin G Allergy Unknown Itching Verified 01/10/18 03:45 Sulfa (Sulfonamide Allergy Unknown Itching Verified 01/10/18 03:45 Antibiotics) SHELL FISH, MORPHINE Allergy Severe Anaphylaxis Uncoded 01/10/18 03:45 Home Medications Medication Instructions Recorded Confirmed Type conjugated estrogens [Premarin] 1.25 mg PO DAILY 09/08/17 01/10/18 History gabapentin 800 mg PO QID 09/08/17 01/10/18 History levothyroxine [Synthroid] 125 mcg PO DAILY 09/08/17 01/10/18 History lorazepam [Ativan] 2 mg PO QID 09/08/17 01/10/18 History magnesium 250 mg PO BID 09/08/17 01/10/18 History pentosan polysulfate sodium 100 mg PO TID 09/08/17 01/10/18 History [Elmiron] phenazopyridine [Pyridium] 200 mg PO TID PRN 09/08/17 01/10/18 History potassium 100 mg PO DAILY 09/08/17 01/10/18 History sodium chloride 2 tab PO DAILY 09/08/17 01/10/18 History tizanidine 4 mg PO TID 09/08/17 01/10/18 History dicyclomine 20 mg PO QID PRN 10/11/17 01/10/18 History sucralfate [Carafate] 1 g PO TID-QID 10/11/17 01/10/18 History pantoprazole [Protonix] 40 mg PO BID 11/29/17 01/10/18 History bethanechol chloride [Urecholine] 25 mg PO BID 12/03/17 01/10/18 History metoclopramide HCl [Reglan] 10 mg PO QID 12/03/17 01/10/18 History Physical Exam Vital Signs - 24 hr 01/10/18 03:45 01/10/18 04:00 01/10/18 08:00 Temperature 98.2 F 98.0 F Pulse Rate 90 93 H Respiratory Rate 18 18 16 Blood Pressure 140/93 H 139/91 H Pulse Oximetry 98 95 Physical Exam: GENERAL: This is a well-nourished, well-developed patient, in no apparent distress. SKIN: No rashes, ecchymoses or lesions. Cool and dry. HEAD: Atraumatic. Normocephalic. No temporal or scalp tenderness. EYES: Pupils equal round and reactive. Extraocular motions intact. No scleral icterus. No injection or drainage. ENT: Nose without bleeding, purulent drainage or septal hematoma. Throat without erythema, tonsillar hypertrophy or exudate. Uvula midline. Airway patent. NECK: Trachea midline. No JVD or lymphadenopathy. Supple, nontender, no meningeal signs. CARDIOVASCULAR: Regular rate and rhythm without murmurs, gallops, or rubs. RESPIRATORY: Clear to auscultation. Breath sounds equal bilaterally. No wheezes , rales, or rhonchi. GASTROINTESTINAL: Abdomen soft, non-tender, nondistended. No hepato-splenomegaly , or palpable masses. No guarding. GENITOURINARY: No CVA tenderness, bladder not distended MUSCULOSKELETAL: Extremities without clubbing, cyanosis, or edema. No joint tenderness, effusion, or edema noted. No calf tenderness. Negative Homans sign bilaterally. NEUROLOGICAL: Awake and alert. Cranial nerves II through XII intact. Motor and sensory grossly within normal limits. Five out of 5 muscle strength in all muscle groups. Normal speech. Laboratory Results - last 24 hr 01/10/18 01/10/18 01/10/18 04:10 04:10 04:10 WBC 18.9 H RBC 4.27 Hgb 13.3 Hct 38.6 MCV 90.3 MCH 31.2 MCHC 34.5 RDW 13.1 Plt Count 343 MPV 7.5 Neut % (Auto) 63.3 Lymph % (Auto) 26.2 [place] % (Auto) 8.4 H Eos % (Auto) 1.1 Baso % (Auto) 1.0 Neut # (Auto) 12.0 H Lymph # (Auto) 4.9 H [place] # (Auto) 1.6 H Eos # (Auto) 0.2 Baso # (Auto) 0.2 WBC Differential . Differential Comment Auto diff final PT 10.1 INR 1.0 APTT 29.2 Sodium 136 Potassium 4.1 Chloride 97 L Carbon Dioxide 30.1 Anion Gap 9 BUN 18 Creatinine 0.92 Estimated GFR 62 L Random Glucose 95 Lactic Acid Calcium 8.7 Magnesium 2.0 Total Bilirubin 0.2 AST 12 L ALT 16 Alkaline Phosphatase 132 H Total Creatine Kinase 56 Troponin I Less than 0.02 L Total Protein 7.7 Albumin 3.4 Lipase 84 Urine Color Urine Clarity Urine pH Ur Specific [place] Urine Protein Urine Glucose (UA) Urine Ketones Urine Occult Blood Urine Nitrate Urine Bilirubin Urine Urobilinogen Ur Leukocyte Esterase Urine RBC Urine WBC Urine WBC Clumps Ur Squamous Epith Cells Urine Bacteria Urine Mucus Micro UA Comment Ur Microscopic Review Urine Culture Comments 01/10/18 01/10/18 04:10 04:23 WBC RBC Hgb Hct MCV MCH MCHC RDW Plt Count MPV Neut % (Auto) Lymph % (Auto) [place] % (Auto) Eos % (Auto) Baso % (Auto) Neut # (Auto) Lymph # (Auto) [place] # (Auto) Eos # (Auto) Baso # (Auto) WBC Differential Differential Comment PT INR APTT Sodium Potassium Chloride Carbon Dioxide Anion Gap BUN Creatinine Estimated GFR Random Glucose Lactic Acid 1.3 Calcium Magnesium Total Bilirubin AST ALT Alkaline Phosphatase Total Creatine Kinase Troponin I Total Protein Albumin Lipase Urine Color Yellow Urine Clarity Hazy H Urine pH 8.0 Ur Specific [place] 1.010 Urine Protein Negative Urine Glucose (UA) Negative Urine Ketones Negative Urine Occult Blood Small H Urine Nitrate Negative Urine Bilirubin Negative Urine Urobilinogen Less than 2 Ur Leukocyte Esterase Moderate H Urine RBC 3 Urine WBC 108 H Urine WBC Clumps Occasional H Ur Squamous Epith Cells 3 Urine Bacteria Moderate H Urine Mucus Few H Micro UA Comment Culture indicated Ur Microscopic Review Not Reportable Urine Culture Comments Culture indicated Result Diagrams: 01/10/18 04:10 01/10/18 04:10 Imaging: ITS Impressions Chest X-Ray 01/10/18 04:15 CONCLUSION: Negative examination. Abdomen/Pelvis CT 01/10/18 05:02 CONCLUSION: Interval worsening of right-sided hydronephrosis and hydroureter Assessment and Plan - Assessment (1) Hydronephrosis of right kidney Code(s): N13.30 - Unspecified hydronephrosis Status: Acute (2) Hydronephrosis Code(s): N13.30 - Unspecified hydronephrosis Status: Acute - Plan Urologic impression: 1. Progression of right hydroureteronephrosis of indeterminate etiology 2. history chronic urinary retention managed with bethanechol 3. UTI Recommendations: 1. Agree with present antibiotic therapy 2. We will place the patient on the OR schedule for tomorrow cystoscopy, right retrograde pyelogram and right ureteral stent placement. 3. Dilaudid [employer] 4. N.p.o. after midnight (2) Hydronephrosis Qualifiers: Hydronephrosis type: unspecified Qualified Code(s): N13.30 - Unspecified hydronephrosis
[2018-01-10] MEDS: Metoclopramide 10 MG Tablet PO SCH ×3 (12:34→21:13)
[2018-01-10] MEDS: Sodium Chloride 1 GM Tablet PO SCH (12:35)
[2018-01-10] MEDS: Sucralfate 1 GM Tablet PO SCH ×3 (12:35→21:13)
[2018-01-10] MEDS: Gabapentin 400 MG Capsule PO SCH ×3 (12:35→21:13)
[2018-01-10] MEDS: ESTROGENS CONJUGATED 1.25 MG PO SCH (12:38)
[2018-01-10] MEDS: HYDROmorphone PCA Inj 6 MG/30 ML PCA.VIAL PCA PRN (19:00)
--- NOTE | 2018-01-10 21:07 | ECG ---
Date Performed: 01/10/2018 Time Performed: 04:08:32 PTAGE: 62 years EKG: Sinus rhythm NORMAL ECG PREVIOUS TRACING : 11/30/2017 00.41 Since the previous tracing, no significant change noted DOCTOR: Willard Garcia Interpretating Date/Time 01/10/2018 21:06:02
[2018-01-10] MEDS: Senna/Docusate Sodium 8.6/50 MG Tablet PO SCH (21:14)
[2018-01-10] MEDS ORDERED: Sodium Chlor 0.9% Inj 500 ML IV.SIG SCH (23:45)
[2018-01-10] MEDS ORDERED: Chlorhexidine Gluconate 2% 1 Pack (2 Cloths) TOPICAL ONE (23:58)
[2018-01-11] MEDS: Levothyroxine 125 MCG Tablet PO SCH (05:38)
[2018-01-11] MEDS: Sod Chloride 0.9% Inj 1,000 ML IV.CONT SCH ×4 (05:40→23:16)
[2018-01-11] MEDS: HYDROmorphone PCA Inj 6 MG/30 ML PCA.VIAL PCA PRN ×4 (05:43→16:39)
[2018-01-11] MEDS: ESTROGENS CONJUGATED 1.25 MG PO SCH (08:06)
[2018-01-11] MEDS: Gabapentin 400 MG Capsule PO SCH ×4 (08:06→21:31)
[2018-01-11] MEDS: Sucralfate 1 GM Tablet PO SCH ×4 (08:06→21:30)
[2018-01-11] MEDS: Sodium Chloride 1 GM Tablet PO SCH (08:07)
[2018-01-11] MEDS: Metoclopramide 10 MG Tablet PO SCH ×4 (08:07→21:30)
[2018-01-11] MEDS: Senna/Docusate Sodium 8.6/50 MG Tablet PO SCH ×2 (08:07→21:30)
--- NOTE | 2018-01-11 09:01 | P.PN ---
Subjective Interval history: This is a pleasant 62 y/o Female who was brought in to Emergency room With Right side abdominal pain, has history ob Bowel obstruction and Urinary retention, She is also in pain management for chronic abdominal pain recently placed on medical marijuana. She states that she is being weaned off her opioid medications. started on Rocephin on admission consulted Urology specialist. She has RA, DM II, Interstitial cystitis, Gastroparesis, Recurrent UTI, Anxiety disorder, chronic back pain, GERD, Hypothyroidism, Migraine, Found with worsening right sided Hydronephrosis and hydroureter. 01/11: Stable in her bedroom in the presence of her , no nausea, vomit or diarrhea, asking for her Butalbital for Migraine, at this time on Morphine pump, will go for Operating room later on today. Physical Exam Vital signs: Vital Signs 01/10/18 11:40 01/10/18 12:00 01/10/18 16:00 Temperature 98.0 F 97.7 F Pulse Rate 100 H 81 Respiratory Rate 17 18 17 Blood Pressure 134/88 129/59 L Pulse Oximetry 98 95 01/10/18 17:05 01/10/18 19:30 01/10/18 20:00 Temperature 98.4 F Pulse Rate 98 H Respiratory Rate 16 16 15 Blood Pressure 105/64 Pulse Oximetry 94 L 01/11/18 00:00 01/11/18 04:00 Temperature 98.5 F 99.8 F H Pulse Rate 75 93 H Respiratory Rate 18 18 Blood Pressure 125/60 93/72 L Pulse Oximetry 92 L 92 L Intake & Output 01/10/18 01/11/18 01/11/18 18:59 06:59 18:59 Intake Total 1000 / 1000 1100 / 1100 Output Total 450 / 450 Balance 550 / 550 1100 / 1100 Weight 89.35 kg Intake: IV 1000 / 1000 1100 / 1100 NS Inj 1,000 ML @ 100 mls/hr IV 1000 / 1000 1000 / 1000 .CONT .Q10H [facility] Rx#:[id number] Rocephin Inj 1,000 MG In NS Inj 100 / 100 100 ML @ 200 mls/hr IV.SIG Q24H [facility] Rx#:[id number] Output: Urine 450 / 450 Other: # Voids 1 3 Date of Last Bowel Movement 01/10/18 01/10/18 Narrative: GENERAL: Obese in no acute distress. SKIN: Warm and dry. HEAD: Atraumatic. Normocephalic. EYES: Pupils equal and round. No scleral icterus. No injection or drainage. EOMI ENT: No nasal bleeding or discharge. Mucous membranes pink and moist. NECK: Trachea midline. No JVD. CARDIOVASCULAR: Regular rate and rhythm. RESPIRATORY: No accessory muscle use. Clear to auscultation. Breath sounds equal bilaterally. GASTROINTESTINAL: Abdomen soft, non-tender, nondistended. Hepatic and splenic margins not palpable. MUSCULOSKELETAL: Extremities without clubbing, cyanosis, or edema. No obvious deformities. NEUROLOGICAL: Awake and alert. No obvious cranial nerve deficits. PSYCHIATRIC: Appropriate mood and affect; insight and judgment normal. Some right-sided flank pain and CVA tenderness Results - Labs CBC & Chem 7: 01/10/18 04:10 01/10/18 04:10 - Imaging Chest X-Ray 01/10/18 04:15 CONCLUSION: Negative examination. Abdomen/Pelvis CT 01/10/18 05:02 CONCLUSION: Interval worsening of right-sided hydronephrosis and hydroureter - Procedures None Assessment and Plan - Plan 1. Urinary Tract infection started on Rocephin follow Urinary Culture and sensitivity 2. 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 3. Leukocytosis to continue Rocephin and Diflucan 4.Intractable chronic Abdominal pain now on medical Marijuana, narcotic dependence 5. Nausea and vomit on Antiemetics/history of Gastroparesis 6. DM II on sliding scale 7. Anxiety disorder to continue Home medicines 8. GERD continue on PPI 9. Hypothyroidism resume thyroid medications and check a TSH and a free T4 10. Chronic back pain continue on Percocet and morphine as needed for pain 11. Hypertension resume home medications 12. Rheumatoid arthritis and chronic pain resume home medications including Percocet and morphine as needed Obviously cannot restart her medical marijuana here 13. Interstitial cystitis and frequent urinary tract infections continue on Rocephin. Continue on Diflucan Continue on Bethanechol Continue on DVT prophylaxis with Lovenox Continue on GI prophylaxis with Protonix Code Status: Full code. Discussed Condition With: Patient, her and nurse Miss Mayer. Discharge Planning: once cleared by Urology specialist.
[2018-01-11] MEDS: Sodium Chloride 0.9% 2 ML Flush BID IV.FLUSH SCH ×2 (10:00→21:32)
[2018-01-11 11:10] LABS: Alanine Aminotransferase 13 U/L (10-53); Albumin 2.4 g/dL (3.4-5.0); Anion Gap 11 meq/L (5-15); Aspartate Aminotransferase 33 U/L (15-37); Blood Urea Nitrogen 17 mg/dL (7-18); Calcium 7.5 mg/dL (8.5-10.1); Chloride 103 meq/L (98-107); Glomerular Filtration Rate 56 mL/min (>89); Glucose,Random 112 mg/dL (74-106); Potassium 4.4 meq/L (3.5-5.1); Sodium 134 meq/L (136-145)
[2018-01-11 11:12] LABS: Alkaline Phosphatase 106 U/L (45-117); Total Protein 6.5 g/dL (6.4-8.2)
[2018-01-11] MEDS ORDERED: Famotidine PF Inj 20 MG/2 ML Vial ONE (13:46)
[2018-01-11] MEDS ORDERED: Ketamine Inj 50 MG/5 ML Syringe IV.PUSH ONE (13:58)
[2018-01-11] MEDS ORDERED: Glycopyrrolate Inj 1 MG/5 ML Syringe IV.PUSH ONE (14:02)
[2018-01-11] MEDS ORDERED: Neostigmine Inj 5 MG/5 ML Syringe IV.PUSH ONE (14:02)
[2018-01-11] MEDS ORDERED: Lidocaine PF 1% Inj 5 ML Syringe OTHER ONE (14:02)
[2018-01-11] MEDS ORDERED: Iohexol Inj 350 MG/ML 100 ML Bottle (for RAD Diag) IVCONTRAST ONE (14:38)
--- NOTE | 2018-01-11 15:07 | P.OP ---
- Preoperative Diagnosis (1) Hydronephrosis of right kidney - Postoperative Diagnosis (1) Hydronephrosis of right kidney Date of procedure: 01/11/18 Procedure: Cystoscopy, right retrograde pyelogram and right ureteral stent placement Implants: 6 [place] 22 cm [place] right ureteral stent Anesthesia: GETA Surgeon: Mann Chapman MD Estimated blood loss (mL): 0 Pathology: none sent Operation and Findings: Indication for procedures: Case of a pleasant 62-year-old female with worsening right hydronephrosis who presents now for cystoscopy, right retrograde pyelogram and right ureteral stent placement. Operative procedure in detail: Patient was brought to the operating suite placed supine on the cystoscopy table. She was then placed under general anesthesia. She was then repositioned in the dorsolithotomy position and prepped and draped in normal sterile fashion. After an appropriate timeout was undertaken I proceeded with cystoscopic evaluation utilizing the rigid cystoscope with the 20 [place] sheath and the 30 degree lens. Both right and left ureteral orifices were in correct anatomic position. There was clear reflux noted on the left and no reflux noted on the right. I then utilized a sensor 0.035 wire and advanced the wire up to the proximal right ureter. A 6 [place] open-ended ureteral catheter was advanced over the wire several centimeters cephalad from the ureteral orifice and the wire was withdrawn. A right retrograde pyelogram study was then performed and there appeared to be obstruction at the right ureteropelvic junction of indeterminate etiology. No definitive stone was seen. I then reintroduced the wire and attempted to advance it into the right kidney without success. I exchange the wire for a hockey-stick nitinol wire and was able to successfully advance the wire into the right renal pelvis. The open-ended catheter was advanced into the right renal pelvis and the nitinol wire exchanged back for the sensor wire. The open- ended ureteral catheter was then exchanged for a [place] 6 [place] 22 cm double-J stent. The stent was placed on the both cystoscopic and fluoroscopic guidance without difficulty. Once the stent was in proper position the trailing string was removed. A 16 [place] silicone Valadez was then placed and connected to gravity drainage. The patient tolerated the procedures without complications and was transferred to the PACU in satisfactory condition.
[2018-01-11] MEDS: Magnesium Oxide 400 MG Tablet PO SCH (17:12)
[2018-01-11 20:26] LABS: Baso # (Auto) 0.1 th/mm3 (0.0-0.2); Baso % (Auto) 0.8 % (0.0-2.0); Eos # (Auto) 0.1 th/mm3 (0.0-0.4); Eos % (Auto) 1.2 % (0.0-4.0); Hematocrit 32.1 % (35.0-46.0); Hemoglobin 10.8 gm/dL (11.6-15.3); Lymph # (Auto) 1.4 th/mm3 (1.0-4.8); Lymph % (Auto) 18.1 % (9.0-44.0); Mean Corpuscular HGB Conc 33.8 % (32.0-36.0); Mean Corpuscular Hemoglobin 31.7 pg (27.0-34.0); Mean Corpuscular Volume 94.1 fL (80.0-100.0); Mean Platelet Volume 7.6 fL (7.0-11.0); Mono # (Auto) 0.7 th/mm3 (0.0-0.9); Mono % (Auto) 9.7 % (0.0-8.0); Neut # (Auto) 5.4 th/mm3 (1.8-7.7); Neut % (Auto) 70.2 % (16.0-70.0); Platelet Count 226 th/mm3 (150-450); Red Blood Count 3.41 mil/mm3 (4.00-5.30); Red Cell Distribution Width 13.5 % (11.6-17.2); White Blood Count 7.7 th/mm3 (4.0-11.0)
[2018-01-12] MEDS: Morphine Inj 4 MG/ML Vial IV.PUSH PRN ×2 (00:50→06:24)
[2018-01-12] MEDS: HYDROmorphone PCA Inj 6 MG/30 ML PCA.VIAL PCA PRN ×2 (02:47→10:45)
[2018-01-12] MEDS: Levothyroxine 125 MCG Tablet PO SCH (05:20)
[2018-01-12] MEDS: Sod Chloride 0.9% Inj 1,000 ML IV.CONT SCH ×6 (05:21→18:13)
[2018-01-12] MEDS: Gabapentin 400 MG Capsule PO SCH ×4 (08:06→20:33)
[2018-01-12] MEDS: Sucralfate 1 GM Tablet PO SCH ×4 (08:07→20:34)
[2018-01-12] MEDS: Sodium Chloride 1 GM Tablet PO SCH (08:09)
[2018-01-12] MEDS: Metoclopramide 10 MG Tablet PO SCH ×4 (08:09→20:34)
[2018-01-12] MEDS: Senna/Docusate Sodium 8.6/50 MG Tablet PO SCH ×2 (08:09→20:33)
[2018-01-12] MEDS: ESTROGENS CONJUGATED 1.25 MG PO SCH (08:09)
[2018-01-12] MEDS: Sodium Chloride 0.9% 2 ML Flush BID IV.FLUSH SCH ×2 (08:10→20:34)
[2018-01-12] MEDS ORDERED: POTASSIUM 100 MG PO SCH (09:00)
--- NOTE | 2018-01-12 10:05 | P.PNIM ---
Subjective Interval history: f/u; hydronephrosis in no acute distress. but has severe pain to the lower abdomen/ suprapubic area. complaining of nausea. Physical Exam Vital signs: Vital Signs 01/11/18 10:00 01/11/18 11:17 01/11/18 12:00 Temperature 97.7 F Pulse Rate 68 Respiratory Rate 18 16 20 Blood Pressure 112/49 L Pulse Oximetry 95 01/11/18 15:15 01/11/18 15:30 01/11/18 15:45 Temperature 98.3 F Pulse Rate 57 L 55 L 57 L Respiratory Rate 10 L 12 12 Blood Pressure 142/67 H 158/74 H 156/74 H Pulse Oximetry 100 100 99 01/11/18 16:00 01/11/18 16:15 01/11/18 17:45 Temperature 98.5 F 97.1 F L Pulse Rate 51 L 55 L 62 Respiratory Rate 14 14 15 Blood Pressure 158/76 H 157/71 H 147/71 H Pulse Oximetry 100 99 97 01/11/18 20:00 01/11/18 21:31 01/12/18 00:00 Temperature 96.9 F L 99.0 F Pulse Rate 71 68 Respiratory Rate 16 14 17 Blood Pressure 111/66 115/62 Pulse Oximetry 94 L 100 01/12/18 04:00 01/12/18 08:00 Temperature 98.5 F 98.1 F Pulse Rate 81 86 Respiratory Rate 17 18 Blood Pressure 105/63 107/61 Pulse Oximetry 96 96 Intake & Output 01/11/18 01/12/18 01/12/18 18:59 06:59 18:59 Intake Total 1100 / 1100 1580 / 1580 1000 / 1000 Output Total 1300 / 1300 1000 / 1000 Balance 1100 / 1100 280 / 280 0 / 0 Weight 90 kg Intake: IV 1100 / 1100 1000 / 1000 NS Inj 1,000 ML @ 70 mls/hr IV. 1000 / 1000 1000 / 1000 CONT .[id number] MARTINEZ Rx#:[id number] Rocephin Inj 1,000 MG In NS Inj 100 / 100 100 ML @ 200 mls/hr IV.SIG Q24H MARTINEZ Rx#:[id number] Oral 480 / 480 Anesthesia Amount 1100 / 1100 Output: Urine Amount (Catheter) 1300 / 1300 1000 / 1000 Indwelling Urethral Catheter 1300 / 1300 1000 / 1000 Other: Date of Last Bowel Movement 01/10/18 01/10/18 01/10/18 - Constitutional no acute distress - Routine Respiratory Exam Present: CTA bilaterally - Routine Cardiovascular Exam Present: RRR - Routine Abdominal Exam Present: soft, tenderness (lower abdomen/ suprapubic.) - Routine Extremities Exam Comments: no pedal edema. - Routine Neurological Exam Present: alert, oriented X3 - Urinary Catheter Management Indwelling Urethral Catheter Cath placed during this visit: yes, but has since been removed by the nurse Reason for continuing: Not indwelling catheter Insertion date: 01/11/18 Insertion time: 14:57 Removal date: 01/12/18 Removal time: 08:42 Results - Labs CBC & Chem 7: 01/11/18 19:51 01/11/18 10:30 Laboratory Results - last 24 hr 01/10/18 01/11/18 01/11/18 04:10 10:30 19:51 WBC 7.7 RBC 3.41 L Hgb 10.8 L D Hct 32.1 L MCV 94.1 D MCH 31.7 MCHC 33.8 RDW 13.5 Plt Count 226 D MPV 7.6 Neut % (Auto) 70.2 H Lymph % (Auto) 18.1 [place] % (Auto) 9.7 H Eos % (Auto) 1.2 Baso % (Auto) 0.8 Neut # (Auto) 5.4 Lymph # (Auto) 1.4 [place] # (Auto) 0.7 Eos # (Auto) 0.1 Baso # (Auto) 0.1 WBC Differential . Differential Comment Auto diff final Sodium 134 L Potassium 4.4 Chloride 103 Carbon Dioxide 20.0 L D Anion Gap 11 BUN 17 Creatinine 1.00 Estimated GFR 56 L Random Glucose 112 H Calcium 7.5 L D Total Bilirubin 0.4 AST 33 ALT 13 Alkaline Phosphatase 106 Total Protein 6.5 D Albumin 2.4 L D Urine Color Yellow Urine Clarity Hazy H Urine pH 8.[address] 1.010 Urine Protein Negative Urine Glucose (UA) Negative Urine Ketones Negative Urine Occult Blood Small H Urine Nitrate Negative Urine Bilirubin Negative Urine Urobilinogen Less than 2 Ur Leukocyte Esterase Moderate H Urine RBC 3 Urine WBC 108 H Urine WBC Clumps Occasional H Ur Squamous Epith Cells 3 Urine Bacteria Moderate H Urine Mucus Few H Micro UA Comment Culture indicated Urine Culture Comments Culture indicated Microbiology 01/10/18 04:10 Clean Catch Urine Urine Culture - Final Klebsiella oxytoca 01/10/18 04:15 Blood - Peripheral Aerobic Blood Culture - Preliminary No growth in 1 day 01/10/18 04:15 Blood - Peripheral Anaerobic Blood Culture - Preliminary No growth in 1 day 01/10/18 04:10 Blood - Peripheral Aerobic Blood Culture - Preliminary No growth in 1 day 01/10/18 04:10 Blood - Peripheral Anaerobic Blood Culture - Preliminary No growth in 1 day - Procedures None Assessment and Plan - Plan 1. Urinary Tract infection started on Rocephin follow Urinary Culture and sensitivity 2. Hydronephrosis of right kidney as per urology specialist the progression of right hydroureteronephrosis of indeterminate etiology, chronic urinary retention managed with bethanechol, to continue present antibiotics, s/p Cystoscopy and right retrograde pyelogram and right ureteral stent placement. continue with pain control. 3.Intractable chronic Abdominal pain now on medical Marijuana, narcotic dependence 4. Nausea and vomit on Antiemetics/history of Gastroparesis 5. DM II on sliding scale 6. Anxiety disorder to continue Home medicines 7. GERD continue on PPI 8. Hypothyroidism resume thyroid medications and check a TSH and a free T4 9. Chronic back pain continue on Percocet and morphine as needed for pain 10. Hypertension resume home medications 11. Rheumatoid arthritis and chronic pain resume home medications including Percocet and morphine as needed Obviously cannot restart her medical marijuana here 12. Interstitial cystitis and frequent urinary tract infections continue on Rocephin. Continue on Diflucan Continue on Bethanechol Continue on DVT prophylaxis with Lovenox Continue on GI prophylaxis with Protonix Discharge Planning: awaiting urology f/u; still with severe pain. not ready for discharge.
[2018-01-12] MEDS: Ketorolac Inj 30 MG/ML (IVP) Vial IV.PUSH PRN ×3 (10:46→23:54)
--- NOTE | 2018-01-12 11:02 | P.PNURO ---
Subjective Patient symptoms today: Reports significant discomfort involving right flank and right lower quadrant Reports pain medication not working very well Reports feeling very nauseous Objective Vital Signs: Vital Signs 01/11/18 11:17 01/11/18 12:00 01/11/18 15:15 Temperature 97.7 F 98.3 F Pulse Rate 68 57 L Respiratory Rate 16 20 10 L Blood Pressure 112/49 L 142/67 H Pulse Oximetry 95 100 01/11/18 15:30 01/11/18 15:45 01/11/18 16:00 Temperature Pulse Rate 55 L 57 L 51 L Respiratory Rate 12 12 14 Blood Pressure 158/74 H 156/74 H 158/76 H Pulse Oximetry 100 99 100 01/11/18 16:15 01/11/18 17:45 01/11/18 20:00 Temperature 98.5 F 97.1 F L 96.9 F L Pulse Rate 55 L 62 71 Respiratory Rate 14 15 16 Blood Pressure 157/71 H 147/71 H 111/66 Pulse Oximetry 99 97 94 L 01/11/18 21:31 01/12/18 00:00 01/12/18 04:00 Temperature 99.0 F 98.5 F Pulse Rate 68 81 Respiratory Rate 14 17 17 Blood Pressure 115/62 105/63 Pulse Oximetry 100 96 01/12/18 08:00 Temperature 98.1 F Pulse Rate 86 Respiratory Rate 18 Blood Pressure 107/61 Pulse Oximetry 96 Intake & Output 01/11/18 01/12/18 01/12/18 18:59 06:59 18:59 Intake Total 1100 / 1100 1580 / 1580 1000 / 1000 Output Total 1300 / 1300 1000 / 1000 Balance 1100 / 1100 280 / 280 0 / 0 Weight 90 kg Intake: IV 1100 / 1100 1000 / 1000 NS Inj 1,000 ML @ 70 mls/hr IV. 1000 / 1000 1000 / 1000 CONT .[id number] [facility]INE[facility] Rx#:[id number] Rocephin Inj 1,000 MG In NS Inj 100 / 100 100 ML @ 200 mls/hr IV.SIG Q24H MARTINEZ Rx#:[id number] Oral 480 / 480 Anesthesia Amount 1100 / 1100 Output: Urine Amount (Catheter) 1300 / 1300 1000 / 1000 Indwelling Urethral Catheter 1300 / 1300 1000 / 1000 Other: Date of Last Bowel Movement 01/10/18 01/10/18 01/10/18 Result Diagrams: 01/11/18 19:51 01/11/18 10:30 Other Results: Abdomen soft, nondistended nontender Bladder not distended Medications and IVs: Active Medications Generic Name Dose Route Start Last Admin Trade Name Freq PRN Reason Stop Dose Admin Acetaminophen 650 mg 01/10/18 10:00 01/11/18 08:08 Tylenol PO 650 mg Q4H PRN Administration Temp > 100.4 Al Hydroxide/Mg Hydroxide 30 ml 01/10/18 06:27 Milk Of Magnesia Liq PO Q12H PRN Mild Constipation Bethanechol Chloride 25 mg 01/10/18 11:30 01/12/18 08:09 Urecholine PO 25 mg BID MARTINEZ Administration Bisacodyl 10 mg 01/10/18 06:27 Dulcolax Supp RECTAL DAILY PRN SEVERE CONSITIPATION Dicyclomine HCl 20 mg 01/10/18 09:42 Bentyl PO QID PRN Cramps Diphenhydramine HCl 25 mg 01/10/18 10:04 Benadryl PO Q6H PRN ITCHING/HIVES/ANAPHYLAXIS Diphenhydramine HCl 25 mg 01/11/18 09:01 Benadryl PO Q8H PRN itching Estrogens Conjugated 1.25 mg 01/10/18 11:30 01/12/18 08:09 Premarin PO 1.25 mg DAILY MARTINEZ Administration Fluconazole 200 mg 01/10/18 11:30 01/12/18 08:08 Diflucan PO 200 mg DAILY MARTINEZ Administration Gabapentin 800 mg 01/10/18 13:00 01/12/18 08:06 Neurontin PO 800 mg QID MARTINEZ Administration Hydromorphone HCl 1 mg 01/10/18 06:29 01/10/18 16:34 Dilaudid Pf Inj IV.PUSH 1 mg Q3H PRN Administration BREAKTHROUGH PAIN Ceftriaxone Sodium 1,000 mg/ 100 mls @ 200 mls/hr 01/11/18 05:00 01/12/18 05: 55 Sodium Chloride IV.SIG Infused Q24H MARTINEZ Infusion Sodium Chloride 1,000 mls @ 100 mls/hr 01/10/18 06:30 01/12/18 08:12 Ns Inj IV.CONT Not Given .Q10H MARTINEZ Sodium Chloride 1,000 mls @ 70 mls/hr 01/10/18 06:45 01/12/18 08:11 Ns Inj IV.CONT 70 mls/hr .[id number] MARITNEZ Administration Hydromorphone/Sodium Chloride 6 mg in 30 mls @ 0 mls/hr 01/10/18 12:22 10:45 Dilaudid Oxyhydrogen Welder Inj [employer] 0 mls/hr UNSCH PRN Administration per [employer] parameters 0 MG/HR Sodium Chloride 500 mls @ 30 mls/hr 01/10/18 23:45 01/12/18 10:57 Ns Inj IV.SIG Not Given .Q10H MARTINEZ Ketorolac Tromethamine 30 mg 01/12/18 10:40 01/12/18 10:46 Toradol Inj IV.PUSH 01/17/18 10:39 30 mg Q6H PRN Administration PAIN 1-10 Lactulose 30 ml 01/10/18 06:27 Lactulose Liq PO DAILY PRN SEVERE CONSITIPATION Levothyroxine Sodium 125 mcg 01/10/18 09:45 01/12/18 05:20 Synthroid PO 125 mcg DAILY@0600 [facility] Administration Lorazepam 2 mg 01/10/18 13:00 01/12/18 08:09 Ativan PO 2 mg QID [facility] Administration Magnesium Oxide 400 mg 01/11/18 18:00 01/11/18 17:12 Mag-Ox PO 400 mg BID@1100,1800 [facility] Administration Metoclopramide HCl 10 mg 01/10/18 13:00 01/12/18 08:09 Reglan PO 10 mg QID MARTINEZ Administration Miscellaneous Information 1 each 01/11/18 15:52 Misc Nursing Information OTHER 01/12/18 15:52 UNSCH PRN SEE LABEL COMMENTS Morphine Sulfate 4 mg 01/10/18 10:00 01/12/18 06:24 Morphine Inj IV.PUSH 4 mg Q3H PRN Administration PAIN 6-10;IF UNABLE TO TAKE PO Morphine Sulfate 4 mg 01/10/18 10:00 Morphine Inj IV.PUSH Q3H PRN BREAKTHROUGH PAIN Morphine Sulfate 4 mg 01/10/18 10:00 Morphine Inj IV.PUSH Q1H PRN Pain Scale 7-10 (Intractable) Morphine Sulfate 2 mg 01/10/18 10:00 Morphine Inj IV.PUSH Q3H PRN PAIN 3-5; IF UABLE TO TAKE PO Naloxone HCl 0.4 mg 01/10/18 12:22 Narcan Inj IV.PUSH PRN PRN SEE LABEL COMMENTS Ondansetron HCl 4 mg 01/12/18 10:45 Zofran Inj IV.PUSH Q4H PRN NAUSEA OR VOMITING Oxycodone/Acetaminophen 1 tab 01/10/18 06:29 01/10/18 09:49 Percocet 10/325 Mg PO 1 tab Q6H PRN Administration PAIN SCALE 6 TO 10 Oxycodone/Acetaminophen 1 tab 01/10/18 06:29 Percocet 5/325 Mg PO Q6H PRN PAIN SCALE 3 TO 5 Pantoprazole Sodium 40 mg 01/10/18 11:30 01/12/18 08:07 Protonix PO 40 mg BID MARTINEZ Administration Pt Own Med :( 0 each 01/10/18 13:00 Pentosan Polysulfate PO Sodium [Elmiron] TID MARTINEZ 100 Mg) Phenazopyridine HCl 200 mg 01/10/18 09:42 Pyridium PO TID PRN Bladder Spasms Senna/Docusate Sodium 1 tab 01/10/18 21:00 01/12/18 08:09 Rowan-Colace PO 1 tab BID MARTINEZ Administration Sennosides 17.2 mg 01/10/18 06:27 Senokot PO Q12H PRN Moderate Constipation Sodium Chloride 2 ml 01/10/18 09:00 01/12/18 08:10 Ns Flush IV.FLUSH 2 ml BID MARTINEZ Administration Sodium Chloride 2 ml 01/10/18 06:35 Ns Flush IV.FLUSH PRN PRN FLUSH AFTER USING IV ACCESS Sodium Chloride 2 gm 01/10/18 11:30 01/12/18 08:09 Sodium Chloride PO 1 gm DAILY MARTINEZ Administration Sucralfate 1 gm 01/10/18 12:00 01/12/18 08:07 Carafate PO 1 gm ACHS MARTINEZ Administration Tizanidine HCl 4 mg 01/10/18 13:00 01/12/18 08:06 Zanaflex PO 4 mg TID MARTINEZ Administration Assessment and Plan - Assessment (1) Hydronephrosis of right kidney Code(s): N13.30 - Unspecified hydronephrosis Status: Acute (2) Hydronephrosis Code(s): N13.30 - Unspecified hydronephrosis Status: Acute - Plan Urologic impression: 1. right hydroureteronephrosis at ureteropelvic junction of indeterminate etiology status post right stent placement with stent irritative symptoms 2. history chronic urinary retention managed with bethanechol 3. UTI Recommendations: 1. Agree with present antibiotic therapy 2. KUB study to reassess stent position 3. We will add tamsulosin for stent irritative symptoms 4. If patient unable to tolerate stent may require right nephrostomy tube placement by interventional radiology with subsequent stent removal. (2) Hydronephrosis Qualifiers: Hydronephrosis type: unspecified Qualified Code(s): N13.30 - Unspecified hydronephrosis
--- NOTE | 2018-01-12 11:29 | XR ---
EXAM DATE: 01/12/2018 11:21 AM EST AGE/SEX: 62 years / Female INDICATIONS: Patient had surgery yesterday for urinary retention. CLINICAL DATA: This is the patient's initial encounter. Patient reports that signs and symptoms have been present for 1 day and indicates a pain score of 7/10. MEDICAL/SURGICAL HISTORY: . Gastroesophageal reflux disease. Gastroparesis. Diabetes. Asthma. C olitis. Hysterectomy. Fusion, lumbar. Cholecystectomy. Colectomy. . COMPARISON: [facility], XR ABDOMEN KUB, 01/06/2018. . FINDINGS: A right internal ureteral stent has been placed in the locking system. Extends from the right renal pelvis to the bladder. Intestinal gas pattern remains normal. Postsurgical changes following lumbar fusion and left hip replacement are again noted. CONCLUSION: Status post placement of a right internal ureteral stent. Otherwise stable abdomen. Electronically signed by: Gordon Silva MD 01/12/2018 11:28 AM EST
[2018-01-12] MEDS: Magnesium Oxide 400 MG Tablet PO SCH ×2 (12:01→17:04)
[2018-01-12] MEDS: PENTOSAN POLYSULFATE SODIUM 100 MG PO SCH ×2 (14:54→16:59)
--- NOTE | 2018-01-13 05:22 | XR ---
EXAM DATE: 01/13/2018 5:18 AM EST AGE/SEX: 62 years / Female INDICATIONS: Diarrhea starting today CLINICAL DATA: This is the patient's initial encounter. Patient reports that signs and symptoms have been present for 1 day and indicates a pain score of 10/10. MEDICAL/SURGICAL HISTORY: . Gastroesophageal reflux disease. Gastroparesis. Diabetes. Asthma. C olitis. . Hysterectomy. Fusion, lumbar. Cholecystectomy. Colectomy. . [place] [facility] [place]12/[place]. . FINDINGS: Right-sided double-J ureteral stent is again noted in good position. Previous lumbar hardware fusion and left total hip arthroplasty noted. Surgical clips from previous cholecystectomy. Intestinal gas pattern is nonspecific and benign. No evidence of mass or visceromegaly CONCLUSION: Nonspecific, benign abdomen appearance Electronically signed by: David Hernandez MD 01/13/2018 5:21 AM EST
[2018-01-13] MEDS: Sod Chloride 0.9% Inj 1,000 ML IV.CONT SCH ×4 (05:34→20:46)
[2018-01-13] MEDS: Levothyroxine 125 MCG Tablet PO SCH (05:35)
[2018-01-13] MEDS: Ketorolac Inj 30 MG/ML (IVP) Vial IV.PUSH PRN ×3 (05:35→17:00)
[2018-01-13] MEDS: HYDROmorphone PCA Inj 6 MG/30 ML PCA.VIAL PCA PRN ×2 (06:03→23:21)
[2018-01-13] MEDS: ESTROGENS CONJUGATED 1.25 MG PO SCH (10:08)
[2018-01-13] MEDS: Gabapentin 400 MG Capsule PO SCH ×4 (10:08→20:53)
[2018-01-13] MEDS: Sucralfate 1 GM Tablet PO SCH ×4 (10:08→20:54)
[2018-01-13] MEDS: Metoclopramide 10 MG Tablet PO SCH ×4 (10:09→20:54)
[2018-01-13] MEDS: Sodium Chloride 0.9% 2 ML Flush BID IV.FLUSH SCH ×2 (10:09→20:47)
[2018-01-13] MEDS: Sodium Chloride 1 GM Tablet PO SCH (10:09)
[2018-01-13] MEDS: Senna/Docusate Sodium 8.6/50 MG Tablet PO SCH (10:10)
[2018-01-13] MEDS: PENTOSAN POLYSULFATE SODIUM 100 MG PO SCH ×3 (10:16→17:03)
[2018-01-13] MEDS: Magnesium Oxide 400 MG Tablet PO SCH ×2 (11:09→17:03)
--- NOTE | 2018-01-13 11:16 | P.PNIM ---
Subjective Interval history: in no acute distress. although still with lower abdominal pain but looks more comfortable. started to have diarrhea last night. no fever. has on and off nausea. d/w the RN. Physical Exam Vital signs: Vital Signs 01/12/18 12:00 01/12/18 16:00 01/12/18 20:00 Temperature 97.8 F 97.4 F L 97.3 F L Pulse Rate 76 55 L 49 L Respiratory Rate 18 18 17 Blood Pressure 107/55 L 111/54 L 100/70 Pulse Oximetry 91 L 94 L 94 L 01/13/18 00:00 01/13/18 04:00 01/13/18 08:00 Temperature 97.9 F 97.7 F 98.1 F Pulse Rate 74 95 H 80 Respiratory Rate 18 18 18 Blood Pressure 120/68 141/70 H 116/74 Pulse Oximetry 94 L 94 L 95 Intake & Output 01/12/18 01/13/18 01/13/18 18:59 06:59 18:59 Intake Total 1999 1340 / 1340 Output Total 1550 / 1550 550 / 550 1400 / 1400 Balance 450 / 450 790 / 790 -1400 / -1400 Weight 89.5 kg Intake: IV 1999 1100 / 1100 NS Inj 1,000 ML @ 70 mls/hr IV. 1999 1000 / 1000 CONT .[id number] MARTINEZ Rx#:[id number] Rocephin Inj 1,000 MG In NS Inj 100 / 100 100 ML @ 200 mls/hr IV.SIG Q24H MARTINEZ Rx#:[id number] Oral 240 / 240 Output: Urine 0 / 0 Urine Amount (Catheter) 1550 / 1550 550 / 550 1400 / 1400 Indwelling Urethral Catheter 1550 / 1550 550 / 550 1400 / 1400 Other: Date of Last Bowel Movement 01/10/18 01/13/18 # Bowel Movements 3 - Constitutional no acute distress - Routine Respiratory Exam Present: CTA bilaterally - Routine Cardiovascular Exam Present: RRR - Routine Abdominal Exam Present: soft - Routine Extremities Exam Comments: no pedal edema. - Routine Neurological Exam Present: alert, oriented X3 - Urinary Catheter Management Indwelling Urethral Catheter Cath placed during this visit: yes, but has since been removed by the nurse Reason for continuing: Acute urinary retention Insertion date: 01/12/18 Insertion time: 14:44 Removal date: 01/12/18 Removal time: 08:42 Results - Labs CBC & Chem 7: 01/11/18 19:51 01/11/18 10:30 Laboratory Results - last 24 hr 01/13/18 04:59 Stl C.difficile DNA Amp Positive H St C. diff Tox Epid 027 Negative Microbiology 01/10/18 04:15 Blood - Peripheral Aerobic Blood Culture - Preliminary No growth in 3 days 01/10/18 04:15 Blood - Peripheral Anaerobic Blood Culture - Preliminary No growth in 3 days 01/10/18 04:10 Blood - Peripheral Aerobic Blood Culture - Preliminary No growth in 3 days 01/10/18 04:10 Blood - Peripheral Anaerobic Blood Culture - Preliminary No growth in 3 days 01/10/18 04:10 Clean Catch Urine Urine Culture - Final Klebsiella oxytoca - Imaging Impressions Abdomen X-Ray 01/12/18 00:00 CONCLUSION: Status post placement of a right internal ureteral stent. Otherwise stable abdomen. Abdomen X-Ray 01/13/18 03:57 CONCLUSION: Nonspecific, benign abdomen appearance - Procedures None Assessment and Plan - Plan 1. Urinary Tract infection started on Rocephin follow Urinary Culture with Klebsiella 2. Hydronephrosis of right kidney as per urology specialist the progression of right hydroureteronephrosis of indeterminate etiology, chronic urinary retention managed with bethanechol, to continue present antibiotics, s/p Cystoscopy and right retrograde pyelogram and right ureteral stent placement. continue with pain control. 3.Intractable chronic Abdominal pain now on medical Marijuana, narcotic dependence 4. Nausea and vomit on Antiemetics/history of Gastroparesis 5. DM II on sliding scale 6. Anxiety disorder to continue Home medicines 7. GERD continue on PPI 8. Hypothyroidism resumed thyroid medications and check a TSH and a free T4 9. Chronic back pain continue on Percocet and morphine as needed for pain 10. Hypertension resume home medications 11. Rheumatoid arthritis and chronic pain resume home medications including Percocet and morphine as needed Obviously cannot restart her medical marijuana here 12. Interstitial cystitis and frequent urinary tract infections continue on Rocephin. Continue on Diflucan Continue on Bethanechol 13- C- diff colitis; start on oral Vanco Continue on DVT prophylaxis with Lovenox Continue on GI prophylaxis with Protonix Discharge Planning: when has clinically improved and cleared by Urology.
--- NOTE | 2018-01-13 11:53 | P.PNURO ---
Subjective Patient symptoms today: Reports feeling much better today Tolerating the stent well Complains of diarrhea Objective Vital Signs: Vital Signs 01/12/18 12:00 01/12/18 16:00 01/12/18 20:00 Temperature 97.8 F 97.4 F L 97.3 F L Pulse Rate 76 55 L 49 L Respiratory Rate 18 18 17 Blood Pressure 107/55 L 111/54 L 100/70 Pulse Oximetry 91 L 94 L 94 L 01/13/18 00:00 01/13/18 04:00 01/13/18 08:00 Temperature 97.9 F 97.7 F 98.1 F Pulse Rate 74 95 H 80 Respiratory Rate 18 18 18 Blood Pressure 120/68 141/70 H 116/74 Pulse Oximetry 94 L 94 L 95 01/13/18 11:46 Temperature 98.4 F Pulse Rate 63 Respiratory Rate 18 Blood Pressure 138/64 Pulse Oximetry 94 L Intake & Output 01/12/18 01/13/18 01/13/18 18:59 06:59 18:59 Intake Total 1999 1340 / 1340 Output Total 1550 / 1550 550 / 550 1400 / 1400 Balance 450 / 450 790 / 790 -1400 / -1400 Weight 89.5 kg Intake: IV 1999 1100 / 1100 NS Inj 1,000 ML @ 70 mls/hr IV. 1999 1000 / 1000 CONT .[id number] [facility] Rx#:[id number] Rocephin Inj 1,000 MG In NS Inj 100 / 100 100 ML @ 200 mls/hr IV.SIG Q24H [facility] Rx#:[id number] Oral 240 / 240 Output: Urine 0 / 0 Urine Amount (Catheter) 1550 / 1550 550 / 550 1400 / 1400 Indwelling Urethral Catheter 1550 / 1550 550 / 550 1400 / 1400 Other: Date of Last Bowel Movement 01/10/18 01/13/18 # Bowel Movements 3 Result Diagrams: 01/11/18 19:51 01/11/18 10:30 Imaging: Impressions Abdomen X-Ray 01/13/18 03:57 CONCLUSION: Nonspecific, benign abdomen appearance KUB study reviewed and right stent appears to be in good position. Medications and IVs: Active Medications Generic Name Dose Route Start Last Admin Trade Name Freq PRN Reason Stop Dose Admin Acetaminophen 650 mg 01/10/18 10:00 11/06/18 08:08 Tylenol PO 650 mg Q4H PRN Administration Temp > 100.4 Al Hydroxide/Mg Hydroxide 30 ml 01/10/18 06:27 Milk Of Magnesia Liq PO Q12H PRN Mild Constipation Bethanechol Chloride 25 mg 01/10/18 11:30 01/13/18 09:05 Urecholine PO 25 mg BID [facility] Administration Bisacodyl 10 mg 01/10/18 06:27 Dulcolax Supp RECTAL DAILY PRN SEVERE CONSITIPATION Dicyclomine HCl 20 mg 01/10/18 09:42 Bentyl PO QID PRN Cramps Diphenhydramine HCl 25 mg 01/10/18 10:04 Benadryl PO Q6H PRN ITCHING/HIVES/ANAPHYLAXIS Diphenhydramine HCl 25 mg 01/11/18 09:01 Benadryl PO Q8H PRN itching Estrogens Conjugated 1.25 mg 01/10/18 11:30 01/13/18 10:08 Premarin PO 1.25 mg DAILY [facility] Administration Fluconazole 200 mg 01/10/18 11:30 01/13/18 10:09 Diflucan PO 200 mg DAILY [facility] Administration Gabapentin 800 mg 01/10/18 13:00 01/13/18 10:08 Neurontin PO 800 mg QID [facility] Administration Hydromorphone HCl 1 mg 01/10/18 06:29 01/10/18 16:34 Dilaudid Pf Inj IV.PUSH 1 mg Q3H PRN Administration BREAKTHROUGH PAIN Ceftriaxone Sodium 1,000 mg/ 100 mls @ 200 mls/hr 01/11/18 05:00 01/13/18 06: 04 Sodium Chloride IV.SIG Infused Q24H [facility] Infusion Sodium Chloride 1,000 mls @ 100 mls/hr 01/10/18 06:30 01/13/18 05:34 Ns Inj IV.CONT Not Given .Q10H [facility] Sodium Chloride 1,000 mls @ 70 mls/hr 01/10/18 06:45 01/13/18 05:36 Ns Inj IV.CONT 70 mls/hr .[id number] [facility] Administration Hydromorphone/Sodium Chloride 6 mg in 30 mls @ 0 mls/hr 01/10/18 12:22 06:03 Dilaudid Target Worker Inj COLOR CORRECTOR 0 mls/hr UNSCH PRN Administration per COLOR CORRECTOR parameters 0 MG/HR Sodium Chloride 500 mls @ 30 mls/hr 01/10/18 23:45 01/12/18 10:57 Ns Inj IV.SIG Not Given .Q10H [facility] Ketorolac Tromethamine 30 mg 01/12/18 10:40 01/13/18 11:09 Toradol Inj IV.PUSH 01/17/18 10:39 30 mg Q6H PRN Administration PAIN 1-10 Lactulose 30 ml 01/10/18 06:27 Lactulose Liq PO DAILY PRN SEVERE CONSITIPATION Levothyroxine Sodium 125 mcg 01/10/18 09:45 01/13/18 05:35 Synthroid PO 125 mcg DAILY@0600 [facility] Administration Lorazepam 2 mg 01/10/18 13:00 01/13/18 09:05 Ativan PO 2 mg QID [facility] Administration Magnesium Oxide 400 mg 01/11/18 18:00 01/13/18 11:09 Mag-Ox PO 400 mg BID@1100,1800 [facility] Administration Metoclopramide HCl 10 mg 01/10/18 13:00 01/13/18 10:09 Reglan PO 10 mg QID [facility] Administration Morphine Sulfate 4 mg 01/10/18 10:00 01/12/18 06:24 Morphine Inj IV.PUSH 4 mg Q3H PRN Administration PAIN 6-10;IF UNABLE TO TAKE PO Morphine Sulfate 4 mg 01/10/18 10:00 Morphine Inj IV.PUSH Q3H PRN BREAKTHROUGH PAIN Morphine Sulfate 4 mg 01/10/18 10:00 Morphine Inj IV.PUSH Q1H PRN Pain Scale 7-10 (Intractable) Morphine Sulfate 2 mg 01/10/18 10:00 Morphine Inj IV.PUSH Q3H PRN PAIN 3-5; IF UABLE TO TAKE PO Naloxone HCl 0.4 mg 01/10/18 12:22 Narcan Inj IV.PUSH PRN PRN SEE LABEL COMMENTS Ondansetron HCl 4 mg 01/12/18 10:45 01/13/18 11:10 Zofran Inj IV.PUSH 4 mg Q4H PRN Administration NAUSEA OR VOMITING Oxycodone/Acetaminophen 1 tab 01/10/18 06:29 01/10/18 09:49 Percocet 10/325 Mg PO 1 tab Q6H PRN Administration PAIN SCALE 6 TO 10 Oxycodone/Acetaminophen 1 tab 01/10/18 06:29 Percocet 5/325 Mg PO Q6H PRN PAIN SCALE 3 TO 5 Pantoprazole Sodium 40 mg 01/10/18 11:30 01/13/18 10:08 Protonix PO 40 mg BID [facility] Administration Pt Own Med :( 0 each 01/10/18 13:00 01/13/18 10:16 Pentosan Polysulfate PO Not Given Sodium [Elmiron] TID [facility] 100 Mg) Phenazopyridine HCl 200 mg 01/10/18 09:42 Pyridium PO TID PRN Bladder Spasms Sennosides 17.2 mg 01/10/18 06:27 Senokot PO Q12H PRN Moderate Constipation Sodium Chloride 2 ml 01/10/18 09:00 01/13/18 10:09 Ns Flush IV.FLUSH 2 ml BID [facility] Administration Sodium Chloride 2 ml 01/10/18 06:35 Ns Flush IV.FLUSH PRN PRN FLUSH AFTER USING IV ACCESS Sodium Chloride 2 gm 01/10/18 11:30 01/13/18 10:09 Sodium Chloride PO 2 gm DAILY [facility] Administration Sucralfate 1 gm 01/10/18 12:00 01/13/18 10:08 Carafate PO 1 gm ACHS [facility] Administration Tamsulosin HCl 0.4 mg 01/12/18 12:00 01/13/18 10:08 Flomax PO 0.4 mg DAILY [facility] Administration Tizanidine HCl 4 mg 01/10/18 13:00 01/13/18 10:09 Zanaflex PO 4 mg TID [facility] Administration Vancomycin HCl 125 mg 01/13/18 13:00 Vancomycin Po PO QID [facility] Assessment and Plan - Assessment (1) Hydronephrosis of right kidney Code(s): N13.30 - Unspecified hydronephrosis Status: Acute (2) Hydronephrosis Code(s): N13.30 - Unspecified hydronephrosis Status: Acute - Plan Urologic impression: 1. right hydroureteronephrosis at ureteropelvic junction of indeterminate etiology status post right stent placement with stent irritative symptoms 2. history chronic urinary retention managed with bethanechol 3. UTI Recommendations: 1. Agree with present antibiotic therapy 2. Continue with Valadez catheter to gravity drainage and removed prior to discharge 3. Continue with tamsulosin 0.4 mg by mouth daily 4. We will eventually require further workup to include right ureteroscopy as an outpatient once UTI completely resolved 5. Nothing further to add at this time (2) Hydronephrosis Qualifiers: Hydronephrosis type: unspecified Qualified Code(s): N13.30 - Unspecified hydronephrosis
--- NOTE | 2018-01-13 14:39 | P.DCO ---
- Physical Therapy Order: Evaluate and treat - Home Health Nursing Order: Medical education, Signs/symptoms of disease process, Medication education-adverse effect, Nursing assessment with vital signs - Case Management Consult Yes - Certification I have seen patient Shreya Wallace on 01/13/18. My clinical findings support the need for the requested home health care services because: Limited mobility due to disease progression I certify that my clinical findings support that this patient is homebound because: Unsteady gait/balance
[2018-01-14] MEDS: Ketorolac Inj 30 MG/ML (IVP) Vial IV.PUSH PRN ×4 (01:04→23:17)
[2018-01-14 06:04] LABS: Baso % (Auto) 0.4 % (0.0-2.0); Eos # (Auto) 0.2 th/mm3 (0.0-0.4); Eos % (Auto) 2.2 % (0.0-4.0); Hematocrit 32.7 % (35.0-46.0); Lymph # (Auto) 2.8 th/mm3 (1.0-4.8); Mean Corpuscular HGB Conc 33.6 % (32.0-36.0); Mean Corpuscular Hemoglobin 30.8 pg (27.0-34.0); Mean Corpuscular Volume 91.8 fL (80.0-100.0); Mean Platelet Volume 8.2 fL (7.0-11.0); Mono # (Auto) 0.8 th/mm3 (0.0-0.9); Mono % (Auto) 9.2 % (0.0-8.0); Neut # (Auto) 5.2 th/mm3 (1.8-7.7); Neut % (Auto) 57.2 % (16.0-70.0); Platelet Count 223 th/mm3 (150-450); Red Blood Count 3.56 mil/mm3 (4.00-5.30); Red Cell Distribution Width 13.2 % (11.6-17.2); White Blood Count 9.1 th/mm3 (4.0-11.0)
[2018-01-14] MEDS: Levothyroxine 125 MCG Tablet PO SCH (06:04)
[2018-01-14] MEDS: Sod Chloride 0.9% Inj 1,000 ML IV.CONT SCH ×4 (06:04→23:04)
[2018-01-14 06:21] LABS: Calcium 7.8 mg/dL (8.5-10.1); Potassium 3.4 meq/L (3.5-5.1)
[2018-01-14 07:08] LABS: Platelet Estimate Normal (Normal); Platelet Morphology Normal (Normal)
[2018-01-14] MEDS: Metoclopramide 10 MG Tablet PO SCH ×4 (08:55→22:34)
[2018-01-14] MEDS: Sucralfate 1 GM Tablet PO SCH ×4 (08:55→22:47)
[2018-01-14] MEDS: Gabapentin 400 MG Capsule PO SCH ×4 (08:55→22:30)
[2018-01-14] MEDS: Sodium Chloride 1 GM Tablet PO SCH (08:55)
[2018-01-14] MEDS: ESTROGENS CONJUGATED 1.25 MG PO SCH (08:55)
[2018-01-14] MEDS: Sodium Chloride 0.9% 2 ML Flush BID IV.FLUSH SCH ×2 (08:57→22:35)
[2018-01-14] MEDS: PENTOSAN POLYSULFATE SODIUM 100 MG PO SCH ×3 (08:58→22:37)
--- NOTE | 2018-01-14 09:19 | P.PNURO ---
Subjective Patient symptoms today: Reports no significant stent discomfort. Her main concern is ongoing diarrhea related to Clostridium difficile Objective Vital Signs: Vital Signs 01/13/18 11:46 01/13/18 16:00 01/13/18 18:32 Temperature 98.4 F 97.2 F L Pulse Rate 63 60 Respiratory Rate 18 18 Blood Pressure 138/64 91/47 L 95/63 L Pulse Oximetry 94 L 95 01/13/18 18:33 01/13/18 20:00 01/14/18 00:00 Temperature 98.0 F 97.6 F Pulse Rate 62 58 L 72 Respiratory Rate 16 18 Blood Pressure 111/55 L 133/79 Pulse Oximetry 95 96 94 L 01/14/18 04:00 01/14/18 07:16 Temperature 98.2 F 97.6 F Pulse Rate 75 81 Respiratory Rate 18 22 Blood Pressure 138/73 170/88 H Pulse Oximetry 95 94 L Intake & Output 01/13/18 01/14/18 01/14/18 18:59 06:59 18:59 Intake Total 100 / 100 Output Total 1700 / 1700 1850 / 1850 Balance -1700 / -1700 -1750 / -1750 Weight 89.5 kg Intake: IV 100 / 100 Rocephin Inj 1,000 MG In NS Inj 100 / 100 100 ML @ 200 mls/hr IV.SIG Q24H [facility] Rx#:[id number] Output: Urine 1250 / 1250 Urine Amount (Catheter) 1700 / 1700 600 / 600 Indwelling Urethral Catheter 1700 / 1700 600 / 600 Other: Date of Last Bowel Movement 01/13/18 # Bowel Movements 4 5 Result Diagrams: 01/14/18 05:14 01/14/18 05:14 Other Results: Abdomen soft, nondistended, nontender No CVA tenderness Medications and IVs: Active Medications Generic Name Dose Route Start Last Admin Trade Name Freq PRN Reason Stop Dose Admin Acetaminophen 650 mg 01/10/18 10:00 01/11/18 08:08 Tylenol PO 650 mg Q4H PRN Administration Temp > 100.4 Al Hydroxide/Mg Hydroxide 30 ml 01/10/18 06:27 Milk Of Magnesia Liq PO Q12H PRN Mild Constipation Bethanechol Chloride 25 mg 01/10/18 11:30 01/14/18 08:54 Urecholine PO 25 mg BID [facility] Administration Bisacodyl 10 mg 01/10/18 06:27 Dulcolax Supp RECTAL DAILY PRN SEVERE CONSITIPATION Dicyclomine HCl 20 mg 01/10/18 09:42 Bentyl PO QID PRN Cramps Diphenhydramine HCl 25 mg 01/10/18 10:04 Benadryl PO Q6H PRN ITCHING/HIVES/ANAPHYLAXIS Diphenhydramine HCl 25 mg 01/11/18 09:01 Benadryl PO Q8H PRN itching Estrogens Conjugated 1.25 mg 01/10/18 11:30 01/14/18 08:55 Premarin PO 1.25 mg DAILY [facility] Administration Fluconazole 200 mg 01/10/18 11:30 01/14/18 08:55 Diflucan PO 200 mg DAILY [facility] Administration Gabapentin 800 mg 01/10/18 13:00 01/14/18 08:55 Neurontin PO 800 mg QID [facility] Administration Hydromorphone HCl 1 mg 01/10/18 06:29 01/10/18 16:34 Dilaudid Pf Inj IV.PUSH 1 mg Q3H PRN Administration BREAKTHROUGH PAIN Ceftriaxone Sodium 1,000 mg/ 100 mls @ 200 mls/hr 01/11/18 05:00 01/14/18 06: 34 Sodium Chloride IV.SIG Infused Q24H [facility] Infusion Sodium Chloride 1,000 mls @ 100 mls/hr 01/10/18 06:30 01/14/18 06:04 Ns Inj IV.CONT 70 mls/hr .Q10H [facility] Administration Sodium Chloride 1,000 mls @ 70 mls/hr 01/10/18 06:45 01/13/18 20:47 Ns Inj IV.CONT 70 mls/hr .[id number] [facility] Infusion Hydromorphone/Sodium Chloride 6 mg in 30 mls @ 0 mls/hr 01/10/18 12:22 06:45 Dilaudid Flatwork Finisher Hand Inj ROLLER CHECKER 0 mls/hr UNSCH PRN Infusion per ROLLER CHECKER parameters 0 MG/HR Sodium Chloride 500 mls @ 30 mls/hr 01/10/18 23:45 01/12/18 10:57 Ns Inj IV.SIG Not Given .Q10H [facility] Ketorolac Tromethamine 30 mg 01/12/18 10:40 01/14/18 08:53 Toradol Inj IV.PUSH 01/17/18 10:39 30 mg Q6H PRN Administration PAIN 1-10 Lactulose 30 ml 01/10/18 06:27 Lactulose Liq PO DAILY PRN SEVERE CONSITIPATION Levothyroxine Sodium 125 mcg 01/10/18 09:45 01/14/18 06:04 Synthroid PO 125 mcg DAILY@0600 [facility] Administration Lorazepam 2 mg 01/10/18 13:00 01/14/18 08:54 Ativan PO 2 mg QID [facility] Administration Magnesium Oxide 400 mg 01/11/18 18:00 01/13/18 17:03 Mag-Ox PO 400 mg BID@1100,1800 [facility] Administration Metoclopramide HCl 10 mg 01/10/18 13:00 01/14/18 08:55 Reglan PO 10 mg QID [facility] Administration Morphine Sulfate 4 mg 01/10/18 10:00 01/12/18 06:24 Morphine Inj IV.PUSH 4 mg Q3H PRN Administration PAIN 6-10;IF UNABLE TO TAKE PO Morphine Sulfate 4 mg 01/10/18 10:00 Morphine Inj IV.PUSH Q3H PRN BREAKTHROUGH PAIN Morphine Sulfate 4 mg 01/10/18 10:00 Morphine Inj IV.PUSH Q1H PRN Pain Scale 7-10 (Intractable) Morphine Sulfate 2 mg 01/10/18 10:00 Morphine Inj IV.PUSH Q3H PRN PAIN 3-5; IF UABLE TO TAKE PO Naloxone HCl 0.4 mg 01/10/18 12:22 Narcan Inj IV.PUSH PRN PRN SEE LABEL COMMENTS Ondansetron HCl 4 mg 01/12/18 10:45 01/14/18 04:33 Zofran Inj IV.PUSH 4 mg Q4H PRN Administration NAUSEA OR VOMITING Oxycodone/Acetaminophen 1 tab 01/10/18 06:29 01/10/18 09:49 Percocet 10/325 Mg PO 1 tab Q6H PRN Administration PAIN SCALE 6 TO 10 Oxycodone/Acetaminophen 1 tab 01/10/18 06:29 Percocet 5/325 Mg PO Q6H PRN PAIN SCALE 3 TO 5 Pantoprazole Sodium 40 mg 01/10/18 11:30 01/14/18 08:55 Protonix PO 40 mg BID [facility] Administration Pt Own Med :( 0 each 01/10/18 13:00 01/14/18 08:58 Pentosan Polysulfate PO Not Given Sodium [Elmiron] TID [facility] 100 Mg) Phenazopyridine HCl 200 mg 01/10/18 09:42 Pyridium PO TID PRN Bladder Spasms Sennosides 17.2 mg 01/10/18 06:27 Senokot PO Q12H PRN Moderate Constipation Sodium Chloride 2 ml 01/10/18 09:00 01/14/18 08:57 Ns Flush IV.FLUSH 2 ml BID [facility] Administration Sodium Chloride 2 ml 01/10/18 06:35 Ns Flush IV.FLUSH PRN PRN FLUSH AFTER USING IV ACCESS Sodium Chloride 2 gm 01/10/18 11:30 01/14/18 08:55 Sodium Chloride PO 2 gm DAILY [facility] Administration Sucralfate 1 gm 01/10/18 12:00 01/14/18 08:55 Carafate PO 1 gm ACHS [facility] Administration Tamsulosin HCl 0.4 mg 01/12/18 12:00 01/14/18 08:55 Flomax PO 0.4 mg DAILY [facility] Administration Tizanidine HCl 4 mg 01/10/18 13:00 01/14/18 08:55 Zanaflex PO 4 mg TID [facility] Administration Vancomycin HCl 125 mg 01/13/18 13:00 01/14/18 08:55 Vancomycin Po PO 125 mg QID [facility] Administration Assessment and Plan - Assessment (1) Hydronephrosis of right kidney Code(s): N13.30 - Unspecified hydronephrosis Status: Acute (2) Hydronephrosis Code(s): N13.30 - Unspecified hydronephrosis Status: Acute - Plan Urologic impression: 1. right hydroureteronephrosis at ureteropelvic junction of indeterminate etiology status post right stent placement with improved stent irritative symptoms 2. history chronic urinary retention managed with bethanechol 3. UTI Recommendations: 1. Agree with present antibiotic therapy 2. Continue with Valadez catheter to gravity drainage and removed prior to discharge 3. Continue with tamsulosin 0.4 mg by mouth daily 4. We will eventually require further workup to include right ureteroscopy as an outpatient with Dr. Veloz once UTI completely resolved 5. Will be available as needed. (2) Hydronephrosis Qualifiers: Hydronephrosis type: unspecified Qualified Code(s): N13.30 - Unspecified hydronephrosis
--- NOTE | 2018-01-14 09:37 | P.PNIM ---
Subjective Interval history: f/u; hydronephrosis in no acute distress. looks more comfortable. pain is somewhat better. no fever. still with diarrhea. Physical Exam Vital signs: Vital Signs 01/13/18 11:46 01/13/18 16:00 01/13/18 18:32 Temperature 98.4 F 97.2 F L Pulse Rate 63 60 Respiratory Rate 18 18 Blood Pressure 138/64 91/47 L 95/63 L Pulse Oximetry 94 L 95 01/13/18 18:33 01/13/18 20:00 01/14/18 00:00 Temperature 98.0 F 97.6 F Pulse Rate 62 58 L 72 Respiratory Rate 16 18 Blood Pressure 111/55 L 133/79 Pulse Oximetry 95 96 94 L 01/14/18 04:00 01/14/18 07:16 Temperature 98.2 F 97.6 F Pulse Rate 75 81 Respiratory Rate 18 22 Blood Pressure 138/73 170/88 H Pulse Oximetry 95 94 L Intake & Output 01/13/18 01/14/18 01/14/18 18:59 06:59 18:59 Intake Total 100 / 100 Output Total 1700 / 1700 1850 / 1850 Balance -1700 / -1700 -1750 / -1750 Weight 89.5 kg Intake: IV 100 / 100 Rocephin Inj 1,000 MG In NS Inj 100 / 100 100 ML @ 200 mls/hr IV.SIG Q24H [facility] Rx#:[id number] Output: Urine 1250 / 1250 Urine Amount (Catheter) 1700 / 1700 600 / 600 Indwelling Urethral Catheter 1700 / 1700 600 / 600 Other: Date of Last Bowel Movement 01/13/18 # Bowel Movements 4 5 - Constitutional no acute distress - Routine Respiratory Exam Present: CTA bilaterally - Routine Cardiovascular Exam Present: RRR - Routine Abdominal Exam Present: soft - Routine Extremities Exam Comments: no pedal edema. - Routine Neurological Exam Present: alert, oriented X3 - Urinary Catheter Management Indwelling Urethral Catheter Cath placed during this visit: yes, but has since been removed by the nurse Reason for continuing: Acute urinary retention Insertion date: 01/12/18 Insertion time: 14:44 Removal date: 01/12/18 Removal time: 08:42 Results - Labs CBC & Chem 7: 01/14/18 05:14 01/14/18 05:14 Laboratory Results - last 24 hr 01/13/18 01/14/18 01/14/18 04:59 05:14 05:14 WBC 9.1 RBC 3.56 L Hgb 11.0 L Hct 32.7 L MCV 91.8 MCH 30.8 MCHC 33.6 RDW 13.2 Plt Count 223 MPV 8.2 Prelim Diff (Auto) Slide review pending Neut % (Auto) 57.2 Lymph % (Auto) 31.0 [place] % (Auto) 9.2 H Eos % (Auto) 2.2 Baso % (Auto) 0.4 Neut # (Auto) 5.2 Lymph # (Auto) 2.8 [place] # (Auto) 0.8 Eos # (Auto) 0.2 Baso # (Auto) 0.0 WBC Differential . Diff Scan Auto diff confirmed Differential Comment . Platelet Estimate Normal Platelet Morphology Normal Sodium 142 Potassium 3.4 L Chloride 106 Carbon Dioxide 26.0 Anion Gap 10 BUN 7 Creatinine 0.79 Estimated GFR 74 L Random Glucose 73 L Calcium 7.8 L Stool C.difficile Ag Negative Stool C.difficile Toxin Negative Microbiology 01/10/18 04:15 Blood - Peripheral Aerobic Blood Culture - Preliminary No growth in 3 days 01/10/18 04:15 Blood - Peripheral Anaerobic Blood Culture - Preliminary No growth in 3 days 01/10/18 04:10 Blood - Peripheral Aerobic Blood Culture - Preliminary No growth in 3 days 01/10/18 04:10 Blood - Peripheral Anaerobic Blood Culture - Preliminary No growth in 3 days - Procedures s/p Cystoscopy and right retrograde pyelogram and right ureteral stent placement. Assessment and Plan - Plan 1. Urinary Tract infection started on Rocephin follow Urinary Culture with Klebsiella 2. Hydronephrosis of right kidney as per urology specialist the progression of right hydroureteronephrosis of indeterminate etiology, chronic urinary retention managed with bethanechol, to continue present antibiotics, s/p Cystoscopy and right retrograde pyelogram and right ureteral stent placement. continue with pain control; will dc pain pump within the next 24 hrs and switch to oral regimen. 3.Intractable chronic Abdominal pain now on medical Marijuana, narcotic dependence 4. Nausea and vomit on Antiemetics/history of Gastroparesis 5. DM II on sliding scale 6. Anxiety disorder to continue Home medicines 7. GERD continue on PPI 8. Hypothyroidism resumed thyroid medications and check a TSH and a free T4 9. Chronic back pain continue on Percocet and morphine as needed for pain 10. Hypertension resume home medications 11. Rheumatoid arthritis and chronic pain resume home medications including Percocet and morphine as needed Obviously cannot restart her medical marijuana here 12. Interstitial cystitis and frequent urinary tract infections continue on Rocephin. Continue on Diflucan Continue on Bethanechol 13- C- diff colitis; continue on oral Vanco Continue on DVT prophylaxis with Lovenox Continue on GI prophylaxis with Protonix Discharge Planning: dc home with [facility]- likely on Wednesday if pain has been well controlled and diarrhea has improved.
[2018-01-14] MEDS: Magnesium Oxide 400 MG Tablet PO SCH ×2 (10:46→19:06)
[2018-01-14] MEDS: HYDROmorphone PCA Inj 6 MG/30 ML PCA.VIAL PCA PRN (20:34)
[2018-01-14] MEDS: Lactobacillus Acidophilus/L. Spores Tablet PO SCH (22:34)
[2018-01-15] MEDS: Sod Chloride 0.9% Inj 1,000 ML IV.CONT SCH ×4 (03:22→19:01)
[2018-01-15] MEDS: Ketorolac Inj 30 MG/ML (IVP) Vial IV.PUSH PRN ×3 (05:58→19:11)
[2018-01-15] MEDS: Levothyroxine 125 MCG Tablet PO SCH (06:05)
[2018-01-15] MEDS: Sucralfate 1 GM Tablet PO SCH ×4 (07:41→23:18)
[2018-01-15] MEDS: Sodium Chloride 1 GM Tablet PO SCH (08:22)
[2018-01-15] MEDS: Gabapentin 400 MG Capsule PO SCH ×4 (08:22→21:07)
[2018-01-15] MEDS: Lactobacillus Acidophilus/L. Spores Tablet PO SCH ×2 (08:22→23:19)
[2018-01-15] MEDS: ESTROGENS CONJUGATED 1.25 MG PO SCH (08:22)
[2018-01-15] MEDS: Metoclopramide 10 MG Tablet PO SCH ×4 (08:23→23:30)
[2018-01-15] MEDS: PENTOSAN POLYSULFATE SODIUM 100 MG PO SCH ×3 (08:26→19:02)
[2018-01-15] MEDS: Sodium Chloride 0.9% 2 ML Flush BID IV.FLUSH SCH ×2 (08:26→23:21)
--- NOTE | 2018-01-15 08:42 | P.PNIM ---
Subjective Interval history: f/u; hydronephrosis in no acute distress. on pain pump; still has pain but overall looks more comfortable. complaining of some generalized itching. still with diarrhea- no fever. Physical Exam Vital signs: Vital Signs 01/14/18 12:00 01/14/18 16:00 01/14/18 20:00 Temperature 97.4 F L 97.7 F 97.6 F Pulse Rate 54 L 93 H 77 Respiratory Rate 16 18 18 Blood Pressure 136/82 117/53 L 158/70 H Pulse Oximetry 94 L 52 L 96 01/14/18 21:04 01/15/18 00:00 01/15/18 03:21 Temperature 98.1 F Pulse Rate 63 Respiratory Rate 19 17 19 Blood Pressure 133/62 Pulse Oximetry 94 L 01/15/18 04:00 Temperature 97.6 F Pulse Rate 75 Respiratory Rate 18 Blood Pressure 124/62 Pulse Oximetry 96 Intake & Output 01/14/18 01/15/18 01/15/18 18:59 06:59 18:59 Intake Total 1000 / 1000 1600 / 1600 Output Total 1300 / 1300 2400 / 2400 400 / 400 Balance -300 / -300 -800 / -800 -400 / -400 Weight 89.5 kg Intake: IV 1000 / 1000 1600 / 1600 NS Inj 1,000 ML @ 100 mls/hr IV 1000 / 1000 1500 / 1500 .CONT .Q10H [facility] Rx#:[id number] Rocephin Inj 1,000 MG In NS Inj 100 / 100 100 ML @ 200 mls/hr IV.SIG Q24H [facility] Rx#:[id number] Output: Urine 2400 / 2400 400 / 400 Urine Amount (Catheter) 1300 / 1300 Indwelling Urethral Catheter 1300 / 1300 Other: Date of Last Bowel Movement 01/14/18 01/15/18 # Bowel Movements 13 2 - Constitutional no acute distress - Routine Respiratory Exam Present: CTA bilaterally - Routine Cardiovascular Exam Present: RRR - Routine Abdominal Exam Present: soft - Routine Extremities Exam Comments: no pedal edema. - Routine Neurological Exam Present: alert, oriented X3 - Urinary Catheter Management Indwelling Urethral Catheter Cath placed during this visit: yes, but has since been removed by the nurse Reason for continuing: Acute urinary retention Insertion date: 01/12/18 Insertion time: 14:44 Removal date: 01/12/18 Removal time: 08:42 Results - Labs CBC & Chem 7: 01/14/18 05:14 01/14/18 05:14 Microbiology 01/10/18 04:15 Blood - Peripheral Aerobic Blood Culture - Preliminary No growth in 4 days 01/10/18 04:15 Blood - Peripheral Anaerobic Blood Culture - Preliminary No growth in 4 days 01/10/18 04:10 Blood - Peripheral Aerobic Blood Culture - Preliminary No growth in 4 days 01/10/18 04:10 Blood - Peripheral Anaerobic Blood Culture - Preliminary No growth in 4 days - Procedures s/p Cystoscopy and right retrograde pyelogram and right ureteral stent placement. Assessment and Plan - Plan 1. Urinary Tract infection started on Rocephin follow Urinary Culture with Klebsiella 2. Hydronephrosis of right kidney as per urology specialist the progression of right hydroureteronephrosis of indeterminate etiology, chronic urinary retention managed with bethanechol, to continue present antibiotics, s/p Cystoscopy and right retrograde pyelogram and right ureteral stent placement. continue with pain control; will dc pain pump today and start on oral pain regimen. 3.Intractable chronic Abdominal pain now on medical Marijuana, narcotic dependence- pain control as noted above. 4. Nausea and vomit on Antiemetics/history of Gastroparesis 5. DM II on sliding scale 6. Anxiety disorder to continue Home medicines 7. GERD continue on PPI 8. Hypothyroidism resumed thyroid medications and check a TSH and a free T4 9. Chronic back pain continue on pain control 10. Hypertension resumed home medications 11. Rheumatoid arthritis and chronic pain resume home medications including Percocet and morphine as needed Obviously cannot restart her medical marijuana here 12. Interstitial cystitis and frequent urinary tract infections continue on Rocephin. Continue on Diflucan Continue on Bethanechol 13- C- diff colitis; continue on oral Vanco; will dc other antibiotics within the next 24 hrs. Continue on DVT prophylaxis with Lovenox Continue on GI prophylaxis with Protonix Discharge Planning: dc home with [facility]- likely on Wednesday/ wednesday if pain has been well controlled and diarrhea has improved.
[2018-01-15] MEDS: oxyCODONE/Acetaminophen 10/325 Tablet PO PRN ×3 (12:14→21:06)
[2018-01-15] MEDS: Magnesium Oxide 400 MG Tablet PO SCH ×2 (12:31→19:04)
[2018-01-16] MEDS: Ketorolac Inj 30 MG/ML (IVP) Vial IV.PUSH PRN ×4 (00:44→18:31)
[2018-01-16] MEDS: oxyCODONE/Acetaminophen 10/325 Tablet PO PRN ×4 (01:38→17:13)
[2018-01-16] MEDS: Sod Chloride 0.9% Inj 1,000 ML IV.CONT SCH ×4 (05:12→22:01)
[2018-01-16] MEDS: Levothyroxine 125 MCG Tablet PO SCH (05:36)
[2018-01-16] MEDS: Lactobacillus Acidophilus/L. Spores Tablet PO SCH ×2 (08:24→22:01)
[2018-01-16] MEDS: Gabapentin 400 MG Capsule PO SCH ×4 (08:25→22:00)
[2018-01-16] MEDS: ESTROGENS CONJUGATED 1.25 MG PO SCH (08:25)
[2018-01-16] MEDS: Sodium Chloride 1 GM Tablet PO SCH (08:26)
[2018-01-16] MEDS: Metoclopramide 10 MG Tablet PO SCH ×4 (08:26→22:01)
[2018-01-16] MEDS: Sodium Chloride 0.9% 2 ML Flush BID IV.FLUSH SCH ×2 (08:26→22:02)
--- NOTE | 2018-01-16 08:27 | P.PNIM ---
Subjective Interval history: f/u; hydronephrosis/ C-diff in no acute distress. still with abdominal pain and some diarrhea. no fever. d/w the RN and no other acute issues over night. Physical Exam Vital signs: Vital Signs 01/15/18 12:00 01/15/18 16:00 01/15/18 20:00 Temperature 97.6 F 98.0 F 98.1 F Pulse Rate 67 59 L 47 L Respiratory Rate 17 17 18 Blood Pressure 158/106 H 142/62 H 147/67 H Pulse Oximetry 94 L 95 96 01/16/18 00:00 01/16/18 04:00 Temperature 97.7 F 97.7 F Pulse Rate 61 65 Respiratory Rate 18 18 Blood Pressure 170/68 H 163/79 H Pulse Oximetry 95 96 Intake & Output 01/15/18 01/16/18 01/16/18 18:59 06:59 18:59 Intake Total 1650 / 1650 1340 / 1340 Output Total 750 / 750 1650 / 1650 Balance 900 / 900 -310 / -310 Weight 90.3 kg Intake: IV 1000 / 1000 1100 / 1100 NS Inj 1,000 ML @ 70 mls/hr IV. 1000 / 1000 1000 / 1000 CONT .[id number] MARTINEZ Rx#:[id number] Rocephin Inj 1,000 MG In NS Inj 100 / 100 100 ML @ 200 mls/hr IV.SIG Q24H MARTINEZ Rx#:[id number] Oral 650 / 650 240 / 240 Output: Urine 400 / 400 1650 / 1650 Urine Amount (Catheter) 350 / 350 Indwelling Urethral Catheter 350 / 350 Other: # Voids 5 Date of Last Bowel Movement 01/15/18 01/16/18 # Bowel Movements 2 6 - Constitutional no acute distress - Routine Respiratory Exam Present: CTA bilaterally - Routine Cardiovascular Exam Present: RRR - Routine Abdominal Exam Present: soft - Routine Extremities Exam Comments: no pedal edema. - Routine Neurological Exam Present: alert, oriented X3 - Urinary Catheter Management Indwelling Urethral Catheter Cath placed during this visit: yes, but has since been removed by the nurse Reason for continuing: Acute urinary retention Insertion date: 01/12/18 Insertion time: 14:44 Removal date: 01/12/18 Removal time: 08:42 Results - Labs CBC & Chem 7: 01/14/18 05:14 01/14/18 05:14 Microbiology 01/10/18 04:15 Blood - Peripheral Aerobic Blood Culture - Final No growth in 5 days 01/10/18 04:15 Blood - Peripheral Anaerobic Blood Culture - Final No growth in 5 days 01/10/18 04:10 Blood - Peripheral Aerobic Blood Culture - Final No growth in 5 days 01/10/18 04:10 Blood - Peripheral Anaerobic Blood Culture - Final No growth in 5 days - Procedures s/p Cystoscopy and right retrograde pyelogram and right ureteral stent placement. Assessment and Plan - Plan 1. Urinary Tract infection - Urinary Culture with Klebsiella- treated with antibiotic. 2. Hydronephrosis of right kidney as per urology specialist the progression of right hydroureteronephrosis of indeterminate etiology, chronic urinary retention managed with bethanechol, to continue present antibiotics, s/p Cystoscopy and right retrograde pyelogram and right ureteral stent placement. continue with pain control- dc mendez cath. 3.Intractable chronic Abdominal pain now on medical Marijuana, narcotic dependence 4. Nausea and vomit on Antiemetics/history of Gastroparesis 5. DM II on sliding scale 6. Anxiety disorder to continue Home medicines 7. GERD continue on PPI 8. Hypothyroidism resumed thyroid medications and check a TSH and a free T4 9. Chronic back pain continue on Percocet and morphine as needed for pain 10. Hypertension resume home medications 11. Rheumatoid arthritis and chronic pain resume home medications including Percocet and morphine as needed Obviously cannot restart her medical marijuana here 12. Interstitial cystitis and frequent urinary tract infections ; treated with Rocephin. Continue on Diflucan Continue on Bethanechol 13- C- diff colitis; continue on oral Vanco Continue on DVT prophylaxis with Lovenox Continue on GI prophylaxis with Protonix Discharge Planning: dc home with [facility]- within the next 24-48 hrs when pain has been well controlled and diarrhea has improved.
[2018-01-16] MEDS: Sucralfate 1 GM Tablet PO SCH ×4 (08:38→22:01)
[2018-01-16] MEDS: PENTOSAN POLYSULFATE SODIUM 100 MG PO SCH ×3 (08:39→18:35)
[2018-01-16 12:18] LABS: Calcium 8.5 mg/dL (8.5-10.1); Carbon Dioxide 28.6 meq/L (21.0-32.0); Potassium 3.9 meq/L (3.5-5.1)
[2018-01-16] MEDS: Magnesium Oxide 400 MG Tablet PO SCH ×2 (12:40→17:16)
[2018-01-17] MEDS: Ketorolac Inj 30 MG/ML (IVP) Vial IV.PUSH PRN ×2 (00:56→06:46)
[2018-01-17] MEDS: Sod Chloride 0.9% Inj 1,000 ML IV.CONT SCH ×3 (01:04→10:44)
[2018-01-17] MEDS: HYDROmorphone PF Inj 1 MG/ML Ampul IV.PUSH PRN (04:01)
[2018-01-17] MEDS: Levothyroxine 125 MCG Tablet PO SCH (05:25)
--- NOTE | 2018-01-17 08:40 | P.PNIM ---
Subjective Interval history: f/u; hydronephrosis/ c- diff colitis in no acute distress. looks and feels much better today. pain is better. diarrhea is improving and now BM is getting formed. no fever. wants to go home today. Physical Exam Vital signs: Vital Signs 01/16/18 12:00 01/16/18 16:00 01/16/18 20:00 Temperature 97.6 F 97.1 F L 98.1 F Pulse Rate 70 54 L 47 L Respiratory Rate 16 15 18 Blood Pressure 152/88 H 155/69 H 140/63 Pulse Oximetry 94 L 94 L 94 L 01/17/18 00:00 Temperature 98 F Pulse Rate 70 Respiratory Rate 20 Blood Pressure 171/79 H Pulse Oximetry 97 Intake & Output 01/16/18 01/17/18 01/17/18 18:59 06:59 18:59 Intake Total 2000 / 2000 320 / 320 Output Total 950 / 950 Balance 1050 / 1050 320 / 320 Weight 87.9 kg Intake: IV 1000 / 1000 NS Inj 1,000 ML @ 70 mls/hr IV. 1000 / 1000 CONT .[id number] MARTINEZ Rx#:[id number] Oral 1000 / 1000 320 / 320 Output: Urine 950 / 950 Other: # Voids 6 Date of Last Bowel Movement 01/16/18 # Bowel Movements 4 6 - Constitutional no acute distress - Routine Respiratory Exam Present: CTA bilaterally - Routine Cardiovascular Exam Present: RRR - Routine Abdominal Exam Present: soft - Routine Extremities Exam Comments: no pedal edema. - Routine Neurological Exam Present: alert, oriented X3 - Urinary Catheter Management Indwelling Urethral Catheter Cath placed during this visit: yes, but has since been removed by the nurse Reason for continuing: Acute urinary retention Insertion date: 01/12/18 Insertion time: 14:44 Removal date: 01/12/18 Removal time: 08:42 Results - Labs CBC & Chem 7: 01/14/18 05:14 01/16/18 11:29 Laboratory Results - last 24 hr 01/16/18 11:29 Sodium 143 Potassium 3.9 Chloride 108 H Carbon Dioxide 28.6 Anion Gap 6 BUN 8 Creatinine 0.84 Estimated GFR 69 L Random Glucose 96 Calcium 8.5 - Procedures s/p Cystoscopy and right retrograde pyelogram and right ureteral stent placement. Assessment and Plan - Plan 1. Urinary Tract infection - Urinary Culture with Klebsiella- treated with antibiotic. 2. Hydronephrosis of right kidney as per urology specialist the progression of right hydroureteronephrosis of indeterminate etiology, chronic urinary retention managed with bethanechol, to continue present antibiotics, s/p Cystoscopy and right retrograde pyelogram and right ureteral stent placement. continue with pain control- f/u with Urology as outpatient. 3.Intractable chronic Abdominal pain now on medical Marijuana, narcotic dependence 4. Nausea and vomit on Antiemetics/history of Gastroparesis 5. DM II on sliding scale 6. Anxiety disorder to continue Home medicines 7. GERD continue on PPI 8. Hypothyroidism resumed thyroid medications and check a TSH and a free T4 9. Chronic back pain continue on Percocet and morphine as needed for pain 10. Hypertension resumed home medications 11. Rheumatoid arthritis and chronic pain resume home medications including Percocet and morphine as needed Obviously cannot restart her medical marijuana here 12. Interstitial cystitis and frequent urinary tract infections ; treated with Rocephin. Continue on Bethanechol 13- C- diff colitis;improving- continue on oral Vanco Continue on DVT prophylaxis with Lovenox Continue on GI prophylaxis with Protonix Discharge Planning: dc home with [facility] today. see med list. f/u; pcp and Urology. d/w the patient.
--- NOTE | 2018-01-17 08:43 | P.DS ---
Date of admission: 01/10/18 06:44 Primary care physician: Chance Banda MD Brief History from admission: Patient is a 62-year-old female who presented to the [facility] emergency department after being awoken from sound sleep at 2 AM with the right- sided abdominal pain. Patient reports that the pain is sharp and aching in criteria. Today she also reported that she has been constant onset and was 10 out of 10 in severity. Patient states she has been having some nausea and but no vomiting with this. She also reports that she last moved her bowels yesterday morning. She then reported that it was a small bowel movement. Has had some problems with constipation. However she is been taking some MiraLAX for this with help. The patient reports past medical history of a bowel obstruction and urinary retention. Has previously had to have a Valadez catheter in the past. Has chronically taking a bethanechol. She states that she is also in pain management for chronic abdominal pain recently placed on medical marijuana. She states that she is being weaned off her opioid medications. But this is not started yet. Has had some chills. Denies any cough or congestion or neck pain or chest pain or shortness of breath or diarrhea or new or worsening urinary symptoms. Her neurological symptoms. Also has a yeast infection she states. And we will treat that. Family history is positive for hypertension MIs urinary tract issues Patient has been admitted started on Rocephin 1 g IV daily. We will give pain medications and pain control. And will consult urology. DS: Medications - Discharge Medications Prescriptions: acidophilus-sporogenes [Acidophilus Ex Str (L. sporog)] 1 tab PO BID 7 Days #14 tab vancomycin 125 mg PO QID 7 Days each DS: Summary Hospital Course: 1. Urinary Tract infection - Urinary Culture with Klebsiella- treated with antibiotic. 2. Hydronephrosis of right kidney as per urology specialist the progression of right hydroureteronephrosis of indeterminate etiology, chronic urinary retention managed with bethanechol, to continue present antibiotics, s/p Cystoscopy and right retrograde pyelogram and right ureteral stent placement. continue with pain control- f/u with Urology as outpatient. 3.Intractable chronic Abdominal pain now on medical Marijuana, narcotic dependence 4. Nausea and vomit on Antiemetics/history of Gastroparesis 5. DM II on sliding scale 6. Anxiety disorder to continue Home medicines 7. GERD continue on PPI 8. Hypothyroidism resumed thyroid medications and check a TSH and a free T4 9. Chronic back pain continue on Percocet and morphine as needed for pain 10. Hypertension resumed home medications 11. Rheumatoid arthritis and chronic pain resume home medications including Percocet and morphine as needed Obviously cannot restart her medical marijuana here 12. Interstitial cystitis and frequent urinary tract infections ; treated with Rocephin. Continue on Bethanechol 13- C- diff colitis; continue on oral Vanco - Time Spent with Patient Total time spent providing and/or coordinating discharge services: Less than 30 minutes - Quality: VTE Deep Vein Thrombosis/Pulmonary Embolism Present on Admission: No Exam Vital signs: Vital Signs 01/16/18 12:00 01/16/18 16:00 01/16/18 20:00 Temperature 97.6 F 97.1 F L 98.1 F Pulse Rate 70 54 L 47 L Respiratory Rate 16 15 18 Blood Pressure 152/88 H 155/69 H 140/63 Pulse Oximetry 94 L 94 L 94 L 01/17/18 00:00 Temperature 98 F Pulse Rate 70 Respiratory Rate 20 Blood Pressure 171/79 H Pulse Oximetry 97 Intake & Output 01/16/18 01/17/18 01/17/18 18:59 06:59 18:59 Intake Total 2000 / 2000 320 / 320 Output Total 950 / 950 Balance 1050 / 1050 320 / 320 Weight 87.9 kg Intake: IV 1000 / 1000 NS Inj 1,000 ML @ 70 mls/hr IV. 1000 / 1000 CONT .[id number] MARTINEZ Rx#:[id number] Oral 1000 / 1000 320 / 320 Output: Urine 950 / 950 Other: # Voids 6 Date of Last Bowel Movement 01/16/18 # Bowel Movements 4 6 - Constitutional no acute distress - Routine Respiratory Exam Present: CTA bilaterally - Routine Cardiovascular Exam Present: RRR - Routine Abdominal Exam Present: soft - Routine Extremities Exam Comments: no pedal edema. - Routine Neurological Exam Present: alert, oriented X3 Results Procedures completed during hospitalization: s/p Cystoscopy and right retrograde pyelogram and right ureteral stent placement. Labs on day of discharge: Labs from last 24 hours 01/16/18 11:29 Sodium 143 Potassium 3.9 Chloride 108 H Carbon Dioxide 28.6 Anion Gap 6 BUN 8 Creatinine 0.84 Estimated GFR 69 L Random Glucose 96 Calcium 8.5 - Impressions ITS Impressions Chest X-Ray 01/10/18 04:15 CONCLUSION: Negative examination. Abdomen/Pelvis CT 01/10/18 05:02 CONCLUSION: Interval worsening of right-sided hydronephrosis and hydroureter Abdomen X-Ray 01/13/18 03:57 CONCLUSION: Nonspecific, benign abdomen appearance Discharge Plan - Discharge Disposition Patient Disposition: 06 Disch W/Home Health Service - Discharge Condition Condition: Fair - Physicians Team Primary Care Provider: Chance Banda Attending Provider: Blanca Escoto Other Providers: Mann Chapman MD
[2018-01-17 08:58] VITALS: RESP 18
[2018-01-17] MEDS: Sucralfate 1 GM Tablet PO SCH ×2 (09:18→12:05)
[2018-01-17] MEDS: Sodium Chloride 1 GM Tablet PO SCH (09:20)
[2018-01-17] MEDS: Lactobacillus Acidophilus/L. Spores Tablet PO SCH (09:20)
[2018-01-17] MEDS: Gabapentin 400 MG Capsule PO SCH ×2 (09:21→12:05)
[2018-01-17] MEDS: Metoclopramide 10 MG Tablet PO SCH ×2 (09:21→12:05)
[2018-01-17] MEDS: PENTOSAN POLYSULFATE SODIUM 100 MG PO SCH ×2 (09:22→12:07)
[2018-01-17] MEDS: ESTROGENS CONJUGATED 1.25 MG PO SCH (09:22)
[2018-01-17] MEDS: Sodium Chloride 0.9% 2 ML Flush BID IV.FLUSH SCH (09:23)
[2018-01-17] MEDS: Magnesium Oxide 400 MG Tablet PO SCH (10:45)
[2018-01-17 13:02] VITALS: BP 162/69; PULSE 55; TEMP 97.9; O2SAT 94
== END 2018-01-17 14:13 | disposition home health service (06) ==
LOC: NEDA 03:42 → NEPC 03:42 → NEDA 07:51 → N06 07:55 → N07 01-11 13:52
PROVIDERS: ADMIT Internal Medicine; ATTEND Internal Medicine